=== PATIENT | female | born 1970 | race Caucasian/White ===

== ENCOUNTER 2016-10-10 15:58 | Emergency (ER) | payer SELFPAY ==
[2016-10-10 16:53] VITALS: BP 152/87
--- NOTE | 2016-10-10 16:57 | ER Document Report ---
ED Medical Screen (RME) - General Stated Complaint: RIGHT FOOT PAIN Time seen by provider: 16:55 Mode of Arrival: Ambulatory Information source: Patient Notes: 46-year-old female with an ingrown right great toenail tibial side and it is splitting the skin the past 2 days. She is a type II diabetic. No erythema or pus noted. I have greeted and performed a rapid initial assessment of this patient. A comprehensive ED assessment, evaluation of the patient, analysis of test results , and completion of the medical decision making process will be conducted by additional ED providers. TRAVEL OUTSIDE OF THE [place] IN LAST 30 DAYS: No - Related Data Allergies/Adverse Reactions: No Known Allergies Allergy (Verified 08/06/15 12:40) Past Medical History - Social History Family history: CAD, DM, Malignancy - Past Medical History Cardiac Medical History: Reports: Hx Atrial Fibrillation - Atrial flutter on 03/2013, Hx Congestive Heart Failure - Cardiomyopathy, Hx Hypertension Denies: Hx DVT Pulmonary Medical History: Reports: Hx Bronchitis Endocrine Medical History: Reports: Hx Diabetes Mellitus Type 2 Musculoskeltal Medical History: Reports Hx Musculoskeletal Trauma Skin Medical History: Reports Hx Cellulitis Traumatic Medical History: Reports: Hx Fractures - finger Past Surgical History: Reports: Hx Appendectomy, Hx Cardiac Catheterization - 3 years ago, Hx Tonsillectomy - Immunizations Immunizations up to date: No Hx Diphtheria, Pertussis, Tetanus Vaccination: No Physical Exam - Vital signs Vitals: Temp Pulse Resp BP Pulse Ox 98.2 F 58 L 20 152/87 H 98 10/10/16 16:52 10/10/16 16:52 10/10/16 16:52 10/10/16 16:52 10/10/16 16:52 Course - Vital Signs Vital signs: Temp Pulse Resp BP Pulse Ox 98.2 F 58 L 20 152/87 H 98 10/10/16 16:52 10/10/16 16:52 10/10/16 16:52 10/10/16 16:52 10/10/16 16:52
== END 2016-10-10 20:00 | disposition left against medical advice (07) ==
LOC: ER 15:58
DX: L60.0 Ingrowing nail (principal); E11.9 Type 2 diabetes mellitus without complications; I10 Essential (primary) hypertension; Z53.20 Procedure and treatment not carried out because of patient's decision for unspecified reasons
CPT/HCPCS: 99281

== ENCOUNTER 2017-01-23 06:03 | Inpatient (IN) | payer SELFPAY ==
[2017-01-23] MEDS ORDERED: ASPIRIN 81 MG TABLET, CHEWABLE PO ONE (06:16)
[2017-01-23 07:59] LABS: ABSOLUTE BASOPHILS # (AUTO) 0.1 10^3/uL (0.0-0.2); ABSOLUTE EOSINOPHILS # (AUTO) 0.2 10^3/uL (0.0-0.6); ABSOLUTE LYMPHOCYTES (AUTO) 3.9 10^3/uL (0.5-4.7); ABSOLUTE MONOCYTES (AUTO) 1.1 10^3/uL (0.1-1.4); ABSOLUTE NEUT (AUTO) 10.4 10^3/uL (1.7-8.2); BASOPHILS % (AUTO) 0.9 % (0-2); EOSINOPHILS % (AUTO) 1.4 % (0-6); HEMATOCRIT 40.7 % (36.0-47.0); HEMOGLOBIN 13.2 g/dL (12.0-15.5); HGB HCT DIFFERENCE -1.1; LYMPHOCYTES % (AUTO) 24.7 % (13-45); MEAN CORPUSCULAR HEMOGLOBIN 27.2 pg (27.0-33.4); MEAN CORPUSCULAR HGB CONC 32.4 g/dL (32.0-36.0); MEAN CORPUSCULAR VOLUME 84 fl (80-97); MONOCYTES % (AUTO) 6.9 % (3-13); RED BLOOD COUNT 4.84 10^6/uL (3.72-5.28); RED CELL DISTRIBUTION WIDTH 15.2 % (11.5-14.0); SEGMENTED NEUTROPHILS % (AUTO) 66.1 % (42-78); WHITE BLOOD COUNT 15.6 10^3/uL (4.0-10.5)
[2017-01-23 08:12] LABS: ALANINE AMINOTRANSFERASE 28 U/L (9-52); ALKALINE PHOSPHATASE 53 U/L (38-126); ANION GAP 11 (5-19); ASPARTATE AMINO TRANSFERASE 24 U/L (14-36); BILIRUBIN,DIRECT 0.4 mg/dL (0.0-0.4); BILIRUBIN,TOTAL 0.5 mg/dL (0.2-1.3); BLOOD UREA NITROGEN 11 mg/dL (7-20); CALCIUM 9.6 mg/dL (8.4-10.2); CARBON DIOXIDE 25 mmol/L (22-30); CHLORIDE 101 mmol/L (98-107); CREATINE KINASE 130 U/L (30-135); CREATININE RESULT 0.76 mg/dL (0.52-1.25); GLUCOSE 176 mg/dL (75-110); POTASSIUM 5.5 mmol/L (3.6-5.0); SODIUM 137.3 mmol/L (137-145); TOTAL PROTEIN 8.2 g/dL (6.3-8.2)
[2017-01-23 08:24] LABS: CREATINE KINASE MB 2.24 ng/mL (<4.55); TROPONIN I 0.024 ng/mL
--- NOTE | 2017-01-23 08:41 | RADIOLOGY REPORT (SQ) ---
EXAM DESCRIPTION: CHEST SINGLE VIEW COMPLETED DATE/TIME: 01/23/2017 8:27 am REASON FOR STUDY: chest pain COMPARISON: 07/24/2016 EXAM PARAMETERS: NUMBER OF VIEWS: One view. TECHNIQUE: Single frontal radiographic view of the chest acquired. RADIATION DOSE: NA LIMITATIONS: Poor inspiration. FINDINGS: LUNGS AND PLEURA: No opacities, masses or pneumothorax. No pleural effusion. MEDIASTINUM AND HILAR STRUCTURES: No masses. Contour normal. HEART AND VASCULAR STRUCTURES: Mild cardiomegaly. No evidence of failure. BONES: No acute findings. HARDWARE: None in the chest. OTHER: No other significant finding. IMPRESSION: Mild cardiomegaly without evidence of acute cardiopulmonary disease. TECHNICAL DOCUMENTATION: JOB ID: [id number]
--- NOTE | 2017-01-23 09:33 | RADIOLOGY REPORT (SQ) ---
EXAM DESCRIPTION: CTA CHEST COMPLETED DATE/TIME: 01/23/2017 8:48 am REASON FOR STUDY: chest pain afib COMPARISON: 07/14/2016 TECHNIQUE: CT scan of the chest performed using helical scanning technique with dynamic intravenous contrast injection. Images reviewed with lung, soft tissue and bone windows. Reconstructed coronal and sagittal MPR images reviewed. Additional 3 dimensional post-processing performed to develop Maximal Intensity Projection images (IL P). All images stored on PACS. All CT scanners at this facility use dose modulation, iterative reconstruction, and/or weight based d osing when appropriate to reduce radiation dose to as low as reasonably achievable (ALARA). [facility]: Dose Right [facility]: CareDose [facility]: Dose Right [facility]: Teradose 4D [facility]: FamilyApp CONTRAST TYPE AND DOSE: contrast/concentration: Isovue 370.00 mg/ml; Total Contrast Delivered: 71.0 ml; Total Saline Delivered: 70.0 ml RENAL FUNCTION: Creatinine 0.76 RADIATION DOSE: Up-to-date CT equipment and radiation dose reduction techniques were employed. CTDIv ol: 24.8 - 40.6 mGy. DLP: 1515 mGy-cm. . LIMITATIONS: None. FINDINGS: LUNGS AND PLEURA: Interval improvement in previously described ground-glass density with m inimal residual which may represent chronic change. Minimal recurrent edema would be additional cons ideration. No new areas of abnormal density. AORTA AND GREAT VESSELS: No aneurysm or dissection. HEART: No pericardial effusion. PULMONARY ARTERIES: No emboli visualized in the main pulmonary arteries or the segmental branches. HILAR AND MEDIASTINAL STRUCTURES: No identified masses or abnormal nodes. HARDWARE: None in the chest. UPPER ABDOMEN: Gallbladder appears distended but is otherwise unremarkable. THYROID AND OTHER SOFT TISSUES: No masses. No adenopathy. BONES: No acute or significant finding. 3D MIPS: Confirm above findings. OTHER: No other significant finding. IMPRESSION: 1. No evidence of pulmonary embolus. 2. Minimal ground-glass density in the lungs improved from the prior study. This could represent mi nimal pulmonary edema or chronic change. 3. Gallbladder appears distended but is otherwise unremarkable. TECHNICAL DOCUMENTATION: JOB ID: [id number] Quality ID # [id number]: Final reports with documentation of one or more dose reduction techniques (e.g., Au tomated exposure control, adjustment of the mA and/or kV according to patient size, use of iterative reconstruction technique) 2010 [employer]- All Rights Reserved
--- NOTE | 2017-01-23 10:23 | EKG REPORT ---
SEVERITY:- ABNORMAL ECG - ATRIAL FIBRILLATION CONSIDER ANTERIOR INFARCT NONSPECIFIC T ABNORMALITIES, LATERAL LEADS PROLONGED QT INTERVAL : Confirmed by: Flores Scanlon MD 23-Jan-2017 10:22:25
--- NOTE | 2017-01-23 10:40 | ER Document Report ---
ED General - General Chief Complaint: Chest Pain Stated Complaint: CHEST PAIN Time Seen by Provider: 01/23/17 06:12 Mode of Arrival: Ambulatory Information source: Patient Notes: 46-year-old female history of A. fib presents with complaints of midsternal chest tightness. Patient notes symptoms started today. Patient had similar episode 5 months ago which she thought was related to her gallbladder. Patient denies any any other concerns TRAVEL OUTSIDE OF THE [place] IN LAST 30 DAYS: No - HPI Onset: Just prior to arrival Onset/Duration: Sudden Quality of pain: Pressure Severity: Mild Pain Level: 1 Associated symptoms: Chest pain, Nonproductive cough, Shortness of breath Exacerbated by: Denies Relieved by: Denies Similar symptoms previously: Yes Recently seen / treated by doctor: Yes - Related Data Allergies/Adverse Reactions: No Known Allergies Allergy (Verified 10/10/16 16:57) Past Medical History - Social History Smoking Status: Never Smoker Cigarette use (# per day): No Chew tobacco use (# tins/day): No Smoking Education Provided: No Family History: Reviewed & Not Pertinent, CAD, DM, Hyperlipidemia, Hypertension , Malignancy Patient has suicidal ideation: No Patient has homicidal ideation: No - Past Medical History Cardiac Medical History: Reports: Hx Atrial Fibrillation - Atrial flutter on 03/2013, Hx Congestive Heart Failure - Cardiomyopathy, Hx Hypertension Denies: Hx DVT Pulmonary Medical History: Reports: Hx Bronchitis Endocrine Medical History: Reports: Hx Diabetes Mellitus Type 2 Renal/ Medical History: Denies: Hx Peritoneal Dialysis Musculoskeltal Medical History: Reports Hx Musculoskeletal Trauma Skin Medical History: Reports Hx Cellulitis Traumatic Medical History: Reports: Hx Fractures - finger Past Surgical History: Reports: Hx Appendectomy, Hx Cardiac Catheterization - 3 years ago, Hx Tonsillectomy - Immunizations Immunizations up to date: No Hx Diphtheria, Pertussis, Tetanus Vaccination: No Review of Systems - Review of Systems Notes: REVIEW OF SYSTEMS: CONSTITUTIONAL : Denies fever, chills, or sweats. Denies recent illness. EENT: Denies eye, ear, throat, or mouth pain or symptoms. Denies nasal or sinus congestion or discharge. Denies throat, tongue, or mouth swelling or difficulty swallowing. CARDIOVASCULAR: Admits to chest pain RESPIRATORY: Admits to shortness of breath GASTROINTESTINAL: Denies abdominal pain or distention. Denies nausea, vomiting , or diarrhea. Denies blood in vomitus, stools, or per rectum. Denies black, tarry stools. Denies constipation. GENITOURINARY: Denies difficulty urinating, painful urination, burning, frequency, blood in urine, or discharge. FEMALE GENITOURINARY: Denies vaginal bleeding, heavy or abnormal periods, irregular periods. Denies vaginal discharge or odor. MUSCULOSKELETAL: Denies back or neck pain or stiffness. Denies joint pain or swelling. SKIN: Denies rash, lesions or sores. HEMATOLOGIC : Denies easy bruising or bleeding. LYMPHATIC: Denies swollen, enlarged glands. NEUROLOGICAL: Denies confusion or altered mental status. Denies passing out or loss of consciousness. Denies dizziness or lightheadedness. Denies headache. Denies weakness or paralysis or loss of use of either side. Denies problems with gait or speech. Denies sensory loss, numbness, or tingling. Denies seizures. PSYCHIATRIC: Denies anxiety or stress. Denies depression, suicidal ideation, or homicidal ideation. ALL OTHER SYSTEMS REVIEWED AND NEGATIVE. PHYSICAL EXAMINATION: GENERAL: Well-appearing, well-nourished and in no acute distress. HEAD: Atraumatic, normocephalic. EYES: Pupils equal round and reactive to light, extraocular movements intact, conjunctiva are normal. ENT: Nares patent, oropharynx clear without exudates. Moist mucous membranes. NECK: Normal range of motion, supple without lymphadenopathy LUNGS: Breath sounds clear to auscultation bilaterally and equal. No wheezes rales or rhonchi. HEART: irregular rate and rhythm without murmurs ABDOMEN: Soft, nontender, nondistended abdomen. No guarding, no rebound. No masses appreciated. Female : deferred Musculoskeletal: Normal range of motion, no pitting or edema. No cyanosis. NEUROLOGICAL: Cranial nerves grossly intact. Normal speech, normal gait. Normal sensory, motor exams PSYCH: Normal mood, normal affect. SKIN: Warm, Dry, normal turgor, no rashes or lesions noted. Dictation was performed using [employer] voice recognition software Physical Exam - Vital signs Vitals: Resp BP Pulse Ox 18 94/72 L 98 01/23/17 06:11 01/23/17 06:11 01/23/17 06:11 Course - Re-evaluation Re-evalutation: 01/23/17 10:40 Patient was noted to have elevated white count, CT of the chest noted no significant abnormality, she is in A. fib well controlled. CT did note a distended gallbladder ultrasound is pending 01/23/17 12:33 gallstones + acuna sign 01/23/17 14:25 Dr. Rose was consulted to evaluate patient for acute cholecystitis, he agrees patient does have a tender abdomen and will take the patient to the operating room - Vital Signs Vital signs: Temp Pulse Resp BP Pulse Ox 97.7 F 87 25 H 122/81 99 01/23/17 06:27 01/23/17 06:27 01/23/17 13:01 01/23/17 12:48 01/23/17 13:01 - Laboratory Result Diagrams: 01/23/17 07:46 01/23/17 07:46 Laboratory results interpreted by me: 01/23/17 01/23/17 07:46 07:46 WBC 15.6 H RDW 15.2 H Absolute Neutrophils 10.4 H Potassium 5.5 H Glucose 176 H - Diagnostic Test Radiology reviewed: Image reviewed, Reports reviewed - EKG Interpretation by Me EKG shows normal: Sinus rhythm, [place], Intervals, QRS Complexes Rhythm: A.Fib Discharge - Discharge Clinical Impression: History of congestive heart failure, Smoker Cholecystitis with cholelithiasis Qualifiers: Cholelithiasis location: gallbladder Cholecystitis acuity: acute Biliary obstruction: with biliary obstruction Qualified Code(s): K80.01 - Calculus of gallbladder with acute cholecystitis with obstruction Hypertension Qualifiers: Hypertension type: essential hypertension Qualified Code(s): I10 - Essential ( primary) hypertension Atrial fibrillation Qualifiers: Atrial fibrillation type: chronic Qualified Code(s): I48.2 - Chronic atrial fibrillation Condition: Stable Disposition: ADMITTED OBSERVATION Admitting Provider: Surgicalist Unit Admitted: Surgical Floor
--- NOTE | 2017-01-23 12:27 | RADIOLOGY REPORT (SQ) ---
EXAM DESCRIPTION: U/S ABDOMEN LIMITED W/O DOP COMPLETED DATE/TIME: 01/23/2017 12:16 pm REASON FOR STUDY: RUQ pain COMPARISON: None. TECHNIQUE: Dynamic and static grayscale images acquired of the right upper quadrant and recorded on PACS. Additional selected color Doppler and spectral images recorded. LIMITATIONS: Study limited due to acoustical interference from fat or from air in the bowel. FINDINGS: PANCREAS: Visualized pancreas and duct normal. Parts of pancreas poorly seen secondary to acoustical interference from fat or from air in the bowel. LIVER: No masses. Echotexture normal. LIVER VASCULATURE: Normal directional flow of the main portal vein and hepatic veins. GALLBLADDER: Gallstone(s). No pericholecystic fluid. No wall thickening. ULTRASOUND-DETECTED ROSE'S SIGN: Positive. INTRAHEPATIC DUCTS AND COMMON DUCT: CBD and intrahepatic ducts normal caliber. No filling defects. INFERIOR VENA CAVA: Normal flow. AORTA: Poorly visualized. RIGHT KIDNEY: Normal size. Normal echogenicity. No solid or suspicious masses. No hydronephrosis. No calcifications. PERITONEAL CAVITY AND RIGHT PLEURAL SPACE: No ascites or effusions. OTHER: No other significant finding. IMPRESSION: GALLSTONES. REPORTED POSITIVE SONOGRAPHIC ROSE SIGN. NO OTHER SIGNIFICANT FINDINGS. TECHNICAL DOCUMENTATION: JOB ID: [id number] [employer]- All Rights Reserved
[2017-01-23] MEDS ORDERED: NORMAL SALINE 1000 ML 1,000 ML IV ONE (12:33)
[2017-01-23] MEDS ORDERED: NORMAL SALINE 1000 ML 1,000 ML IV PRN (13:38)
--- NOTE | 2017-01-23 13:48 | PDOC H&P ---
History of Present Illness Admission Date/PCP: [facility] Patient complains of: Chest pain History of Present Illness: MAXIMILIANO XAVIER is a 46 year old female brought by ground rescue to the emergency department [facility] because of acute onset chest pain. She had a similar episode approximately 5 months ago, evaluated in [facility] emergency department, told she had fluid on her lungs and was sent home. Today in the emergency department she was evaluated with a chest x-ray as well as a CTA of the chest without any evidence of cardio pulmonary vascular acute injury. She was found to have gallstones on the CAT scan, and a follow-up ultrasound was obtained which showed cholelithiasis. Because of persisting pain in her epigastric area, leukocytosis and tenderness, surgery was consulted and she was advised admission for definitive management. Patient denies knowing of previous gallstones, denies family history of gallbladder disease. Past Medical History Cardiac Medical History: Reports: Atrial Fibrillation - Atrial flutter on 2012, Congestive Heart Failure - Cardiomyopathy, Hypertension Denies: DVT Pulmonary Medical History: Reports: Bronchitis Endocrine Medical History: Reports: Diabetes Mellitus Type 2 Skin History Note: Morbid obesity Past Surgical History Past Surgical History: Reports: Appendectomy, Cardiac Catheterization - 3 years ago, Tonsillectomy Social History Smoking Status: Current Every Day Smoker - [place] Family History Family History: Reviewed & Not Pertinent, CAD, DM, Hyperlipidemia, Hypertension , Malignancy Parental Family History Reviewed: Yes Children Family History Reviewed: Yes Sibling(s) Family History Reviewed.: Yes Medication/Allergy Home Medications: Furosemide [Lasix 20 mg Tablet] 30 mg PO QHS 04/14/13 Lisinopril 20 mg PO DAILY 04/14/13 Metoprolol Succinate [Toprol XL 25 mg Tablet] 1.5 tab PO BID 04/14/13 Metformin HCl [Glucophage 500 mg Tablet] 500 mg PO BIDACBS #60 tab 01/23/15 Naproxen 500 mg PO BID #30 tablet 05/14/15 Oxycodone HCl/Acetaminophen [Percocet 5-325 mg Tablet] 1 - 2 tab PO ASDIR PRN # 15 tablet 09/07/15 Sulfamethoxazole/Trimethoprim [Sulfamethoxazole-Tmp Ds Tablet] 1 each PO BID # 14 tablet 09/07/15 Allergies/Adverse Reactions: No Known Allergies Allergy (Verified 10/10/16 16:57) Review of Systems Constitutional: ABSENT: chills, fever(s), headache(s), weight gain, weight loss Eyes: ABSENT: visual disturbances Ears: ABSENT: hearing changes Cardiovascular: PRESENT: as per HPI Gastrointestinal: PRESENT: other - Clinical Musculoskeletal: ABSENT: joint swelling Neurological: ABSENT: abnormal gait, abnormal speech, confusion, dizziness, focal weakness, syncope Psychiatric: ABSENT: anxiety, depression, homidical ideation, suicidal ideation Physical Exam Vital Signs: Temp Pulse Resp BP Pulse Ox 97.7 F 87 25 H 122/81 99 01/23/17 06:27 01/23/17 06:27 01/23/17 13:01 01/23/17 12:48 01/23/17 13:01 Intake & Output 01/22/17 01/23/17 01/24/17 06:59 06:59 06:59 Weight 148 kg General appearance: PRESENT: no acute distress Head exam: PRESENT: normocephalic Eye exam: PRESENT: EOMI Ear exam: PRESENT: normal external ear exam Mouth exam: PRESENT: moist Neck exam: PRESENT: full ROM Respiratory exam: PRESENT: wheezes Cardiovascular exam: PRESENT: RRR Pulses: PRESENT: normal carotid pulses, normal radial pulses GI/Abdominal exam: PRESENT: other - Well-healed scar; right upper quadrant tenderness to moderate palpation. Neurological exam: PRESENT: alert, altered, oriented to person, oriented to place Psychiatric exam: PRESENT: appropriate affect Skin exam: PRESENT: intact Results Laboratory Results: 01/23/17 07:46 01/23/17 07:46 01/23/17 01/23/17 07:46 07:46 WBC 15.6 H RBC 4.84 Hgb 13.2 Hct 40.7 MCV 84 MCH 27.2 MCHC 32.4 RDW 15.2 H Plt Count 298 Seg Neutrophils % 66.1 Lymphocytes % 24.7 Monocytes % 6.9 Eosinophils % 1.4 Basophils % 0.9 Absolute Neutrophils 10.4 H Absolute Lymphocytes 3.9 Absolute Monocytes 1.1 Absolute Eosinophils 0.2 Absolute Basophils 0.1 Sodium 137.3 Potassium 5.5 H Chloride 101 Carbon Dioxide 25 Anion Gap 11 BUN 11 Creatinine 0.76 Est GFR ( Amer) > 60 Est GFR (Non-Af Amer) > 60 Glucose 176 H Calcium 9.6 Total Bilirubin 0.5 AST 24 ALT 28 Alkaline Phosphatase 53 Total Protein 8.2 Albumin 4.0 01/23/17 01/23/17 01/23/17 07:46 07:46 10:15 Creatine Kinase 130 CK-MB (CK-2) 2.24 Troponin I 0.024 0.018 Impressions: Chest X-Ray 01/23/17 06:16 IMPRESSION: Mild cardiomegaly without evidence of acute cardiopulmonary disease. Chest/Abdomen CTA 01/23/17 07:26 IMPRESSION: 1. No evidence of pulmonary embolus. 2. Minimal ground-glass density in the lungs improved from the prior study. This could represent minimal pulmonary edema or chronic change. 3. Gallbladder appears distended but is otherwise unremarkable. Abdomen Ultrasound 01/23/17 09:39 IMPRESSION: GALLSTONES. REPORTED POSITIVE SONOGRAPHIC ROSE SIGN. NO OTHER SIGNIFICANT FINDINGS. Assessment & Plan - Diagnosis (1) Cholecystitis with cholelithiasis Is this a current diagnosis for this admission?: YesPlan: 1. Patient deserves admission, pain management, and definitive surgical intervention, laparoscopic possible open cholecystectomy. (2) History of congestive heart failure Is this a current diagnosis for this admission?: YesPlan: Patient has a history of congestive heart failure, with readmissions to also more hospital in [facility]. 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 Patient denies history of myocardial infarction. She has had medications which she receives to the community clinic. Stress test in the past. She has been intermittently compliant with her I have asked Dr. Dickens to consult on the patient, provide preoperative cardiac evaluation and potential clearance. Impression :the patient does not appear to be acute congestive heart failure. (3) Smoker Is this a current diagnosis for this admission?: Yes (4) Hypertension Is this a current diagnosis for this admission?: Yes - Time Time Spent: 50 to 70 Minutes Critical Time spent with patient: Less than 15 minutes Medications reviewed and adjusted accordingly: Yes Anticipated discharge: Home - Inpatient Certification Based on my medical assessment, after consideration of the patient's comorbidities, presenting symptoms, or acuity I expect that the services needed warrant INPATIENT care.: Yes I certify that my determination is in accordance with my understanding of Medicare's requirements for reasonable and necessary INPATIENT services [42 CFR 412.3e].: Yes Medical Necessity: Need For IV Fluids, Need for Pain Control, Need for IV Antibiotics, Need for Surgery
--- NOTE | 2017-01-23 18:41 | XCELERA REPORT ---
[address] [address] Transthoracic Echocardiogram Report Name: MAXIMILIANO XAVIER Age: 46 yrs Gender: Female : 1970 Patient Status: Inpatient Patient Location: \S\12\S\A Study Date: 01/23/2017 02:40 PM Height: 63 in Weight: 326 lb BSA: 2.4 m2 Procedure: A complete two-dimensional transthoracic echocardiogram was performed (2D, M-mode, spectral and color flow Doppler). The study was technically difficult with many images being suboptimal in quality. Reason For Study: chest pain Ordering Physician: DUSTIN SMITH Performed By: Js Goss Interpretation Summary The study was technically difficult with many images being suboptimal in quality. Left ventricular systolic function is moderate to severely reduced. The Ejection Fraction estimate is 30-35% The left ventricle is mildly dilated. LV diastolic function could not be adequately assessed due to atrial fibrilation. There is moderate to severe global hypokinesis of the left ventricle. The right ventricular systolic function is mildly reduced. The left atrium is moderately dilated. The right atrium is normal in size There is a mild amount of mitral regurgitation There is no mitral valve stenosis. There is no aortic valve stenosis No aortic regurgitation is present. There is a trace or physiologic amount of tricuspid regurgitation There is no tricuspid stenosis. The aortic root is not well visualized but is probably normal size. The inferior vena cava appeared normal and decreased > 50% with respiration (RAP 5-10 mmHg) There is no pericardial effusion. MMode/2D Measurements \T\ Calculations RVDd: 3.5 cm LVIDd: 5.8 cm FS: 16.2 % Ao root diam: 3.0 cm IVSd: 1.1 cm LVIDs: 4.9 cm EDV(Teich): 169.6 ml LVPWd: 1.1 cm ESV(Teich): 112.9 ml Ao root area: 7.2 cm2 EF(Teich): 33.4 % LA dimension: 4.7 cm Doppler Measurements \T\ Calculations MV E max maty: MV P1/2t max maty: Ao V2 max: LV V1 max P.1 cm/sec 96.6 cm/sec 118.3 cm/sec 1.7 mmHg MV P1/2t: 35.2 msec Ao max PG: LV V1 max: 5.6 mmHg 64.5 cm/sec MVA(P1/2t): 6.2 cm2 MV dec slope: 803.0 cm/sec2 TR max maty: RAP systole: 236.2 cm/sec 10.0 mmHg TR max P.3 mmHg RVSP(TR): 32.3 mmHg Left Ventricle The left ventricle is mildly dilated. Left ventricular systolic function is moderate to severely reduced. The Ejection Fraction estimate is 30-35%. LV diastolic function could not be adequately assessed due to atrial fibrilation. There is moderate to severe global hypokinesis of the left ventricle. Right Ventricle The right ventricle is grossly normal size. The right ventricular systolic function is mildly reduced. Atria The right atrium is normal in size. The left atrium is moderately dilated. Interarterial septum not well visualized and not well dopplered. Cannot comment on ASD/PFO presence. Mitral Valve The mitral valve is grossly normal. There is no mitral valve stenosis. There is a mild amount of mitral regurgitation. Aortic Valve The aortic valve is not well visualized secondary to technical limitations. There is no aortic valve stenosis. No aortic regurgitation is present. Tricuspid Valve The tricuspid valve is not well visualized secondary to technical limitations. There is no tricuspid stenosis. There is a trace or physiologic amount of tricuspid regurgitation. Pulmonic Valve The pulmonic valve is not well visualized. Great Vessels The aortic root is not well visualized but is probably normal size. The inferior vena cava appeared normal and decreased > 50% with respiration (RAP 5-10 mmHg). Effusions There is no pericardial effusion. : DUSTIN SMITH > Dustin Smith
--- NOTE | 2017-01-23 18:59 | PDOC CONSULTATION ---
Consultation Consult Date: 01/23/17 Attending physician:: NHI ROSE Consult reason:: Preop clearance, history of cardiomyopathy History of Present Illness Admission Date/PCP: 01/23/17 13:36 [facility] Patient complains of: Abdominal pain. History of Present Illness: MAXIMILIANO XAVIER is a 46 year old female brought by ground rescue to the emergency department [facility] because of acute onset chest pain. She had a similar episode approximately 5 months ago, evaluated in [facility] emergency department, told she had fluid on her lungs and was sent home. Today in the emergency department she was evaluated with a chest x-ray as well as a CTA of the chest without any evidence of cardio pulmonary vascular acute injury. She was found to have gallstones on the CAT scan, and a follow-up ultrasound was obtained which showed cholelithiasis. Because of persisting pain in her epigastric area, leukocytosis and tenderness, surgery was consulted and she was advised admission for definitive management. Patient denies knowing of previous gallstones, denies family history of gallbladder disease. Patient gives history of cardiomyopathy. She claims she had a heart catheterization about 2 years ago at [facility] during which she was found to have no significant coronary artery disease. Patient does have a history of atrial fibrillation but not on any chronic anticoagulation. Patient denied any previous cardioversion. Patient does not follow up with any regular tellers supervisor not any cell cleaner. Patient does have significant obesity and other significant medical problems including morbid obesity. Past Medical History Cardiac Medical History: Reports: Atrial Fibrillation - Atrial flutter on 2012, Congestive Heart Failure - Cardiomyopathy, Hypertension Denies: DVT Pulmonary Medical History: Reports: Bronchitis Endocrine Medical History: Reports: Diabetes Mellitus Type 2 Past Surgical History Past Surgical History: Reports: Appendectomy, Cardiac Catheterization - 3 years ago, Tonsillectomy Social History Information Source: Patient Smoking Status: Current Every Day Smoker Cigarettes Packs Per Day: 5 Frequency of Alcohol Use: Occasional Hx Recreational Drug Use: No Hx Prescription Drug Abuse: No - Advance Directive Resuscitation Status: Full Code Surrogate healthcare decision maker:: Patient sons are surrogate decision-maker Family History Family History: Reviewed & Not Pertinent, CAD, DM, Hyperlipidemia, Hypertension , Malignancy Parental Family History Reviewed: Yes Children Family History Reviewed: Yes Sibling(s) Family History Reviewed.: Yes Medication/Allergy Home Medications: Lisinopril 40 mg PO DAILY 04/14/13 Metformin HCl [Glucophage 500 mg Tablet] 500 mg PO BIDACBS #60 tab 01/23/15 Allergies/Adverse Reactions: No Known Allergies Allergy (Verified 10/10/16 16:57) Review of Systems Review of Systems: Please see history of present illness and past medical history as wall. Constitutional: No fever or chills reported. Head : No recent chronic headaches, recent head injury. Eyes: No recent eye pain, diplopia, redness, discharge, acute visual changes. Ears: No recent chronic ear pain, acute hearing loss, ear discharge. Oral cavity: No recent ulcerations, bleeding, oral cavity discomfort. Neck: No recent acute neck pain reported. Hematologic: No recent easy bruising or bleeding or hematologic malignancy reported. Lymphatic: No recent lymphatic malignancy, chronic lymphadenopathy reported yet Cardiovascular system review: See history of present illness. Respiratory system review: No recent chronic cough, hemoptysis, blood clots in the lungs reported. Mild Shortness of breath on exertion Gastrointestinal system review: Negative for any recent acute or chronic abdominal pain, hematemesis, melena, recent change in bowel habits. Genitourinary system review: No recent acute or chronic hematuria, flank pain, UTI etc. reported. Skin system review: Negative for any recent abnormal bruising, no rash, no pruritus reported. Neurologic: No prior history of strokes, mini strokes, seizure disorder. Psychologic: No history of major psychosis or major depression reported. Musculoskeletal: Minor aches and pains reported. No acute joint swelling reported. Endocrine: No recent polyuria, polydipsia, recent heat or cold intolerance. Physical Exam Vital Signs: Temp Pulse Resp BP Pulse Ox 98.8 F 82 18 113/65 98 01/23/17 18:14 01/23/17 18:14 01/23/17 18:14 01/23/17 18:14 01/23/17 18:14 Exam: GENERAL: well-nourished and in no acute distress. Alert and oriented x3 HEAD: Atraumatic, normocephalic. EYES: Pupils equal round and reactive to light, extraocular movements intact, sclera anicteric, conjunctiva are normal. ENT: TMs normal, nares patent, oropharynx clear without exudates. Moist mucous membranes. No oral ulcerations or bleeding gums noted NECK: supple without lymphadenopathy. Trachea is central. No cervical or axillary lymphadenopathy noted. Carotids are 2+, JVD WNL LUNGS: Respiration seems nonlabored, no significant accessory muscle action noted. Breath sounds clear to auscultation bilaterally and equal noted. No wheezes rales or rhonchi noted. No significant dullness noted on percussion. CHEST: Palpation of the chest wall shows no significant chest wall tenderness. No other significant abnormalities noted. 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 ABDOMEN: Soft, right upper quadrant tenderness appreciated, normoactive bowel sounds. No guarding, no rebound. No rigidity noted . No masses appreciated. EXTREMITIES: Pedal pulses are 1-2+, no calf tenderness noted. No clubbing or cyanosis. 1+ pedal edema noted NEUROLOGICAL: Focused neurological exam showed no significant neurologic deficit. Normal speech, no focal weakness appreciated. PSYCH: Normal mood, normal affect. Judgment and insight within normal limits. SKIN: No significant ecchymosis, rash, ulcerations or signs of pruritus noted. MUSCULOSKELETAL EXAM: No significant joint swelling noted. Results Laboratory Results: These were reviewed by me. EKG Comments: Atrial fibrillation but no acute ST-T wave changes noted. Heart rate is well controlled. Impressions: Chest X-Ray 01/23/17 06:16 IMPRESSION: Mild cardiomegaly without evidence of acute cardiopulmonary disease. Chest/Abdomen CTA 01/23/17 07:26 IMPRESSION: 1. No evidence of pulmonary embolus. 2. Minimal ground-glass density in the lungs improved from the prior study. This could represent minimal pulmonary edema or chronic change. 3. Gallbladder appears distended but is otherwise unremarkable. Abdomen Ultrasound 01/23/17 09:39 IMPRESSION: GALLSTONES. REPORTED POSITIVE SONOGRAPHIC ROSE SIGN. NO OTHER SIGNIFICANT FINDINGS. Status: Image reviewed by me - CTA of the chest and abdomen reviewed by me. Shows minimal coronary calcification. No other significant finding noted. Assessment & Plan - Diagnosis (1) Preoperative cardiovascular examination Is this a current diagnosis for this admission?: Yes (2) Obesity Qualifiers: Obesity severity: unspecified obesity severity Is this a current diagnosis for this admission?: Yes (3) Sleep-disordered breathing Is this a current diagnosis for this admission?: Yes (4) Atrial fibrillation Qualifiers: Atrial fibrillation type: chronic Qualified Code(s): I48.2 - Chronic atrial fibrillation Is this a current diagnosis for this admission?: Yes (5) Cholecystitis with cholelithiasis Qualifiers: Cholelithiasis location: gallbladder Cholecystitis acuity: acute Biliary obstruction: with biliary obstruction Qualified Code(s): K80.01 - Calculus of gallbladder with acute cholecystitis with obstruction Is this a current diagnosis for this admission?: Yes (6) History of congestive heart failure Is this a current diagnosis for this admission?: Yes (7) Hypertension Qualifiers: Hypertension type: essential hypertension Qualified Code(s): I10 - Essential (primary) hypertension Is this a current diagnosis for this admission?: Yes (8) Smoker Is this a current diagnosis for this admission?: Yes - Notes Notes: 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 Twelve-lead EKG, these were reviewed. Chest x-ray: Results reviewed. CTA reviewed. Medications: These were reviewed. Labs: These were reviewed. Treatment/care plan: This was reviewed and discussed with involved personnel in the care of this patient and patient. Discussed with Dr. Rose. Preop cardiovascular examination: Patient does have significant cardiomyopathy. 2D echocardiogram shows LVEF of 30-35%. Currently seems compensated. Patient not having any active angina but has atrial fibrillation. Feel that patient presents increased surgical risk in view of significant obesity, cardiomyopathy etc. but not in the prohibitive range. Patient would need very close monitoring of her cardiac and metabolic condition. Patient would also benefit from evaluation by cell cleaner/hospitalist. Patient would be considered at increased risk of postop pneumonia, heart failure, pulmonary embolism, DVT etc. This would need to be paid attention to. Hypertension: Blood pressure goal in this patient is 130/85 or less. This was discussed with the patient. Currently blood pressure under reasonable control. Better medication for this patient are YOANDY inhibitor/ARB/beta marlen etc. Atrial fibrillation: Patient has chronic atrial fibrillation. Based on [id number] score chronic anticoagulation is indicated this was explained to the patient. Patient is agreeable. Discussed a small increased risk of bleeding but on the balance benefits far exceeds the risk. Patient felt to be a satisfactory candidate for chronic anticoagulation. Chronic anticoagulation is not being started since patient is going to need surgery soon. But should be considered. Tobacco abuse: Patient has history of chronic smoking. Discussed detrimental effect of chronic smoking including worsening COPD, increased risk of cardiovascular events, cerebrovascular events, cancer and multiple other side effects of smoking. Diabetes: recommend good control of blood sugar. However should avoid any hypoglycemia. Severe obesity: Patient noted to have severe obesity. Patient may have underlying sleep apnea syndrome. Monitor respiration closely with any sedation etc. - Time Time Spent: 30 to 50 Minutes - CODE STATUS was discussed, patient remains full code. Surrogate decision-maker unchanged. Multiple medical problems were addressed. More than 50% of the time spent coordinating care, discussing management plans with involved caregivers. Management plans discussed with involved personnels. Medical decision making was of moderate to high complexity , patient's has multiple comorbidities. Medications reviewed and adjusted accordingly: Yes
[2017-01-23] MEDS ORDERED: DEXTROSE 50%-WATER 25 GM/50 ML DISP.SYRIN IV PRN ×2 (22:14)
[2017-01-23] MEDS ORDERED: GLUCAGON,HUMAN RECOMB 1 MG INJ SUBCUT PRN (22:14)
[2017-01-23] MEDS ORDERED: DEXTROSE 40% GEL 15 GM TUBE PO PRN ×2 (22:14)
[2017-01-23] MEDS ORDERED: CEFAZOLIN INJ 1 GM VIAL IV PRN (22:15)
[2017-01-23] MEDS ORDERED: CEFAZOLIN SODIUM 1.5 GM in DEXTROSE 5%-WATER 100 ML IV ONE (23:59)
[2017-01-24] MEDS: CEFAZOLIN SODIUM 1.5 GM in DEXTROSE 5%-WATER 100 ML IV SCH ×3 (06:31→22:07)
[2017-01-24 08:25] LABS: ABSOLUTE BASOPHILS # (AUTO) 0.1 10^3/uL (0.0-0.2); ABSOLUTE EOSINOPHILS # (AUTO) 0.3 10^3/uL (0.0-0.6); ABSOLUTE LYMPHOCYTES (AUTO) 4.3 10^3/uL (0.5-4.7); ABSOLUTE MONOCYTES (AUTO) 0.9 10^3/uL (0.1-1.4); BASOPHILS % (AUTO) 0.8 % (0-2); EOSINOPHILS % (AUTO) 2.9 % (0-6); HEMATOCRIT 39.9 % (36.0-47.0); HEMOGLOBIN 12.5 g/dL (12.0-15.5); HGB HCT DIFFERENCE -2.4; LYMPHOCYTES % (AUTO) 36.9 % (13-45); MEAN CORPUSCULAR HEMOGLOBIN 26.8 pg (27.0-33.4); MEAN CORPUSCULAR HGB CONC 31.3 g/dL (32.0-36.0); MEAN CORPUSCULAR VOLUME 86 fl (80-97); MONOCYTES % (AUTO) 7.9 % (3-13); RED BLOOD COUNT 4.66 10^6/uL (3.72-5.28); RED CELL DISTRIBUTION WIDTH 15.4 % (11.5-14.0); SEGMENTED NEUTROPHILS % (AUTO) 51.5 % (42-78); WHITE BLOOD COUNT 11.6 10^3/uL (4.0-10.5)
[2017-01-24 08:30] LABS: PROTHROMBIN TIME 14.2 SEC (11.4-15.4)
[2017-01-24 08:42] LABS: ALANINE AMINOTRANSFERASE 30 U/L (9-52); ALBUMIN 3.5 g/dL (3.5-5.0); ALKALINE PHOSPHATASE 44 U/L (38-126); ANION GAP 9 (5-19); ASPARTATE AMINO TRANSFERASE 21 U/L (14-36); BILIRUBIN,DIRECT 0.4 mg/dL (0.0-0.4); BILIRUBIN,TOTAL 0.6 mg/dL (0.2-1.3); BLOOD UREA NITROGEN 9 mg/dL (7-20); CALCIUM 8.9 mg/dL (8.4-10.2); CARBON DIOXIDE 27 mmol/L (22-30); CHLORIDE 101 mmol/L (98-107); CREATININE RESULT 0.64 mg/dL (0.52-1.25); GLUCOSE 146 mg/dL (75-110); POTASSIUM 4.6 mmol/L (3.6-5.0); SODIUM 136.5 mmol/L (137-145); TOTAL PROTEIN 7.3 g/dL (6.3-8.2)
--- NOTE | 2017-01-24 10:34 | PROGRESS NOTE E ---
Progress Note NAME: MAXIMILIANO XAVIER : 1970 AGE: 46Y DATE: 01/24/2017 ROOM: 223 Patient still complaining of epigastric pains, but is somewhat improved this morning. She denies any nausea or vomiting. Her abdomen is soft. It is tender in the subxiphoid area. No tenderness in the right upper quadrant. On review of her past history, she said she was admitted in August of this year with symptoms, but diagnosed to have congestive heart failure. She was seen by pbx supervisor and had an echocardiogram done yesterday which showed a 30-35% ejection fraction. The ultrasound yesterday showed gallstones with positive Lopez's sign, though upon examination today the right upper quadrant is nontender. There is no pericholecystic fluid nor wall thickening on the ultrasound of the gallbladder done yesterday, other than the presence of gallstones. I have discussed the case with the anesthesiologist prior to performing her laparoscopic cholecystectomy. DICTATING PHYSICIAN: HARLEY RICHARDS M.D. [id number] CAMILOY#: [id number] ID: [id number] JOB#: [id number] ACCT: [id number] cc: >
--- NOTE | 2017-01-24 11:08 | PDOC PROGRESS REPORT ---
Subjective Progress Note for:: 01/24/17 Subjective:: Patient seems to be doing better. Patient denied any abdominal pain. She denied any nausea vomiting and claims to be hungry. Pt is denying any chest arm or neck discomfort. Patient denying any PND, orthopnea. Patient denied any sustained palpitations, dizziness, syncope, near syncope. Patient denying any fever chills. Patient denying any other significant discomfort. Review of systems: Rest review of systems negative. Medications: Medications have been reviewed. Physical Exam Vital Signs: Temp Pulse Resp BP Pulse Ox 98.1 F 50 L 17 105/86 H 97 01/24/17 08:03 01/24/17 08:03 01/24/17 08:03 01/24/17 08:03 01/24/17 08:03 Intake & Output 01/23/17 01/24/17 01/25/17 06:59 06:59 06:59 Intake Total 1700 Balance 1700 Weight 145.7 kg Exam: GENERAL: well-nourished and in no acute distress. Alert and oriented x3 HEAD: Atraumatic, normocephalic. EYES: Pupils equal round and reactive to light, extraocular movements intact, sclera anicteric, conjunctiva are normal. ENT: TMs normal, nares patent, oropharynx clear without exudates. Moist mucous membranes. No oral ulcerations or bleeding gums noted NECK: supple without lymphadenopathy. Trachea is central. No cervical or axillary lymphadenopathy noted. Carotids are 2+, JVD WNL LUNGS: Respiration seems nonlabored, no significant accessory muscle action noted. Breath sounds clear to auscultation bilaterally and equal noted. No wheezes rales or rhonchi noted. No significant dullness noted on percussion. CHEST: Palpation of the chest wall shows no significant chest wall tenderness. No other significant abnormalities noted. 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 ABDOMEN: Soft, no significant tenderness appreciated, normoactive bowel sounds. No guarding, no rebound. No rigidity noted . No masses appreciated. EXTREMITIES: Pedal pulses are 1-2+, no calf tenderness noted. No clubbing or cyanosis.trace to 1+ pedal edema noted NEUROLOGICAL: Focused neurological exam showed no significant neurologic deficit. Normal speech, no focal weakness appreciated. PSYCH: Normal mood, normal affect. Judgment and insight within normal limits. SKIN: No significant ecchymosis, rash, ulcerations or signs of pruritus noted. MUSCULOSKELETAL EXAM: No significant joint swelling noted. Results Laboratory Results: 01/24/17 08:15 01/24/17 08:15 01/24/17 01/24/17 08:15 08:15 WBC 11.6 H RBC 4.66 Hgb 12.5 Hct 39.9 MCV 86 MCH 26.8 L MCHC 31.3 L RDW 15.4 H Plt Count 281 Seg Neutrophils % 51.5 Lymphocytes % 36.9 Monocytes % 7.9 Eosinophils % 2.9 Basophils % 0.8 Absolute Neutrophils 6.0 Absolute Lymphocytes 4.3 Absolute Monocytes 0.9 Absolute Eosinophils 0.3 Absolute Basophils 0.1 Sodium 136.5 L Potassium 4.6 Chloride 101 Carbon Dioxide 27 Anion Gap 9 BUN 9 Creatinine 0.64 Est GFR ( Amer) > 60 Est GFR (Non-Af Amer) > 60 Glucose 146 H Calcium 8.9 Total Bilirubin 0.6 AST 21 ALT 30 Alkaline Phosphatase 44 Total Protein 7.3 Albumin 3.5 Impressions: Chest X-Ray 01/23/17 06:16 IMPRESSION: Mild cardiomegaly without evidence of acute cardiopulmonary disease. Chest/Abdomen CTA 01/23/17 07:26 IMPRESSION: 1. No evidence of pulmonary embolus. 2. Minimal ground-glass density in the lungs improved from the prior study. This could represent minimal pulmonary edema or chronic change. 3. Gallbladder appears distended but is otherwise unremarkable. Abdomen Ultrasound 01/23/17 09:39 IMPRESSION: GALLSTONES. REPORTED POSITIVE SONOGRAPHIC ROSE SIGN. NO OTHER SIGNIFICANT FINDINGS. Assessment & Plan - Diagnosis (1) Preoperative cardiovascular examination Is this a current diagnosis for this admission?: Yes (2) Obesity Qualifiers: Obesity severity: unspecified obesity severity Is this a current diagnosis for this admission?: Yes (3) Sleep-disordered breathing Is this a current diagnosis for this admission?: Yes (4) Atrial fibrillation Qualifiers: Atrial fibrillation type: chronic Qualified Code(s): I48.2 - Chronic atrial fibrillation Is this a current diagnosis for this admission?: Yes (5) Cholecystitis with cholelithiasis Qualifiers: Cholelithiasis location: gallbladder Cholecystitis acuity: acute Biliary obstruction: with biliary obstruction Qualified Code(s): K80.01 - Calculus of gallbladder with acute cholecystitis with obstruction Is this a current diagnosis for this admission?: Yes (6) History of congestive heart failure Is this a current diagnosis for this admission?: Yes (7) Hypertension Qualifiers: Hypertension type: essential hypertension Qualified Code(s): I10 - Essential (primary) hypertension Is this a current diagnosis for this admission?: Yes (8) Smoker Is this a current diagnosis for this admission?: Yes - Notes Notes: Twelve-lead EKG, these were reviewed. Chest x-ray: Results reviewed. CTA reviewed. Medications: These were reviewed. Labs: These were reviewed. Treatment/care plan: This was reviewed and discussed with involved personnel in the care of this patient and patient. Restart carvedilol at 3.125 mg p.o. twice daily, and this was ordered. Started lisinopril at 2.5 mg p.o. twice daily, this was ordered. Discussed need with the patient of regular cardiology and internal medicine follow-up. Recommend that chronic anticoagulation be started as soon as feasible post surgery for chronic atrial fibrillation and DVT prophylaxis started. Preop cardiovascular examination: Patient does have significant cardiomyopathy. 2D echocardiogram shows LVEF of 30-35%. Currently seems compensated. Patient not having any active angina but has atrial fibrillation. Feel that patient presents increased surgical risk in view of significant obesity, cardiomyopathy etc. but not in the prohibitive range. Patient would need very close monitoring of her cardiac and metabolic condition. Patient would also benefit from evaluation by social worker/hospitalist. Patient would be considered at increased risk of postop pneumonia, heart failure, pulmonary embolism, DVT etc. This would need to be paid attention to. Hypertension: Blood pressure goal in this patient is 130/85 or less. This was discussed with the patient. Currently blood pressure under reasonable control. Better medication for this patient are YOANDY inhibitor/ARB/beta marlen etc. recommend instituting these medications. Atrial fibrillation: Patient has chronic atrial fibrillation. Based on [id number] score chronic anticoagulation is indicated this was explained to the patient. Patient is agreeable. Discussed a small increased risk of bleeding but on the balance benefits far exceeds the risk. Patient felt to be a satisfactory candidate for chronic anticoagulation. Chronic anticoagulation is not being started since patient is going to need surgery soon. But should be considered. Tobacco abuse: Patient has history of chronic smoking. Discussed detrimental effect of chronic smoking including worsening COPD, increased risk of cardiovascular events, cerebrovascular events, cancer and multiple other side effects of smoking. Diabetes: recommend good control of blood sugar. However should avoid any hypoglycemia. Consider metformin, GLP-1 agonist therapy such as Victoza. Severe obesity: Patient noted to have severe obesity. Patient may have underlying sleep apnea syndrome. Monitor respiration closely with any sedation etc. patient will benefit from evaluation with a sleep study and this should be considered as an outpatient. - Time Time with patient: Greater than 35 minutes - CODE STATUS was discussed, patient remains full code. Surrogate decision-maker unchanged. Multiple medical problems were addressed. More than 50% of the time spent coordinating care, discussing management plans with involved caregivers. Management plans discussed with involved personnels. Medical decision making was of moderate to high complexity, patient's has multiple comorbidities. Medications reviewed and adjusted accordingly: Yes
[2017-01-24] MEDS ORDERED: DEXTROSE 50%-WATER 25 GM/50 ML DISP.SYRIN IV PRN ×4 (11:19→12:07)
[2017-01-24] MEDS ORDERED: GLUCAGON,HUMAN RECOMB 1 MG INJ IM PRN ×2 (11:19→12:07)
[2017-01-24] MEDS ORDERED: INSULIN LISPRO 100 UNIT/ML 3 ML VIAL SUBCUT PRN ×2 (11:19→12:07)
[2017-01-24] MEDS ORDERED: DEXTROSE 40% GEL 15 GM TUBE PO PRN ×4 (11:19→12:07)
[2017-01-24] MEDS ORDERED: NORMAL SALINE 1000 ML 1,000 ML IV PRN (12:09)
--- NOTE | 2017-01-24 13:44 | PDOC CONSULTATION ---
Consultation Consult Date: 01/24/17 Attending physician:: HARLEY RICHARDS Consult reason:: Right upper quadrant pain History of Present Illness Admission Date/PCP: 01/23/17 13:36 [facility] Patient complains of: Right upper quadrant pain History of Present Illness: MAXIMILIANO XAVIER is a 46 year old female brought by ground rescue to the emergency department [facility] because of acute onset chest pain. She had a similar episode approximately 5 months ago, evaluated in [facility] emergency department, told she had fluid on her lungs and was sent home. Today in the emergency department she was evaluated with a chest x-ray as well as a CTA of the chest without any evidence of cardio pulmonary vascular acute injury. She was found to have gallstones on the CAT scan, and a follow-up ultrasound was obtained which showed cholelithiasis. Because of persisting pain in her epigastric area, leukocytosis and tenderness, surgery was consulted and she was advised admission for definitive management. Patient denies knowing of previous gallstones, denies family history of gallbladder disease. Patient gives history of cardiomyopathy. She claims she had a heart catheterization about 2 years ago at [facility] during which she was found to have no significant coronary artery disease. Patient does have a history of atrial fibrillation but not on any chronic anticoagulation. Patient denied any previous cardioversion. Patient does not follow up with any regular revenue collector not any folder gluer operator. Patient does have significant obesity and other significant medical problems including morbid obesity and diabetes mellitus type II. Past Medical History Cardiac Medical History: Reports: Atrial Fibrillation - Atrial flutter on 2012, Congestive Heart Failure - Cardiomyopathy, Hypertension Denies: DVT Pulmonary Medical History: Reports: Bronchitis EENT Medical History: Reports: None Neurological Medical History: Reports: None Endocrine Medical History: Reports: Diabetes Mellitus Type 2 Renal/ Medical History: Reports: None Malignancy Medical History: Reports: None GI Medical History: Reports: Other - Cholithiasis Musculoskeltal Medical History: Reports: None Skin Medical History: Reports: None Psychiatric Medical History: Reports: Tobacco Dependency Traumatic Medical History: Reports: None Hematology: Reports: None Infectious Medical History: Reports: None Past Surgical History Past Surgical History: Reports: Appendectomy, Cardiac Catheterization - 3 years ago, Tonsillectomy Social History Smoking Status: Current Every Day Smoker Cigarettes Packs Per Day: 0.5 Frequency of Alcohol Use: Occasional Hx Recreational Drug Use: No Hx Prescription Drug Abuse: No - Advance Directive Resuscitation Status: Full Code Surrogate healthcare decision maker:: David Rodriguez Family History Family History: Reviewed & Not Pertinent, CAD, DM, Hyperlipidemia, Hypertension , Malignancy Parental Family History Reviewed: Yes Children Family History Reviewed: Yes Sibling(s) Family History Reviewed.: Yes Medication/Allergy Home Medications: Metformin HCl [Glucophage 500 mg Tablet] 500 mg PO BIDACBS #60 tab 01/23/15 Carvedilol [Coreg 6.25 mg Tablet] 6.25 mg PO Q12 01/23/17 Esomeprazole Magnesium [Nexium 24Hr] 22.3 mg PO DAILY 01/23/17 Hydrochlorothiazide [Hydrodiuril 50 mg Tablet] 50 mg PO QAM 01/23/17 Lisinopril [Prinivil 40 mg Tablet] 40 mg PO DAILY 01/23/17 Sotalol HCl [Betapace] 120 mg PO Q12 01/23/17 Spironolactone [Aldactone 25 mg Tablet] 25 mg PO Q12 01/23/17 Allergies/Adverse Reactions: No Known Allergies Allergy (Verified 10/10/16 16:57) Review of Systems Constitutional: ABSENT: chills, fever(s), headache(s), weight gain, weight loss Eyes: ABSENT: visual disturbances Ears: ABSENT: hearing changes Cardiovascular: PRESENT: dyspnea on exertion Respiratory: ABSENT: cough, hemoptysis Gastrointestinal: PRESENT: nausea, other - right upper quadrant tenderness. ABSENT: abdominal pain, constipation, diarrhea, hematemesis, hematochezia, vomiting Genitourinary: ABSENT: dysuria, hematuria Musculoskeletal: ABSENT: joint swelling Integumentary: ABSENT: rash, wounds Neurological: ABSENT: abnormal gait, abnormal speech, confusion, dizziness, focal weakness, syncope Psychiatric: ABSENT: anxiety, depression, homidical ideation, suicidal ideation Endocrine: ABSENT: cold intolerance, heat intolerance, polydipsia, polyuria Hematologic/Lymphatic: ABSENT: easy bleeding, easy bruising Physical Exam Vital Signs: Temp Pulse Resp BP Pulse Ox 98.1 F 50 L 17 105/86 H 97 01/24/17 08:03 01/24/17 08:03 01/24/17 08:03 01/24/17 08:03 01/24/17 08:03 Intake & Output 01/23/17 01/24/1717 06:59 06:59 06:59 Intake Total 1700 Balance 1700 Weight 145.7 kg General appearance: PRESENT: no acute distress, morbidly obese, well-developed, well-nourished Head exam: PRESENT: atraumatic, normocephalic Eye exam: PRESENT: conjunctiva pink, EOMI, PERRLA. ABSENT: scleral icterus Ear exam: PRESENT: normal external ear exam Mouth exam: PRESENT: moist, tongue midline Neck exam: ABSENT: carotid bruit, JVD, lymphadenopathy, thyromegaly Respiratory exam: PRESENT: clear to auscultation osmel. ABSENT: rales, rhonchi, wheezes Cardiovascular exam: PRESENT: RRR, systolic murmur - 1/6 pansystolic. ABSENT: diastolic murmur, rubs Pulses: PRESENT: normal carotid pulses, normal radial pulses Vascular exam: PRESENT: normal capillary refill GI/Abdominal exam: PRESENT: normal bowel sounds, soft, tenderness - RUQ. ABSENT : distended, guarding, mass, organolmegaly, rebound Rectal exam: PRESENT: deferred Extremities exam: PRESENT: full ROM. ABSENT: calf tenderness, clubbing, pedal edema Neurological exam: PRESENT: alert, awake, oriented to person, oriented to place , oriented to time, oriented to situation, CN II-XII grossly intact. ABSENT: motor sensory deficit Psychiatric exam: PRESENT: appropriate affect, normal mood. ABSENT: homicidal ideation, suicidal ideation Skin exam: PRESENT: dry, intact, warm. ABSENT: cyanosis, rash Results Laboratory Results: 01/24/17 08:15 01/24/17 08:15 01/24/17 01/24/17 08:15 08:15 WBC 11.6 H RBC 4.66 Hgb 12.5 Hct 39.9 MCV 86 MCH 26.8 L MCHC 31.3 L RDW 15.4 H Plt Count 281 Seg Neutrophils % 51.5 Lymphocytes % 36.9 Monocytes % 7.9 Eosinophils % 2.9 Basophils % 0.8 Absolute Neutrophils 6.0 Absolute Lymphocytes 4.3 Absolute Monocytes 0.9 Absolute Eosinophils 0.3 Absolute Basophils 0.1 Sodium 136.5 L Potassium 4.6 Chloride 101 Carbon Dioxide 27 Anion Gap 9 BUN 9 Creatinine 0.64 Est GFR ( Amer) > 60 Est GFR (Non-Af Amer) > 60 Glucose 146 H Calcium 8.9 Total Bilirubin 0.6 AST 21 ALT 30 Alkaline Phosphatase 44 Total Protein 7.3 Albumin 3.5 Impressions: Chest X-Ray 01/23/17 06:16 IMPRESSION: Mild cardiomegaly without evidence of acute cardiopulmonary disease. Chest/Abdomen CTA 01/23/17 07:26 IMPRESSION: 1. No evidence of pulmonary embolus. 2. Minimal ground-glass density in the lungs improved from the prior study. This could represent minimal pulmonary edema or chronic change. 3. Gallbladder appears distended but is otherwise unremarkable. Abdomen Ultrasound 01/23/17 09:39 IMPRESSION: GALLSTONES. REPORTED POSITIVE SONOGRAPHIC ROSE SIGN. NO OTHER SIGNIFICANT FINDINGS. Assessment & Plan - Diagnosis (1) Atrial fibrillation Qualifiers: Atrial fibrillation type: chronic Qualified Code(s): I48.2 - Chronic atrial fibrillation Is this a current diagnosis for this admission?: YesPlan: Per cardiology's managament. Patient was on Sotalol and Coreg, no anticougulation therapy. This will be addressed post operatively by cardiology. (2) Cholecystitis with cholelithiasis Qualifiers: Cholelithiasis location: gallbladder Cholecystitis acuity: acute Biliary obstruction: with biliary obstruction Qualified Code(s): K80.01 - Calculus of gallbladder with acute cholecystitis with obstruction Is this a current diagnosis for this admission?: YesPlan: Per surgery's management. Plan for choleycystectomy tomorrow (3) Hypertension Qualifiers: Hypertension type: essential hypertension Qualified Code(s): I10 - Essential (primary) hypertension Is this a current diagnosis for this admission?: YesPlan: Will restart Coreg and zina inhibitor. (4) Obesity Qualifiers: Obesity severity: unspecified obesity severity Is this a current diagnosis for this admission?: YesPlan: Counseled (5) Sleep-disordered breathing Is this a current diagnosis for this admission?: YesPlan: CPAP at hs (6) Smoker Is this a current diagnosis for this admission?: YesPlan: Counseled. Nicotine transdermal patch (7) Chronic systolic heart failure Is this a current diagnosis for this admission?: YesPlan: Patient is presently euvolemic. Will decrease IV fluids while patient is no longer NPO to avoid fluid volume overload - Time Time Spent: 50 to 70 Minutes Critical Time spent with patient: 25-34 minutes Smoking Cessation Education: 3 to 10 minutes Medications reviewed and adjusted accordingly: Yes
[2017-01-24] MEDS ORDERED: NICOTINE 21 MG/24 HR PATCH.TD24 TD PRN (14:26)
[2017-01-24] MEDS ORDERED: (PENDING PHARMACY ID) (Sotalol Hcl [Betapace] 120 MG) PO SCH (22:00)
[2017-01-24] MEDS ORDERED: CARVEDILOL 6.25 MG TABLET PO SCH (22:00)
[2017-01-24] MEDS ORDERED: CARVEDILOL 3.125 MG TABLET PO SCH (22:00)
[2017-01-24] MEDS: CARVEDILOL 6.25 MG TABLET PO SCH (22:05)
[2017-01-24] MEDS: LISINOPRIL 5 MG TABLET PO SCH (22:05)
[2017-01-25] MEDS: CEFAZOLIN SODIUM 1.5 GM in DEXTROSE 5%-WATER 100 ML IV SCH ×3 (05:39→23:58)
[2017-01-25] MEDS ORDERED: IPRATROPIUM/ALBUTEROL 0.5-2.5 MG/3 ML AMPUL NEB PRN (06:57)
--- NOTE | 2017-01-25 09:31 | PROGRESS NOTE E ---
Progress Note NAME: MAXIMILIANO XAVIER : 1970 AGE: 46Y DATE: 01/25/2017 ROOM: 425 SUBJECTIVE: The patient denies any more abdominal pains and feels comfortable. However, she gets easy fatigability and just walking to the bathroom makes her short of breath. She apparently talked to the anesthesiologist this morning and the anesthesiologist called me as far as doing the surgery here at [place]. I agree with the anesthesiologist that the best place for her because of history of CHF and ejection fraction of 30-35%, will be in a facility where they have a good cardiology service and cardiology anesthesiologist. Patient mentioned that she would like to go to [facility] where she was there about 5 years ago for her CHF. Patient is afebrile. She was able to tolerate regular food yesterday when the surgery was rescheduled for this morning. The main thing is to make sure that she is not developing any CHF with easy fatigability and to check her white count to make sure it is down to practically normal as well as her LFTs should not have changed. If chest x-ray is unremarkable and white count is normal, it is safe to discharge her today and hold off on her surgery. However, she needs to be followed up by a trial attorney, preferably at [facility] for possible semi-elective cholecystectomy. In the meantime, I advised the patient to avoid any fried food or greasy food. DICTATING PHYSICIAN: HARLEY RICHARDS M.D. [id number] PHY#: [id number] ID: [id number] JOB#: [id number] ACCT: [id number] cc: >
--- NOTE | 2017-01-25 10:35 | RADIOLOGY REPORT (SQ) ---
EXAM DESCRIPTION: CHEST PA/LAT COMPLETED DATE/TIME: 01/25/2017 10:27 am REASON FOR STUDY: CHF COMPARISON: None. EXAM PARAMETERS: NUMBER OF VIEWS: two views TECHNIQUE: Digital Frontal and Lateral radiographic views of the chest acquired. RADIATION DOSE: NA LIMITATIONS: none FINDINGS: LUNGS AND PLEURA: No opacities, masses or pneumothorax. No pleural effusion. MEDIASTINUM AND HILAR STRUCTURES: No masses or contour abnormalities. HEART AND VASCULAR STRUCTURES: Cardiomegaly with mild pulmonary vascular congestion but no cher pulm onary edema. BONES: No acute findings. HARDWARE: None in the chest. OTHER: No other significant finding. IMPRESSION: Cardiomegaly with pulmonary vascular congestion but no cher CHF. TECHNICAL DOCUMENTATION: JOB ID: [id number] [employer]- All Rights Reserved
[2017-01-25 11:12] LABS: ABSOLUTE BASOPHILS # (AUTO) 0.1 10^3/uL (0.0-0.2); ABSOLUTE EOSINOPHILS # (AUTO) 0.2 10^3/uL (0.0-0.6); ABSOLUTE LYMPHOCYTES (AUTO) 3.6 10^3/uL (0.5-4.7); BASOPHILS % (AUTO) 1.1 % (0-2); EOSINOPHILS % (AUTO) 1.8 % (0-6); HEMATOCRIT 36.1 % (36.0-47.0); HEMOGLOBIN 11.4 g/dL (12.0-15.5); HGB HCT DIFFERENCE -1.9; LYMPHOCYTES % (AUTO) 27.5 % (13-45); MEAN CORPUSCULAR HEMOGLOBIN 26.7 pg (27.0-33.4); MEAN CORPUSCULAR HGB CONC 31.5 g/dL (32.0-36.0); MEAN CORPUSCULAR VOLUME 85 fl (80-97); MONOCYTES % (AUTO) 7.8 % (3-13); RED BLOOD COUNT 4.26 10^6/uL (3.72-5.28); RED CELL DISTRIBUTION WIDTH 15.3 % (11.5-14.0); SEGMENTED NEUTROPHILS % (AUTO) 61.8 % (42-78)
[2017-01-25 11:28] LABS: ALANINE AMINOTRANSFERASE 29 U/L (9-52); ALBUMIN 3.8 g/dL (3.5-5.0); ALKALINE PHOSPHATASE 44 U/L (38-126); ANION GAP 10 (5-19); ASPARTATE AMINO TRANSFERASE 16 U/L (14-36); BILIRUBIN,DIRECT 0.3 mg/dL (0.0-0.4); BILIRUBIN,TOTAL 0.7 mg/dL (0.2-1.3); BLOOD UREA NITROGEN 11 mg/dL (7-20); CALCIUM 9.2 mg/dL (8.4-10.2); CARBON DIOXIDE 28 mmol/L (22-30); CHLORIDE 99 mmol/L (98-107); CREATININE RESULT 0.62 mg/dL (0.52-1.25); GLUCOSE 121 mg/dL (75-110); LIPASE 100.1 U/L (23-300); POTASSIUM 4.4 mmol/L (3.6-5.0); TOTAL PROTEIN 7.5 g/dL (6.3-8.2)
[2017-01-25] MEDS: LISINOPRIL 5 MG TABLET PO SCH ×2 (12:35→22:30)
[2017-01-25] MEDS: CARVEDILOL 6.25 MG TABLET PO SCH ×2 (12:36→22:30)
[2017-01-25] MEDS ORDERED: FUROSEMIDE INJ/PF 20 MG/2 ML SDV IV ONE (14:00)
--- NOTE | 2017-01-25 17:15 | PDOC PROGRESS REPORT ---
Subjective Progress Note for:: 01/25/17 Subjective:: Patient is seen on rounds. She is presently resting in bed. Her surgery has been canceled for today. She states her pain has resolved and anesthesia feels because of her heart she would be better served in a tertiary care center with cardiac anesthesiologist. Patient states she would like to go to [place] to have surgery. She states she is short of breath this morning when she ambulates to the bathroom. She also notices a trace of swelling in her feet. She denies any chest pain, dyspnea or palpitations. She denies any nausea, vomiting, abdominal pain or diarrhea. Rest of the review of systems is negative Physical Exam Vital Signs: Temp Pulse Resp BP Pulse Ox 99.3 F 88 18 143/91 H 100 01/25/17 15:20 01/25/17 15:20 01/25/17 15:20 01/25/17 15:20 01/25/17 15:20 Intake & Output 01/24/17 01/25/17 01/26/17 06:59 06:59 06:59 Intake Total 1700 1190 440 Balance 1700 1190 440 Weight 145.7 kg General appearance: PRESENT: no acute distress, morbidly obese, well-developed, well-nourished Head exam: PRESENT: atraumatic, normocephalic Eye exam: PRESENT: conjunctiva pink, EOMI, PERRLA. ABSENT: scleral icterus Ear exam: PRESENT: normal external ear exam Mouth exam: PRESENT: moist, tongue midline Neck exam: ABSENT: carotid bruit, JVD, lymphadenopathy, thyromegaly Respiratory exam: PRESENT: crackles - Bilateral bases, symmetrical, unlabored Cardiovascular exam: PRESENT: irregular rhythm, +S1, +S2 Pulses: PRESENT: normal carotid pulses, normal radial pulses Vascular exam: PRESENT: normal capillary refill GI/Abdominal exam: PRESENT: normal bowel sounds, soft. ABSENT: distended, guarding, mass, organolmegaly, rebound, tenderness Rectal exam: PRESENT: deferred Extremities exam: PRESENT: full ROM, +1 edema - Bilateral feet. ABSENT: calf tenderness, clubbing, pedal edema Musculoskeletal exam: PRESENT: ambulatory, full ROM Neurological exam: PRESENT: alert, awake, oriented to person, oriented to place , oriented to time, oriented to situation, CN II-XII grossly intact. ABSENT: motor sensory deficit Psychiatric exam: PRESENT: appropriate affect, normal mood. ABSENT: homicidal ideation, suicidal ideation Skin exam: PRESENT: dry, intact, warm. ABSENT: cyanosis, rash Results Laboratory Results: 01/25/17 10:57 01/25/17 10:57 01/25/17 01/25/17 10:57 10:57 WBC 13.0 H RBC 4.26 Hgb 11.4 L Hct 36.1 MCV 85 MCH 26.7 L MCHC 31.5 L RDW 15.3 H Plt Count 273 Seg Neutrophils % 61.8 Lymphocytes % 27.5 Monocytes % 7.8 Eosinophils % 1.8 Basophils % 1.1 Absolute Neutrophils 8.0 Absolute Lymphocytes 3.6 Absolute Monocytes 1.0 Absolute Eosinophils 0.2 Absolute Basophils 0.1 Sodium 137.0 Potassium 4.4 Chloride 99 Carbon Dioxide 28 Anion Gap 10 BUN 11 Creatinine 0.62 Est GFR ( Amer) > 60 Est GFR (Non-Af Amer) > 60 Glucose 121 H Calcium 9.2 Total Bilirubin 0.7 AST 16 ALT 29 Alkaline Phosphatase 44 Total Protein 7.5 Albumin 3.8 Lipase 100.1 Impressions: Chest/Abdomen CTA 01/23/17 07:26 IMPRESSION: 1. No evidence of pulmonary embolus. 2. Minimal ground-glass density in the lungs improved from the prior study. This could represent minimal pulmonary edema or chronic change. 3. Gallbladder appears distended but is otherwise unremarkable. Abdomen Ultrasound 01/23/17 09:39 IMPRESSION: GALLSTONES. REPORTED POSITIVE SONOGRAPHIC ROSE SIGN. NO OTHER SIGNIFICANT FINDINGS. Chest X-Ray 01/25/17 00:00 IMPRESSION: Cardiomegaly with pulmonary vascular congestion but no cher CHF. Assessment & Plan - Diagnosis (1) Fluid overload Is this a current diagnosis for this admission?: YesPlan: Will discontinue IV fluid and diurese. patient is not requiring oxygen at the present time. (2) Atrial fibrillation Qualifiers: Atrial fibrillation type: chronic Qualified Code(s): I48.2 - Chronic atrial fibrillation Is this a current diagnosis for this admission?: YesPlan: Per cardiology's managament. Patient was on Sotalol and Coreg, no anticougulation therapy. This will be addressed post operatively by cardiology. (3) Cholecystitis with cholelithiasis Qualifiers: Cholelithiasis location: gallbladder Cholecystitis acuity: acute Biliary obstruction: with biliary obstruction Qualified Code(s): K80.01 - Calculus of gallbladder with acute cholecystitis with obstruction Is this a current diagnosis for this admission?: YesPlan: Per surgery's management. Plan for choleycystectomy tomorrow (4) Hypertension Qualifiers: Hypertension type: essential hypertension Qualified Code(s): I10 - Essential (primary) hypertension Is this a current diagnosis for this admission?: YesPlan: Will restart Coreg and zina inhibitor. (5) Obesity Qualifiers: Obesity severity: unspecified obesity severity Is this a current diagnosis for this admission?: YesPlan: Counseled (6) Sleep-disordered breathing Is this a current diagnosis for this admission?: YesPlan: CPAP at hs (7) Smoker Is this a current diagnosis for this admission?: YesPlan: Counseled. Nicotine transdermal patch (8) Chronic systolic heart failure Is this a current diagnosis for this admission?: YesPlan: Patient appears fluid volume overload at present time. She was given 40 mg IV Lasix. And IV fluids were stopped. She was restarted on her heart failure medications. - Time Time Spent with patient: 25-34 minutes Critical Time spent with patient: 15-24 minutes Medications reviewed and adjusted accordingly: Yes Anticipated discharge: Home
[2017-01-25] MEDS: SPIRONOLACTONE 25 MG TABLET PO SCH (22:29)
[2017-01-26 05:08] LABS: ABSOLUTE BASOPHILS # (AUTO) 0.1 10^3/uL (0.0-0.2); ABSOLUTE EOSINOPHILS # (AUTO) 0.3 10^3/uL (0.0-0.6); ABSOLUTE MONOCYTES (AUTO) 1.1 10^3/uL (0.1-1.4); ABSOLUTE NEUT (AUTO) 7.6 10^3/uL (1.7-8.2); BASOPHILS % (AUTO) 1.1 % (0-2); EOSINOPHILS % (AUTO) 2.3 % (0-6); HEMATOCRIT 36.6 % (36.0-47.0); HEMOGLOBIN 11.7 g/dL (12.0-15.5); HGB HCT DIFFERENCE -1.5; LYMPHOCYTES % (AUTO) 24.8 % (13-45); MEAN CORPUSCULAR HEMOGLOBIN 27.1 pg (27.0-33.4); MEAN CORPUSCULAR HGB CONC 31.9 g/dL (32.0-36.0); MEAN CORPUSCULAR VOLUME 85 fl (80-97); MONOCYTES % (AUTO) 9.4 % (3-13); RED CELL DISTRIBUTION WIDTH 15.3 % (11.5-14.0); SEGMENTED NEUTROPHILS % (AUTO) 62.4 % (42-78); WHITE BLOOD COUNT 12.2 10^3/uL (4.0-10.5)
[2017-01-26 05:36] LABS: ANION GAP 10 (5-19); BLOOD UREA NITROGEN 13 mg/dL (7-20); CALCIUM 8.9 mg/dL (8.4-10.2); CARBON DIOXIDE 32 mmol/L (22-30); CHLORIDE 97 mmol/L (98-107); CREATININE RESULT 0.69 mg/dL (0.52-1.25); GLUCOSE 131 mg/dL (75-110); SODIUM 139.2 mmol/L (137-145)
[2017-01-26] MEDS: CEFAZOLIN SODIUM 1.5 GM in DEXTROSE 5%-WATER 100 ML IV SCH (05:46)
--- NOTE | 2017-01-26 08:34 | DISCHARGE SUMMARY E ---
Discharge Summary NAME: MAXIMILIANO XAVIER : 1970 AGE: 46Y ADMITTED: 01/23/2017 DISCHARGED: 01/26/2017 FINAL DIAGNOSES: 1. Cholelithiasis. 2. Acute cholecystitis. 3. History of cardiomyopathy with ejection fraction 30-35%. 4. History of congestive heart failure. 5. History of atrial fibrillation diagnosed on 04/14/2013. 6. History of hypertension. 7. Diabetes mellitus. 8. Reports history of bronchitis. 9. History of cardiac catheterization 3 years ago. SUMMARY: This is a 46-year-old female who complained of right upper quadrant pains on admission. She had an ultrasound of the gallbladder which showed gallstones but no pericholecystic fluid. She also had a CAT scan of the abdomen which showed gallbladder distended but otherwise unremarkable. She had a CTA which was negative for pulmonary embolus. Patient was seen by Biofuels Production Technician who did an echocardiogram and showed 30-35% ejection fraction. Patient's symptoms subsided and decided to hold off on her surgery since she would like to have her surgery done in a tertiary care facility. She did have hospitalization at [facility] 5 years ago when she had congestive heart failure. She would like to go back to that hospital because of more cardiology backup. Her epigastric tenderness subsided and her white count also started to come down. Yesterday she had some easy fatigability and relieved with Lasix given by the hospitalist. Today, on the day of discharge, she felt a lot better. Again, no tenderness in the epigastric area and white count came down to 12,000 from 13,000 yesterday. We will continue her on p.o. Keflex for the next 5 days and advised her to go see a foreign agent at the other hospital. DICTATING PHYSICIAN: HARLEY RICHARDS M.D. [id number] PHY#: [id number] ID: [id number] JOB#: [id number] ACCT: [id number] cc:NHI COLLINS M.D., FAUSTINO M.D. >
[2017-01-26] MEDS: LISINOPRIL 5 MG TABLET PO SCH (10:57)
[2017-01-26] MEDS: SPIRONOLACTONE 25 MG TABLET PO SCH (10:57)
[2017-01-26] MEDS: CARVEDILOL 6.25 MG TABLET PO SCH (10:57)
[2017-01-26 13:28] VITALS: BP 138/84
--- NOTE | 2017-01-26 19:19 | PDOC PROGRESS REPORT ---
Subjective Progress Note for:: 01/25/17 Subjective:: Patient seems to be doing better. Patient denied any abdominal pain. She denied any nausea vomiting and claims to be hungry. Pt is denying any chest arm or neck discomfort. Patient denying any PND, orthopnea. Patient denied any sustained palpitations, dizziness, syncope, near syncope. Patient denying any fever chills. Patient denying any other significant discomfort. It seems patient might be discharged with surgery being performed as an outpatient at a tertiary care center. Patient medical regimen is being optimized. Review of systems: Rest review of systems negative. Medications: Medications have been reviewed. Physical Exam Vital Signs: Temp Pulse Resp BP Pulse Ox 99.3 F 88 18 143/91 H 100 01/25/17 15:20 01/25/17 15:20 01/25/17 15:20 01/25/17 15:20 01/25/17 15:20 Intake & Output 01/24/17 01/25/17 01/26/17 06:59 06:59 06:59 Intake Total 1700 1190 440 Balance 1700 1190 440 Weight 145.7 kg Exam: GENERAL: well-nourished and in no acute distress. Alert and oriented x3 HEAD: Atraumatic, normocephalic. EYES: Pupils equal round and reactive to light, extraocular movements intact, sclera anicteric, conjunctiva are normal. ENT: TMs normal, nares patent, oropharynx clear without exudates. Moist mucous membranes. No oral ulcerations or bleeding gums noted NECK: supple without lymphadenopathy. Trachea is central. No cervical or axillary lymphadenopathy noted. Carotids are 2+, JVD WNL LUNGS: Respiration seems nonlabored, no significant accessory muscle action noted. Breath sounds clear to auscultation bilaterally and equal noted. No wheezes rales or rhonchi noted. No significant dullness noted on percussion. CHEST: Palpation of the chest wall shows no significant chest wall tenderness. No other significant abnormalities noted. 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 ABDOMEN: Soft, no significant tenderness appreciated, normoactive bowel sounds. No guarding, no rebound. No rigidity noted . No masses appreciated. EXTREMITIES: Pedal pulses are 1-2+, no calf tenderness noted. No clubbing or cyanosis.trace to 1+ pedal edema noted NEUROLOGICAL: Focused neurological exam showed no significant neurologic deficit. Normal speech, no focal weakness appreciated. PSYCH: Normal mood, normal affect. Judgment and insight within normal limits. SKIN: No significant ecchymosis, rash, ulcerations or signs of pruritus noted. MUSCULOSKELETAL EXAM: No significant joint swelling noted. Results Laboratory Results: 01/25/17 10:57 01/25/17 10:57 01/25/17 01/25/17 10:57 10:57 WBC 13.0 H RBC 4.26 Hgb 11.4 L Hct 36.1 MCV 85 MCH 26.7 L MCHC 31.5 L RDW 15.3 H Plt Count 273 Seg Neutrophils % 61.8 Lymphocytes % 27.5 Monocytes % 7.8 Eosinophils % 1.8 Basophils % 1.1 Absolute Neutrophils 8.0 Absolute Lymphocytes 3.6 Absolute Monocytes 1.0 Absolute Eosinophils 0.2 Absolute Basophils 0.1 Sodium 137.0 Potassium 4.4 Chloride 99 Carbon Dioxide 28 Anion Gap 10 BUN 11 Creatinine 0.62 Est GFR ( Amer) > 60 Est GFR (Non-Af Amer) > 60 Glucose 121 H Calcium 9.2 Total Bilirubin 0.7 AST 16 ALT 29 Alkaline Phosphatase 44 Total Protein 7.5 Albumin 3.8 Lipase 100.1 Impressions: Chest/Abdomen CTA 01/23/17 07:26 IMPRESSION: 1. No evidence of pulmonary embolus. 2. Minimal ground-glass density in the lungs improved from the prior study. This could represent minimal pulmonary edema or chronic change. 3. Gallbladder appears distended but is otherwise unremarkable. Abdomen Ultrasound 01/23/17 09:39 IMPRESSION: GALLSTONES. REPORTED POSITIVE SONOGRAPHIC RSOE SIGN. NO OTHER SIGNIFICANT FINDINGS. Chest X-Ray 01/25/17 00:00 IMPRESSION: Cardiomegaly with pulmonary vascular congestion but no cher CHF. Assessment & Plan - Diagnosis (1) Preoperative cardiovascular examination Is this a current diagnosis for this admission?: Yes (2) Obesity Qualifiers: Obesity severity: unspecified obesity severity Is this a current diagnosis for this admission?: Yes (3) Sleep-disordered breathing Is this a current diagnosis for this admission?: Yes (4) Atrial fibrillation Qualifiers: Atrial fibrillation type: chronic Qualified Code(s): I48.2 - Chronic atrial fibrillation Is this a current diagnosis for this admission?: Yes (5) Cholecystitis with cholelithiasis Qualifiers: Cholelithiasis location: gallbladder Cholecystitis acuity: acute Biliary obstruction: with biliary obstruction Qualified Code(s): K80.01 - Calculus of gallbladder with acute cholecystitis with obstruction Is this a current diagnosis for this admission?: Yes (6) History of congestive heart failure Is this a current diagnosis for this admission?: Yes (7) Hypertension Qualifiers: Hypertension type: essential hypertension Qualified Code(s): I10 - Essential (primary) hypertension Is this a current diagnosis for this admission?: Yes (8) Smoker Is this a current diagnosis for this admission?: Yes - Notes Notes: ekg monitor tech, this was reviewed. Twelve-lead EKG, these were reviewed. Chest x-ray: Results reviewed. Medications: These were reviewed. Labs: These were reviewed. Treatment/care plan: This was reviewed and discussed with involved personnel in the care of this patient and patient. Cardiomyopathy: Patient's medical regimen has been optimized. Patient has been encouraged to lose weight and also schedule a sleep study. Informed that treatment of sleep apnea can improve LVEF as is good control of blood pressure. Atrial fibrillation: Patient to follow-up with her primary care therapeutic dietitian and start back on chronic anticoagulation if desired by the primary care therapeutic dietitian. Patient has a therapeutic diet[facility]. Patient still awaiting for surgery. CHF: This seems compensated on clinical exam. Continue baseline diuretic therapy. Patient should be educated in CHF pathway. This should include salt and fluid restriction, daily weighing, adjustment of diuretic therapy based on weight gain et cetera. Patient to be educated that if there is gain of more than 2 pounds in a day or more than 5 pounds in a week, this indicates fluid retention and patient may need to adjust the diuretic therapy. Symptoms associated with CHF exacerbation to be discussed with the patient. This could include rapid weight gain, abdominal bloating, increased shortness of breath, fatigue, tiredness, cardiac arrhythmias et cetera. Hypertension: Reasonably well controlled. Blood pressure goal in this patient is 135/85 or less. This was discussed with the patient. Currently blood pressure under reasonable control. Better medication for this patient are YOANDY inhibitor/ARB/beta marlen etc. discussed side effects of uncontrolled hypertension and also severe hypotension. Patient has history of chronic smoking. Discussed detrimental effect of chronic smoking including worsening COPD, increased risk of cardiovascular events, cerebrovascular events, cancer and multiple other side effects of smoking. The benefits of smoking cessation discussed. Continue nicotine patch while inpatient. - Time Time with patient: 15-25 minutes - CODE STATUS was discussed, patient remains full code. Surrogate decision-maker unchanged. Multiple medical problems were addressed. More than 50% of the time spent coordinating care, discussing management plans with involved caregivers. Management plans discussed with involved personnels. Medical decision making was of moderate complexity, patient's has multiple comorbidities. Medications reviewed and adjusted accordingly: Yes
--- NOTE | 2017-01-26 19:22 | PDOC PROGRESS REPORT ---
Subjective Progress Note for:: 01/26/17 Subjective:: Patient seen in the morning on morning rounds. Patient seems to be doing better. Patient denied any abdominal pain. She denied any nausea vomiting and claims to be hungry. Pt is denying any chest arm or neck discomfort. Patient denying any PND, orthopnea. Patient denied any sustained palpitations, dizziness, syncope, near syncope. Patient denying any fever chills. Patient denying any other significant discomfort. Patient will be discharged with surgery being performed as an outpatient at a tertiary care center. Patient medical regimen is being optimized. Review of systems: Rest review of systems negative. Medications: Medications have been reviewed. Physical Exam Vital Signs: Temp Pulse Resp BP Pulse Ox 98.0 F 71 20 138/84 H 100 01/26/17 13:21 01/26/17 13:21 01/26/17 13:21 01/26/17 13:21 01/26/17 13:21 Intake & Output 01/25/17 01/26/17 01/27/17 06:59 06:59 06:59 Intake Total 1240 Balance 1240 Weight 145.7 kg Exam: GENERAL: well-nourished and in no acute distress. Alert and oriented x3 HEAD: Atraumatic, normocephalic. EYES: Pupils equal round and reactive to light, extraocular movements intact, sclera anicteric, conjunctiva are normal. ENT: TMs normal, nares patent, oropharynx clear without exudates. Moist mucous membranes. No oral ulcerations or bleeding gums noted NECK: supple without lymphadenopathy. Trachea is central. No cervical or axillary lymphadenopathy noted. Carotids are 2+, JVD WNL LUNGS: Respiration seems nonlabored, no significant accessory muscle action noted. Breath sounds clear to auscultation bilaterally and equal noted. No wheezes rales or rhonchi noted. No significant dullness noted on percussion. CHEST: Palpation of the chest wall shows no significant chest wall tenderness. No other significant abnormalities noted. 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 ABDOMEN: Soft, no significant tenderness appreciated, normoactive bowel sounds. No guarding, no rebound. No rigidity noted . No masses appreciated. EXTREMITIES: Pedal pulses are 1-2+, no calf tenderness noted. No clubbing or cyanosis.trace to 1+ pedal edema noted NEUROLOGICAL: Focused neurological exam showed no significant neurologic deficit. Normal speech, no focal weakness appreciated. PSYCH: Normal mood, normal affect. Judgment and insight within normal limits. SKIN: No significant ecchymosis, rash, ulcerations or signs of pruritus noted. MUSCULOSKELETAL EXAM: No significant joint swelling noted. Results Laboratory Results: 01/26/17 04:38 01/26/17 04:38 01/26/17 01/26/17 04:38 04:38 WBC 12.2 H RBC 4.30 Hgb 11.7 L Hct 36.6 MCV 85 MCH 27.1 MCHC 31.9 L RDW 15.3 H Plt Count 269 Seg Neutrophils % 62.4 Lymphocytes % 24.8 Monocytes % 9.4 Eosinophils % 2.3 Basophils % 1.1 Absolute Neutrophils 7.6 Absolute Lymphocytes 3.0 Absolute Monocytes 1.1 Absolute Eosinophils 0.3 Absolute Basophils 0.1 Sodium 139.2 Potassium 4.0 Chloride 97 L Carbon Dioxide 32 H Anion Gap 10 BUN 13 Creatinine 0.69 Est GFR ( Amer) > 60 Est GFR (Non-Af Amer) > 60 Glucose 131 H Calcium 8.9 Impressions: Chest/Abdomen CTA 01/23/17 07:26 IMPRESSION: 1. No evidence of pulmonary embolus. 2. Minimal ground-glass density in the lungs improved from the prior study. This could represent minimal pulmonary edema or chronic change. 3. Gallbladder appears distended but is otherwise unremarkable. Abdomen Ultrasound 01/23/17 09:39 IMPRESSION: GALLSTONES. REPORTED POSITIVE SONOGRAPHIC ROSE SIGN. NO OTHER SIGNIFICANT FINDINGS. Chest X-Ray 01/25/17 00:00 IMPRESSION: Cardiomegaly with pulmonary vascular congestion but no cher CHF. Assessment & Plan - Diagnosis (1) Preoperative cardiovascular examination Is this a current diagnosis for this admission?: Yes (2) Obesity Qualifiers: Obesity severity: unspecified obesity severity Is this a current diagnosis for this admission?: Yes (3) Sleep-disordered breathing Is this a current diagnosis for this admission?: Yes (4) Atrial fibrillation Qualifiers: Atrial fibrillation type: chronic Qualified Code(s): I48.2 - Chronic atrial fibrillation Is this a current diagnosis for this admission?: Yes (5) Cholecystitis with cholelithiasis Qualifiers: Cholelithiasis location: gallbladder Cholecystitis acuity: acute Biliary obstruction: with biliary obstruction Qualified Code(s): K80.01 - Calculus of gallbladder with acute cholecystitis with obstruction Is this a current diagnosis for this admission?: Yes (6) History of congestive heart failure Is this a current diagnosis for this admission?: Yes (7) Hypertension Qualifiers: Hypertension type: essential hypertension Qualified Code(s): I10 - Essential (primary) hypertension Is this a current diagnosis for this admission?: Yes (8) Smoker Is this a current diagnosis for this admission?: Yes - Notes Notes: Patient has remained stable from cardiac standpoint but the surgeon and the anesthesiologist felt that patient can be managed as an outpatient with surgery is scheduled for later at a tertiary center because of significant comorbid problems. Patient encouraged to follow-up with her primary pump assembler. Patient should also follow-up with her primary school teacher librarian. Patient had [facility] cardiac [facility]. Patient's medical regimen was reviewed. Patient should see physician to increase YOANDY inhibitor and carvedilol therapy to maximum tolerated dose. Patient will also benefit from weight loss and CPAP therapy. - Time Time with patient: 15-25 minutes - CODE STATUS was discussed, patient remains full code. Surrogate decision-maker unchanged. Multiple medical problems were addressed. More than 50% of the time spent coordinating care, discussing management plans with involved caregivers. Management plans discussed with involved personnels. Medical decision making was of moderate complexity, patient's has multiple comorbidities. Medications reviewed and adjusted accordingly: Yes
== END 2017-01-26 13:42 | disposition home or self-care (01) | DRG 445 ==
LOC: ER 06:03 → EH 13:36 → UNDOADMOB 14:43 → 2S 17:45 → 4S 01-24 12:36 → OBSVTOIN 01-25 13:19
PROVIDERS: ADMIT Surgery; ATTEND Surgery
DX: K80.01 Calculus of gallbladder with acute cholecystitis with obstruction (principal); I50.22 Chronic systolic (congestive) heart failure; Z68.43 Body mass index [BMI] 50.0-59.9, adult; I10 Essential (primary) hypertension; E11.9 Type 2 diabetes mellitus without complications; F17.200 Nicotine dependence, unspecified, uncomplicated; I48.2 Chronic atrial fibrillation; E66.9 Obesity, unspecified; Z79.899 Other long term (current) drug therapy
CPT/HCPCS: 36415; 71010; 71020; 71275; 76705; 80048; 80053; 80076; 82550; 82553; 82962; 83690; 84484; 85025; 85610; 93005; 93010; 93306; 94660; 94799; 99285; J0690; J1940; J7030; J7620

== ENCOUNTER 2017-03-03 21:02 | Emergency (ER) | payer SELFPAY ==
[2017-03-03] MEDS ORDERED: IPRATROPIUM/ALBUTEROL 0.5-2.5 MG/3 ML AMPUL NEB ONE (21:15)
[2017-03-03] MEDS ORDERED: PREDNISONE 20 MG TABLET PO ONE (21:15)
--- NOTE | 2017-03-03 21:45 | RADIOLOGY REPORT (SQ) ---
EXAM DESCRIPTION: CHEST SINGLE VIEW COMPLETED DATE/TIME: 03/03/2017 9:29 pm REASON FOR STUDY: shortness of breath COMPARISON: 01/25/2017 NUMBER OF VIEWS: One view. TECHNIQUE: Single frontal radiographic view of the chest acquired. LIMITATIONS: None. FINDINGS: LUNGS AND PLEURA: No opacities, masses or pneumothorax. No pleural effusion. MEDIASTINUM AND HILAR STRUCTURES: No masses or contour abnormality. HEART AND VASCULATURE: Cardiac enlargement. Vascular congestion. BONES: No acute findings. HARDWARE: None in the chest. OTHER: No other significant finding. IMPRESSION: CARDIAC ENLARGEMENT. VASCULAR CONGESTION. TECHNICAL DOCUMENTATION: JOB ID: [id number] [employer]- All Rights Reserved
[2017-03-03 21:50] LABS: ABSOLUTE BASOPHILS # (AUTO) 0.1 10^3/uL (0.0-0.2); ABSOLUTE EOSINOPHILS # (AUTO) 0.3 10^3/uL (0.0-0.6); ABSOLUTE LYMPHOCYTES (AUTO) 2.8 10^3/uL (0.5-4.7); ABSOLUTE MONOCYTES (AUTO) 0.7 10^3/uL (0.1-1.4); ABSOLUTE NEUT (AUTO) 9.9 10^3/uL (1.7-8.2); BASOPHILS % (AUTO) 0.7 % (0-2); EOSINOPHILS % (AUTO) 1.9 % (0-6); HEMATOCRIT 35.9 % (36.0-47.0); HEMOGLOBIN 11.6 g/dL (12.0-15.5); HGB HCT DIFFERENCE -1.1; LYMPHOCYTES % (AUTO) 20.2 % (13-45); MEAN CORPUSCULAR HEMOGLOBIN 27.7 pg (27.0-33.4); MEAN CORPUSCULAR HGB CONC 32.2 g/dL (32.0-36.0); MEAN CORPUSCULAR VOLUME 86 fl (80-97); MONOCYTES % (AUTO) 4.9 % (3-13); RED BLOOD COUNT 4.17 10^6/uL (3.72-5.28); RED CELL DISTRIBUTION WIDTH 15.3 % (11.5-14.0); SEGMENTED NEUTROPHILS % (AUTO) 72.3 % (42-78); WHITE BLOOD COUNT 13.7 10^3/uL (4.0-10.5)
[2017-03-03] MEDS: ALBUTEROL SULFATE 0.083% NEB 2.5 MG/3 ML AMPUL NEB SCH ×2 (21:50→22:53)
[2017-03-03 22:04] LABS: APPEARANCE,URINE CLEAR; BILIRUBIN,URINE NEGATIVE (NEGATIVE); GLUCOSE, URINE NEGATIVE (NEGATIVE); KETONES,URINE NEGATIVE (NEGATIVE); LEUKOCYTE ESTERASE,URINE NEGATIVE (NEGATIVE); NITRITE,URINE NEGATIVE (NEGATIVE); PROTEIN,URINE NEGATIVE (NEGATIVE); URINE SPECIFIC GRAVITY 1.008; UROBILINOGEN,URINE NEGATIVE mg/dL (<2.0)
[2017-03-03 22:04] LABS: ALANINE AMINOTRANSFERASE 32 U/L (9-52); ALBUMIN 4.2 g/dL (3.5-5.0); ALKALINE PHOSPHATASE 53 U/L (38-126); ANION GAP 10 (5-19); ASPARTATE AMINO TRANSFERASE 19 U/L (14-36); BILIRUBIN,DIRECT 0.3 mg/dL (0.0-0.4); BILIRUBIN,TOTAL 0.7 mg/dL (0.2-1.3); BLOOD UREA NITROGEN 10 mg/dL (7-20); CALCIUM 9.1 mg/dL (8.4-10.2); CARBON DIOXIDE 29 mmol/L (22-30); CHLORIDE 99 mmol/L (98-107); CREATININE RESULT 0.69 mg/dL (0.52-1.25); GLUCOSE 168 mg/dL (75-110); POTASSIUM 4.1 mmol/L (3.6-5.0); SODIUM 138.2 mmol/L (137-145); TOTAL PROTEIN 8.1 g/dL (6.3-8.2)
[2017-03-03] MEDS ORDERED: CIPROFLOXACIN-HC OTIC SUSP 10 ML AS ONE (22:54)
--- NOTE | 2017-03-03 22:55 | ER Document Report ---
ED Respiratory Problem - General Chief Complaint: Shortness Of Breath Stated Complaint: DIFFICULTY BREATHING Time Seen by Provider: 03/03/17 22:18 Mode of Arrival: Ambulatory Information source: Patient Notes: 46-year-old female presents to ED for shortness of breath and cough. She also has a pain in her left ear. She states she was having some difficulty breathing this afternoon which became a little worse around 1800. She has a history of CHF she states this did not feel like her normal CHF. She also has a history of cardiomyopathy high blood pressure diabetes and morbid obesity. She was ordered breathing treatments and steroids before I saw her and had received 2 breathing treatments of DuoNeb and an albuterol nebulizer as well as prednisone when I saw her she was not short of breath sat in 100% respirations regular and even. She states she felt much better TRAVEL OUTSIDE OF THE [place] IN LAST 30 DAYS: No - HPI Patient complains to provider of: CHF, Short of breath Onset: This afternoon Duration: Better Initiating Event: URI Quality of pain: Other - States she had Severity: Moderate - pain in her left ear but not in her chest Pain Level: 4 Context: Hx CHF Short of Breath: Mild Cough: Nonproductive Sputum amount: None Associated symptoms: PND, Runny nose, Short of breath Similar symptoms previously: Yes Recently seen / treated by doctor: No - Related Data Allergies/Adverse Reactions: No Known Allergies Allergy (Verified 10/10/16 16:57) Past Medical History - General Information source: Patient - Social History Smoking Status: Former Smoker Cigarette use (# per day): No Chew tobacco use (# tins/day): No Smoking Education Provided: No Frequency of alcohol use: Rare Drug Abuse: None Family History: Reviewed & Not Pertinent, CAD, DM, Hyperlipidemia, Hypertension , Malignancy - Medical History Medical History: Other - morbid obesity - Past Medical History Cardiac Medical History: Reports: Hx Atrial Fibrillation - Atrial flutter on 03/2013, Hx Congestive Heart Failure - Cardiomyopathy, Hx Hypertension - lisinopril daily Pulmonary Medical History: Reports: Hx Bronchitis EENT Medical History: Reports: None Neurological Medical History: Reports: None Endocrine Medical History: Reports: Hx Diabetes Mellitus Type 2 Renal/ Medical History: Reports: None Malignancy Medical History: Reports: None GI Medical History: Reports: None Musculoskeltal Medical History: Reports Hx Musculoskeletal Trauma Skin Medical History: Reports Hx Cellulitis Psychiatric Medical History: Reports: None Traumatic Medical History: Reports: Hx Fractures - finger Infectious Medical History: Reports: None Past Surgical History: Reports: Hx Appendectomy, Hx Cardiac Catheterization - 3 years ago, Hx Cholecystectomy, Hx Tonsillectomy - Immunizations Immunizations up to date: No Hx Diphtheria, Pertussis, Tetanus Vaccination: Yes Review of Systems - Review of Systems Constitutional: No symptoms reported EENT: Ear pain, Nose discharge Cardiovascular: No symptoms reported Respiratory: Short of breath Gastrointestinal: No symptoms reported Genitourinary: No symptoms reported Female Genitourinary: No symptoms reported Musculoskeletal: No symptoms reported Skin: No symptoms reported Hematologic/Lymphatic: No symptoms reported Neurological/Psychological: No symptoms reported -: Yes All other systems reviewed and negative Physical Exam - Vital signs Vitals: Temp Pulse Resp BP Pulse Ox 98.7 F 102 H 22 H 184/97 H 96 03/03/17 21:08 03/03/17 21:08 03/03/17 21:08 03/03/17 21:08 03/03/17 21:08 Interpretation: Normal - General General appearance: Appears well, Alert - HEENT Head: Normocephalic, Atraumatic Eyes: Normal Pupils: PERRL Ears: Normal External canal: Erythema, Swollen Tympanic membrane: Normal Sinus: Normal Nasal: Purulent discharge, Swelling Mouth/Lips: Normal Mucous membranes: Normal Pharynx: Post nasal drainage Neck: Normal - Respiratory Respiratory status: No respiratory distress Chest status: Nontender Breath sounds: Nonproductive cough. No: Decreased air movement, Rales, Rhonchi , Stridor, Wheezing Chest palpation: Normal - Cardiovascular Rhythm: Regular Heart sounds: Normal auscultation Murmur: No - Abdominal Inspection: Normal Distension: No distension Bowel sounds: Normal Tenderness: Nontender Organomegaly: No organomegaly - Back Back: Normal, Nontender - Extremities General upper extremity: Normal inspection, Nontender, Normal color, Normal ROM , Normal temperature General lower extremity: Normal inspection, Nontender, Normal color, Normal ROM , Normal temperature, Normal weight bearing. No: Leilani's sign - Neurological Neuro grossly intact: Yes Cognition: Normal Orientation: AAOx4 Ac Coma Scale Eye Opening: Spontaneous [place] Coma Scale Verbal: Oriented [place] Coma Scale Motor: Obeys Commands [place] Coma Scale Total: 15 Speech: Normal Motor strength normal: LUE, RUE, LLE, RLE Sensory: Normal - Psychological Associated symptoms: Normal affect, Normal mood - Skin Skin Temperature: Warm Skin Moisture: Dry Skin Color: Normal Course - Re-evaluation Re-evalutation: 03/04/17 01:49 Chest x-ray and lab results discussed with patient and written report given to patient to follow-up with her primary doctor. Patient was treated with albuterol DuoNeb and prednisone and states that she feels much better and is breathing. She was instructed to follow-up with her primary doctor on Monday. Patient encouraged to stop smoking altogether. - Vital Signs Vital signs: Temp Pulse Resp BP Pulse Ox 98.7 F 102 H 19 153/83 H 94 03/03/17 21:08 03/03/17 21:08 03/03/17 23:59 03/03/17 23:59 03/03/17 23:59 - Laboratory Result Diagrams: 03/03/17 21:15 03/03/17 21:15 Laboratory results interpreted by me: 03/03/17 03/03/17 21:15 21:15 WBC 13.7 H Hgb 11.6 L Hct 35.9 L RDW 15.3 H Absolute Neutrophils 9.9 H Glucose 168 H - Diagnostic Test Radiology reviewed: Image reviewed, Reports reviewed Discharge - Discharge Clinical Impression: CHF (congestive heart failure) Qualifiers: Congestive heart failure type: unspecified congestive heart failure type Congestive heart failure chronicity: chronic Qualified Code(s): I50.9 - Heart failure, unspecified URI (upper respiratory infection) Qualifiers: URI type: unspecified URI Qualified Code(s): J06.9 - Acute upper respiratory infection, unspecified Condition: Stable Disposition: HOME, SELF-CARE Instructions: Family Physicians / Practices Additional Instructions: UPPER RESPIRATORY ILLNESS: You have a viral infection of the respiratory passages -- a "cold." This common infection causes nasal congestion, drainage, and often sore throat and cough. It is highly contagious. The disease usually lasts about 10 to 14 days. There is no "cure" for the viral infection -- it must run its course. If there is a complication, such as bacterial infection in the nose, sinuses, middle ear, or bronchial tubes, antibiotics may be required. The antibiotics won't affect the virus. Drink plenty of fluids. A humidifier may help. An expectorant medication or decongestant may make you more comfortable. Use acetaminophen or ibuprofen for fever or aches. See the doctor if fever persists over two days, if there is any significant worsening of your symptoms, or if you simply fail to improve as expected. BRONCHOSPASM: You have tightness in the bronchial tubes, called bronchospasm. This often occurs with bronchial infections. Allergies, inhaled chemicals, and polluted or cold air can also provoke bronchospasm. It's more likely in patients with asthma in the family. Emergency treatment of bronchospasm may include adrenaline shots or bronchodilator aerosol. You may feel lightheaded and have a rapid pulse for an hour or two. Rest and get plenty of fluids. At home, we'll treat you with a bronchodilator inhaler. Antibiotics and corticosteroids may be required for some patients. Until you recover, avoid chemical fumes, dusts, pollens, and exercising in very cold or dry air. If you smoke, stop now!! If you develop a fever, increased wheezing, chest pain, or severe shortness of breath, you should contact the doctor immediately. INHALED BRONCHODILATORS: You have received a treatment of and/or prescription for an inhaled bronchodilator -- a medication which stimulates the airways in the lung to dilate. This improves the flow of air in asthma, bronchitis, and emphysema. These medicines have some similarity to adrenaline, and can cause similar side effects: shakiness, racing heart, and a sense of nervousness. These side effects decrease with time. Contact your doctor if these side effects are severe. Do not over-use the medicine. Too-frequent use of the inhaler may make it ineffective. Call your doctor if the inhaler is not controlling your symptoms at the prescribed doses. STEROID MEDICATION: You have been given an injection of or oral medicine of the cortisone/ steroid class. This medication is used to control inflammation or allergy. Antoine t is usually only given for a short period of time, until the acute process subsides. There are usually no side effects from short-term use of cortisone-like medications. Some persons feel an increased sense of well-being and are not sleepy at bedtime. Long-term use of cortisone medications is best avoided, unless required for a severe condition. If your condition does not remit, or relapses after the course of corticosteroid medication, you should consult your physician. USE OF ACETAMINOPHEN (Tylenol): Acetaminophen may be taken for pain relief or fever control. It's much safer than aspirin, offering a wider range of "safe" dosages. It is safe during . Some brand names are Tylenol, Panadol, Datril, Anacin 3, Tempra, and Liquiprin. Acetaminophen can be repeated every four hours. The following are maximum recommended dosages: >89 pounds or adults 650 mg to 900 mg Acetaminophen can be repeated every four hours. Maximum dose not to exceed 4000 mg a day. FOLLOW-UP CARE: If you have been referred to a physician for follow-up care, call the physician s office for an appointment as you were instructed or within the next two days. If you experience worsening or a significant change in your symptoms, notify the physician immediately or return to the Emergency Department at any time for re-evaluation. Prescriptions: Albuterol Sulfate [Proair HFA Inhalation Aerosol 8.5 gm MDI] 2 puff IH Q4H PRN # 1 mdi PRN Reason: Prednisone [Sterapred Ds] 1 pkg PO ASDIR PRN 12 Days PRN Reason: Forms: Elevated Blood Pressure
[2017-03-03] MEDS ORDERED: CIPROFLOXACIN HCL 0.3% OPH SOLN 2.5 ML ONE (23:22)
[2017-03-03] MEDS ORDERED: CIPROFLOXACIN-HC OTIC SUSP 10 ML ONE (23:23)
[2017-03-04 00:01] VITALS: BP 153/83
--- NOTE | 2017-03-04 15:19 | EKG REPORT ---
SEVERITY:- ABNORMAL ECG - SINUS RHYTHM ATRIAL PREMATURE COMPLEX PROBABLE LEFT ATRIAL ABNORMALITY LVH WITH SECONDARY REPOLARIZATION ABNORMALITY BORDERLINE PROLONGED QT INTERVAL : Confirmed by: Flores Scanlon MD 04-Mar-2017 15:18:21
== END 2017-03-04 00:09 | disposition home or self-care (01) ==
LOC: ER 21:02
DX: J06.9 Acute upper respiratory infection, unspecified (principal); I11.0 Hypertensive heart disease with heart failure; I50.9 Heart failure, unspecified; I42.9 Cardiomyopathy, unspecified; R06.02 Shortness of breath; R05 Cough; R09.82 Postnasal drip; J34.89 Other specified disorders of nose and nasal sinuses; H92.02 Otalgia, left ear; E11.9 Type 2 diabetes mellitus without complications
CPT/HCPCS: 93005; 94640 ×2; 99285; 36415; 85025; 80053; 81001; 71010; 93010; J3490; J7512; J7620

== ENCOUNTER 2017-03-11 12:17 | Emergency (ER) | payer SELFPAY ==
--- NOTE | 2017-03-11 12:47 | ER Document Report ---
ED Medical Screen (RME) - General Chief Complaint: Abdominal Pain Stated Complaint: CHEST PAIN Time Seen by Provider: 03/11/17 12:42 Notes: Patient is complaining of a "pressure", not pain, in the epigastric region. Patient was here last Monday for a similar presentation at that time she was discharged with a prescription for albuterol inhaler and steroids. She says she was not able to fill the albuterol inhaler because it cost too much. She has been taking the steroids. Her pain got better after that visit and had remained better until last night when it came back again. And, the patient stresses it is a "pressure", not a pain. She has had some diarrhea that started during the night. Has not had any vomiting. No fever. Patient says she was seen here about 7 weeks ago and diagnosed as having a gallbladder disease that should have surgery, but it was recommended that she be managed at a tertiary care facility because of her cold morbidities. She has a history of hypertension, NIDDM, and cardiomyopathy with history of congestive heart failure. And she weighs 142.5 kg. She did have a cardiac cath done about 4 years ago and at that time her coronary arteries were normal. TRAVEL OUTSIDE OF THE [place] IN LAST 30 DAYS: No - Related Data Allergies/Adverse Reactions: No Known Allergies Allergy (Verified 10/10/16 16:57) Past Medical History - Social History Family history: CAD, DM, Malignancy - Past Medical History Cardiac Medical History: Reports: Hx Atrial Fibrillation - Atrial flutter on 03/2013, Hx Congestive Heart Failure - Cardiomyopathy, Hx Hypertension - lisinopril daily Denies: Hx DVT Pulmonary Medical History: Reports: Hx Bronchitis Endocrine Medical History: Reports: Hx Diabetes Mellitus Type 2 Renal/ Medical History: Denies: Hx Peritoneal Dialysis Musculoskeltal Medical History: Reports Hx Musculoskeletal Trauma Skin Medical History: Reports Hx Cellulitis Traumatic Medical History: Reports: Hx Fractures - finger Past Surgical History: Reports: Hx Appendectomy, Hx Cardiac Catheterization - 3 years ago, Hx Cholecystectomy, Hx Tonsillectomy - Immunizations Immunizations up to date: No Hx Diphtheria, Pertussis, Tetanus Vaccination: Yes Physical Exam - Vital signs Vitals: Temp Pulse Resp BP Pulse Ox 98 F 94 20 109/59 L 95 03/11/17 12:28 03/11/17 12:28 03/11/17 12:28 03/11/17 12:28 03/11/17 12:28 Course - Vital Signs Vital signs: Temp Pulse Resp BP Pulse Ox 98 F 94 20 109/59 L 95 03/11/17 12:28 03/11/17 12:28 03/11/17 12:28 03/11/17 12:28 03/11/17 12:28
[2017-03-11] MEDS ORDERED: OXYCODONE-ACETAMINOPHEN 5-325 MG TABLET PO ONE (12:58)
[2017-03-11] MEDS ORDERED: PROMETHAZINE HCL 25 MG TABLET PO ONE (12:58)
[2017-03-11 13:21] LABS: ABSOLUTE BASOPHILS # (AUTO) 0.2 10^3/uL (0.0-0.2); ABSOLUTE EOSINOPHILS # (AUTO) 0.3 10^3/uL (0.0-0.6); ABSOLUTE LYMPHOCYTES (AUTO) 3.9 10^3/uL (0.5-4.7); ABSOLUTE MONOCYTES (AUTO) 1.1 10^3/uL (0.1-1.4); ABSOLUTE NEUT (AUTO) 9.4 10^3/uL (1.7-8.2); BASOPHILS % (AUTO) 1.2 % (0-2); HEMATOCRIT 37.6 % (36.0-47.0); HEMOGLOBIN 12.3 g/dL (12.0-15.5); HGB HCT DIFFERENCE -0.7; LYMPHOCYTES % (AUTO) 26.2 % (13-45); MEAN CORPUSCULAR HEMOGLOBIN 27.6 pg (27.0-33.4); MEAN CORPUSCULAR HGB CONC 32.7 g/dL (32.0-36.0); MEAN CORPUSCULAR VOLUME 85 fl (80-97); MONOCYTES % (AUTO) 7.6 % (3-13); RED BLOOD COUNT 4.45 10^6/uL (3.72-5.28); RED CELL DISTRIBUTION WIDTH 15.3 % (11.5-14.0); WHITE BLOOD COUNT 14.9 10^3/uL (4.0-10.5)
[2017-03-11 13:31] LABS: ALANINE AMINOTRANSFERASE 47 U/L (9-52); ALBUMIN 4.2 g/dL (3.5-5.0); ALKALINE PHOSPHATASE 50 U/L (38-126); ANION GAP 12 (5-19); ASPARTATE AMINO TRANSFERASE 34 U/L (14-36); BILIRUBIN,DIRECT 0.2 mg/dL (0.0-0.4); BILIRUBIN,TOTAL 0.9 mg/dL (0.2-1.3); BLOOD UREA NITROGEN 14 mg/dL (7-20); CALCIUM 9.7 mg/dL (8.4-10.2); CARBON DIOXIDE 27 mmol/L (22-30); CHLORIDE 99 mmol/L (98-107); CREATININE RESULT 0.91 mg/dL (0.52-1.25); GLUCOSE 137 mg/dL (75-110); LIPASE 95.2 U/L (23-300); POTASSIUM 4.2 mmol/L (3.6-5.0); TOTAL PROTEIN 8.1 g/dL (6.3-8.2)
[2017-03-11 13:43] LABS: CREATINE KINASE MB 1.84 ng/mL (<4.55)
[2017-03-11 13:44] LABS: APPEARANCE,URINE SLIGHTLY-CLOUDY; BILIRUBIN,URINE NEGATIVE (NEGATIVE); GLUCOSE, URINE NEGATIVE (NEGATIVE); KETONES,URINE NEGATIVE (NEGATIVE); LEUKOCYTE ESTERASE,URINE NEGATIVE (NEGATIVE); NITRITE,URINE NEGATIVE (NEGATIVE); PROTEIN,URINE 100 mg/dL (NEGATIVE); URINE SPECIFIC GRAVITY 1.023; UROBILINOGEN,URINE NEGATIVE mg/dL (<2.0)
[2017-03-11 13:50] LABS: TROPONIN I 0.038 ng/mL
--- NOTE | 2017-03-11 14:00 | ER Document Report ---
ED General - General Chief Complaint: Abdominal Pain Stated Complaint: CHEST PAIN Time Seen by Provider: 03/11/17 12:42 Mode of Arrival: Ambulatory Information source: Patient Notes: 46-year-old female history of [place] barrios who has been out of her medications for 2 weeks presents with one-week duration of intermittent pressure sensation on the right lower lobe with difficulty breathing when she ambulates. Patient notes she gets very winded when she does walk. Denies any fevers or chills denies any actual chest pain TRAVEL OUTSIDE OF THE [place] IN LAST 30 DAYS: No - HPI Onset: Last week Onset/Duration: Persistent Quality of pain: Pressure Severity: Mild Pain Level: 1 Associated symptoms: Hurts to breath, Shortness of breath Exacerbated by: Denies Relieved by: Denies Similar symptoms previously: Yes Recently seen / treated by doctor: Yes - Related Data Allergies/Adverse Reactions: No Known Allergies Allergy (Verified 10/10/16 16:57) Past Medical History - Social History Smoking Status: Never Smoker Cigarette use (# per day): No Chew tobacco use (# tins/day): No Smoking Education Provided: No Frequency of alcohol use: None Drug Abuse: None Family History: Reviewed & Not Pertinent, CAD, DM, Hyperlipidemia, Hypertension , Malignancy Patient has suicidal ideation: No Patient has homicidal ideation: No - Past Medical History Cardiac Medical History: Reports: Hx Atrial Fibrillation - Atrial flutter on 03/2013, Hx Congestive Heart Failure - Cardiomyopathy, Hx Hypertension - lisinopril daily Denies: Hx DVT Pulmonary Medical History: Reports: Hx Bronchitis Endocrine Medical History: Reports: Hx Diabetes Mellitus Type 2 Renal/ Medical History: Denies: Hx Peritoneal Dialysis Musculoskeltal Medical History: Reports Hx Musculoskeletal Trauma Skin Medical History: Reports Hx Cellulitis Traumatic Medical History: Reports: Hx Fractures - finger Past Surgical History: Reports: Hx Appendectomy, Hx Cardiac Catheterization - 3 years ago, Hx Cholecystectomy, Hx Tonsillectomy - Immunizations Immunizations up to date: No Hx Diphtheria, Pertussis, Tetanus Vaccination: Yes Review of Systems - Review of Systems Notes: REVIEW OF SYSTEMS: CONSTITUTIONAL : Denies fever, chills, or sweats. Denies recent illness. EENT: Denies eye, ear, throat, or mouth pain or symptoms. Denies nasal or sinus congestion or discharge. Denies throat, tongue, or mouth swelling or difficulty swallowing. CARDIOVASCULAR: Denies chest pain. Denies palpitations or racing or irregular heart beat. Denies ankle edema. RESPIRATORY: admits ot sob GASTROINTESTINAL: Denies abdominal pain or distention. Denies nausea, vomiting , or diarrhea. Denies blood in vomitus, stools, or per rectum. Denies black, tarry stools. Denies constipation. GENITOURINARY: Denies difficulty urinating, painful urination, burning, frequency, blood in urine, or discharge. FEMALE GENITOURINARY: Denies vaginal bleeding, heavy or abnormal periods, irregular periods. Denies vaginal discharge or odor. MUSCULOSKELETAL: Denies back or neck pain or stiffness. Denies joint pain or swelling. SKIN: Denies rash, lesions or sores. HEMATOLOGIC : Denies easy bruising or bleeding. LYMPHATIC: Denies swollen, enlarged glands. NEUROLOGICAL: Denies confusion or altered mental status. Denies passing out or loss of consciousness. Denies dizziness or lightheadedness. Denies headache. Denies weakness or paralysis or loss of use of either side. Denies problems with gait or speech. Denies sensory loss, numbness, or tingling. Denies seizures. PSYCHIATRIC: Denies anxiety or stress. Denies depression, suicidal ideation, or homicidal ideation. ALL OTHER SYSTEMS REVIEWED AND NEGATIVE. PHYSICAL EXAMINATION: GENERAL: Well-appearing, well-nourished and in no acute distress. HEAD: Atraumatic, normocephalic. EYES: Pupils equal round and reactive to light, extraocular movements intact, conjunctiva are normal. ENT: Nares patent, oropharynx clear without exudates. Moist mucous membranes. NECK: Normal range of motion, supple without lymphadenopathy LUNGS: Breath sounds clear to auscultation bilaterally and equal. No wheezes rales or rhonchi. HEART: irregular rate and rhythm ABDOMEN: Soft, nontender, nondistended abdomen. No guarding, no rebound. No masses appreciated. Female : deferred Musculoskeletal: Normal range of motion, no pitting or edema. No cyanosis. NEUROLOGICAL: Cranial nerves grossly intact. Normal speech, normal gait. Normal sensory, motor exams PSYCH: Normal mood, normal affect. SKIN: Warm, Dry, normal turgor, no rashes or lesions noted. Dictation was performed using [employer] voice recognition software Physical Exam - Vital signs Vitals: Temp Pulse Resp BP Pulse Ox 98 F 94 20 109/59 L 95 03/11/17 12:28 03/11/17 12:28 03/11/17 12:28 03/11/17 12:28 03/11/17 12:28 Course - Re-evaluation Re-evalutation: 03/11/17 14:00 cta pending, otherwise patient looks quite well 03/11/17 14:36 Patient will placed on monitor strip is noted to be in a flutter initially EKG performed notes a fib 03/11/17 15:42 CTA is consistent with pulmonary edema, given the patient is satting 99% and I expect this to be life-threatening but patient does become short winded as she ambulates. She will be given a dose of Lasix here was given Cardizem bolus as well. Patient has been encouraged to continue taking her medications as prescribed since she did not take it for 2 weeks. Patient understands how this can be a life-threatening issue if she does not otherwise she looks well is stable for discharge patient is very happy with this plan wishes to go home After performing a Medical Screening Examination, I estimate there is LOW risk for ACUTE CORONARY SYNDROME, RESPIRATORY FAILURE, SEPSIS OR MENINGITIS, thus I consider the discharge disposition reasonable. I have reevaluated this patient multiple times and no significant life threatening changes are noted. The patient and I have discussed the diagnosis and risks, and we agree with discharging home with close follow-up. We also discussed returning to the Emergency Department immediately if new or worsening symptoms occur. We have discussed the symptoms which are most concerning (e.g., changing or worsening pain, trouble swallowing or breathing, neck stiffness, fever) that necessitate immediate return. - Vital Signs Vital signs: Temp Pulse Resp BP Pulse Ox 98 F 94 20 109/59 L 95 03/11/17 12:28 03/11/17 12:28 03/11/17 12:28 03/11/17 12:28 03/11/17 12:28 - Laboratory Result Diagrams: 03/11/17 12:56 03/11/17 12:56 Laboratory results interpreted by me: 03/11/17 03/11/17 03/11/17 12:56 12:56 13:25 WBC 14.9 H RDW 15.3 H Absolute Neutrophils 9.4 H Glucose 137 H Urine Protein 100 H - Diagnostic Test Radiology reviewed: Image reviewed, Reports reviewed - EKG Interpretation by Me EKG shows normal: Sinus rhythm, [place], Intervals, QRS Complexes Rate: Tachycardia Rhythm: A.Fib Discharge - Discharge Clinical Impression: Chronic systolic heart failure Atrial fibrillation Qualifiers: Atrial fibrillation type: chronic Qualified Code(s): I48.2 - Chronic atrial fibrillation Condition: Stable Disposition: HOME, SELF-CARE Instructions: Congestive Heart Failure ([facility]) Additional Instructions: Please follow-up with your primary care physician or return immediately if there is any worsening symptoms or any other concerns
--- NOTE | 2017-03-11 14:18 | RADIOLOGY REPORT (SQ) ---
EXAM DESCRIPTION: CHEST PA/LAT COMPLETED DATE/TIME: 03/11/2017 1:47 pm REASON FOR STUDY: Epigastric pain, Hx cardiomyopathy COMPARISON: AP chest 03/03/2017 CT angio chest 01/23/2017 EXAM PARAMETERS: NUMBER OF VIEWS: two views TECHNIQUE: Digital Frontal and Lateral radiographic views of the chest acquired. RADIATION DOSE: NA LIMITATIONS: none FINDINGS: LUNGS AND PLEURA: No opacities, masses or pneumothorax. No pleural effusion. MEDIASTINUM AND HILAR STRUCTURES: No masses or contour abnormalities. HEART AND VASCULAR STRUCTURES: Stable moderate cardiomegaly. BONES: No acute findings. HARDWARE: None in the chest. OTHER: No other significant finding. IMPRESSION: Moderate cardiomegaly. No acute infiltrates. TECHNICAL DOCUMENTATION: JOB ID: [id number] [employer]- All Rights Reserved
[2017-03-11] MEDS ORDERED: DILTIAZEM HCL INJ 25 MG/5 ML VIAL IV ONE (14:33)
--- NOTE | 2017-03-11 15:08 | RADIOLOGY REPORT (SQ) ---
EXAM DESCRIPTION: CTA CHEST COMPLETED DATE/TIME: 03/11/2017 2:46 pm REASON FOR STUDY: afib, RLL shortness COMPARISON: CT angio chest 01/23/2017, 07/14/2016 TECHNIQUE: CT scan of the chest performed using helical scanning technique with dynamic intravenous contrast injection. Images reviewed with lung, soft tissue and bone windows. Reconstructed coronal and sagittal MPR images reviewed. Additional 3 dimensional post-processing performed to develop Maximal Intensity Projection images (MA P). All images stored on PACS. All CT scanners at this facility use dose modulation, iterative reconstruction, and/or weight based d osing when appropriate to reduce radiation dose to as low as reasonably achievable (ALARA). [facility]: Dose Right [facility]: CareDose [facility]: Dose Right [facility]: Teradose 4D [facility]: [employer] CONTRAST TYPE AND DOSE: contrast/concentration: Isovue 370.00 mg/ml; Total Contrast Delivered: 86.0 ml; Total Saline Delivered: 80.0 ml RENAL FUNCTION: Creatinine 0.9 RADIATION DOSE: Up-to-date CT equipment and radiation dose reduction techniques were employed. CTDIv ol: 51.9 - 105.5 mGy. DLP: 2097 mGy-cm. . LIMITATIONS: Large patient, limited visualization of the distal most lower lobe pulmonary artery bra nches. FINDINGS: LUNGS AND PLEURA: Patchy diffuse bilateral ground-glass airspace disease is present likely pulmonary edema. No pleural effusions. No pneumothorax. No dense consolidation worrisome for pneumonia. No pulmonar y nodules. AORTA AND GREAT VESSELS: No aneurysm or dissection. HEART: No pericardial effusion. Moderate cardiomegaly. Next PULMONARY ARTERIES: No emboli visualized in the main pulmonary arteries or the segmental branches. HILAR AND MEDIASTINAL STRUCTURES: No identified masses or abnormal nodes. HARDWARE: None in the chest. UPPER ABDOMEN: No significant findings. Limited exam. THYROID AND OTHER SOFT TISSUES: No masses. No adenopathy. BONES: No acute or significant finding. 3D MIPS: Confirm above findings. OTHER: No other significant finding. IMPRESSION: No CT angio evidence of acute pulmonary emboli. No thoracic aortic dissection Mild diffuse pulmonary edema Cardiomegaly TECHNICAL DOCUMENTATION: JOB ID: [id number] Quality ID # [id number]: Final reports with documentation of one or more dose reduction techniques (e.g., Au tomated exposure control, adjustment of the mA and/or kV according to patient size, use of iterative reconstruction technique) 2010 [employer]- All Rights Reserved
[2017-03-11] MEDS ORDERED: FUROSEMIDE INJ/PF 20 MG/2 ML SDV IV ONE (15:10)
--- NOTE | 2017-03-11 16:43 | EKG REPORT ---
SEVERITY:- ABNORMAL ECG - ATRIAL FIBRILLATION, V-RATE 83-153 NONSPECIFIC T ABNORMALITIES, LATERAL LEADS : Confirmed by: Wilfredo Russell MD 11-Mar-2017 16:43:03
--- NOTE | 2017-03-11 16:43 | EKG REPORT ---
SEVERITY:- ABNORMAL ECG - ATRIAL FIBRILLATION, V-RATE 79-147 BORDERLINE T ABNORMALITIES, LATERAL LEADS PROLONGED QT INTERVAL : Confirmed by: Wilfredo Russell MD 11-Mar-2017 16:42:35
[2017-03-11 16:59] VITALS: BP 122/81
== END 2017-03-11 17:02 | disposition home or self-care (01) ==
LOC: ER 12:17
DX: I50.22 Chronic systolic (congestive) heart failure (principal); I48.2 Chronic atrial fibrillation; R10.9 Unspecified abdominal pain; R07.9 Chest pain, unspecified; R06.02 Shortness of breath
CPT/HCPCS: 93005; 99285; 96374; 96375; 36415; 82553; 83690; 84703; 85025; 80053; 81001; 84484; 71020; 71275; 93010; J1940; J3490

== ENCOUNTER → 2017-09-01 | Outpatient (CLI) | payer OTHER ==
--- NOTE | 2017-09-01 17:23 | WOMENS IMAGING REPORT ---
EXAM DESCRIPTION: BILAT SCREENING MAMMO W/CAD COMPLETED DATE/TIME: 09/01/2017 9:19 am REASON FOR STUDY: SCREENING MAMMO Z12.31 ENCNTR SCREEN MAMMOGRAM FOR MALIGNANT NEOPLASM OF CANDE COMPARISON: 03/16/2016. TECHNIQUE: Standard craniocaudal and mediolateral oblique views of each breast recorded using DotSpotsa l acquisition. LIMITATIONS: None. FINDINGS: Findings present which are benign by mammographic criteria. No suspicious masses, calcifi cations or architectural distortion. Pertinent benign findings: Stable benign calcifications, most of which are dermal. Read with the assistance of CAD. .[facility] - R2 Cenova Version 1.3 .[facility] - R2 Cenova Version 1.3 .[facility] - R2 Cenova Version 2.4 .[facility] [place] R2 Cenova Version 2.4 .[facility], [facility] - R2 [employer] Intern Version 9.2 Benign mammographic findings may include one or more of the following: Smooth masses, popcorn/rim/co arse calcifications, asymmetries, post-procedure changes, and lesions with long-standing stability. IMPRESSION: BENIGN MAMMOGRAPHIC FINDINGS. BIRADS 2 BREAST DENSITY: a. The breasts are almost entirely fatty. BIRAD: 2 BENIGN FINDING(S) RECOMMENDATION: ROUTINE SCREENING COMMENT: The patient has been notified of the results by letter per SA requirements. Additional no tification policies are in place for contacting patient with suspicious or incomplete findings. Quality ID #[id number]: The [employer] recommends an annual screening mammogram for women aged 40 years or over. This facility utilizes a reminder system to ensure that all patients receive reminder letters, and/or direct phone calls for appointments. This includes reminders for routine scr eening mammograms, diagnostic mammograms, or other Breast Imaging Interventions when appropriate. Th is patient will be placed in the appropriate reminder system. The [employer] (ACR) has developed recommendations for screening MRI of the breast s in certain patient populations, to be used in conjunction with mammography. Breast MRI surveillanc e may be appropriate for women with more than 20% lifetime risk of developing breast cancer as deter mined by genetic testing, significant family history of the disease, or history of mantle radiation f or Hodgkins Disease. ACR Practice Guidelines 2008. TECHNICAL DOCUMENTATION: FINDING NUMBER: (1) ASSESSMENT: (1) JOB ID: [id number] [email or web address]- All Rights Reserved
== END ==
LOC: WI 08:59
DX: Z12.31 Encounter for screening mammogram for malignant neoplasm of breast (principal)
CPT/HCPCS: 77067

== ENCOUNTER 2017-10-09 23:12 | Emergency (ER) | payer SELFPAY ==
[2017-10-09 23:59] VITALS: BP 137/85
--- NOTE | 2017-10-10 02:47 | ER Document Report ---
ED General - General Chief Complaint: Leg Injury Stated Complaint: LACERATION,POSSIBLE INFECTION Time Seen by Provider: 10/10/17 02:46 Notes: Patient is a 47-year-old female with a past medical history of morbid obesity, diabetes, retention, presents with 3-4 days of progressively worsening erythema and pain to the right lower extremity. Patient states she sustained a laceration 5 days ago. She states that within 24 hours she began to have increasing swelling and pain around the area. She has especially over the last 2-3 days she has had a rapidly spreading redness toward the ankle and has also resulted from increasing pain with ambulation. She notes a dull, aching, constant pain to the area. Touching it worsens the pain. Nothing improves the pain. She denies history of similar symptoms in the past. She has not seen a primary care doctor regarding today's concerns. He denies any purulent drainage from the area. She denies any fever or constitutional symptoms. TRAVEL OUTSIDE OF THE [place] IN LAST 30 DAYS: No - Related Data Allergies/Adverse Reactions: No Known Allergies Allergy (Verified 10/10/16 16:57) Past Medical History - General Information source: Patient - Social History Smoking Status: Never Smoker Frequency of alcohol use: None Drug Abuse: None Lives with: Spouse/Significant other Family History: Reviewed & Not Pertinent, CAD, DM, Hyperlipidemia, Hypertension , Malignancy Patient has suicidal ideation: No Patient has homicidal ideation: No - Past Medical History Cardiac Medical History: Reports: Hx Atrial Fibrillation - Atrial flutter on 03/2013, Hx Congestive Heart Failure - Cardiomyopathy, Hx Hypertension - lisinopril daily Denies: Hx DVT Pulmonary Medical History: Reports: Hx Bronchitis Endocrine Medical History: Reports: Hx Diabetes Mellitus Type 2 Renal/ Medical History: Denies: Hx Peritoneal Dialysis Musculoskeltal Medical History: Reports Hx Musculoskeletal Trauma Skin Medical History: Reports Hx Cellulitis Traumatic Medical History: Reports: Hx Fractures - finger Past Surgical History: Reports: Hx Appendectomy, Hx Cardiac Catheterization - 3 years ago, Hx Cholecystectomy, Hx Tonsillectomy - Immunizations Immunizations up to date: No Hx Diphtheria, Pertussis, Tetanus Vaccination: Yes Review of Systems - Review of Systems Notes: Constitutional: Negative for fever. HENT: Negative for sore throat. Eyes: Negative for visual changes. Cardiovascular: Negative for chest pain. Respiratory: Negative for shortness of breath. Gastrointestinal: Negative for abdominal pain, vomiting or diarrhea. Genitourinary: Negative for dysuria. Musculoskeletal: Negative for back pain. Skin: Positive for rash. Neurological: Negative for headaches, weakness or numbness. 10 point ROS negative except as marked above and in HPI. Physical Exam - Vital signs Vitals: Temp Pulse Resp BP Pulse Ox 98.6 F 78 20 137/85 H 97 10/09/17 23:58 10/09/17 23:58 10/09/17 23:58 10/09/17 23:58 10/09/17 23:58 Interpretation: Normal Notes: PHYSICAL EXAMINATION: GENERAL: Well-appearing, well-nourished and in no acute distress. HEAD: Atraumatic, normocephalic. EYES: Pupils equal round and reactive to light, extraocular movements intact, sclera anicteric, conjunctiva are normal. ENT: nares patent, oropharynx clear without exudates. Moist mucous membranes. NECK: Normal range of motion, supple without lymphadenopathy LUNGS: Breath sounds clear to auscultation bilaterally and equal. No wheezes rales or rhonchi. HEART: Regular rate and rhythm without murmurs ABDOMEN: Soft, nontender, normoactive bowel sounds. No guarding, no rebound. No masses appreciated. EXTREMITIES: Normal range of motion, no pitting or edema. No cyanosis. NEUROLOGICAL: No focal neurological deficits. Moves all extremities spontaneously and on command. PSYCH: Normal mood, normal affect. SKIN: Warm, Dry, normal turgor, there is a 3 cm vertical incision on the distal lateral aspect of the right lower extremity just above the level of the ankle with an approximately 5 x 2 cm area of surrounding cellulitis Course - Re-evaluation Re-evalutation: 10/10/17 02:46 Patient presents with symptoms most consistent with an acute cellulitis. Vitals within normal limits. Patient does not meet sepsis criteria is overall very well in appearance. Exam and history are not consistent with DVT. Patient will be started on coverage for strep as patient does not have any associated purulent drainage. At this time will discharge with return precautions and follow-up recommendations. Verbal discharge instructions given a the bedside and opportunity for questions given. Medication warnings reviewed. Patient is in agreement with this plan and has verbalized understanding of return precautions and the need for primary care follow-up in the next 24-72 hours. - Vital Signs Vital signs: Temp Pulse Resp BP Pulse Ox 98.6 F 78 20 137/85 H 97 10/09/17 23:58 10/09/17 23:58 10/09/17 23:58 10/09/17 23:58 10/09/17 23:58 Discharge - Discharge Clinical Impression: Cellulitis of right lower extremity Condition: Good Disposition: HOME, SELF-CARE Additional Instructions: The rash is likely due to infection of your skin. You need to take the antibiotics as prescribed. Do not stop even if the rash goes away until you have completed all the antibiotics. The area of redness was traced out here in the emergency department with a marking pen. You need to return to emergency department if the redness spreads outside of this area by more than 2 cm in any direction. You should also return if you develop fevers with temperature greater than 101, persistent vomiting, worsening pain, or have any other symptoms that are concerning to you. Prescriptions: Cephalexin Monohydrate [Keflex 500 mg Capsule] 500 mg PO Q6H 7 Days capsule
[2017-10-10] MEDS ORDERED: CEPHALEXIN 500 MG CAPSULE PO ONE (02:48)
== END 2017-10-10 03:05 | disposition home or self-care (01) ==
LOC: ER 23:12
DX: L03.115 Cellulitis of right lower limb (principal); E66.01 Morbid (severe) obesity due to excess calories; I48.91 Unspecified atrial fibrillation; I50.9 Heart failure, unspecified; I11.0 Hypertensive heart disease with heart failure; Z90.49 Acquired absence of other specified parts of digestive tract
CPT/HCPCS: 99283

== ENCOUNTER 2018-01-28 23:10 | Inpatient (IN) | payer SELFPAY ==
[2018-01-28] MEDS ORDERED: ASPIRIN 81 MG TABLET, CHEWABLE PO ONE (23:23)
--- NOTE | 2018-01-28 23:37 | ER Document Report ---
ED Cardiac - General Mode of Arrival: Ambulatory Information source: Patient TRAVEL OUTSIDE OF THE [place] IN LAST 30 DAYS: No <KIMBERLEE MURPHY - Last Filed: 01/29/18 05:12> <RAFFI CIFUENTES - Last Filed: 01/29/18 05:12> - General Chief Complaint: Chest Pain Stated Complaint: CHEST PAIN Time Seen by Provider: 01/28/18 23:29 Notes: 47 y.o. female with DM, HLD, HTN, CHF, and cardiomyopathy presents to the ED with pains just below her breast that radiates to her back and shoulder. Pt reports that she originally thought it was her gallbladder because about one year ago she was about to have a cholecystectomy but was unable to due her PMHx and then her sx resolved and she has not had any trouble with her gallbladder since. Pt also reports nausea in the mornings for the past couple of weeks. Pt notes that she feels a "fluttering to her breasts". She denies any CP upon initial exam. She denies any fevers or chills. Pt reports that she ran out of her Sotalol and Lisinopril yesterday and is picking up her prescriptions tomorrow. Pt also reports taking Hydrochlorothiazide and one other medication that she cannot remember the name of and reports that she has been taking those medications regularly as she should. Pt reports a PFHx of mother with [place] at age 52. She denies any PMHx of WI. 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 Pt reports that she has been told that she has a rapid heart rate and Afib in the past. (KIMBERLEE MURPHY) - Related Data Allergies/Adverse Reactions: No Known Allergies Allergy (Verified 01/28/18 23:54) Past Medical History - General Information source: Patient - Social History Smoking Status: Never Smoker Chew tobacco use (# tins/day): No Frequency of alcohol use: Rare Drug Abuse: None Family History: CAD, DM, Hyperlipidemia, Hypertension, Malignancy - Past Medical History Cardiac Medical History: Reports: Hx Atrial Fibrillation - Atrial flutter on 03/2013, Hx Congestive Heart Failure - Cardiomyopathy, Hx Hypertension - lisinopril daily Pulmonary Medical History: Reports: Hx Bronchitis Endocrine Medical History: Reports: Hx Diabetes Mellitus Type 2 Renal/ Medical History: Denies: Hx Peritoneal Dialysis Musculoskeltal Medical History: Reports Hx Musculoskeletal Trauma Skin Medical History: Reports Hx Cellulitis Traumatic Medical History: Reports: Hx Fractures - finger Past Surgical History: Reports: Hx Appendectomy, Hx Cardiac Catheterization - 3 years ago, Hx Cholecystectomy, Hx Tonsillectomy - Immunizations Immunizations up to date: No Hx Diphtheria, Pertussis, Tetanus Vaccination: Yes <KIMBERLEE MURPHY - Last Filed: 01/29/18 05:12> Review of Systems - Review of Systems Constitutional: See HPI. denies: Chills, Fever EENT: No symptoms reported Cardiovascular: See HPI, Chest pain Respiratory: No symptoms reported Gastrointestinal: See HPI, Nausea Genitourinary: No symptoms reported Female Genitourinary: No symptoms reported Musculoskeletal: See HPI, Back pain, Joint swelling - Shoulder pain Skin: No symptoms reported Hematologic/Lymphatic: No symptoms reported Neurological/Psychological: No symptoms reported -: Yes All other systems reviewed and negative <KIMBERLEE MURPHY - Last Filed: 01/29/18 05:12> Physical Exam <KIMBERLEE MURPHY - Last Filed: 01/29/18 05:12> <RAFFI CIFUENTES - Last Filed: 01/29/18 05:12> - Vital signs Vitals: Temp Pulse Resp BP Pulse Ox 98.7 F 161 H 18 149/95 H 95 01/28/18 23:15 01/28/18 23:15 01/28/18 23:15 01/28/18 23:15 01/28/18 23:15 - Notes Notes: PHYSICAL EXAM GENERAL: Alert, interacts well. No acute distress. HEAD: Normocephalic, atraumatic. EYES: Pupils equal, round, and reactive to light. Extraocular movements intact. ENT: Oral mucosa moist, tongue midline. NECK: Full range of motion. Supple. Trachea midline. LUNGS: Appears SOB after talking. Clear to auscultation bilaterally, no wheezes , rales, or rhonchi. HEART: Tachycardic rate and regular rhythm. No murmurs, gallops, or rubs. ABDOMEN: Obese. Soft, non-tender. Non-distended. Bowel sounds present in all 4 quadrants. No guarding, rebound, or rigidity. EXTREMITIES: Moves all 4 extremities spontaneously. 1+ non pitting edema to bilatteral lower extremities. Radial and dorsalis pedis pulses 2/4 bilaterally. No cyanosis. NEUROLOGICAL: Alert and oriented x3. Normal speech. PSYCH: Normal affect, normal mood. SKIN: Warm, dry, normal turgor. No rashes or lesions noted. (KIMBERLEE MURPHY) Course - Laboratory Result Diagrams: 01/28/18 23:42 01/28/18 23:42 <KIMBERLEE MURPHY - Last Filed: 01/29/18 05:12> - Laboratory Result Diagrams: 01/28/18 23:42 01/28/18 23:42 <RAFFI CIFUENTES - Last Filed: 01/29/18 05:12> - Re-evaluation Re-evalutation: 01/29/18 02:21 CBC with mild leukocytosis 11.3, CMP shows slightly low potassium at 3.5, glucose elevated at 230 consistent with diabetes and nonfasting status, troponin negative but detectable at 0.025, proBNP elevated at 1290. Patient appeared mildly dehydrated so initially she was given a half a liter of normal saline to see if this would help with some of her tachycardia and mild hypotension. It took her heart rate down to a rate of approximately 143, patient has missed at least one dose of her sotalol, this was given by mouth with also a minimal reduction in her heart rate again currently it is 142, blood pressure is now 138/80. Patient will be given Cardizem IV 25 mg. Depending on her response to this we will decide whether or not she needs a drip. Patient will likely need admission. 01/29/18 02:23 EKG initially showed sinus tachycardia however monitor is consistent with atrial fibrillation with rapid ventricular response for the past 2 hours. 01/29/18 03:07 Patient is now in atrial flutter after receiving Cardizem with a ventricular rate of 86 conduction is approximately 3-1. Pulse ox is 96% on room air, blood pressure is now 109/74, respirations are approximately 20. Patient appears less short of breath. Patient was given Lasix for the congestive heart failure. Discussed the patient with Dr. Howard, agrees to admit the patient to his service. Requested [facility] bed. 01/29/18 03:10 Chest x-ray shows mild vascular congestion per my interpretation without the aid of radiologist. (RAFFI CIFUENTES) - Vital Signs Vital signs: Temp Pulse Resp BP Pulse Ox 98.3 F 74 24 H 119/85 97 01/29/18 04:29 01/29/18 04:29 01/29/18 04:29 01/29/18 04:29 01/29/18 04:29 - Laboratory Laboratory results interpreted by me: 01/28/18 01/28/18 01/28/18 23:42 23:42 23:42 WBC 11.3 H RDW 14.8 H Potassium 3.5 L Carbon Dioxide 31 H Glucose 230 H Creatine Kinase 239 H NT-Pro-B Natriuret Pep 1290 H Total Protein 8.3 H - EKG Interpretation by Me Additional EKG results interpreted by me: 01/29/18 02:23 EKG shows sinus tachycardia at a rate of 154, left axis deviation, prolonged QT interval, no ST segment elevations or depressions, poor R-wave progression per my interpretation. 01/29/18 04:07 repeat EKG shows atrial flutter at a rate of 99 approximately a 3-1 conduction, no ST segment elevation or depression, poor R-wave progression, occasional PVCs per my interpretation. (RAFFI CIFUENTES) Discharge <KIMBERLEE MURPHY - Last Filed: 01/29/18 05:12> - Discharge [facility] Unit Admitted: I[facility]U <RAFFI CIFUENTES - Last Filed: 01/29/18 05:12> - Discharge Clinical Impression: Atrial fibrillation with RVR Atrial flutter Qualifiers: Atrial flutter type: unspecified Qualified Code(s): I48.92 - Unspecified atrial flutter Congestive heart failure Qualifiers: Heart failure type: unspecified Heart failure chronicity: acute on chronic Qualified Code(s): I50.9 - Heart failure, unspecified Condition: Fair Disposition: ADMITTED INPATIENT Scribe Attestation: 01/29/18 05:12 I personally performed the services described in the documentation, reviewed and edited the documentation which was dictated to the scribe in my presence, and it accurately records my words and actions. (RAFFI CIFUENTES) Scribe Documentation - Scribe Written by [employer]te[employer]:: Aj Boyd 01/28/18 [id number] acting as scribe for :: Clyde <KIMBERLEE MURPHY - Last Filed: 01/29/18 05:12>
[2018-01-28] MEDS ORDERED: NITROGLYCERIN 0.4 MG/TAB 25 TAB/BOTTLE SL PRN (23:52)
[2018-01-28] MEDS ORDERED: NORMAL SALINE 500 ML IV ONE (23:53)
[2018-01-28 23:57] LABS: ABSOLUTE BASOPHILS # (AUTO) 0.1 10^3/uL (0.0-0.2); ABSOLUTE EOSINOPHILS # (AUTO) 0.6 10^3/uL (0.0-0.6); ABSOLUTE LYMPHOCYTES (AUTO) 3.8 10^3/uL (0.5-4.7); ABSOLUTE MONOCYTES (AUTO) 1.4 10^3/uL (0.1-1.4); ABSOLUTE NEUT (AUTO) 5.4 10^3/uL (1.7-8.2); EOSINOPHILS % (AUTO) 5.7 % (0-6); HEMATOCRIT 36.3 % (36.0-47.0); LYMPHOCYTES % (AUTO) 33.5 % (13-45); MEAN CORPUSCULAR HGB CONC 33.1 g/dL (32.0-36.0); MEAN CORPUSCULAR VOLUME 85 fl (80-97); MONOCYTES % (AUTO) 12.2 % (3-13); PLATELET COUNT 307 10^3/uL (150-450); RED BLOOD COUNT 4.29 10^6/uL (3.72-5.28); RED CELL DISTRIBUTION WIDTH 14.8 % (11.5-14.0); SEGMENTED NEUTROPHILS % (AUTO) 47.6 % (42-78); TOTAL CELLS COUNTED % (AUTO) 100 %; WHITE BLOOD COUNT 11.3 10^3/uL (4.0-10.5)
[2018-01-28] MEDS ORDERED: SOTALOL HCL 80 MG TABLET PO ONE (23:57)
--- NOTE | 2018-01-29 00:01 | EKG REPORT ---
SEVERITY:- ABNORMAL ECG - PAT/AFLUTTER WITH 2:1 CONDUCTION BORDERLINE LEFT AXIS DEVIATION PROLONGED QT INTERVAL : Confirmed by: Dustin Dickens 29-Jan-2018 00:00:36
[2018-01-29 00:14] LABS: ALANINE AMINOTRANSFERASE 23 U/L (9-52); ALBUMIN 4.2 g/dL (3.5-5.0); ALKALINE PHOSPHATASE 41 U/L (38-126); ANION GAP 12 (5-19); ASPARTATE AMINO TRANSFERASE 23 U/L (14-36); BILIRUBIN,DIRECT 0.3 mg/dL (0.0-0.4); BILIRUBIN,TOTAL 0.3 mg/dL (0.2-1.3); BLOOD UREA NITROGEN 17 mg/dL (7-20); CALCIUM 9.3 mg/dL (8.4-10.2); CARBON DIOXIDE 31 mmol/L (22-30); CHLORIDE 98 mmol/L (98-107); CREATINE KINASE 239 U/L (30-135); GLUCOSE 230 mg/dL (75-110); POTASSIUM 3.5 mmol/L (3.6-5.0); SODIUM 140.7 mmol/L (137-145); TOTAL PROTEIN 8.3 g/dL (6.3-8.2)
[2018-01-29 00:25] LABS: CREATINE KINASE MB 1.69 ng/mL (<4.55); TROPONIN I 0.025 ng/mL
[2018-01-29] MEDS ORDERED: DILTIAZEM HCL INJ 25 MG/5 ML VIAL IV ONE (02:11)
[2018-01-29] MEDS ORDERED: FUROSEMIDE INJ/PF 40 MG/4 ML SDV IV ONE (03:02)
[2018-01-29] MEDS ORDERED: DEXTROSE 40% GEL 15 GM TUBE PO PRN ×2 (03:11)
[2018-01-29] MEDS ORDERED: MAG HYDROX/AL HYDROX/SIMETH SUSP 30 ML UDCUP PO PRN (03:11)
[2018-01-29] MEDS ORDERED: GLUCAGON,HUMAN RECOMB 1 MG INJ IM PRN (03:11)
[2018-01-29] MEDS ORDERED: ACETAMINOPHEN 325 MG TABLET PO PRN (03:11)
[2018-01-29] MEDS ORDERED: DEXTROSE 50%-WATER 25 GM/50 ML DISP.SYRIN IV PRN ×2 (03:11)
--- NOTE | 2018-01-29 03:19 | RADIOLOGY REPORT (SQ) ---
EXAM DESCRIPTION: XR CHEST 1 VIEW COMPLETED DATE/TME: 01/28/2018 23:23 CLINICAL HISTORY: 47 years Female, cp COMPARISON: None. NUMBER OF VIEWS/TECHNIQUE: 1/AP FINDINGS: Adequate lung volume, clear parenchyma, mildly enlarged cardiac silhouette, and intact bony thorax. IMPRESSION: No acute cardiopulmonary findings.
[2018-01-29] MEDS ORDERED: FONDAPARINUX SODIUM INJ 10 MG/0.8 ML DISP.SYRIN SUBCUT ONE ×2 (03:30→06:10)
[2018-01-29] MEDS ORDERED: CHLORPHENIRAMINE MALEATE 4 MG TABLET PO ONE ×2 (06:33→08:30)
--- NOTE | 2018-01-29 06:43 | PDOC H&P ---
History of Present Illness Admission Date/PCP: 01/29/18 03:14 Patient complains of: Chest pain History of Present Illness: MAXIMILIANO XAVIER is a 47 year old female with a history of morbid obesity, diabetes congestive heart failure and atrial fibrillation. She presents with shortness of breath, nonproductive cough, rhinorrhea orthopnea, chest pain and palpitations. In the emergency room she is found to be in A. fib a flutter of 150-160, congestive heart failure with patient has run out of her medications at least 24 hours ago. She denies [id number] medication use. Following sotalol dose in the emergency room she is pain-free and rate controlled. Past Medical History Cardiac Medical History: Reports: Atrial Fibrillation - Atrial flutter on 2012, Congestive Heart Failure - Cardiomyopathy, Hypertension - lisinopril daily Denies: DVT Pulmonary Medical History: Reports: Bronchitis Endocrine Medical History: Reports: Diabetes Mellitus Type 2, Obesity Psychiatric Medical History: Denies: Depression Past Surgical History Past Surgical History: Reports: Appendectomy, Cardiac Catheterization - 3 years ago, Cholecystectomy, Tonsillectomy Social History Information Source: Patient, [facility] Records Smoking Status: Never Smoker Cigarettes Packs Per Day: 0.5 Number of Years Smokin Frequency of Alcohol Use: Rare Hx Recreational Drug Use: No Drugs: None Hx Prescription Drug Abuse: No - Advance Directive Resuscitation Status: Full Code Family History Family History: CAD, DM, Hyperlipidemia, Hypertension, Malignancy Parental Family History Reviewed: Yes Children Family History Reviewed: Yes Sibling(s) Family History Reviewed.: Yes Medication/Allergy Home Medications: Metformin HCl [Glucophage 500 mg Tablet] 500 mg PO BIDACBS #60 tab 01/23/15 Carvedilol [Coreg 6.25 mg Tablet] 6.25 mg PO Q12 01/23/17 Esomeprazole Magnesium [Nexium 24Hr] 22.3 mg PO DAILY 01/23/17 Hydrochlorothiazide [Hydrodiuril 50 mg Tablet] 50 mg PO QAM 01/23/17 Lisinopril [Prinivil 40 mg Tablet] 40 mg PO DAILY 01/23/17 Sotalol HCl [Betapace] 120 mg PO Q12 01/23/17 Spironolactone [Aldactone 25 mg Tablet] 25 mg PO Q12 01/23/17 Albuterol Sulfate [Proair HFA Inhalation Aerosol 8.5 gm MDI] 2 puff IH Q4H PRN # 1 mdi 03/03/17 Prednisone [Sterapred Ds] 1 pkg PO ASDIR PRN 12 Days tab.ds.pk 03/03/17 Cephalexin Monohydrate [Keflex 500 mg Capsule] 500 mg PO Q6H 7 Days capsule 01/22 Allergies/Adverse Reactions: No Known Allergies Allergy (Verified 01/28/18 23:54) Review of Systems Constitutional: PRESENT: as per HPI, fatigue, weakness, weight gain. ABSENT: fever(s), headache(s) Eyes: ABSENT: visual disturbances Ears: ABSENT: hearing changes Cardiovascular: PRESENT: as per HPI, dyspnea on exertion, edema, orthropnea, palpitations. ABSENT: chest pain Respiratory: PRESENT: as per HPI, cough, dyspnea. ABSENT: sputum Gastrointestinal: ABSENT: abdominal pain, constipation, diarrhea, hematemesis, hematochezia, nausea, vomiting Genitourinary: ABSENT: dysuria, hematuria Musculoskeletal: ABSENT: joint swelling Integumentary: ABSENT: rash, wounds Neurological: ABSENT: abnormal gait, abnormal speech, confusion, dizziness, focal weakness, syncope Psychiatric: ABSENT: anxiety, depression, homidical ideation, suicidal ideation Endocrine: ABSENT: cold intolerance, heat intolerance, polydipsia, polyuria Hematologic/Lymphatic: ABSENT: easy bleeding, easy bruising Physical Exam Vital Signs: Temp Pulse Resp BP Pulse Ox 98.3 F 80 24 H 119/85 97 01/29/18 04:29 01/29/18 04:35 01/29/18 04:29 01/29/18 04:29 01/29/18 04:29 Intake & Output 01/27/18 01/28/18 01/29/18 11:59 11:59 11:59 Weight 146.7 kg General appearance: PRESENT: cooperative, mild distress, morbidly obese Head exam: PRESENT: atraumatic, normocephalic Eye exam: PRESENT: conjunctiva pink, EOMI, PERRLA. ABSENT: scleral icterus Ear exam: PRESENT: normal external ear exam Mouth exam: PRESENT: moist, tongue midline Neck exam: ABSENT: carotid bruit, JVD, lymphadenopathy, thyromegaly Respiratory exam: PRESENT: accessory muscle use, crackles, retraction, symmetrical, tachypnea, wheezes. ABSENT: rhonchi Cardiovascular exam: PRESENT: irregular rhythm, tachycardia. ABSENT: diastolic murmur, rubs, systolic murmur Pulses: PRESENT: normal dorsalis pedis pul Vascular exam: PRESENT: normal capillary refill GI/Abdominal exam: PRESENT: normal bowel sounds, soft. ABSENT: distended, guarding, mass, organolmegaly, rebound, tenderness Rectal exam: PRESENT: deferred Extremities exam: PRESENT: full ROM. ABSENT: calf tenderness, clubbing, pedal edema Neurological exam: PRESENT: alert, awake, oriented to person, oriented to place , oriented to time, oriented to situation, CN II-XII grossly intact. ABSENT: motor sensory deficit Psychiatric exam: PRESENT: appropriate affect, normal mood. ABSENT: homicidal ideation, suicidal ideation Skin exam: PRESENT: dry, intact, warm. ABSENT: cyanosis, rash Results Impressions: Chest X-Ray 01/28/18 23:23 IMPRESSION: No acute cardiopulmonary findings. Assessment & Plan - Diagnosis (1) Atrial fibrillation with RVR Is this a current diagnosis for this admission?: Yes Plan: Secondary to noncompliance, Arixtra and resumption of sotalol (2) Acute bronchitis Is this a current diagnosis for this admission?: Yes Plan: Flonase and chlorpheniramine (3) Morbid obesity Is this a current diagnosis for this admission?: Yes Plan: Morbid obesity will evaluate for metabolic cause with evaluation of thyroid function and dietitian consultation. Strongly consider outpatient sleep study (4) Congestive heart failure Qualifiers: Heart failure type: unspecified Heart failure chronicity: acute on chronic Qualified Code(s): I50.9 - Heart failure, unspecified Is this a current diagnosis for this admission?: Yes Plan: Secondary to #1, rate control, gentle diuresis (5) Obstructive sleep apnea Is this a current diagnosis for this admission?: Yes Plan: By history of chronic fatigue, body habitus waking from sleep, rhonchi and daytime sleepiness, BiPAP and outpatient sleep study - Time Time Spent: 50 to 70 Minutes - Inpatient Certification Medical Necessity: Need Close Monitoring Due to Risk of Patient Decompensation
[2018-01-29 07:28] LABS: CREATINE KINASE MB 1.53 ng/mL (<4.55); TROPONIN I 0.026 ng/mL
[2018-01-29] MEDS: LISINOPRIL 10 MG TABLET PO SCH (09:05)
[2018-01-29] MEDS: INSULIN LISPRO 100 UNIT/ML 3 ML VIAL SUBCUT PRN ×4 (09:05→21:39)
[2018-01-29] MEDS: FUROSEMIDE 40 MG TABLET PO SCH (09:06)
[2018-01-29] MEDS: SPIRONOLACTONE 25 MG TABLET PO SCH ×2 (09:06→21:31)
[2018-01-29] MEDS: POTASSIUM CHLORIDE 10 MEQ CAPSULE.ER PO SCH (09:06)
[2018-01-29] MEDS: FLUTICASONE NASAL SPRAY 50 MCG/SPRY 120 SPRAY/16 GM NASL SCH ×2 (09:08→21:33)
[2018-01-29] MEDS: DOCUSATE SODIUM 100 MG CAPSULE PO SCH (09:11)
[2018-01-29] MEDS ORDERED: SOTALOL HCL 80 MG TABLET PO SCH (10:00)
[2018-01-29] MEDS ORDERED: CARVEDILOL 6.25 MG TABLET PO SCH (10:00)
[2018-01-29] MEDS ORDERED: METOPROLOL SUCCINATE 50 MG TAB.SR.24H PO ONE (12:00)
[2018-01-29 12:31] LABS: CREATINE KINASE MB 1.49 ng/mL (<4.55); TROPONIN I 0.025 ng/mL
--- NOTE | 2018-01-29 12:34 | EKG REPORT ---
SEVERITY:- ABNORMAL ECG - ATRIAL FLUTTER, A-RATE 283 IVCD, CONSIDER ATYPICAL RBBB PROBABLE LVH WITH SECONDARY REPOL ABNRM : Confirmed by: Flores Scanlon MD 29-Jan-2018 12:33:44
[2018-01-29 14:14] LABS: HEMATOCRIT 35.4 % (36.0-47.0); HEMOGLOBIN 11.7 g/dL (12.0-15.5); MEAN CORPUSCULAR HGB CONC 33.2 g/dL (32.0-36.0); MEAN CORPUSCULAR VOLUME 84 fl (80-97); PLATELET COUNT 280 10^3/uL (150-450); RED BLOOD COUNT 4.19 10^6/uL (3.72-5.28); RED CELL DISTRIBUTION WIDTH 14.7 % (11.5-14.0); WHITE BLOOD COUNT 10.8 10^3/uL (4.0-10.5)
[2018-01-29 14:40] LABS: INTERNATIONAL RATION (INR) 1.11; PROTHROMBIN TIME 14.8 SEC (11.4-15.4)
--- NOTE | 2018-01-29 17:15 | Progress Note ---
Provider Note Provider Note: MAXIMILIANO XAVIER is a 47 year old female with a history of morbid obesity, diabetes congestive heart failure and atrial fibrillation. Plan of care is as follows: 1. AFIB.AFLUTTER: Cardiology consulted. Discontinued sotalol. Initiated lisinopril and Toprol-XL. 2. ANTICOAGULATION: Patient cannot afford Arixtra, initiate Coumadin. Will need to follow-up at [facility]. 3. MEDICATION ASSISTANCE: patient will require assistance with obtaining new medications. Additionally, we will need to schedule appointments for her at the [facility] in order to follow-up on her new Coumadin regimen. 4. DISPO: Plan to send home tomorrow.
[2018-01-29] MEDS ORDERED: METOPROLOL SUCCINATE 50 MG TAB.SR.24H PO SCH (18:00)
[2018-01-29] MEDS ORDERED: APIXABAN 5 MG TABLET PO SCH (18:00)
[2018-01-29 18:42] LABS: CREATINE KINASE MB 1.5 ng/mL (<4.55); TROPONIN I 0.028 ng/mL
[2018-01-29] MEDS: BENZOCAINE/MENTHOL SORE THROAT LOZENGE BUCCAL PRN (20:32)
[2018-01-29] MEDS ORDERED: CHLORPHENIRAMINE MALEATE 4 MG TABLET PO PRN (20:39)
[2018-01-29] MEDS: HYDROCODONE BIT/HOMATROPINE 5-1.5 MG TABLET PO PRN (21:30)
[2018-01-29] MEDS: METOPROLOL SUCCINATE 50 MG TAB.SR.24H PO SCH (21:33)
[2018-01-29] MEDS ORDERED: WARFARIN SODIUM 5 MG TABLET PO SCH (22:00)
[2018-01-30] MEDS: BENZOCAINE/MENTHOL SORE THROAT LOZENGE BUCCAL PRN (02:12)
[2018-01-30 05:23] LABS: ABSOLUTE BASOPHILS # (AUTO) 0.1 10^3/uL (0.0-0.2); ABSOLUTE EOSINOPHILS # (AUTO) 0.8 10^3/uL (0.0-0.6); ABSOLUTE LYMPHOCYTES (AUTO) 4.2 10^3/uL (0.5-4.7); ABSOLUTE MONOCYTES (AUTO) 1.4 10^3/uL (0.1-1.4); ABSOLUTE NEUT (AUTO) 4.6 10^3/uL (1.7-8.2); BASOPHILS % (AUTO) 0.7 % (0-2); EOSINOPHILS % (AUTO) 6.9 % (0-6); HEMATOCRIT 34.1 % (36.0-47.0); HEMOGLOBIN 11.3 g/dL (12.0-15.5); LYMPHOCYTES % (AUTO) 38.4 % (13-45); MEAN CORPUSCULAR HEMOGLOBIN 27.7 pg (27.0-33.4); MEAN CORPUSCULAR VOLUME 84 fl (80-97); MONOCYTES % (AUTO) 12.6 % (3-13); PLATELET COUNT 263 10^3/uL (150-450); RED BLOOD COUNT 4.06 10^6/uL (3.72-5.28); RED CELL DISTRIBUTION WIDTH 14.3 % (11.5-14.0); SEGMENTED NEUTROPHILS % (AUTO) 41.4 % (42-78); TOTAL CELLS COUNTED % (AUTO) 100 %
[2018-01-30 06:00] LABS: ANION GAP 12 (5-19); BLOOD UREA NITROGEN 23 mg/dL (7-20); CALCIUM 8.8 mg/dL (8.4-10.2); CARBON DIOXIDE 29 mmol/L (22-30); CHLORIDE 97 mmol/L (98-107); GLUCOSE 170 mg/dL (75-110); POTASSIUM 3.8 mmol/L (3.6-5.0); SODIUM 138.4 mmol/L (137-145)
[2018-01-30 06:10] LABS: INTERNATIONAL RATION (INR) 1.13; PROTHROMBIN TIME 15.1 SEC (11.4-15.4)
--- NOTE | 2018-01-30 08:01 | EKG REPORT ---
SEVERITY:- ABNORMAL ECG - WANDERING PACEMAKER MULTIPLE ATRIAL PREMATURE COMPLEXES PROBABLE LEFT ATRIAL ABNORMALITY BORDERLINE PROLONGED QT INTERVAL : Confirmed by: Flores Scanlon MD 30-Jan-2018 07:59:11
[2018-01-30] MEDS: POTASSIUM CHLORIDE 10 MEQ CAPSULE.ER PO SCH (09:26)
[2018-01-30] MEDS: FLUTICASONE NASAL SPRAY 50 MCG/SPRY 120 SPRAY/16 GM NASL SCH (09:27)
[2018-01-30] MEDS: METOPROLOL SUCCINATE 50 MG TAB.SR.24H PO SCH (09:27)
[2018-01-30] MEDS: FUROSEMIDE 40 MG TABLET PO SCH (09:27)
[2018-01-30] MEDS: DOCUSATE SODIUM 100 MG CAPSULE PO SCH (09:27)
[2018-01-30] MEDS: LISINOPRIL 10 MG TABLET PO SCH (09:28)
[2018-01-30] MEDS: SPIRONOLACTONE 25 MG TABLET PO SCH (09:28)
[2018-01-30] MEDS: INSULIN LISPRO 100 UNIT/ML 3 ML VIAL SUBCUT PRN ×2 (09:29→13:27)
[2018-01-30] MEDS ORDERED: LISINOPRIL 10 MG TABLET PO SCH (09:50)
[2018-01-30] MEDS ORDERED: FONDAPARINUX SODIUM INJ 10 MG/0.8 ML DISP.SYRIN SUBCUT SCH (10:00)
[2018-01-30] MEDS: HYDROCODONE BIT/HOMATROPINE 5-1.5 MG TABLET PO PRN (12:25)
[2018-01-30] MEDS ORDERED: ALBUTEROL SULFATE HFA (90 MCG/PUFF) 200 PUFF/8.5 GM MDI IH PRN (14:34)
[2018-01-30 16:39] VITALS: BP 119/85
--- NOTE | 2018-01-30 19:12 | XCELERA REPORT ---
[address] [address] Transthoracic Echocardiogram Report Name: MAXIMILIANO XAVIER Age: 47 yrs Gender: Female : 1970 Patient Status: Inpatient Patient Location: [address] [place] [address] Study Date: 01/30/2018 10:18 AM Procedure: A two-dimensional transthoracic echocardiogram with color flow and Doppler was performed. Study Quality: Technically suboptimal. Poor endocardial visualistaion.Poor colr flow and doppler interogation. Images were not obtained from all of the standard acoustic windows due to the limited scope of the study. Reason For Study: Cardiomyopathy / Atrial Fibrillation History: Cardiomyopathy / Atrial Fibrillation. Ordering Physician: FLORES ADAMS Performed By: Kathleen Mirza Interpretation Summary Cannot comment on LV wall thickness.Probably no regional wall motion abnormality.LVEF is normal at 50%.Probably normal LV size. RV ,LA , and RA not seen. There is no mitral valve stenosis. Eccentric posterioly directed mild to moderate MR wall jet. Not seen.No intergation of the Aortic Valve. TR not well seen.Probaly no TR. There is no pericardial effusion. Images were not obtained from all of the standard acoustic windows due to the limited scope of the study. MMode/2D Measurements & Calculations RVDd: 3.7 cm LVIDd: 6.7 cm FS: 32.2 % LVOT diam: 2.4 cm IVSd: 1.3 cm LVIDs: 4.5 cm EDV(Teich): 231.4 ml LVOT area: 4.4 cm2 LVPWd: 0.89 cm ESV(Teich): 94.7 ml EF(Teich): 59.1 % Doppler Measurements & Calculations MV E max maty: MV dec slope: MR max maty: 129.2 cm/sec 809.5 cm/sec2 464.4 cm/sec MV A max maty: 40.2 cm/secMV dec time: 0.16 sec MR max P.3 mmHg MV E/A: 3.2 Left Ventricle Cannot comment on LV wall thickness.Probably no regional wall motion abnormality.LVEF is normal at 50%.Probably normal LV size. Right Ventricle RV ,LA , and RA not seen. Mitral Valve There is no evidence of mitral valve prolapse. There is no mitral valve stenosis. Eccentric posterioly directed mild to moderate MR wall jet. Aortic Valve Not seen.No intergation of the Aortic Valve. Tricuspid Valve TR not well seen.Probaly no TR. Effusions There is no pericardial effusion. : FLORES ADAMS > Flores Adams
== END 2018-01-30 18:07 | disposition home or self-care (01) | DRG 309 ==
LOC: ER 23:10 → EH 01-29 03:14 → 3S 01-29 04:25
PROVIDERS: ADMIT Internal Medicine; ATTEND Internal Medicine
DX: I48.92 Unspecified atrial flutter (principal); Z68.43 Body mass index [BMI] 50.0-59.9, adult; I11.0 Hypertensive heart disease with heart failure; I50.9 Heart failure, unspecified; I48.91 Unspecified atrial fibrillation; E11.9 Type 2 diabetes mellitus without complications; E78.5 Hyperlipidemia, unspecified; E86.0 Dehydration; G47.33 Obstructive sleep apnea (adult) (pediatric); E66.01 Morbid (severe) obesity due to excess calories; Z79.84 Long term (current) use of oral hypoglycemic drugs; Z79.51 Long term (current) use of inhaled steroids; Z79.52 Long term (current) use of systemic steroids; Z79.899 Other long term (current) drug therapy; Z91.19 Patient's noncompliance with other medical treatment and regimen
CPT/HCPCS: 36415; 71045; 80048; 80053; 82550; 82553; 82962; 83735; 83880; 84484; 85025; 85027; 85610; 87070; 87880; 93005; 93010; 93306; 96361; 96374; 99285; J1652; J1815; J1940; J3490; J7040

== ENCOUNTER 2018-04-07 00:13 | Inpatient (IN) | payer SELFPAY ==
[2018-04-07 00:54] LABS: ABSOLUTE BASOPHILS # (AUTO) 0.2 10^3/uL (0.0-0.2); ABSOLUTE EOSINOPHILS # (AUTO) 0.3 10^3/uL (0.0-0.6); ABSOLUTE LYMPHOCYTES (AUTO) 3.1 10^3/uL (0.5-4.7); ABSOLUTE NEUT (AUTO) 10.8 10^3/uL (1.7-8.2); EOSINOPHILS % (AUTO) 1.6 % (0-6); HEMATOCRIT 33.6 % (36.0-47.0); HEMOGLOBIN 10.8 g/dL (12.0-15.5); LYMPHOCYTES % (AUTO) 20.2 % (13-45); MEAN CORPUSCULAR HEMOGLOBIN 27.3 pg (27.0-33.4); MEAN CORPUSCULAR HGB CONC 32.1 g/dL (32.0-36.0); MEAN CORPUSCULAR VOLUME 85 fl (80-97); MONOCYTES % (AUTO) 6.7 % (3-13); PLATELET COUNT 264 10^3/uL (150-450); RED BLOOD COUNT 3.96 10^6/uL (3.72-5.28); RED CELL DISTRIBUTION WIDTH 15.8 % (11.5-14.0); SEGMENTED NEUTROPHILS % (AUTO) 70.5 % (42-78); TOTAL CELLS COUNTED % (AUTO) 100 %; WHITE BLOOD COUNT 15.4 10^3/uL (4.0-10.5)
--- NOTE | 2018-04-07 01:00 | RADIOLOGY REPORT (SQ) ---
XR CHEST 1 VIEW HISTORY: Shortness of breath. COMPARISON: 01/28/2018 FINDINGS/IMPRESSION: Moderate cardiomegaly is present, unchanged. Mild pulmonary vascular congestion. Possible left basilar atelectasis or opacity. No large pleural effusion is seen. No acute osseous findings.
[2018-04-07 01:09] LABS: ALANINE AMINOTRANSFERASE 44 U/L (9-52); ALBUMIN 3.8 g/dL (3.5-5.0); ALKALINE PHOSPHATASE 43 U/L (38-126); ANION GAP 15 (5-19); ASPARTATE AMINO TRANSFERASE 45 U/L (14-36); BILIRUBIN,DIRECT 0.4 mg/dL (0.0-0.4); BILIRUBIN,TOTAL 1.1 mg/dL (0.2-1.3); BLOOD UREA NITROGEN 19 mg/dL (7-20); CALCIUM 8.7 mg/dL (8.4-10.2); CARBON DIOXIDE 27 mmol/L (22-30); CHLORIDE 97 mmol/L (98-107); GLUCOSE 182 mg/dL (75-110); POTASSIUM 3.6 mmol/L (3.6-5.0); SODIUM 138.6 mmol/L (137-145); TOTAL PROTEIN 7.8 g/dL (6.3-8.2)
[2018-04-07 01:27] LABS: TROPONIN I 0.052 ng/mL
[2018-04-07] MEDS ORDERED: FUROSEMIDE INJ/PF 40 MG/4 ML SDV IV ONE (01:54)
[2018-04-07] MEDS ORDERED: SOTALOL HCL 80 MG TABLET PO ONE (01:54)
[2018-04-07 01:56] LABS: LIPASE 141.8 U/L (23-300)
--- NOTE | 2018-04-07 02:05 | ER Document Report ---
ED General - General Chief Complaint: Shortness Of Breath Stated Complaint: SHORTNESS OF BREATH Time Seen by Provider: 04/07/18 00:24 Notes: Patient is a 48-year-old female with a past medical history of atrial fibrillation, cardiomyopathy, EF of 30%, morbid obesity, hypertension, hyperlipidemia who presents with complaints of 3 days of upper abdominal tightness and discomfort as well as shortness of breath. The patient describes the upper abdominal discomfort as a tightness, and aching, constant discomfort that is worsened by exertion or standing. She states that it could be improved by getting to a specific position in bed. She denies a history of similar pain in the past. She also notes ongoing shortness of breath that has been overall worsening over the past 3 days. Patient states that despite taking extra doses of her oral Lasix at home she has not had nearly the normal amount of urine output that she has after taking this medication. She has not noted significant increase in edema in her lower extremities. She has not seen her general doctor regarding today's concerns. She denies any distinct chest pain. No vomiting. Food does not affect her pain. TRAVEL OUTSIDE OF THE [place] IN LAST 30 DAYS: No - Related Data Allergies/Adverse Reactions: No Known Allergies Allergy (Verified 01/28/18 23:54) Past Medical History - General Information source: Patient - Social History Smoking Status: Never Smoker Frequency of alcohol use: None Drug Abuse: None Lives with: Spouse/Significant other Family History: CAD, DM, Hyperlipidemia, Hypertension, Malignancy - Past Medical History Cardiac Medical History: Reports: Hx Atrial Fibrillation - Atrial flutter on 03/2013, Hx Congestive Heart Failure - Cardiomyopathy, Hx Hypertension - lisinopril daily Denies: Hx DVT Pulmonary Medical History: Reports: Hx Bronchitis Endocrine Medical History: Reports: Hx Diabetes Mellitus Type 2 Renal/ Medical History: Denies: Hx Peritoneal Dialysis Musculoskeletal Medical History: Reports Hx Musculoskeletal Trauma Skin Medical History: Reports Hx Cellulitis Psychiatric Medical History: Denies: Hx Depression Traumatic Medical History: Reports: Hx Fractures - finger Past Surgical History: Reports: Hx Appendectomy, Hx Cardiac Catheterization - 3 years ago, Hx Cholecystectomy, Hx Tonsillectomy - Immunizations Immunizations up to date: No Hx Diphtheria, Pertussis, Tetanus Vaccination: Yes Review of Systems - Review of Systems Notes: Constitutional: Negative for fever. HENT: Negative for sore throat. Eyes: Negative for visual changes. Cardiovascular: Negative for chest pain. Respiratory: Positive for shortness of breath. Gastrointestinal: Positive for upper abdominal tightness Genitourinary: Negative for dysuria. Musculoskeletal: Negative for back pain. Skin: Negative for rash. Neurological: Negative for headaches, weakness or numbness. 10 point ROS negative except as marked above and in HPI. Physical Exam - Vital signs Interpretation: Hypertensive, Tachycardic Notes: PHYSICAL EXAMINATION: GENERAL: Appears moderately uncomfortable but in no acute distress HEAD: Atraumatic, normocephalic. EYES: Pupils equal round and reactive to light, extraocular movements intact, sclera anicteric, conjunctiva are normal. ENT: nares patent, oropharynx clear without exudates. Moist mucous membranes. NECK: Normal range of motion, supple without lymphadenopathy LUNGS: Mild tachypnea but no distress. Crackles at the bases bilaterally. HEART: Irregularly irregular tachycardia without murmurs ABDOMEN: Soft, morbidly obese abdomen, nontender, normoactive bowel sounds. No guarding, no rebound. No masses appreciated. EXTREMITIES: Normal range of motion, trace edema in the bilateral lower extremities that is equal and symmetric NEUROLOGICAL: No focal neurological deficits. Moves all extremities spontaneously and on command. PSYCH: Normal mood, normal affect. SKIN: Warm, Dry, normal turgor, no rashes or lesions noted. Course - Re-evaluation Re-evalutation: 04/07/18 02:00 Patient presents with complaints of upper abdominal tightness, shortness of breath worsened by exertion. She has a history of morbid obesity, congestive heart failure, and A. fib. She does present in A. fib with rapid ventricular response although has not had her evening dose of sotalol. The patient's laboratories do show a indeterminate range troponin as well as an elevated BNP relative to her last hospitalization. Her chest x-ray does show pulmonary edema. The patient is moderately hypoxic at 87-89% and was 98% on room air at the time of her last hospitalization and discharge. Clinical picture is overall consistent with volume overload in the setting of CHF. The patient is complaining of upper abdominal tightness in particular in the context of a moderately elevated troponin this is concerning for possible cardiac etiology although I do believe it is more likely related to abdominal wall edema from her being volume overloaded. Biliary pathology does not make sense in this context as there is no vomiting, no association with eating. LFTs are normal. Lipase is pending. I do not see an indication for right upper quadrant ultrasound. The patient has been given her evening dose of 120 mg of sotalol, given 40 mg of IV furosemide for diuresis. I discussed the hospitalist for admission who has accepted - Laboratory Result Diagrams: 04/07/18 00:41 04/07/18 00:41 Laboratory results interpreted by me: 04/07/18 04/07/18 04/07/18 00:41 00:41 00:41 WBC 15.4 H Hgb 10.8 L Hct 33.6 L RDW 15.8 H Absolute Neutrophils 10.8 H Chloride 97 L Glucose 182 H AST 45 H NT-Pro-B Natriuret Pep 2830 H TSH 04/07/18 00:41 WBC Hgb Hct RDW Absolute Neutrophils Chloride Glucose AST NT-Pro-B Natriuret Pep TSH 6.57 H - Diagnostic Test Radiology reviewed: Image reviewed, Reports reviewed Radiology results interpreted by me: 04/07/18 02:03 Chest x-ray: Cardiomegaly, vascular congestion, trace pulmonary - EKG Interpretation by Me Additional EKG results interpreted by me: 04/07/18 02:04 Atrial fibrillation with rapid ventricular response. Rate 112. No ST elevations or depressions. QTC is 508. Discharge - Discharge Clinical Impression: Atrial fibrillation with RVR, Elevated troponin, Morbid obesity Atrial fibrillation Qualifiers: Atrial fibrillation type: unspecified Qualified Code(s): I48.91 - Unspecified atrial fibrillation Fluid overload Qualifiers: Hypervolemia type: unspecified Qualified Code(s): E87.70 - Fluid overload, unspecified Condition: Fair Disposition: ADMITTED INPATIENT Admitting Provider: Hospitalist Unit Admitted: [facility]
[2018-04-07] MEDS ORDERED: ACETAMINOPHEN 325 MG TABLET PO PRN (02:07)
[2018-04-07] MEDS ORDERED: DEXTROSE 50%-WATER 25 GM/50 ML DISP.SYRIN IV PRN ×2 (02:07)
[2018-04-07] MEDS ORDERED: MAGNESIUM HYDROXIDE SUSP 30 ML UDCUP PO PRN (02:07)
[2018-04-07] MEDS ORDERED: GLUCAGON,HUMAN RECOMB 1 MG INJ IM PRN (02:07)
[2018-04-07] MEDS ORDERED: DEXTROSE 40% GEL 15 GM TUBE PO PRN ×2 (02:07)
[2018-04-07] MEDS ORDERED: METOPROLOL TARTRATE PF/INJ 5 MG/5 ML SDV IV PRN (02:10)
[2018-04-07] MEDS: APIXABAN 5 MG TABLET PO SCH ×2 (03:43→14:23)
--- NOTE | 2018-04-07 05:46 | EKG REPORT ---
SEVERITY:- ABNORMAL ECG - ATRIAL FIBRILLATION, V-RATE 93-135 NONSPECIFIC T ABNORMALITIES, LATERAL LEADS BORDERLINE PROLONGED QT INTERVAL : Confirmed by: Wilfredo Russell MD 07-Apr-2018 05:45:22
[2018-04-07] MEDS ORDERED: CHLORPHENIRAMINE MALEATE 4 MG TABLET PO ONE (06:35)
--- NOTE | 2018-04-07 06:56 | PDOC H&P ---
History of Present Illness Admission Date/PCP: 04/07/18 02:26 Patient complains of: Shortness of breath History of Present Illness: MAXIMILIANO XAVIER is a 48 year old female with a past medical history of morbid obesity, diabetes, congestive heart failure, atrial fibrillation, obstructive and sleep apnea. Patient complains of several days of shortness of breath and palpitations. Developing orthopnea she is prompted to seek evaluation emergency room where she is found to have A. fib with RVR in the 120s. A chest x-ray with left lower lobe consolidation versus atelectasis and leukocytosis. She receives sotalol and referred to the hospitalist for admission. Patient admits recent transition to sotalol by senior electronics design engineer. She denies chest pain nausea or vomiting. Past Medical History Cardiac Medical History: Reports: Atrial Fibrillation - Atrial flutter on 2012, Congestive Heart Failure - Cardiomyopathy, Hypertension - lisinopril daily Denies: DVT Pulmonary Medical History: Reports: Bronchitis Endocrine Medical History: Reports: Diabetes Mellitus Type 2 Psychiatric Medical History: Denies: Depression Past Surgical History Past Surgical History: Reports: Appendectomy, Cardiac Catheterization - 3 years ago, Cholecystectomy, Tonsillectomy Social History Information Source: Patient Lives with: Spouse/Significant other Smoking Status: Former Smoker Number of Years Smokin Last Time Smoked: 15 Frequency of Alcohol Use: Rare Hx Recreational Drug Use: No Drugs: None Hx Prescription Drug Abuse: No - Advance Directive Resuscitation Status: Full Code Family History Family History: CAD, DM, Hyperlipidemia, Hypertension, Malignancy Parental Family History Reviewed: Yes Children Family History Reviewed: Yes Sibling(s) Family History Reviewed.: Yes Medication/Allergy Home Medications: Metformin HCl [Glucophage 500 mg Tablet] 1,000 mg PO BID 01/29/18 Apixaban [Eliquis 5 mg Tablet] 5 mg PO Q12H #60 tablet 01/30/18 Furosemide [Lasix 40 mg Tablet] 1 tab PO DAILY 04/07/18 Metoprolol Succinate [Toprol Xl 50 mg Tab.sr] 1 tab PO Q12 04/07/18 Sotalol HCl [Sotalol AF] 1 tab PO DAILY 04/07/18 Allergies/Adverse Reactions: No Known Allergies Allergy (Verified 01/28/18 23:54) Review of Systems Constitutional: PRESENT: as per HPI, fatigue. ABSENT: chills, fever(s), headache(s), weight gain, weight loss Eyes: ABSENT: visual disturbances Ears: ABSENT: hearing changes Cardiovascular: PRESENT: as per HPI, dyspnea on exertion, palpitations. ABSENT : chest pain, edema, orthropnea Respiratory: ABSENT: cough, hemoptysis Gastrointestinal: ABSENT: abdominal pain, constipation, diarrhea, hematemesis, hematochezia, nausea, vomiting Genitourinary: ABSENT: dysuria, hematuria Musculoskeletal: ABSENT: joint swelling Integumentary: ABSENT: rash, wounds Neurological: ABSENT: abnormal gait, abnormal speech, confusion, dizziness, focal weakness, syncope Psychiatric: ABSENT: anxiety, depression, homidical ideation, suicidal ideation Endocrine: ABSENT: cold intolerance, heat intolerance, polydipsia, polyuria Hematologic/Lymphatic: ABSENT: easy bleeding, easy bruising Physical Exam Vital Signs: Temp Pulse Resp BP Pulse Ox 97.8 F 101 H 22 H 128/83 H 100 04/07/18 04:56 04/07/18 04:56 04/07/18 04:56 04/07/18 04:56 04/07/18 04:56 Intake & Output 04/05/18 04/06/18 04/07/18 11:59 11:59 11:59 Weight 148.7 kg General appearance: PRESENT: no acute distress, cooperative, well-developed, well-nourished Head exam: PRESENT: atraumatic, normocephalic Eye exam: PRESENT: conjunctiva pink, EOMI, PERRLA. ABSENT: scleral icterus Ear exam: PRESENT: normal external ear exam Mouth exam: PRESENT: moist, tongue midline Neck exam: ABSENT: carotid bruit, JVD, lymphadenopathy, thyromegaly Respiratory exam: PRESENT: crackles, tachypnea. ABSENT: rales, rhonchi, wheezes Cardiovascular exam: PRESENT: irregular rhythm, tachycardia. ABSENT: diastolic murmur, rubs, systolic murmur Pulses: PRESENT: normal dorsalis pedis pul Vascular exam: PRESENT: normal capillary refill GI/Abdominal exam: PRESENT: normal bowel sounds, soft. ABSENT: distended, guarding, mass, organolmegaly, rebound, tenderness Rectal exam: PRESENT: deferred Extremities exam: PRESENT: full ROM. ABSENT: calf tenderness, clubbing, pedal edema Neurological exam: PRESENT: alert, awake, oriented to person, oriented to place , oriented to time, oriented to situation, CN II-XII grossly intact. ABSENT: motor sensory deficit Psychiatric exam: PRESENT: appropriate affect, normal mood. ABSENT: homicidal ideation, suicidal ideation Skin exam: PRESENT: dry, intact, warm. ABSENT: cyanosis, rash Results Impressions: Chest X-Ray 04/07/18 00:27 FINDINGS/IMPRESSION: Moderate cardiomegaly is present, unchanged. Mild pulmonary vascular congestion. Possible left basilar atelectasis or opacity. No large pleural effusion is seen. No acute osseous findings. Assessment & Plan - Diagnosis (1) Pneumonia Is this a current diagnosis for this admission?: Yes Plan: History of chronic bronchitis. Xopenex and Atrovent, empiric antibiotics, incentive spirometry. (2) Atrial fibrillation Qualifiers: Atrial fibrillation type: unspecified Qualified Code(s): I48.91 - Unspecified atrial fibrillation Is this a current diagnosis for this admission?: Yes Plan: Suboptimal beta-blockade. Optimize sotalol, follow-up cardiac enzymes and TSH (3) Congestive heart failure Is this a current diagnosis for this admission?: Yes Plan: Likely secondary to #1 and 2. Appears euvolemic (4) Obesity Plan: Morbid obesity will evaluate for metabolic cause with evaluation of thyroid function and dietitian consultation (5) Obstructive sleep apnea Is this a current diagnosis for this admission?: Yes Plan: BiPAP - Time Time Spent: 50 to 70 Minutes
[2018-04-07] MEDS ORDERED: LEVOFLOXACIN 750 MG/D5W RTU 750 MG/150 ML RTUPB IV ONE (07:00)
[2018-04-07 07:11] LABS: CREATINE KINASE MB 1.12 ng/mL (<4.55); TROPONIN I 0.046 ng/mL
[2018-04-07] MEDS ORDERED: CHLORPHENIRAMINE MALEATE 4 MG TABLET ONE (07:25)
[2018-04-07] MEDS: DOCUSATE SODIUM 100 MG CAPSULE PO SCH (09:27)
[2018-04-07] MEDS: LISINOPRIL 10 MG TABLET PO SCH (09:27)
[2018-04-07] MEDS: METOPROLOL SUCCINATE 50 MG TAB.SR.24H PO SCH ×2 (09:28→22:44)
[2018-04-07] MEDS: FUROSEMIDE INJ/PF 40 MG/4 ML SDV IV SCH (09:28)
[2018-04-07] MEDS: FLUTICASONE NASAL SPRAY 50 MCG/SPRY 120 SPRAY/16 GM NASL SCH ×2 (09:28→22:43)
[2018-04-07] MEDS: POTASSIUM CHLORIDE 10 MEQ CAPSULE.ER PO SCH ×2 (09:28→22:44)
[2018-04-07] MEDS ORDERED: SOTALOL HCL 80 MG TABLET PO SCH ×2 (10:00→22:00)
--- NOTE | 2018-04-07 11:03 | Progress Note ---
Provider Note Provider Note: I stopped her sotalol because it did not maintain her in a sinus rhythm, and also she has a prolonged QTc on her EKG that was done on admission. Because of the concern over even more prolonged QT interval as her heart rate slows, I would like to keep her just on metoprolol at this time. If she needs further rate control because of her history of heart failure I will likely use digoxin. Also, her history is not one terribly suggestive of pneumonia. She has not had any symptoms of pneumonia. Her leukocytosis could be a stress response from her atrial fibrillation. Therefore, because of this and because of the risk of QT prolongation with Levaquin, I have elected to discontinue that medication as well.
[2018-04-07] MEDS: INSULIN LISPRO 100 UNIT/ML 3 ML VIAL SUBCUT PRN (12:38)
[2018-04-07 13:49] LABS: CREATINE KINASE MB 1.43 ng/mL (<4.55); TROPONIN I 0.035 ng/mL
[2018-04-07 16:44] LABS: APPEARANCE,URINE CLEAR; BILIRUBIN,URINE NEGATIVE (NEGATIVE); COLOR,URINE YELLOW; GLUCOSE, URINE NEGATIVE (NEGATIVE); KETONES,URINE NEGATIVE (NEGATIVE); LEUKOCYTE ESTERASE,URINE NEGATIVE (NEGATIVE); NITRITE,URINE NEGATIVE (NEGATIVE); PROTEIN,URINE 30 mg/dL (NEGATIVE); URINE SPECIFIC GRAVITY 1.012
[2018-04-07 19:26] LABS: CREATINE KINASE MB 1.46 ng/mL (<4.55); TROPONIN I 0.034 ng/mL
[2018-04-08] MEDS: MAG HYDROX/AL HYDROX/SIMETH SUSP 30 ML UDCUP PO PRN (04:35)
[2018-04-08 05:49] LABS: ABSOLUTE BASOPHILS # (AUTO) 0.2 10^3/uL (0.0-0.2); ABSOLUTE EOSINOPHILS # (AUTO) 0.4 10^3/uL (0.0-0.6); ABSOLUTE LYMPHOCYTES (AUTO) 3.8 10^3/uL (0.5-4.7); ABSOLUTE MONOCYTES (AUTO) 1.1 10^3/uL (0.1-1.4); ABSOLUTE NEUT (AUTO) 10.6 10^3/uL (1.7-8.2); ANION GAP 15 (5-19); BASOPHILS % (AUTO) 1.2 % (0-2); BLOOD UREA NITROGEN 26 mg/dL (7-20); CALCIUM 7.9 mg/dL (8.4-10.2); CARBON DIOXIDE 24 mmol/L (22-30); CHLORIDE 96 mmol/L (98-107); EOSINOPHILS % (AUTO) 2.6 % (0-6); GLUCOSE 144 mg/dL (75-110); HEMATOCRIT 35.1 % (36.0-47.0); HEMOGLOBIN 11.5 g/dL (12.0-15.5); LYMPHOCYTES % (AUTO) 23.4 % (13-45); MEAN CORPUSCULAR HEMOGLOBIN 28.1 pg (27.0-33.4); MEAN CORPUSCULAR HGB CONC 32.8 g/dL (32.0-36.0); MEAN CORPUSCULAR VOLUME 86 fl (80-97); MONOCYTES % (AUTO) 6.8 % (3-13); PLATELET COUNT 255 10^3/uL (150-450); POTASSIUM 4.4 mmol/L (3.6-5.0); RED CELL DISTRIBUTION WIDTH 15.7 % (11.5-14.0); SODIUM 134.5 mmol/L (137-145); TOTAL CELLS COUNTED % (AUTO) 100 %
[2018-04-08] MEDS ORDERED: LEVOFLOXACIN 750 MG/D5W RTU 750 MG/150 ML RTUPB IV SCH ×2 (06:00→10:00)
[2018-04-08] MEDS: INSULIN LISPRO 100 UNIT/ML 3 ML VIAL SUBCUT PRN ×4 (07:53→22:12)
[2018-04-08] MEDS: APIXABAN 5 MG TABLET PO SCH ×2 (07:56→22:14)
[2018-04-08] MEDS: FUROSEMIDE INJ/PF 40 MG/4 ML SDV IV SCH (09:42)
[2018-04-08] MEDS: POTASSIUM CHLORIDE 10 MEQ CAPSULE.ER PO SCH ×2 (09:42→22:13)
[2018-04-08] MEDS: DOCUSATE SODIUM 100 MG CAPSULE PO SCH (09:42)
[2018-04-08] MEDS: FLUTICASONE NASAL SPRAY 50 MCG/SPRY 120 SPRAY/16 GM NASL SCH ×2 (09:47→22:14)
[2018-04-08] MEDS ORDERED: DIGOXIN 0.25 MG TABLET PO ONE (10:52)
[2018-04-08] MEDS: METOPROLOL SUCCINATE 50 MG TAB.SR.24H PO SCH ×2 (11:15→22:14)
--- NOTE | 2018-04-08 14:53 | PDOC PROGRESS REPORT ---
Subjective Progress Note for:: 04/08/18 Subjective:: No adverse events overnight. No new complaints. She says she still feels just sort of tired and fatigued. Her appetite has not really been great. She denies any chest pain or shortness of breath Reason For Visit: AFIB C RVR HEART FAILURE Physical Exam Vital Signs: Temp Pulse Resp BP Pulse Ox 97.9 F 113 H 18 114/50 L 96 04/08/18 11:10 04/08/18 14:00 04/08/18 11:10 04/08/18 11:10 04/08/18 11:10 Intake & Output 04/07/18 04/08/18 04/09/18 06:59 06:59 06:59 Intake Total 1585 Output Total 1200 Balance 385 Weight 148.7 kg 148.8 kg General appearance: PRESENT: no acute distress, cooperative, well-developed, well-nourished Respiratory exam: PRESENT: Clear to auscultation bilaterally. ABSENT: rales, rhonchi, wheezes Cardiovascular exam: PRESENT: irregular rhythm, tachycardia. ABSENT: diastolic murmur, rubs, systolic murmur Pulses: PRESENT: normal dorsalis pedis pul Vascular exam: PRESENT: normal capillary refill GI/Abdominal exam: PRESENT: normal bowel sounds, soft. ABSENT: distended, guarding, mass, organolmegaly, rebound, tenderness Extremities exam: PRESENT: full ROM. ABSENT: calf tenderness, clubbing, pedal edema Results Laboratory Results: 04/08/18 05:15 04/08/18 05:15 04/07/18 04/08/18 04/08/18 16:16 05:15 05:15 WBC 16.0 H RBC 4.10 Hgb 11.5 L Hct 35.1 L MCV 86 MCH 28.1 MCHC 32.8 RDW 15.7 H Plt Count 255 Seg Neutrophils % 66.0 Lymphocytes % 23.4 Monocytes % 6.8 Eosinophils % 2.6 Basophils % 1.2 Absolute Neutrophils 10.6 H Absolute Lymphocytes 3.8 Absolute Monocytes 1.1 Absolute Eosinophils 0.4 Absolute Basophils 0.2 Sodium 134.5 L Potassium 4.4 Chloride 96 L Carbon Dioxide 24 Anion Gap 15 BUN 26 H Creatinine 0.87 Est GFR ( Amer) > 60 Est GFR (Non-Af Amer) > 60 Glucose 144 H Calcium 7.9 L Urine Color YELLOW Urine Appearance CLEAR Urine pH 5.0 Ur Specific [place] 1.012 Urine Protein 30 H Urine Glucose (UA) NEGATIVE Urine Ketones NEGATIVE Urine Blood NEGATIVE Urine Nitrite NEGATIVE Ur Leukocyte Esterase NEGATIVE Urine WBC (Auto) 1 Urine RBC (Auto) 1 04/07/18 04/07/18 04/07/18 06:34 06:34 12:47 Creatine Kinase 99 97 CK-MB (CK-2) 1.12 Troponin I 0.046 04/07/18 04/07/18 04/07/18 12:47 18:45 18:45 Creatine Kinase 87 CK-MB (CK-2) 1.43 1.46 Troponin I 0.035 0.034 Impressions: Chest X-Ray 04/07/18 00:27 FINDINGS/IMPRESSION: Moderate cardiomegaly is present, unchanged. Mild pulmonary vascular congestion. Possible left basilar atelectasis or opacity. No large pleural effusion is seen. No acute osseous findings. Assessment & Plan - Diagnosis (1) Atrial fibrillation with RVR Is this a current diagnosis for this admission?: Yes Plan: Rate control has not been achieved. Rather than going up on her metoprolol even further, because I do not think it is going to give her more benefit, I have instead elected to start her on digoxin. I give her a loading dose today and start her on a maintenance dose tomorrow. If she is not feeling well enough with rate control with metoprolol and digoxin, with her cardiac history she may be somebody who has to be electively cardioverted. - Time Time Spent with patient: 25-34 minutes
[2018-04-08] MEDS: METOPROLOL TARTRATE PF/INJ 5 MG/5 ML SDV IV PRN (18:22)
[2018-04-09] MEDS ORDERED: ZOLPIDEM TARTRATE 5 MG TABLET PO ONE (04:15)
[2018-04-09] MEDS: LISINOPRIL 10 MG TABLET PO SCH (07:56)
[2018-04-09] MEDS: METOPROLOL SUCCINATE 50 MG TAB.SR.24H PO SCH ×2 (09:46→22:41)
[2018-04-09] MEDS: DOCUSATE SODIUM 100 MG CAPSULE PO SCH (09:46)
[2018-04-09] MEDS: DIGOXIN 0.125 MG TABLET PO SCH (09:46)
[2018-04-09] MEDS: POTASSIUM CHLORIDE 10 MEQ CAPSULE.ER PO SCH ×2 (09:47→22:40)
[2018-04-09] MEDS: FLUTICASONE NASAL SPRAY 50 MCG/SPRY 120 SPRAY/16 GM NASL SCH ×2 (09:47→22:39)
[2018-04-09] MEDS: FUROSEMIDE INJ/PF 40 MG/4 ML SDV IV SCH (09:48)
[2018-04-09] MEDS: APIXABAN 5 MG TABLET PO SCH ×2 (09:48→22:39)
--- NOTE | 2018-04-09 11:07 | PDOC PROGRESS REPORT ---
Subjective Progress Note for:: 04/09/18 Subjective:: 48 year old female with a past medical history of morbid obesity, diabetes, congestive heart failure, atrial fibrillation, obstructive and sleep apnea presented with complains of several days of shortness of breath and palpitations. Patient was found to be in A. fib with RVR. Patient was taking currently on sotalol. Patient was started on Cardizem drip. Chest x-ray showed possible consolidation and initially she was started on Levaquin. EKG showed borderline prolonged QTC so sotalol and Levaquin was discontinued. Patient does not have symptoms of pneumonia. Patient was started on digoxin load. Patient still remains in A. fib with RVR. Auto Seat Cover Installer has been consulted. Reason For Visit: AFIB C RVR HEART FAILURE Physical Exam Vital Signs: Temp Pulse Resp BP Pulse Ox 97.4 F 130 H 22 H 106/87 H 100 04/09/18 07:27 04/09/18 07:27 04/09/18 07:27 04/09/18 07:27 04/09/18 07:27 Intake & Output 04/08/18 04/09/18 04/10/18 06:59 06:59 06:59 Intake Total 1585 1114 Output Total 1200 1700 Balance 385 -586 Weight 328 lb 0.765 oz 329 lb 9.457 oz General appearance: PRESENT: no acute distress, cooperative, morbidly obese Head exam: PRESENT: atraumatic, normocephalic Eye exam: PRESENT: EOMI, PERRLA Neck exam: PRESENT: JVD Respiratory exam: PRESENT: clear to auscultation osmel, crackles, rales. ABSENT: rhonchi, wheezes Cardiovascular exam: PRESENT: irregular rhythm, +S1, +S2, tachycardia GI/Abdominal exam: PRESENT: normal bowel sounds, soft. ABSENT: distended, guarding, mass, organolmegaly, rebound, tenderness Neurological exam: PRESENT: alert, awake, oriented to person, oriented to place , oriented to time, oriented to situation, CN II-XII grossly intact. ABSENT: motor sensory deficit Results Laboratory Results: 04/08/18 05:15 04/08/18 05:15 04/07/18 04/07/18 04/07/18 06:34 06:34 12:47 Creatine Kinase 99 97 CK-MB (CK-2) 1.12 Troponin I 0.046 04/07/18 04/07/18 04/07/18 12:47 18:45 18:45 Creatine Kinase 87 CK-MB (CK-2) 1.43 1.46 Troponin I 0.035 0.034 Impressions: Chest X-Ray 04/07/18 00:27 FINDINGS/IMPRESSION: Moderate cardiomegaly is present, unchanged. Mild pulmonary vascular congestion. Possible left basilar atelectasis or opacity. No large pleural effusion is seen. No acute osseous findings. Assessment & Plan - Diagnosis (1) Atrial fibrillation with RVR Is this a current diagnosis for this admission?: Yes Plan: Patient was taken off sotalol due to prolonged QTC and has been put on metoprolol p.o. as well as started digoxin loading dose. Patient remains in atrial fibrillation with heart rate around 110 220. Will consult cardiology for further recommendation. Patient is hemodynamically stable. (2) Congestive heart failure Is this a current diagnosis for this admission?: Yes Plan: Secondary to #1. Patient is on IV Lasix daily. (3) Obstructive sleep apnea Is this a current diagnosis for this admission?: Yes Plan: Not currently on CPAP - Time Time Spent with patient: 15-24 minutes - Inpatient Certification Medical Necessity: Need For Continuous Telemetry Monitoring
[2018-04-09] MEDS: INSULIN LISPRO 100 UNIT/ML 3 ML VIAL SUBCUT PRN ×2 (13:56→18:29)
[2018-04-09] MEDS: DIPHENHYDRAMINE HCL 25 MG CAPSULE PO SCH (22:41)
[2018-04-10 05:53] LABS: ANION GAP 11 (5-19); BLOOD UREA NITROGEN 30 mg/dL (7-20); CALCIUM 8.9 mg/dL (8.4-10.2); CARBON DIOXIDE 29 mmol/L (22-30); CHLORIDE 98 mmol/L (98-107); GLUCOSE 150 mg/dL (75-110); POTASSIUM 4.2 mmol/L (3.6-5.0); SODIUM 138.3 mmol/L (137-145)
[2018-04-10] MEDS: APIXABAN 5 MG TABLET PO SCH ×2 (07:47→22:13)
[2018-04-10] MEDS: DOCUSATE SODIUM 100 MG CAPSULE PO SCH (10:30)
[2018-04-10] MEDS: FUROSEMIDE INJ/PF 40 MG/4 ML SDV IV SCH (10:30)
[2018-04-10] MEDS: POTASSIUM CHLORIDE 10 MEQ CAPSULE.ER PO SCH ×2 (10:30→22:13)
[2018-04-10] MEDS: METOPROLOL SUCCINATE 50 MG TAB.SR.24H PO SCH ×2 (10:31→22:14)
[2018-04-10] MEDS: DIGOXIN 0.125 MG TABLET PO SCH (10:32)
[2018-04-10] MEDS: FLUTICASONE NASAL SPRAY 50 MCG/SPRY 120 SPRAY/16 GM NASL SCH ×2 (10:34→22:15)
[2018-04-10] MEDS: INSULIN LISPRO 100 UNIT/ML 3 ML VIAL SUBCUT PRN (12:54)
[2018-04-10] MEDS: METOPROLOL TARTRATE PF/INJ 5 MG/5 ML SDV IV PRN (18:26)
--- NOTE | 2018-04-10 19:37 | PDOC CONSULTATION ---
Consultation Consult Date: 04/10/18 Attending physician:: JASS LAGUNA Consult reason:: Atrial fibrillation History of Present Illness Admission Date/PCP: 04/07/18 02:26 Patient complains of: Shortness of breath History of Present Illness: MAXIMILIANO XAVIER is a 48 year old female with a past medical history of morbid obesity, diabetes, congestive heart failure, atrial fibrillation, obstructive and sleep apnea. Patient complains of several days of shortness of breath and palpitations. Developing orthopnea she is prompted to seek evaluation emergency room where she is found to have A. fib with RVR in the 120s. A chest x-ray with left lower lobe consolidation versus atelectasis and leukocytosis. She receives sotalol and referred to the hospitalist for admission. Patient admits recent transition to sotalol by bit setter. She denies chest pain nausea or vomiting. I been asked to evaluate patient because of atrial fibrillation. Patient was also noted to have prolonged QT interval. However patient was on sotalol on admission and this has since then been discontinued. Patient main symptoms being shortness of breath. She has also gained significant weight recently. Patient does describe history of sleep apnea. Past Medical History Cardiac Medical History: Reports: Atrial Fibrillation - Atrial flutter on 2012, Congestive Heart Failure - Cardiomyopathy, Hypertension - lisinopril daily Denies: DVT Pulmonary Medical History: Reports: Bronchitis Endocrine Medical History: Reports: Diabetes Mellitus Type 2 Psychiatric Medical History: Denies: Depression Past Surgical History Past Surgical History: Reports: Appendectomy, Cardiac Catheterization - 3 years ago, Cholecystectomy, Tonsillectomy Social History Information Source: Patient Lives with: Spouse/Significant other Smoking Status: Former Smoker Number of Years Smokin Last Time Smoked: 15 Frequency of Alcohol Use: Rare Hx Recreational Drug Use: No Drugs: None Hx Prescription Drug Abuse: No - Advance Directive Resuscitation Status: Full Code Family History Family History: CAD, DM, Hyperlipidemia, Hypertension, Malignancy Parental Family History Reviewed: Yes Children Family History Reviewed: Yes Sibling(s) Family History Reviewed.: Yes Medication/Allergy Home Medications: Metformin HCl [Glucophage 500 mg Tablet] 1,000 mg PO BID 01/29/18 Apixaban [Eliquis 5 mg Tablet] 5 mg PO Q12H #60 tablet 01/30/18 Furosemide [Lasix 40 mg Tablet] 40 mg PO DAILY 04/07/18 Lisinopril [Prinivil 10 mg Tablet] 20 mg PO DAILY 04/07/18 Metoprolol Succinate [Toprol Xl 50 mg Tab.sr] 50 mg PO Q12 04/07/18 Allergies/Adverse Reactions: No Known Allergies Allergy (Verified 01/28/18 23:54) Review of Systems Review of Systems: Please see history of present illness and past medical history as wall. Constitutional: No fever or chills reported. Head : No recent chronic headaches, recent head injury. Eyes: No recent eye pain, diplopia, redness, discharge, acute visual changes. Ears: No recent chronic ear pain, acute hearing loss, ear discharge. Oral cavity: No recent ulcerations, bleeding, oral cavity discomfort. Neck: No recent acute neck pain reported. Hematologic: No recent easy bruising or bleeding. Lymphatic: No recent lymph node enlargement reported. Cardiovascular system review: See history of present illness. Respiratory system review: No hemoptysis or blood clots in the lungs reported. Mild Shortness of breath on exertion Gastrointestinal system review: Negative for any recent acute hematemesis, melena. Genitourinary system review: No recent acute or chronic hematuria, flank pain, UTI etc. reported. Skin system review: Negative for any recent abnormal bruising, no rash, no pruritus reported. Neurologic: No prior history of strokes, mini strokes, seizure disorder. Psychologic: No history of major psychosis or major depression reported. Musculoskeletal: Minor aches and pains reported. No acute joint swelling reported. Endocrine: No recent polyuria, polydipsia, recent heat or cold intolerance. Physical Exam Vital Signs: Temp Pulse Resp BP Pulse Ox 97.9 F 108 H 20 122/80 99 04/10/18 16:36 04/10/18 16:36 04/10/18 16:36 04/10/18 16:36 04/10/18 16:36 Intake & Output 04/09/18 04/10/18 04/11/18 06:59 06:59 06:59 Intake Total 1114 1975 1212 Output Total 3414 266 9970 Balance -586 1225 -988 Weight 149.5 kg 153.4 kg Exam: GENERAL: well-nourished and in no acute distress. Alert and oriented x3 HEAD: Atraumatic, normocephalic. EYES: Pupils equal round and reactive to light, extraocular movements intact, sclera anicteric, conjunctiva are normal. ENT: TMs normal, nares patent, oropharynx clear without exudates. Moist mucous membranes. No oral ulcerations or bleeding gums noted NECK: supple without lymphadenopathy. Trachea is central. No cervical or axillary lymphadenopathy noted. Carotids are 2+, JVD WNL LUNGS: Respiration seems nonlabored, no significant accessory muscle action noted. Breath sounds clear to auscultation bilaterally and equal noted. No wheezes rales or rhonchi noted. No significant dullness noted on percussion. CHEST: Palpation of the chest wall shows no significant chest wall tenderness. 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 ABDOMEN: Soft, no significant tenderness appreciated, normoactive bowel sounds. No guarding, no rebound. No rigidity noted . No masses appreciated. EXTREMITIES: Pedal pulses are 1-2+, no calf tenderness noted. No clubbing or cyanosis. 1+ pedal edema noted NEUROLOGICAL: Focused neurological exam showed no significant neurologic deficit. Normal speech, no focal weakness appreciated. PSYCH: Normal mood, normal affect. Judgment and insight within normal limits. SKIN: No significant ecchymosis, skin is noted to be warm. MUSCULOSKELETAL EXAM: No significant acute joint swelling noted. Results Laboratory Results: 04/08/18 05:15 04/10/18 05:26 04/10/18 05:26 Sodium 138.3 Potassium 4.2 Chloride 98 Carbon Dioxide 29 Anion Gap 11 BUN 30 H Creatinine 0.90 Est GFR ( Amer) > 60 Est GFR (Non-Af Amer) > 60 Glucose 150 H Calcium 8.9 04/07/18 04/07/18 04/07/18 06:34 06:34 12:47 Creatine Kinase 99 97 CK-MB (CK-2) 1.12 Troponin I 0.046 04/07/18 04/07/18 04/07/18 12:47 18:45 18:45 Creatine Kinase 87 CK-MB (CK-2) 1.43 1.46 Troponin I 0.035 0.034 EKG Comments: Initial EKG shows atrial flutter fibrillation with increased ventricular response. Impressions: Chest X-Ray 04/07/18 00:27 FINDINGS/IMPRESSION: Moderate cardiomegaly is present, unchanged. Mild pulmonary vascular congestion. Possible left basilar atelectasis or opacity. No large pleural effusion is seen. No acute osseous findings. Assessment & Plan - Diagnosis (1) Atrial fibrillation with RVR Is this a current diagnosis for this admission?: Yes (2) Congestive heart failure Qualifiers: Heart failure type: unspecified Is this a current diagnosis for this admission?: Yes (3) Sleep-disordered breathing Is this a current diagnosis for this admission?: Yes (4) Morbid obesity Is this a current diagnosis for this admission?: Yes (5) Elevated troponin Is this a current diagnosis for this admission?: Yes - Notes Notes: Atrial fibrillation with RVR: Agree with beta-marlen therapy. Patient has chronic atrial fibrillation. Patient should be considered for ablation therapy but this can be performed as an outpatient with referral to a checker cashier at a tertiary care center. Troponin I elevation: Most likely from supply demand mismatch from A. fib with rapid ventricular response. Patient does however has multiple cardiac risk factors. We will therefore schedule patient for a nuclear stress test. Patient will benefit from aggressive risk factor modification and medical management. CHF: Most likely precipitated by atrial flutter fibrillation with rapid ventricular response. However patient may also have underlying systolic and diastolic dysfunction. A 2D echocardiogram has been ordered. Sleep disordered breathing: Discussed association of sleep apnea with increased risk of atrial flutter fibrillation and that losing weight and going on CPAP therapy will definitely help. Morbid obesity: Discussed association of obesity and atrial fibrillation. Weight loss is likely to help this condition as well. - Time Time Spent: 30 to 50 Minutes - More than 50% of the time spent coordinating care , discussing management plans with involved caregivers. Management plans discussed with involved personnels. Medical decision making was of moderate to high complexity, patient's has multiple comorbidities. Medications reviewed and adjusted accordingly: Yes
[2018-04-10 20:18] LABS: CHOLESTEROL 110.82 mg/dL (0-200); TRIGLYCERIDES 120 mg/dL (<150)
[2018-04-10 20:29] LABS: DIRECT LDL 62 mg/dL (<100)
[2018-04-10] MEDS: DIPHENHYDRAMINE HCL 25 MG CAPSULE PO SCH (22:13)
[2018-04-10] MEDS: ATORVASTATIN CALCIUM 40 MG TABLET PO SCH (22:14)
[2018-04-11 05:24] LABS: ABSOLUTE BASOPHILS # (AUTO) 0.1 10^3/uL (0.0-0.2); ABSOLUTE EOSINOPHILS # (AUTO) 0.4 10^3/uL (0.0-0.6); ABSOLUTE LYMPHOCYTES (AUTO) 3.7 10^3/uL (0.5-4.7); ABSOLUTE MONOCYTES (AUTO) 1.1 10^3/uL (0.1-1.4); ABSOLUTE NEUT (AUTO) 8.5 10^3/uL (1.7-8.2); EOSINOPHILS % (AUTO) 2.8 % (0-6); HEMATOCRIT 34.8 % (36.0-47.0); HEMOGLOBIN 11.2 g/dL (12.0-15.5); LYMPHOCYTES % (AUTO) 26.7 % (13-45); MEAN CORPUSCULAR HEMOGLOBIN 27.8 pg (27.0-33.4); MEAN CORPUSCULAR HGB CONC 32.3 g/dL (32.0-36.0); MEAN CORPUSCULAR VOLUME 86 fl (80-97); MONOCYTES % (AUTO) 7.8 % (3-13); PLATELET COUNT 250 10^3/uL (150-450); RED BLOOD COUNT 4.04 10^6/uL (3.72-5.28); RED CELL DISTRIBUTION WIDTH 15.8 % (11.5-14.0); SEGMENTED NEUTROPHILS % (AUTO) 61.7 % (42-78); TOTAL CELLS COUNTED % (AUTO) 100 %; WHITE BLOOD COUNT 13.9 10^3/uL (4.0-10.5)
[2018-04-11 05:34] LABS: ANION GAP 11 (5-19); BLOOD UREA NITROGEN 28 mg/dL (7-20); CALCIUM 9.1 mg/dL (8.4-10.2); CARBON DIOXIDE 30 mmol/L (22-30); CHLORIDE 98 mmol/L (98-107); GLUCOSE 151 mg/dL (75-110); POTASSIUM 4.3 mmol/L (3.6-5.0); SODIUM 138.7 mmol/L (137-145)
[2018-04-11] MEDS: APIXABAN 5 MG TABLET PO SCH ×2 (07:50→22:26)
[2018-04-11] MEDS: POTASSIUM CHLORIDE 10 MEQ CAPSULE.ER PO SCH ×2 (11:26→22:26)
[2018-04-11] MEDS: FUROSEMIDE INJ/PF 40 MG/4 ML SDV IV SCH (11:26)
[2018-04-11] MEDS: DIGOXIN 0.125 MG TABLET PO SCH (11:37)
[2018-04-11] MEDS: METOPROLOL SUCCINATE 50 MG TAB.SR.24H PO SCH ×2 (11:38→22:26)
[2018-04-11] MEDS: DOCUSATE SODIUM 100 MG CAPSULE PO SCH (11:41)
[2018-04-11] MEDS: FLUTICASONE NASAL SPRAY 50 MCG/SPRY 120 SPRAY/16 GM NASL SCH ×2 (11:41→22:25)
[2018-04-11] MEDS: METOPROLOL TARTRATE PF/INJ 5 MG/5 ML SDV IV PRN (11:58)
[2018-04-11] MEDS ORDERED: REGADENOSON INJ 0.4 MG/5 ML DISP.SYRIN IV ONE (14:42)
--- NOTE | 2018-04-11 15:50 | PDOC PROGRESS REPORT ---
Subjective Progress Note for:: 04/11/18 Subjective:: The patient is seen following dialysis. No new complaints. Reason For Visit: AFIB C RVR HEART FAILURE Physical Exam Vital Signs: Temp Pulse Resp BP Pulse Ox 97.5 F 119 H 20 136/86 H 95 04/11/18 07:35 04/11/18 07:35 04/11/18 07:35 04/11/18 07:35 04/11/18 07:35 Intake & Output 04/10/18 04/11/18 04/12/18 06:59 06:59 06:59 Intake Total 1975 1212 0 Output Total 750 2600 100 Balance 1225 -1388 -100 Weight 153.4 kg 155.1 kg General appearance: PRESENT: no acute distress, morbidly obese Respiratory exam: PRESENT: other - No increased work of breathing. No wheezes, rales, or rhonchi. Cardiovascular exam: PRESENT: RRR, other - No lateral PMI. No thrills.. ABSENT : gallop, rubs, systolic murmur Pulses: PRESENT: normal dorsalis pedis pul GI/Abdominal exam: PRESENT: soft, other - Abdomen is obese. Bowel sounds are distant. I am unable to evaluate the abdomen for organomegaly, masses, or hernias due to her body habitus.. ABSENT: tenderness Extremities exam: PRESENT: pedal edema, +1 edema. ABSENT: clubbing, tenderness Musculoskeletal exam: PRESENT: normal inspection. ABSENT: deformity, dislocation, tenderness Neurological exam: PRESENT: alert, awake, oriented to person, oriented to place , oriented to time, oriented to situation, CN II-XII grossly intact. ABSENT: motor sensory deficit Psychiatric exam: PRESENT: appropriate affect, normal mood Skin exam: PRESENT: dry, intact, warm Results Laboratory Results: 04/11/18 05:08 04/11/18 05:08 04/10/18 04/11/18 04/11/18 05:26 05:08 05:08 WBC 13.9 H RBC 4.04 Hgb 11.2 L Hct 34.8 L MCV 86 MCH 27.8 MCHC 32.3 RDW 15.8 H Plt Count 250 Seg Neutrophils % 61.7 Lymphocytes % 26.7 Monocytes % 7.8 Eosinophils % 2.8 Basophils % 1.0 Absolute Neutrophils 8.5 H Absolute Lymphocytes 3.7 Absolute Monocytes 1.1 Absolute Eosinophils 0.4 Absolute Basophils 0.1 Sodium 138.7 Potassium 4.3 Chloride 98 Carbon Dioxide 30 Anion Gap 11 BUN 28 H Creatinine 0.81 Est GFR ( Amer) > 60 Est GFR (Non-Af Amer) > 60 Glucose 151 H Calcium 9.1 Triglycerides 120 Cholesterol 110.82 LDL Cholesterol Direct 62 VLDL Cholesterol 24.0 HDL Cholesterol 27 L 04/07/18 04/07/18 04/07/18 06:34 06:34 12:47 Creatine Kinase 99 97 CK-MB (CK-2) 1.12 Troponin I 0.046 04/07/18 04/07/18 04/07/18 12:47 18:45 18:45 Creatine Kinase 87 CK-MB (CK-2) 1.43 1.46 Troponin I 0.035 0.034 04/11/18 05:08 WBC 13.9 H RBC 4.04 Hgb 11.2 L Hct 34.8 L MCV 86 MCH 27.8 MCHC 32.3 RDW 15.8 H Plt Count 250 Seg Neutrophils % 61.7 Lymphocytes % 26.7 Monocytes % 7.8 Eosinophils % 2.8 Basophils % 1.0 Absolute Neutrophils 8.5 H Absolute Lymphocytes 3.7 Absolute Monocytes 1.1 Absolute Eosinophils 0.4 Absolute Basophils 0.1 Impressions: Chest X-Ray 04/07/18 00:27 FINDINGS/IMPRESSION: Moderate cardiomegaly is present, unchanged. Mild pulmonary vascular congestion. Possible left basilar atelectasis or opacity. No large pleural effusion is seen. No acute osseous findings. Assessment & Plan - Diagnosis (1) Atrial fibrillation with RVR Is this a current diagnosis for this admission?: Yes Plan: As per cardiology. (2) Fluid overload Qualifiers: Hypervolemia type: unspecified Qualified Code(s): E87.70 - Fluid overload, unspecified Is this a current diagnosis for this admission?: Yes Plan: Diuresis. (3) Morbid obesity Is this a current diagnosis for this admission?: Yes Plan: Counselling weight loss through diet and lifestyle modification. (4) Dyspnea on exertion Is this a current diagnosis for this admission?: Yes Plan: Likely due to tachycardia with any exertion. S/P 1st part of 2-day chest pain protocol NM stress test to rule out dyspnea as an anginal equivalent. - Time Time Spent with patient: 25-34 minutes Medications reviewed and adjusted accordingly: Yes - Inpatient Certification Based on my medical assessment, after consideration of the patient's comorbidities, presenting symptoms, or acuity I expect that the services needed warrant INPATIENT care.: Yes I certify that my determination is in accordance with my understanding of Medicare's requirements for reasonable and necessary INPATIENT services [42 CFR 412.3e].: Yes Medical Necessity: Significant Comorbidiites Make Outpatient Treatment Too Risky , Need Close Monitoring Due to Risk of Patient Decompensation, Risk of Complication if Not Cared For in Hospital
[2018-04-11] MEDS ORDERED: METOPROLOL SUCCINATE 50 MG TAB.SR.24H PO ONE (16:30)
--- NOTE | 2018-04-11 17:57 | RADIOLOGY REPORT (SQ) ---
EXAM DESCRIPTION: CTA CHEST COMPLETED DATE/TIME: 04/11/2018 5:12 pm REASON FOR STUDY: SHORTNESS OF BREATH COMPARISON: 03/11/2017 TECHNIQUE: CT scan of the chest performed using helical scanning technique with dynamic intravenous contrast injection. Images reviewed with lung, soft tissue and bone windows. Reconstructed coronal and sagittal MPR images reviewed. Additional 3 dimensional post-processing performed to develop Maximal Intensity Projection images (AK P). All images stored on PACS. All CT scanners at this facility use dose modulation, iterative reconstruction, and/or weight based d osing when appropriate to reduce radiation dose to as low as reasonably achievable (ALARA). [facility]: Dose Right [facility]: CareDose [facility]: Dose Right [facility]: Teradose 4D [facility]: CHARMS PPEC CONTRAST TYPE AND DOSE: contrast/concentration: Isovue 350.00 mg/ml; Total Contrast Delivered: 90.0 ml; Total Saline Delivered: 74.0 ml Contrast bolus optimized for the pulmonary arteries. Not diagnostic for the aorta. RENAL FUNCTION: BUN 28 creatinine 0.8 RADIATION DOSE: CT Rad equipment meets quality standard of care and radiation dose reduction techniq ues were employed. CTDIvol: 41.3 - 57.9 mGy. DLP: 1495 mGy-cm. . LIMITATIONS: None. FINDINGS: LUNGS AND PLEURA: Ground-glass infiltrates are seen fairly extensively in both lungs. No masses or pleural effusions. AORTA AND GREAT VESSELS: No aneurysm. Contrast bolus not optimized for the aorta. HEART: No pericardial effusion. Moderate to marked coronary artery calcifications. Cardiomegaly. PULMONARY ARTERIES: No emboli visualized in the main pulmonary arteries or the segmental branches. HILAR AND MEDIASTINAL STRUCTURES: There are some small nonspecific mediastinal and hilar lymph nodes that are generally subcentimeter in size. HARDWARE: None in the chest. UPPER ABDOMEN: Cholelithiasis. THYROID AND OTHER SOFT TISSUES: No masses. No adenopathy. BONES: No acute or significant finding. 3D MIPS: Confirm above findings. OTHER: No other significant finding. IMPRESSION: 1. No evidence of pulmonary emboli. 2. Cardiomegaly. There are ground-glass infiltrates in both lungs that may suggest a mild degree of pulmonary edema. 3. There are some small nonspecific mediastinal and hilar lymph nodes. 4. Cholelithiasis. COMMENT: Quality ID # [id number]: Final reports with documentation of one or more dose reduction techniques (e.g., Automated exposure control, adjustment of the mA and/or kV according to patient size, use of iterative reconstruction technique) TECHNICAL DOCUMENTATION: JOB ID: [id number] [employer]- All Rights Reserved Reading location - IP/workstation name: [email or web address]
[2018-04-11] MEDS ORDERED: METOPROLOL SUCCINATE 50 MG TAB.SR.24H PO SCH (22:00)
[2018-04-11] MEDS: ATORVASTATIN CALCIUM 40 MG TABLET PO SCH (22:26)
[2018-04-11] MEDS: DIPHENHYDRAMINE HCL 25 MG CAPSULE PO SCH (22:26)
[2018-04-11] MEDS: INSULIN LISPRO 100 UNIT/ML 3 ML VIAL SUBCUT PRN (22:27)
[2018-04-12] MEDS ORDERED: FUROSEMIDE INJ/PF 40 MG/4 ML SDV IV SCH (10:15)
--- NOTE | 2018-04-12 10:47 | DRAGON STRESS TEST REPORT ---
INTRAVENOUS LEXISCAN CARDIOLITE STRESS TEST USING SINGLE PHOTON EMMISION COMPUTERIZED TOMOGRAPHIC. DATE OF PROCEDURE: April 11, 2018 INDICATION : Shortness of breath, chest pain CARDIAC RISK FACTORS: Diabetes, hypertension RESTING EKG: Atrial fibrillation, no acute ST-T wave changes STRESS EKG: No significant ST segment changes noted with LexiScan bolus REASON FOR TERMINATION: Protocol. PROCEDURE REPORT: Baseline heart rate 103 beats per minute with blood pressure of 127/71. Patient had no significant complaints. Patient was bolused with Lexiscan 0.4 mg intravenously followed by saline bolus. Heart rate at 2 minutes post bolus 122 with a blood pressure of 132/105. 3 minutes post bolus heart rate 112 with blood pressure of 146/95. No significant EKG changes were noted. Patient had no significant complaints during the procedure or postprocedure. CONCLUSIONS: Normal EKG and hemodynamic response to IV LexiScan. NUCLEAR DATA: At rest the patient was given 40.0 millicuries of technetium 99 sestamibi injected intravenously. As per protocol rest gated SPECT images were obtained. On day of stress test, the patient was given intravenous LexiScan at a dose of 0.4 mg in 5 mL intravenously, followed by flush with normal saline. Subsequently the stress dose of 41.2 millicuries of technetium 99 sestamibi was injected intravenously. As per protocol stress gated images were obtained. NUCLEAR INTERPRETATION: Both raw and processed data were used for interpretation. Visual, qualitative, computer-generated quantitative data was used. There was good myocardial uptake of technetium compound. Motion artifact and soft tissue attenuations were noted. Increased visceral uptake was noted. No definitive areas of transient perfusion defect noted except for borderline decreased uptake in the mid anterior wall, SDS is 1, possibly related to differences in breast attenuation artifact but an area of mild ischemia cannot be entirely ruled out. No definitive areas of fixed perfusion defect or scars noted. EKG gated imaging showed LV EF at 24 %, severe diffuse hypokinesia noted, rest and stress gated EF similar visually. T. I D. ratio was 1.03. Lung heart ratio noted to be within normal limits 0.27. No significant extracardiac and abnormal radiotracer activities were noted. RV free wall uptake was noted to be WNL. IMPRESSION: Also refer to comments under nuclear interpretation. Also test results needs to be interpreted in the context of pretest probability. 1. No definitive areas of transient perfusion defect noted except for borderline decreased uptake in the mid anterior wall, SDS is 1, possibly related to differences in breast attenuation artifact but an area of mild ischemia cannot be entirely ruled out. May consider stress PET imaging, if clinically indicated. Low threshold for heart catheterization. 2. There is no definitive scintigraphic evidence of myocardial infarction/scar. 3. EKG gated imaging shows left ventricular ejection fraction of approx. 24 %, severe diffuse hypokinesia noted. 4. Clinical correlation requested as occasionally single vessel disease or balanced ischemia could be missed. In approximately 10% of the cases Lexiscan may not cause adequate vasodilatory stress. RECOMMENDATIONS: Aggressive risk factor modification and medical management. Further evaluation may be needed if continued symptoms or other high risk indicators are noted on clinical evaluation. Close cardiology follow-up is also recommended. Clinical correlation with echocardiogram derived ejection fraction. Inability to exercise by itself can lead to increased cardiovascular event risks. Consider cardiology consultation and or follow-up if clinically indicated. I am available for cardiology evaluation and consultation if requested by the cooper helper, unless patient already has a rn obgyn. Dr. Shahida Dickens. MRCP Board certified in cardiology and sleep medicine. Board certified in nuclear cardiology, adult echocardiography. ANAND
[2018-04-12] MEDS: DIGOXIN 0.125 MG TABLET PO SCH (11:14)
[2018-04-12] MEDS: APIXABAN 5 MG TABLET PO SCH ×2 (11:15→20:16)
[2018-04-12] MEDS: METOPROLOL SUCCINATE 50 MG TAB.SR.24H PO SCH ×2 (11:15→22:35)
[2018-04-12] MEDS: FLUTICASONE NASAL SPRAY 50 MCG/SPRY 120 SPRAY/16 GM NASL SCH (11:15)
[2018-04-12] MEDS: DOCUSATE SODIUM 100 MG CAPSULE PO SCH (11:15)
[2018-04-12] MEDS: POTASSIUM CHLORIDE 10 MEQ CAPSULE.ER PO SCH ×2 (11:15→22:33)
[2018-04-12] MEDS: SPIRONOLACTONE 25 MG TABLET PO SCH (13:04)
[2018-04-12] MEDS: SACUBITRIL/VALSARTAN 24 MG/26 MG TABLET PO SCH ×2 (13:04→17:05)
--- NOTE | 2018-04-12 15:51 | PDOC PROGRESS REPORT ---
Subjective Progress Note for:: 04/12/18 Subjective:: The patient is without new complaints. she is resting comfortably at bedside. Reason For Visit: AFIB C RVR HEART FAILURE Physical Exam Vital Signs: Temp Pulse Resp BP Pulse Ox 98.6 F 61 20 131/111 H 99 04/12/18 11:32 04/12/18 11:32 04/12/18 11:32 04/12/18 11:32 04/12/18 11:32 Intake & Output 04/11/18 04/12/18 04/13/18 06:59 06:59 06:59 Intake Total 1212 973 Output Total 2600 2550 Balance -1388 -1577 Weight 155.1 kg General appearance: PRESENT: no acute distress, cooperative, morbidly obese Respiratory exam: PRESENT: other - No increased work of breathing.. ABSENT: rales, rhonchi, wheezes Cardiovascular exam: PRESENT: RRR. ABSENT: gallop, rubs, tachycardia GI/Abdominal exam: PRESENT: soft, other - The abdomen is morbidly obese. Bowel sounds are distant. I am unable to evaluate the abdomen for organomegaly, masses , or hernias due to the patient's body habitus.. ABSENT: tenderness Rectal exam: PRESENT: deferred Extremities exam: PRESENT: pedal edema, other - 3+ pitting edema. ABSENT: clubbing, tenderness Musculoskeletal exam: ABSENT: deformity, dislocation Neurological exam: PRESENT: alert, awake, oriented to person, oriented to place , oriented to time, oriented to situation, CN II-XII grossly intact. ABSENT: motor sensory deficit Psychiatric exam: PRESENT: appropriate affect, normal mood Skin exam: PRESENT: dry, intact, warm Results Laboratory Results: 04/11/18 05:08 04/11/18 05:08 04/07/18 04/07/18 04/07/18 06:34 06:34 12:47 Creatine Kinase 99 97 CK-MB (CK-2) 1.12 Troponin I 0.046 04/07/18 04/07/18 04/07/18 12:47 18:45 18:45 Creatine Kinase 87 CK-MB (CK-2) 1.43 1.46 Troponin I 0.035 0.034 Impressions: Chest X-Ray 04/07/18 00:27 FINDINGS/IMPRESSION: Moderate cardiomegaly is present, unchanged. Mild pulmonary vascular congestion. Possible left basilar atelectasis or opacity. No large pleural effusion is seen. No acute osseous findings. Chest/Abdomen CTA 04/11/18 15:58 IMPRESSION: 1. No evidence of pulmonary emboli. 2. Cardiomegaly. There are ground-glass infiltrates in both lungs that may suggest a mild degree of pulmonary edema. 3. There are some small nonspecific mediastinal and hilar lymph nodes. 4. Cholelithiasis. Assessment & Plan - Diagnosis (1) Atrial fibrillation with RVR Is this a current diagnosis for this admission?: Yes Plan: As per cardiology. Rate is improved with increased dose of beta marlen. (2) Fluid overload Qualifiers: Hypervolemia type: unspecified Qualified Code(s): E87.70 - Fluid overload, unspecified Is this a current diagnosis for this admission?: Yes Plan: Diuresis. The patient is maintaining a negative fluid balance. (3) Dyspnea on exertion Is this a current diagnosis for this admission?: Yes Plan: Pulmonary edema on CXR. Also uncontrolled heart rate. Continue diuresis and await the results of the patient's stress test. (4) Morbid obesity Is this a current diagnosis for this admission?: Yes Plan: Counselling weight loss through diet and lifestyle modification. Complicates all cares. - Time Time Spent with patient: 25-34 minutes Medications reviewed and adjusted accordingly: Yes
--- NOTE | 2018-04-12 19:50 | XCELERA REPORT ---
[address] [address] Transthoracic Echocardiogram Report Name: MAXIMILIANO XAVIER Age: 48 yrs Gender: Female : 1970 Patient Status: Inpatient Patient Location: [address] [place], [place] [address] Study Date: 04/12/2018 09:52 AM Height: 63 in Weight: 338 lb BSA: 2.4 m2 Procedure: A complete two-dimensional transthoracic echocardiogram was performed (2D, M-mode, spectral and color flow Doppler). The study was technically difficult with many images being suboptimal in quality. Reason For Study: afib Ordering Physician: DUSTIN SMITH Performed By: Risa Puri Interpretation Summary LV EF is 30% Left ventricular systolic function is severely reduced. There is mild concentric left ventricular hypertrophy. The left ventricle is grossly normal size. Doppler measurements suggest reversible restrictive left ventricular relaxation, which is associated with grade III/IV or moderate diastolic dysfunction There is severe global hypokinesis of the left ventricle. The right ventricle is mildly dilated. The right ventricular systolic function is mildly reduced. The right atrium is moderately dilated. The left atrium is moderately dilated. There is a mild amount of mitral regurgitation There is no mitral valve stenosis. No aortic regurgitation is present. There is no aortic valve stenosis There is a mild amount of tricuspid regurgitation There is mild pulmonary hypertension by echo Right ventricular systolic pressure is estimated to be elevated at 30-40mmHg. The aortic root is not well visualized but is probably normal size. The inferior vena cava was not well visualized There is no pericardial effusion. MMode/2D Measurements & Calculations RVDd: 3.0 cm LVIDd: 7.2 cm FS: 15.7 % Ao root diam: 2.9 cm IVSd: 0.99 cm LVIDs: 6.1 cm EDV(Teich): 272.8 ml Ao root area: 6.6 cm2 LVPWd: 0.97 cm ESV(Teich): 185.1 ml LA dimension: 4.8 cm EF(Teich): 32.2 % Doppler Measurements & Calculations MV E max maty: MV P1/2t max maty: Ao V2 max: LV V1 max P.4 cm/sec 125.9 cm/sec 124.2 cm/sec 2.8 mmHg MV P1/2t: 45.1 msec Ao max P.2 mmHgLV V1 max: MVA(P1/2t): 4.9 cm2 83.9 cm/sec MV dec slope: 818.3 cm/sec2 MV dec time: 0.15 sec PA V2 max: TR max maty: MV P1/2t-pr_phl: 63.2 cm/sec 271.5 cm/sec 45.1 msec PA max P.6 mmHg TR max P.5 mmHg Left Ventricle The left ventricle is grossly normal size. There is mild concentric left ventricular hypertrophy. Left ventricular systolic function is severely reduced. LV EF is 30%. Doppler measurements suggest reversible restrictive left ventricular relaxation, which is associated with grade III/IV or moderate diastolic dysfunction. There is severe global hypokinesis of the left ventricle. Right Ventricle The right ventricle is mildly dilated. There is normal right ventricular wall thickness. The right ventricular systolic function is mildly reduced. Atria The right atrium is moderately dilated. The left atrium is moderately dilated. Interarterial septum not well visualized and not well dopplered. Cannot comment on ASD/PFO presence. Mitral Valve There is mild mitral annular calcification. There is no mitral valve stenosis. There is a mild amount of mitral regurgitation. Aortic Valve The aortic valve is not well visualized secondary to technical limitations. There is no aortic valve stenosis. No aortic regurgitation is present. Tricuspid Valve The tricuspid valve is not well visualized secondary to technical limitations. There is no tricuspid stenosis. There is a mild amount of tricuspid regurgitation. There is mild pulmonary hypertension by echo. Right ventricular systolic pressure is estimated to be elevated at 30-40mmHg. Pulmonic Valve The pulmonic valve is not well visualized. Great Vessels The aortic root is not well visualized but is probably normal size. The inferior vena cava was not well visualized. Effusions There is no pericardial effusion. : DUSTIN SMITH > Dustin Smith
[2018-04-12] MEDS: ATORVASTATIN CALCIUM 40 MG TABLET PO SCH (22:34)
[2018-04-12] MEDS: DIPHENHYDRAMINE HCL 25 MG CAPSULE PO SCH (22:34)
[2018-04-12] MEDS: INSULIN LISPRO 100 UNIT/ML 3 ML VIAL SUBCUT PRN (22:36)
--- NOTE | 2018-04-12 23:08 | PDOC PROGRESS REPORT ---
Subjective Progress Note for:: 04/11/18 Subjective:: Patient describes shortness of breath on minimal exertion. Pt is denying any chest arm or neck discomfort. Patient denying any PND, orthopnea. Patient denied any sustained palpitations, dizziness, syncope, near syncope. Patient denying any fever chills. Patient denying any other significant discomfort. Patient is maintaining atrial fibrillation. Heart rate seems significantly increased with minimal exertion Review of systems: Rest review of systems negative. Medications: Medications have been reviewed. Reason For Visit: AFIB C RVR HEART FAILURE Physical Exam Vital Signs: Temp Pulse Resp BP Pulse Ox 97.6 F 118 H 20 125/99 H 99 04/11/18 17:16 04/11/18 19:29 04/11/18 19:29 04/11/18 19:29 04/11/18 19:29 Intake & Output 04/10/18 04/11/18 04/12/18 06:59 06:59 06:59 Intake Total 1975 1212 973 Output Total 750 2600 1900 Balance 1225 -1388 -927 Weight 153.4 kg 155.1 kg Exam: GENERAL: well-nourished and in no acute distress. Alert and oriented x3 HEAD: Atraumatic, normocephalic. EYES: Pupils equal round and reactive to light, extraocular movements intact, sclera anicteric, conjunctiva are normal. ENT: TMs normal, nares patent, oropharynx clear without exudates. Moist mucous membranes. No oral ulcerations or bleeding gums noted NECK: supple without lymphadenopathy. Trachea is central. No cervical or axillary lymphadenopathy noted. Carotids are 2+, JVD 10-12 cm LUNGS: Respiration seems nonlabored, no significant accessory muscle action noted. Basal crackles noted bilaterally. No wheezes rales or rhonchi noted. No significant dullness noted on percussion. CHEST: Palpation of the chest wall shows no significant chest wall tenderness. 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 ABDOMEN: Soft, no significant tenderness appreciated, normoactive bowel sounds. No guarding, no rebound. No rigidity noted . No masses appreciated. EXTREMITIES: Pedal pulses are 1-2+, no calf tenderness noted. No clubbing or cyanosis. 1-2+ pedal edema noted NEUROLOGICAL: Focused neurological exam showed no significant neurologic deficit. Normal speech, no focal weakness appreciated. PSYCH: Normal mood, normal affect. Judgment and insight within normal limits. SKIN: No significant ecchymosis, skin is noted to be warm. MUSCULOSKELETAL EXAM: No significant acute joint swelling noted. Results Laboratory Results: 04/11/18 05:08 04/11/18 05:08 04/10/18 04/11/18 04/11/18 05:26 05:08 05:08 WBC 13.9 H RBC 4.04 Hgb 11.2 L Hct 34.8 L MCV 86 MCH 27.8 MCHC 32.3 RDW 15.8 H Plt Count 250 Seg Neutrophils % 61.7 Lymphocytes % 26.7 Monocytes % 7.8 Eosinophils % 2.8 Basophils % 1.0 Absolute Neutrophils 8.5 H Absolute Lymphocytes 3.7 Absolute Monocytes 1.1 Absolute Eosinophils 0.4 Absolute Basophils 0.1 Sodium 138.7 Potassium 4.3 Chloride 98 Carbon Dioxide 30 Anion Gap 11 BUN 28 H Creatinine 0.81 Est GFR ( Amer) > 60 Est GFR (Non-Af Amer) > 60 Glucose 151 H Calcium 9.1 Triglycerides 120 Cholesterol 110.82 LDL Cholesterol Direct 62 VLDL Cholesterol 24.0 HDL Cholesterol 27 L 04/07/18 04/07/18 04/07/18 06:34 06:34 12:47 Creatine Kinase 99 97 CK-MB (CK-2) 1.12 Troponin I 0.046 04/07/18 04/07/18 04/07/18 12:47 18:45 18:45 Creatine Kinase 87 CK-MB (CK-2) 1.43 1.46 Troponin I 0.035 0.034 EKG Comments: Atrial fibrillation with rapid ventricular response Impressions: Chest X-Ray 04/07/18 00:27 FINDINGS/IMPRESSION: Moderate cardiomegaly is present, unchanged. Mild pulmonary vascular congestion. Possible left basilar atelectasis or opacity. No large pleural effusion is seen. No acute osseous findings. Chest/Abdomen CTA 04/11/18 15:58 IMPRESSION: 1. No evidence of pulmonary emboli. 2. Cardiomegaly. There are ground-glass infiltrates in both lungs that may suggest a mild degree of pulmonary edema. 3. There are some small nonspecific mediastinal and hilar lymph nodes. 4. Cholelithiasis. Assessment & Plan - Diagnosis (1) Atrial fibrillation with RVR Is this a current diagnosis for this admission?: Yes (2) Congestive heart failure Qualifiers: Heart failure type: unspecified Is this a current diagnosis for this admission?: Yes (3) Sleep-disordered breathing Is this a current diagnosis for this admission?: Yes (4) Morbid obesity Is this a current diagnosis for this admission?: Yes (5) Elevated troponin Is this a current diagnosis for this admission?: Yes (6) Hypertension Qualifiers: Hypertension type: essential hypertension Qualified Code(s): I10 - Essential (primary) hypertension Is this a current diagnosis for this admission?: Yes (7) Cardiomyopathy Qualifiers: Cardiomyopathy type: unspecified Qualified Code(s): I42.9 - Cardiomyopathy , unspecified Is this a current diagnosis for this admission?: Yes - Notes Notes: Atrial fibrillation with RVR: Continue with beta-marlen therapy. Patient has chronic atrial fibrillation. Patient should be considered for ablation therapy but this can be performed as an outpatient with referral to a syrup maker at a tertiary care center. Troponin I elevation: Most likely from supply demand mismatch from A. fib with rapid ventricular response. Patient does however has multiple cardiac risk factors. We will therefore schedule patient for a nuclear stress test. Patient will benefit from aggressive risk factor modification and medical management. Stress test is scheduled for tomorrow. CHF: Most likely precipitated by atrial flutter fibrillation with rapid ventricular response. However patient may also have underlying systolic and diastolic dysfunction. A 2D echocardiogram has been ordered. Sleep disordered breathing: Discussed association of sleep apnea with increased risk of atrial flutter fibrillation and that losing weight and going on CPAP therapy will definitely help. Morbid obesity: Discussed association of obesity and atrial fibrillation. Weight loss is likely to help this condition as well. Patient noted to have significant cardiomegaly therefore may have underlying cardiomyopathy. Hypertension: Blood pressure has been noted to be elevated. Patient may have hypertensive heart disease, may have cardiomyopathy secondary to chronic hypertension. Patient will benefit from YOANDY inhibitor/ARB/entresto/beta- marlen therapy. - Time Time with patient: Greater than 35 minutes - More than 50% of the time spent coordinating care, discussing management plans with involved caregivers. Management plans discussed with involved personnels. Medical decision making was of moderate to high complexity, patient's has multiple comorbidities.
--- NOTE | 2018-04-12 23:09 | PDOC PROGRESS REPORT ---
Subjective Progress Note for:: 04/12/18 Subjective:: Patient seems to be doing better with gradual improvement. Pt is denying any chest arm or neck discomfort. Patient denying any PND, orthopnea. Patient denied any sustained palpitations, dizziness, syncope, near syncope. Patient denying any fever chills. Patient denying any other significant discomfort. Patient is maintaining atrial fibrillation Review of systems: Rest review of systems negative. Medications: Medications have been reviewed. Atrial fibrillation Reason For Visit: AFIB C RVR HEART FAILURE Physical Exam Vital Signs: Temp Pulse Resp BP Pulse Ox 98.8 F 138 H 16 142/110 H 98 04/12/18 19:30 04/12/18 19:30 04/12/18 19:30 04/12/18 19:30 04/12/18 19:30 Intake & Output 04/11/18 04/12/18 04/13/18 06:59 06:59 06:59 Intake Total 1212 973 576 Output Total 2600 2550 Balance -1388 -1577 576 Weight 155.1 kg Exam: GENERAL: well-nourished and in no acute distress. Alert and oriented x3 HEAD: Atraumatic, normocephalic. EYES: Pupils equal round and reactive to light, extraocular movements intact, sclera anicteric, conjunctiva are normal. ENT: TMs normal, nares patent, oropharynx clear without exudates. Moist mucous membranes. No oral ulcerations or bleeding gums noted NECK: supple without lymphadenopathy. Trachea is central. No cervical or axillary lymphadenopathy noted. Carotids are 2+, JVD 10 cm LUNGS: Respiration seems nonlabored, no significant accessory muscle action noted. Bibasilar fine crackles are noted. No wheezes rales or rhonchi noted. No significant dullness noted on percussion. CHEST: Palpation of the chest wall shows no significant chest wall tenderness. 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 ABDOMEN: Soft, no significant tenderness appreciated, normoactive bowel sounds. No guarding, no rebound. No rigidity noted . No masses appreciated. EXTREMITIES: Pedal pulses are 1-2+, no calf tenderness noted. No clubbing or cyanosis. 1+ pedal edema noted NEUROLOGICAL: Focused neurological exam showed no significant neurologic deficit. Normal speech, no focal weakness appreciated. PSYCH: Normal mood, normal affect. Judgment and insight within normal limits. SKIN: No significant ecchymosis, skin is noted to be warm. MUSCULOSKELETAL EXAM: No significant acute joint swelling noted. Results Laboratory Results: 04/11/18 05:08 04/11/18 05:08 04/07/18 04/07/18 04/07/18 06:34 06:34 12:47 Creatine Kinase 99 97 CK-MB (CK-2) 1.12 Troponin I 0.046 04/07/18 04/07/18 04/07/18 12:47 18:45 18:45 Creatine Kinase 87 CK-MB (CK-2) 1.43 1.46 Troponin I 0.035 0.034 EKG Comments: Atrial fibrillation with intermittent rapid ventricular response Impressions: Chest X-Ray 04/07/18 00:27 FINDINGS/IMPRESSION: Moderate cardiomegaly is present, unchanged. Mild pulmonary vascular congestion. Possible left basilar atelectasis or opacity. No large pleural effusion is seen. No acute osseous findings. Chest/Abdomen CTA 04/11/18 15:58 IMPRESSION: 1. No evidence of pulmonary emboli. 2. Cardiomegaly. There are ground-glass infiltrates in both lungs that may suggest a mild degree of pulmonary edema. 3. There are some small nonspecific mediastinal and hilar lymph nodes. 4. Cholelithiasis. Assessment & Plan - Diagnosis (1) Atrial fibrillation with RVR Is this a current diagnosis for this admission?: Yes (2) Congestive heart failure Qualifiers: Heart failure type: unspecified Is this a current diagnosis for this admission?: Yes (3) Sleep-disordered breathing Is this a current diagnosis for this admission?: Yes (4) Morbid obesity Is this a current diagnosis for this admission?: Yes (5) Elevated troponin Is this a current diagnosis for this admission?: Yes (6) Cardiomyopathy Qualifiers: Cardiomyopathy type: unspecified Qualified Code(s): I42.9 - Cardiomyopathy , unspecified Is this a current diagnosis for this admission?: Yes (7) Hypertension Qualifiers: Hypertension type: essential hypertension Qualified Code(s): I10 - Essential (primary) hypertension Is this a current diagnosis for this admission?: Yes - Notes Notes: 2D echo confirms severely depressed LVEF with best estimate being 30%. Have discussed LifeVest therapy with the patient. Have completed LifeVest application and placed in front of chart. It was faxed to the [facility]. Patient also started on entresto therapy. This can be increased as tolerated. Yesterday metoprolol dose was increased to 100 mg p.o. twice daily. Will add digoxin to the regimen. Atrial fibrillation with RVR: Continue with beta-marlen therapy. Patient has chronic atrial fibrillation. Patient should be considered for ablation therapy but this can be performed as an outpatient with referral to a feather boner at a tertiary care center. Troponin I elevation: Most likely from supply demand mismatch from A. fib with rapid ventricular response. Patient does however has multiple cardiac risk factors. We will therefore schedule patient for a nuclear stress test. Patient will benefit from aggressive risk factor modification and medical management. Stress test is scheduled for tomorrow. CHF: Most likely precipitated by atrial flutter fibrillation with rapid ventricular response. However patient may also have underlying systolic and diastolic dysfunction. A 2D echocardiogram has been ordered. Sleep disordered breathing: Discussed association of sleep apnea with increased risk of atrial flutter fibrillation and that losing weight and going on CPAP therapy will definitely help. Morbid obesity: Discussed association of obesity and atrial fibrillation. Weight loss is likely to help this condition as well. Patient noted to have significant cardiomegaly therefore may have underlying cardiomyopathy. Hypertension: Blood pressure has been noted to be elevated. Patient may have hypertensive heart disease, may have cardiomyopathy secondary to chronic hypertension. Patient will benefit from YOANDY inhibitor/ARB/entresto/beta- marlen therapy. - Time Time with patient: Greater than 35 minutes - More than 50% of the time spent coordinating care, discussing management plans with involved caregivers. Management plans discussed with involved personnels. Medical decision making was of moderate to high complexity, patient's has multiple comorbidities. Medications reviewed and adjusted accordingly: Yes
[2018-04-13] MEDS: FLUTICASONE NASAL SPRAY 50 MCG/SPRY 120 SPRAY/16 GM NASL SCH ×3 (05:52→22:12)
[2018-04-13] MEDS: FUROSEMIDE INJ/PF 40 MG/4 ML SDV IV SCH ×3 (05:54→18:18)
[2018-04-13] MEDS: POTASSIUM CHLORIDE 10 MEQ CAPSULE.ER PO SCH ×2 (09:21→22:16)
[2018-04-13] MEDS: SACUBITRIL/VALSARTAN 24 MG/26 MG TABLET PO SCH ×2 (09:22→17:25)
[2018-04-13] MEDS: DOCUSATE SODIUM 100 MG CAPSULE PO SCH (09:22)
[2018-04-13] MEDS: DIGOXIN 0.125 MG TABLET PO SCH (09:22)
[2018-04-13] MEDS: APIXABAN 5 MG TABLET PO SCH ×2 (09:22→20:13)
[2018-04-13] MEDS: METOPROLOL SUCCINATE 50 MG TAB.SR.24H PO SCH ×2 (09:22→22:19)
[2018-04-13] MEDS: SPIRONOLACTONE 25 MG TABLET PO SCH (09:22)
[2018-04-13] MEDS: INSULIN LISPRO 100 UNIT/ML 3 ML VIAL SUBCUT PRN ×3 (12:26→22:13)
[2018-04-13] MEDS: METOPROLOL TARTRATE PF/INJ 5 MG/5 ML SDV IV PRN (13:13)
[2018-04-13] MEDS: DIPHENHYDRAMINE HCL 25 MG CAPSULE PO SCH (21:59)
[2018-04-13] MEDS: ATORVASTATIN CALCIUM 40 MG TABLET PO SCH (21:59)
--- NOTE | 2018-04-13 23:01 | PDOC PROGRESS REPORT ---
Subjective Progress Note for:: 04/13/18 Subjective:: Patient had LifeVest delivered this afternoon however on ambulation was noted to have significantly high heart rate therefore discharge was canceled. Patient was also noted to have low-grade fever. Patient seems to be doing better with gradual improvement. Pt is denying any chest arm or neck discomfort. Patient denying any PND, orthopnea. Patient denied any sustained palpitations, dizziness, syncope, near syncope. Patient denying any fever chills. Patient denying any other significant discomfort. Patient is maintaining atrial fibrillation Review of systems: Rest review of systems negative. Medications: Medications have been reviewed. Reason For Visit: AFIB C RVR HEART FAILURE Physical Exam Vital Signs: Temp Pulse Resp BP Pulse Ox 100 F 109 H 20 109/71 93 04/13/18 19:47 04/13/18 19:47 04/13/18 19:47 04/13/18 19:47 04/13/18 19:47 Intake & Output 04/12/18 04/13/18 04/14/18 06:59 06:59 06:59 Intake Total 961 709 2090 Output Total 2550 Balance -6980 416 3408 Exam: GENERAL: well-nourished and in no acute distress. Alert and oriented x3 HEAD: Atraumatic, normocephalic. EYES: Pupils equal round and reactive to light, extraocular movements intact, sclera anicteric, conjunctiva are normal. ENT: TMs normal, nares patent, oropharynx clear without exudates. Moist mucous membranes. No oral ulcerations or bleeding gums noted NECK: supple without lymphadenopathy. Trachea is central. No cervical or axillary lymphadenopathy noted. Carotids are 2+, JVD 8-10 cm LUNGS: Respiration seems nonlabored, no significant accessory muscle action noted. Bibasilar crackles are noted with occasional wheezing. No wheezes rales or rhonchi noted. No significant dullness noted on percussion. CHEST: Palpation of the chest wall shows no significant chest wall tenderness. 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 ABDOMEN: Soft, no significant tenderness appreciated, normoactive bowel sounds. No guarding, no rebound. No rigidity noted . No masses appreciated. EXTREMITIES: Pedal pulses are 1-2+, no calf tenderness noted. No clubbing or cyanosis. 1+ pedal edema noted NEUROLOGICAL: Focused neurological exam showed no significant neurologic deficit. Normal speech, no focal weakness appreciated. PSYCH: Normal mood, normal affect. Judgment and insight within normal limits. SKIN: No significant ecchymosis, skin is noted to be warm. MUSCULOSKELETAL EXAM: No significant acute joint swelling noted. Results Laboratory Results: 04/11/18 05:08 04/11/18 05:08 04/07/18 04/07/18 04/07/18 06:34 06:34 12:47 Creatine Kinase 99 97 CK-MB (CK-2) 1.12 Troponin I 0.046 04/07/18 04/07/18 04/07/18 12:47 18:45 18:45 Creatine Kinase 87 CK-MB (CK-2) 1.43 1.46 Troponin I 0.035 0.034 EKG Comments: Atrial fibrillation with rapid ventricular response Impressions: Chest X-Ray 04/07/18 00:27 FINDINGS/IMPRESSION: Moderate cardiomegaly is present, unchanged. Mild pulmonary vascular congestion. Possible left basilar atelectasis or opacity. No large pleural effusion is seen. No acute osseous findings. Chest/Abdomen CTA 04/11/18 15:58 IMPRESSION: 1. No evidence of pulmonary emboli. 2. Cardiomegaly. There are ground-glass infiltrates in both lungs that may suggest a mild degree of pulmonary edema. 3. There are some small nonspecific mediastinal and hilar lymph nodes. 4. Cholelithiasis. Assessment & Plan - Diagnosis (1) Atrial fibrillation with RVR Is this a current diagnosis for this admission?: Yes (2) Congestive heart failure Qualifiers: Heart failure type: unspecified Is this a current diagnosis for this admission?: Yes (3) Sleep-disordered breathing Is this a current diagnosis for this admission?: Yes (4) Morbid obesity Is this a current diagnosis for this admission?: Yes (5) Elevated troponin Is this a current diagnosis for this admission?: Yes (6) Cardiomyopathy Qualifiers: Cardiomyopathy type: unspecified Qualified Code(s): I42.9 - Cardiomyopathy , unspecified Is this a current diagnosis for this admission?: Yes (7) Hypertension Qualifiers: Hypertension type: essential hypertension Qualified Code(s): I10 - Essential (primary) hypertension Is this a current diagnosis for this admission?: Yes - Notes Notes: Patient's medical regimen reviewed and is noted to be satisfactory. However if heart rate remains elevated, will consider adding amiodarone. 2D echo confirms severely depressed LVEF with best estimate being 30%. Patient to get LifeVest therapy. Patient is agreeable for it. It should be available sometimes today. Patient to continue on entresto therapy. This can be increased as tolerated. Continue metoprolol succinate at 100 mg p.o. twice daily. Add digoxin to the regimen. Atrial fibrillation with RVR: Continue with beta-marlen therapy. Patient has chronic atrial fibrillation. Patient should be considered for ablation therapy but this can be performed as an outpatient with referral to a wood preparation supervisor at a tertiary care center. Troponin I elevation: Most likely from supply demand mismatch from A. fib with rapid ventricular response. Stress test results were reviewed with the patient. CHF: Most likely precipitated by atrial flutter fibrillation with rapid ventricular response. 2D echo does show significant systolic dysfunction. Sleep disordered breathing: Discussed association of sleep apnea with increased risk of atrial flutter fibrillation and that losing weight and going on CPAP therapy will definitely help. Morbid obesity: Discussed association of obesity and atrial fibrillation. Weight loss is likely to help this condition as well. Cardiomyopathy: Discussed management plans and medications. Hopefully patient LVEF will improve on medical management. Hypertension: Patient seems to be under satisfactory regimen and blood pressure seems to be coming under control. - Time Time with patient: Greater than 35 minutes - CODE STATUS was discussed, patient remains full code. Surrogate decision-maker unchanged. Multiple medical problems were addressed. More than 50% of the time spent coordinating care, discussing management plans with involved caregivers. Management plans discussed with involved personnels. Medical decision making was of moderate to high complexity, patient's has multiple comorbidities. Medications reviewed and adjusted accordingly: Yes
[2018-04-14] MEDS: FUROSEMIDE INJ/PF 40 MG/4 ML SDV IV SCH ×2 (06:08→17:23)
[2018-04-14] MEDS: APIXABAN 5 MG TABLET PO SCH ×2 (08:30→20:42)
[2018-04-14] MEDS: INSULIN LISPRO 100 UNIT/ML 3 ML VIAL SUBCUT PRN ×4 (08:31→21:54)
[2018-04-14] MEDS ORDERED: SPIRONOLACTONE 25 MG TABLET PO ONE (10:00)
[2018-04-14] MEDS: FLUTICASONE NASAL SPRAY 50 MCG/SPRY 120 SPRAY/16 GM NASL SCH (10:46)
[2018-04-14] MEDS: POTASSIUM CHLORIDE 10 MEQ CAPSULE.ER PO SCH ×2 (10:47→21:52)
[2018-04-14] MEDS: METOPROLOL SUCCINATE 50 MG TAB.SR.24H PO SCH (10:48)
[2018-04-14] MEDS: DIGOXIN 0.125 MG TABLET PO SCH (10:48)
[2018-04-14] MEDS: SACUBITRIL/VALSARTAN 24 MG/26 MG TABLET PO SCH ×2 (10:51→17:23)
[2018-04-14] MEDS: DOCUSATE SODIUM 100 MG CAPSULE PO SCH (10:51)
[2018-04-14] MEDS: AMIODARONE HCL 200 MG TABLET PO SCH ×2 (13:13→21:53)
[2018-04-14] MEDS: PREDNISONE 20 MG TABLET PO SCH (13:13)
[2018-04-14] MEDS: LEVALBUTEROL HCL NEB 1.25 MG/3 ML AMPUL NEB SCH ×2 (13:53→19:58)
--- NOTE | 2018-04-14 17:38 | PDOC PROGRESS REPORT ---
Subjective Progress Note for:: 04/14/18 Subjective:: The patient is without new complaints. she is resting comfortably at bedside. Her heart rate goes up into the 140's with ambulation just to the bathroom. Reason For Visit: AFIB C RVR HEART FAILURE Physical Exam Vital Signs: Temp Pulse Resp BP Pulse Ox 98.9 F 121 H 16 121/66 97 04/14/18 15:41 04/14/18 15:41 04/14/18 15:41 04/14/18 15:41 04/14/18 15:41 Intake & Output 04/13/18 04/14/18 04/15/18 06:59 06:59 06:59 Intake Total 576 1510 Balance 576 1510 Weight 148.8 kg General appearance: PRESENT: no acute distress, cooperative, morbidly obese Respiratory exam: PRESENT: other - No increased work of breathing.. ABSENT: rales, rhonchi, wheezes Cardiovascular exam: PRESENT: RRR. ABSENT: gallop, rubs, systolic murmur GI/Abdominal exam: PRESENT: soft, other - The abdomen is morbidly obese. Bowel sounds are distant. I am unable toe evaluate the abdomen for organomegaly, masses, or hernias.. ABSENT: tenderness Extremities exam: ABSENT: clubbing, pedal edema, tenderness Musculoskeletal exam: PRESENT: normal inspection. ABSENT: deformity, dislocation, tenderness Neurological exam: PRESENT: alert, awake, oriented to person, oriented to place , oriented to time, oriented to situation, CN II-XII grossly intact. ABSENT: motor sensory deficit Psychiatric exam: PRESENT: appropriate affect, normal mood Skin exam: PRESENT: dry, intact, warm Results Laboratory Results: 04/11/18 05:08 04/11/18 05:08 04/07/18 04/07/18 04/07/18 06:34 06:34 12:47 Creatine Kinase 99 97 CK-MB (CK-2) 1.12 Troponin I 0.046 04/07/18 04/07/18 04/07/18 12:47 18:45 18:45 Creatine Kinase 87 CK-MB (CK-2) 1.43 1.46 Troponin I 0.035 0.034 Impressions: Chest X-Ray 04/07/18 00:27 FINDINGS/IMPRESSION: Moderate cardiomegaly is present, unchanged. Mild pulmonary vascular congestion. Possible left basilar atelectasis or opacity. No large pleural effusion is seen. No acute osseous findings. Chest/Abdomen CTA 04/11/18 15:58 IMPRESSION: 1. No evidence of pulmonary emboli. 2. Cardiomegaly. There are ground-glass infiltrates in both lungs that may suggest a mild degree of pulmonary edema. 3. There are some small nonspecific mediastinal and hilar lymph nodes. 4. Cholelithiasis. Assessment & Plan - Diagnosis (1) Atrial fibrillation with RVR Is this a current diagnosis for this admission?: Yes Plan: Although her rate was improved with beta marlen, the patient continues to have severe symptoms of tachycardia with any exertion. I will start her on amiodarone. (2) Fluid overload Qualifiers: Hypervolemia type: unspecified Qualified Code(s): E87.70 - Fluid overload, unspecified Is this a current diagnosis for this admission?: Yes Plan: Continuing diuresis. The patient is maintaining a negative fluid balance. (3) Dyspnea on exertion Is this a current diagnosis for this admission?: Yes (4) Morbid obesity Is this a current diagnosis for this admission?: Yes - Time Time Spent with patient: 25-34 minutes Medications reviewed and adjusted accordingly: Yes
--- NOTE | 2018-04-14 19:29 | PDOC PROGRESS REPORT ---
Subjective Progress Note for:: 04/14/18 Subjective:: Patient had LifeVest delivered yesterday afternoon however on ambulation was noted to have significantly high heart rate therefore discharge was canceled. Patient was also noted to have low-grade fever. Today she continues with rapid heartbeat especially on ambulation. Agree with hospitalist starting patient on amiodarone. Will also start patient on Ranexa. Patient to continue with chronic anticoagulation. Patient seems to be doing better with gradual improvement. Pt is denying any chest arm or neck discomfort. Patient denying any PND, orthopnea. Patient denied any sustained palpitations, dizziness, syncope, near syncope. Patient denying any fever chills. Patient denying any other significant discomfort. Patient is maintaining atrial fibrillation Review of systems: Rest review of systems negative. Medications: Medications have been reviewed. Reason For Visit: AFIB C RVR HEART FAILURE Physical Exam Vital Signs: Temp Pulse Resp BP Pulse Ox 98.9 F 121 H 16 121/66 97 04/14/18 15:41 04/14/18 15:41 04/14/18 15:41 04/14/18 15:41 04/14/18 15:41 Intake & Output 04/13/18 04/14/18 04/15/18 06:59 06:59 06:59 Intake Total 576 1510 1155 Balance 576 1510 1155 Weight 148.8 kg Exam: GENERAL: well-nourished and in no acute distress. Alert and oriented x3 HEAD: Atraumatic, normocephalic. EYES: Pupils equal round and reactive to light, extraocular movements intact, sclera anicteric, conjunctiva are normal. ENT: TMs normal, nares patent, oropharynx clear without exudates. Moist mucous membranes. No oral ulcerations or bleeding gums noted NECK: supple without lymphadenopathy. Trachea is central. No cervical or axillary lymphadenopathy noted. Carotids are 2+, JVD WNL LUNGS: Respiration seems nonlabored, no significant accessory muscle action noted. Breath sounds clear to auscultation bilaterally and equal noted. No wheezes rales or rhonchi noted. No significant dullness noted on percussion. CHEST: Palpation of the chest wall shows no significant chest wall tenderness. 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 ABDOMEN: Soft, no significant tenderness appreciated, normoactive bowel sounds. No guarding, no rebound. No rigidity noted . No masses appreciated. EXTREMITIES: Pedal pulses are 1-2+, no calf tenderness noted. No clubbing or cyanosis. negative pedal edema noted NEUROLOGICAL: Focused neurological exam showed no significant neurologic deficit. Normal speech, no focal weakness appreciated. PSYCH: Normal mood, normal affect. Judgment and insight within normal limits. SKIN: No significant ecchymosis, skin is noted to be warm. MUSCULOSKELETAL EXAM: No significant acute joint swelling noted. Results Laboratory Results: 04/11/18 05:08 04/11/18 05:08 04/07/18 04/07/18 04/07/18 06:34 06:34 12:47 Creatine Kinase 99 97 CK-MB (CK-2) 1.12 Troponin I 0.046 04/07/18 04/07/18 04/07/18 12:47 18:45 18:45 Creatine Kinase 87 CK-MB (CK-2) 1.43 1.46 Troponin I 0.035 0.034 EKG Comments: Atrial fibrillation with high ventricular response Impressions: Chest X-Ray 04/07/18 00:27 FINDINGS/IMPRESSION: Moderate cardiomegaly is present, unchanged. Mild pulmonary vascular congestion. Possible left basilar atelectasis or opacity. No large pleural effusion is seen. No acute osseous findings. Chest/Abdomen CTA 04/11/18 15:58 IMPRESSION: 1. No evidence of pulmonary emboli. 2. Cardiomegaly. There are ground-glass infiltrates in both lungs that may suggest a mild degree of pulmonary edema. 3. There are some small nonspecific mediastinal and hilar lymph nodes. 4. Cholelithiasis. Assessment & Plan - Diagnosis (1) Atrial fibrillation with RVR Is this a current diagnosis for this admission?: Yes (2) Congestive heart failure Qualifiers: Heart failure type: unspecified Is this a current diagnosis for this admission?: Yes (3) Sleep-disordered breathing Is this a current diagnosis for this admission?: Yes (4) Morbid obesity Is this a current diagnosis for this admission?: Yes (5) Elevated troponin Is this a current diagnosis for this admission?: Yes (6) Cardiomyopathy Qualifiers: Cardiomyopathy type: unspecified Qualified Code(s): I42.9 - Cardiomyopathy , unspecified Is this a current diagnosis for this admission?: Yes (7) Hypertension Qualifiers: Hypertension type: essential hypertension Qualified Code(s): I10 - Essential (primary) hypertension Is this a current diagnosis for this admission?: Yes - Notes Notes: CHF: Currently seems compensated clinically. Patient will need stable dose diuretics,entresto, beta-blockers. Sleep disordered breathing: Patient will benefit from a sleep study. This can be scheduled as an outpatient. Morbid obesity: Patient has been advised weight loss. Elevated troponin I: Was related to CHF. Stress test was relatively unremarkable. Discussed that there will be low threshold for heart catheterization should patient develop chest pains etc. Cardiomyopathy: Patient has a LifeVest on. Patient knows that if her heart function does not improve, then she will need a internal defibrillator. Hypertension: This seems satisfactorily controlled. Patient encouraged in regular walking program and regular cardiology follow-up. - Time Time with patient: Greater than 35 minutes - CODE STATUS was discussed, patient remains full code. Surrogate decision-maker unchanged. Multiple medical problems were addressed. More than 50% of the time spent coordinating care, discussing management plans with involved caregivers. Management plans discussed with involved personnels. Medical decision making was of moderate to high complexity, patient's has multiple comorbidities. Medications reviewed and adjusted accordingly: Yes
[2018-04-14] MEDS: GUAIFENESIN 600 MG TABLET.SA PO SCH (21:51)
[2018-04-14] MEDS: ATORVASTATIN CALCIUM 40 MG TABLET PO SCH (21:52)
[2018-04-14] MEDS: DIPHENHYDRAMINE HCL 25 MG CAPSULE PO SCH (21:52)
[2018-04-15] MEDS: METOPROLOL SUCCINATE 50 MG TAB.SR.24H PO SCH ×3 (00:27→21:26)
[2018-04-15] MEDS: FLUTICASONE NASAL SPRAY 50 MCG/SPRY 120 SPRAY/16 GM NASL SCH ×3 (00:29→21:27)
[2018-04-15] MEDS: LEVALBUTEROL HCL NEB 1.25 MG/3 ML AMPUL NEB SCH ×4 (01:04→19:50)
[2018-04-15] MEDS: RANOLAZINE 500 MG TAB.SR.12H PO SCH ×3 (03:31→21:27)
[2018-04-15] MEDS: FUROSEMIDE INJ/PF 40 MG/4 ML SDV IV SCH ×2 (05:22→17:45)
[2018-04-15 06:16] LABS: HEMATOCRIT 36.1 % (36.0-47.0); HEMOGLOBIN 11.6 g/dL (12.0-15.5); MEAN CORPUSCULAR HEMOGLOBIN 27.4 pg (27.0-33.4); MEAN CORPUSCULAR HGB CONC 32.1 g/dL (32.0-36.0); MEAN CORPUSCULAR VOLUME 86 fl (80-97); PLATELET COUNT 257 10^3/uL (150-450); RED BLOOD COUNT 4.23 10^6/uL (3.72-5.28); RED CELL DISTRIBUTION WIDTH 16.1 % (11.5-14.0); WHITE BLOOD COUNT 21.8 10^3/uL (4.0-10.5)
[2018-04-15 07:01] LABS: ANION GAP 12 (5-19); BLOOD UREA NITROGEN 26 mg/dL (7-20); CALCIUM 9.2 mg/dL (8.4-10.2); CARBON DIOXIDE 29 mmol/L (22-30); CHLORIDE 96 mmol/L (98-107); GLUCOSE 201 mg/dL (75-110); POTASSIUM 4.6 mmol/L (3.6-5.0); SODIUM 136.5 mmol/L (137-145)
[2018-04-15 07:13] LABS: ABSOLUTE LYMPHOCYTES# (MANUAL) 3.1 10^3/uL (0.5-4.7); ABSOLUTE MONOCYTES # (MANUAL) 1.5 10^3/uL (0.1-1.4); ABSOLUTE NEUTROPHILS# (MANUAL) 17.2 10^3/uL (1.7-8.2); BASOPHILS % (MANUAL) 0 % (0-2); EOSINOPHILS % (MANUAL) 0 % (0-6); LYMPHOCYTES % (MANUAL) 14 % (13-45); MONOCYTES % (MANUAL) 7 % (3-13); SEGMENTED NEUTROPHILS % (MAN) 79 % (42-78); TOTAL CELLS COUNTED 100
[2018-04-15 07:17] LABS: ANISOCYTOSIS 1+; POIKILOCYTOSIS SLIGHT; STOMATOCYTES 1+
[2018-04-15 07:18] LABS: OVALOCYTES SLIGHT; PLATELET COMMENT ADEQUATE
[2018-04-15] MEDS: INSULIN LISPRO 100 UNIT/ML 3 ML VIAL SUBCUT PRN ×4 (07:40→21:32)
[2018-04-15] MEDS: APIXABAN 5 MG TABLET PO SCH ×2 (07:40→21:24)
[2018-04-15] MEDS: AMIODARONE HCL 200 MG TABLET PO SCH ×2 (09:24→21:24)
[2018-04-15] MEDS: GUAIFENESIN 600 MG TABLET.SA PO SCH ×2 (09:24→21:24)
[2018-04-15] MEDS: DIGOXIN 0.125 MG TABLET PO SCH (09:24)
[2018-04-15] MEDS: DOCUSATE SODIUM 100 MG CAPSULE PO SCH (09:25)
[2018-04-15] MEDS: POTASSIUM CHLORIDE 10 MEQ CAPSULE.ER PO SCH ×2 (09:25→21:24)
[2018-04-15] MEDS: PREDNISONE 20 MG TABLET PO SCH (09:25)
--- NOTE | 2018-04-15 14:24 | PDOC PROGRESS REPORT ---
Subjective Progress Note for:: 04/15/18 Subjective:: The patient is without new complaints. She is sleeping soundly upon my visit, but she does arouse to vocal or tactile stimulation. Her heart rate is controlled at rest, but still increases into the 130's with exertion despite initiation of amiodarone. Reason For Visit: AFIB C RVR HEART FAILURE Physical Exam Vital Signs: Temp Pulse Resp BP Pulse Ox 98.8 F 102 H 16 99/58 L 98 04/15/18 12:30 04/15/18 14:17 04/15/18 14:17 04/15/18 12:30 04/15/18 14:17 Intake & Output 04/14/18 04/15/18 04/16/18 06:59 06:59 06:59 Intake Total 1510 2103 Balance 1510 2103 Weight 148.8 kg 147.5 kg General appearance: PRESENT: no acute distress, morbidly obese Respiratory exam: PRESENT: other - No increased work of breathing.. ABSENT: rales, rhonchi, wheezes Cardiovascular exam: PRESENT: RRR, other - No lateral PMI. No thrills.. ABSENT : gallop, rubs, systolic murmur GI/Abdominal exam: PRESENT: normal bowel sounds, organolmegaly, soft. ABSENT: distended, hernia, mass, tenderness Extremities exam: PRESENT: pedal edema, other - +3 edema. ABSENT: clubbing, tenderness Musculoskeletal exam: PRESENT: normal inspection. ABSENT: deformity, dislocation, tenderness Skin exam: PRESENT: dry, intact, warm Results Laboratory Results: 04/15/18 05:06 04/15/18 05:06 04/15/18 04/15/18 05:06 05:06 WBC 21.8 H RBC 4.23 Hgb 11.6 L Hct 36.1 MCV 86 MCH 27.4 MCHC 32.1 RDW 16.1 H Plt Count 257 Seg Neutrophils % Not Reportable Lymphocytes % Not Reportable Monocytes % Not Reportable Eosinophils % Not Reportable Basophils % Not Reportable Absolute Neutrophils Not Reportable Absolute Lymphocytes Not Reportable Absolute Monocytes Not Reportable Absolute Eosinophils Not Reportable Absolute Basophils Not Reportable Sodium 136.5 L Potassium 4.6 Chloride 96 L Carbon Dioxide 29 Anion Gap 12 BUN 26 H Creatinine 0.83 Est GFR ( Amer) > 60 Est GFR (Non-Af Amer) > 60 Glucose 201 H Calcium 9.2 04/07/18 04/07/18 04/07/18 06:34 06:34 12:47 Creatine Kinase 99 97 CK-MB (CK-2) 1.12 Troponin I 0.046 04/07/18 04/07/18 04/07/18 12:47 18:45 18:45 Creatine Kinase 87 CK-MB (CK-2) 1.43 1.46 Troponin I 0.035 0.034 Impressions: Chest X-Ray 04/07/18 00:27 FINDINGS/IMPRESSION: Moderate cardiomegaly is present, unchanged. Mild pulmonary vascular congestion. Possible left basilar atelectasis or opacity. No large pleural effusion is seen. No acute osseous findings. Chest/Abdomen CTA 04/11/18 15:58 IMPRESSION: 1. No evidence of pulmonary emboli. 2. Cardiomegaly. There are ground-glass infiltrates in both lungs that may suggest a mild degree of pulmonary edema. 3. There are some small nonspecific mediastinal and hilar lymph nodes. 4. Cholelithiasis. Assessment & Plan - Diagnosis (1) Atrial fibrillation with RVR Is this a current diagnosis for this admission?: Yes Plan: Although her rate was improved with beta marlen, the patient continues to have severe symptoms of tachycardia with any exertion. She has been started on amiodarone. (2) Fluid overload Qualifiers: Hypervolemia type: unspecified Qualified Code(s): E87.70 - Fluid overload, unspecified Is this a current diagnosis for this admission?: Yes Plan: Continuing diuresis. The patient is maintaining a negative fluid balance. her blood pressure has been too low to give entresto now for 2 days, likely because of diuresis. (3) Dyspnea on exertion Is this a current diagnosis for this admission?: Yes Plan: Pulmonary edema on CXR. Also uncontrolled heart rate. Continue diuresis. (4) Morbid obesity Is this a current diagnosis for this admission?: Yes - Time Time Spent with patient: 25-34 minutes Medications reviewed and adjusted accordingly: Yes
--- NOTE | 2018-04-15 20:07 | PDOC PROGRESS REPORT ---
Subjective Progress Note for:: 04/15/18 Subjective:: Patient continues to be tachycardic on mild exertion. Agree with hospitalist starting patient on amiodarone. Started patient on Ranexa. Patient to continue with chronic anticoagulation. Patient seems to be doing better with gradual improvement. Pt is denying any chest arm or neck discomfort. Patient denying any PND, orthopnea. Patient denied any sustained palpitations, dizziness, syncope, near syncope. Patient denying any fever chills. Patient denying any other significant discomfort. Patient is maintaining atrial fibrillation, heart rate seems to be coming under control. Review of systems: Rest review of systems negative. Medications: Medications have been reviewed. Reason For Visit: AFIB C RVR HEART FAILURE Physical Exam Vital Signs: Temp Pulse Resp BP Pulse Ox 97.8 F 94 18 99/56 L 98 04/15/18 16:15 04/15/18 19:51 04/15/18 19:51 04/15/18 16:15 04/15/18 19:51 Intake & Output 04/14/18 04/15/18 04/16/18 06:59 06:59 06:59 Intake Total 1510 2103 1103 Balance 1510 2103 1103 Weight 148.8 kg 147.5 kg Exam: GENERAL: well-nourished and in no acute distress. Alert and oriented x3 HEAD: Atraumatic, normocephalic. EYES: Pupils equal round and reactive to light, extraocular movements intact, sclera anicteric, conjunctiva are normal. ENT: TMs normal, nares patent, oropharynx clear without exudates. Moist mucous membranes. No oral ulcerations or bleeding gums noted NECK: supple without lymphadenopathy. Trachea is central. No cervical or axillary lymphadenopathy noted. Carotids are 2+, JVD WNL LUNGS: Respiration seems nonlabored, no significant accessory muscle action noted. Bibasilar fine crackles are noted. No wheezes rales or rhonchi noted. No significant dullness noted on percussion. CHEST: Palpation of the chest wall shows no significant chest wall tenderness. 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 ABDOMEN: Soft, no significant tenderness appreciated, normoactive bowel sounds. No guarding, no rebound. No rigidity noted . No masses appreciated. EXTREMITIES: Pedal pulses are 1-2+, no calf tenderness noted. No clubbing or cyanosis. 1+ pedal edema noted NEUROLOGICAL: Focused neurological exam showed no significant neurologic deficit. Normal speech, no focal weakness appreciated. PSYCH: Normal mood, normal affect. Judgment and insight within normal limits. SKIN: No significant ecchymosis, skin is noted to be warm. MUSCULOSKELETAL EXAM: No significant acute joint swelling noted. Results Laboratory Results: 04/15/18 05:06 04/15/18 05:06 04/15/18 04/15/18 05:06 05:06 WBC 21.8 H RBC 4.23 Hgb 11.6 L Hct 36.1 MCV 86 MCH 27.4 MCHC 32.1 RDW 16.1 H Plt Count 257 Seg Neutrophils % Not Reportable Lymphocytes % Not Reportable Monocytes % Not Reportable Eosinophils % Not Reportable Basophils % Not Reportable Absolute Neutrophils Not Reportable Absolute Lymphocytes Not Reportable Absolute Monocytes Not Reportable Absolute Eosinophils Not Reportable Absolute Basophils Not Reportable Sodium 136.5 L Potassium 4.6 Chloride 96 L Carbon Dioxide 29 Anion Gap 12 BUN 26 H Creatinine 0.83 Est GFR ( Amer) > 60 Est GFR (Non-Af Amer) > 60 Glucose 201 H Calcium 9.2 04/07/18 04/07/18 04/07/18 06:34 06:34 12:47 Creatine Kinase 99 97 CK-MB (CK-2) 1.12 Troponin I 0.046 04/07/18 04/07/18 04/07/18 12:47 18:45 18:45 Creatine Kinase 87 CK-MB (CK-2) 1.43 1.46 Troponin I 0.035 0.034 EKG Comments: Shows atrial fibrillation with increased heart rate response especially on exertion but otherwise satisfactory. Impressions: Chest X-Ray 04/07/18 00:27 FINDINGS/IMPRESSION: Moderate cardiomegaly is present, unchanged. Mild pulmonary vascular congestion. Possible left basilar atelectasis or opacity. No large pleural effusion is seen. No acute osseous findings. Chest/Abdomen CTA 04/11/18 15:58 IMPRESSION: 1. No evidence of pulmonary emboli. 2. Cardiomegaly. There are ground-glass infiltrates in both lungs that may suggest a mild degree of pulmonary edema. 3. There are some small nonspecific mediastinal and hilar lymph nodes. 4. Cholelithiasis. Assessment & Plan - Diagnosis (1) Atrial fibrillation with RVR Is this a current diagnosis for this admission?: Yes (2) Congestive heart failure Qualifiers: Heart failure type: unspecified Is this a current diagnosis for this admission?: Yes (3) Sleep-disordered breathing Is this a current diagnosis for this admission?: Yes (4) Morbid obesity Is this a current diagnosis for this admission?: Yes (5) Elevated troponin Is this a current diagnosis for this admission?: Yes - Notes Notes: Atrial fibrillation with RVR: Currently on metoprolol succinate 100 mg p.o. twice daily, digoxin, amiodarone and also Ranexa for rate control.. Patient should be considered for ablation therapy but this can be performed as an outpatient with referral to a skiver counter at a tertiary care center. Troponin I elevation: Most likely from supply demand mismatch from A. fib with rapid ventricular response. Nuclear stress test was negative for any significant ischemia. Patient being managed medically. CHF: Most likely precipitated by atrial flutter fibrillation with rapid ventricular response in setting of LV systolic dysfunction. LVEF felt to be at around 30%.. Sleep disordered breathing: Discussed association of sleep apnea with increased risk of atrial flutter fibrillation and that losing weight and going on CPAP therapy will definitely help. Morbid obesity: Discussed association of obesity and atrial fibrillation. Weight loss is likely to help this condition as well. Hypertension: Blood pressure under satisfactory control. Continue on current regimen. Cardiomyopathy: Regimen is being optimized. Patient's medical regimen reviewed and is noted to be satisfactory. - Time Time with patient: Greater than 35 minutes - More than 50% of the time spent coordinating care, discussing management plans with involved caregivers. Management plans discussed with involved personnels. Medical decision making was of moderate to high complexity, patient's has multiple comorbidities. Medications reviewed and adjusted accordingly: Yes
[2018-04-15] MEDS: ATORVASTATIN CALCIUM 40 MG TABLET PO SCH (21:24)
[2018-04-15] MEDS: DIPHENHYDRAMINE HCL 25 MG CAPSULE PO SCH (21:26)
[2018-04-16] MEDS: LEVALBUTEROL HCL NEB 1.25 MG/3 ML AMPUL NEB SCH ×4 (01:11→20:01)
[2018-04-16] MEDS: FUROSEMIDE 40 MG TABLET PO SCH ×2 (05:36→17:11)
[2018-04-16 07:44] LABS: HEMATOCRIT 38.3 % (36.0-47.0); HEMOGLOBIN 12.1 g/dL (12.0-15.5); MEAN CORPUSCULAR HEMOGLOBIN 27.2 pg (27.0-33.4); MEAN CORPUSCULAR HGB CONC 31.6 g/dL (32.0-36.0); MEAN CORPUSCULAR VOLUME 86 fl (80-97); PLATELET COUNT 276 10^3/uL (150-450); RED BLOOD COUNT 4.45 10^6/uL (3.72-5.28); RED CELL DISTRIBUTION WIDTH 16.2 % (11.5-14.0); WHITE BLOOD COUNT 24.6 10^3/uL (4.0-10.5)
[2018-04-16] MEDS: APIXABAN 5 MG TABLET PO SCH ×2 (08:05→20:25)
[2018-04-16 08:06] LABS: ANION GAP 13 (5-19); BLOOD UREA NITROGEN 31 mg/dL (7-20); CALCIUM 9.4 mg/dL (8.4-10.2); CARBON DIOXIDE 28 mmol/L (22-30); CHLORIDE 98 mmol/L (98-107); GLUCOSE 163 mg/dL (75-110); POTASSIUM 5.1 mmol/L (3.6-5.0); SODIUM 138.5 mmol/L (137-145)
[2018-04-16] MEDS: INSULIN LISPRO 100 UNIT/ML 3 ML VIAL SUBCUT PRN ×4 (08:08→22:40)
[2018-04-16 08:42] LABS: ABSOLUTE LYMPHOCYTES# (MANUAL) 3.9 10^3/uL (0.5-4.7); ABSOLUTE MONOCYTES # (MANUAL) 2.2 10^3/uL (0.1-1.4); ABSOLUTE NEUTROPHILS# (MANUAL) 18.5 10^3/uL (1.7-8.2); BASOPHILS % (MANUAL) 0 % (0-2); EOSINOPHILS % (MANUAL) 0 % (0-6); LYMPHOCYTES % (MANUAL) 16 % (13-45); MONOCYTES % (MANUAL) 9 % (3-13); SEGMENTED NEUTROPHILS % (MAN) 75 % (42-78); TOTAL CELLS COUNTED 100
[2018-04-16 08:43] LABS: ANISOCYTOSIS 1+; PLATELET COMMENT ADEQUATE; POLYCHROMASIA SLIGHT; TOXIC GRANULATION 1+
[2018-04-16] MEDS: PREDNISONE 20 MG TABLET PO SCH (09:24)
[2018-04-16] MEDS: AMIODARONE HCL 200 MG TABLET PO SCH ×2 (09:24→22:43)
[2018-04-16] MEDS: DOCUSATE SODIUM 100 MG CAPSULE PO SCH (09:24)
[2018-04-16] MEDS: DIGOXIN 0.125 MG TABLET PO SCH (09:24)
[2018-04-16] MEDS: POTASSIUM CHLORIDE 10 MEQ CAPSULE.ER PO SCH ×2 (09:26→22:43)
[2018-04-16] MEDS: FLUTICASONE NASAL SPRAY 50 MCG/SPRY 120 SPRAY/16 GM NASL SCH ×2 (09:26→22:44)
[2018-04-16] MEDS: GUAIFENESIN 600 MG TABLET.SA PO SCH ×2 (09:26→22:42)
[2018-04-16] MEDS: RANOLAZINE 500 MG TAB.SR.12H PO SCH ×2 (09:26→23:16)
[2018-04-16] MEDS: METOPROLOL SUCCINATE 50 MG TAB.SR.24H PO SCH ×2 (09:26→22:42)
--- NOTE | 2018-04-16 10:07 | RADIOLOGY REPORT (SQ) ---
EXAM DESCRIPTION: CHEST SINGLE VIEW COMPLETED DATE/TIME: 04/16/2018 9:04 am REASON FOR STUDY: cough COMPARISON: 04/07/2018 EXAM PARAMETERS: NUMBER OF VIEWS: One view. TECHNIQUE: Single frontal radiographic view of the chest acquired. RADIATION DOSE: NA LIMITATIONS: None. FINDINGS: LUNGS AND PLEURA: External devices overlying the midline chest obscure detail somewhat. A decrease in the bibasilar parenchymal density since the previous examination. No pneumothorax or p leural effusion. MEDIASTINUM AND HILAR STRUCTURES: The detailed in the mediastinum and hilar regions somewhat obscure d by the external overlying devices. HEART AND VASCULAR STRUCTURES: Stable appearance. Cardiomegaly. BONES: No acute findings. HARDWARE: None in the chest. OTHER: No other significant finding. IMPRESSION: 1. Examination is somewhat limited as detailed above. A decrease in the bibasilar pare nchymal densities since examination dated 04/07/2018. TECHNICAL DOCUMENTATION: JOB ID: [id number] [employer]- All Rights Reserved Reading location - IP/workstation name: [email or web address]
[2018-04-16] MEDS: CEFTRIAXONE SODIUM 1,500 MG in DEXTROSE 5%-WATER 100 ML IV SCH (11:06)
[2018-04-16 11:44] LABS: APPEARANCE,URINE CLEAR; BILIRUBIN,URINE NEGATIVE (NEGATIVE); COLOR,URINE STRAW; GLUCOSE, URINE NEGATIVE (NEGATIVE); KETONES,URINE NEGATIVE (NEGATIVE); LEUKOCYTE ESTERASE,URINE NEGATIVE (NEGATIVE); NITRITE,URINE NEGATIVE (NEGATIVE); PROTEIN,URINE NEGATIVE (NEGATIVE); UROBILINOGEN,URINE NEGATIVE mg/dL (<2.0)
[2018-04-16] MEDS: AZITHROMYCIN 500 MG in DEXTROSE 5%-WATER 250 ML IV SCH (12:13)
[2018-04-16] MEDS: MAG HYDROX/AL HYDROX/SIMETH SUSP 30 ML UDCUP PO PRN (12:56)
--- NOTE | 2018-04-16 16:12 | PDOC PROGRESS REPORT ---
Subjective Progress Note for:: 04/16/18 Subjective:: The patient complains of chest congestion and cough. No fevers. Her heart rate is improved. Reason For Visit: AFIB C RVR HEART FAILURE Physical Exam Vital Signs: Temp Pulse Resp BP Pulse Ox 98.1 F 79 16 112/77 97 04/16/18 11:11 04/16/18 14:15 04/16/18 14:15 04/16/18 11:11 04/16/18 14:15 Intake & Output 04/15/18 04/16/18 04/17/18 06:59 06:59 06:59 Intake Total 2103 1729 350 Balance 2103 1729 350 Weight 147.5 kg 151.5 kg General appearance: PRESENT: mild distress, morbidly obese Respiratory exam: PRESENT: rhonchi, wheezes, other - Harsh cough with conversation.. ABSENT: rales Cardiovascular exam: PRESENT: RRR, other - No lateral PMI. No thrills.. ABSENT : gallop, rubs, systolic murmur GI/Abdominal exam: PRESENT: soft, other - The abdomen is morbidly obese. Bowel sounds are distant. I am unable to evaluate the abdomen for organomegaly, masses , or hernias due to the patient's body habitus.. ABSENT: tenderness Extremities exam: ABSENT: clubbing, pedal edema, tenderness Musculoskeletal exam: PRESENT: normal inspection. ABSENT: deformity, dislocation, tenderness Neurological exam: PRESENT: alert, awake, oriented to person, oriented to place , oriented to time, oriented to situation, CN II-XII grossly intact. ABSENT: motor sensory deficit Psychiatric exam: PRESENT: appropriate affect, normal mood Skin exam: PRESENT: dry, intact, warm Results Laboratory Results: 04/16/18 06:34 04/16/18 06:34 04/16/18 04/16/18 04/16/18 06:34 06:34 10:52 WBC 24.6 H RBC 4.45 Hgb 12.1 Hct 38.3 MCV 86 MCH 27.2 MCHC 31.6 L RDW 16.2 H Plt Count 276 Seg Neutrophils % Not Reportable Lymphocytes % Not Reportable Monocytes % Not Reportable Eosinophils % Not Reportable Basophils % Not Reportable Absolute Neutrophils Not Reportable Absolute Lymphocytes Not Reportable Absolute Monocytes Not Reportable Absolute Eosinophils Not Reportable Absolute Basophils Not Reportable Sodium 138.5 Potassium 5.1 H Chloride 98 Carbon Dioxide 28 Anion Gap 13 BUN 31 H Creatinine 0.92 Est GFR ( Amer) > 60 Est GFR (Non-Af Amer) > 60 Glucose 163 H Calcium 9.4 Urine Color STRAW Urine Appearance CLEAR Urine pH 5.0 Ur Specific [place] 1.010 Urine Protein NEGATIVE Urine Glucose (UA) NEGATIVE Urine Ketones NEGATIVE Urine Blood NEGATIVE Urine Nitrite NEGATIVE Ur Leukocyte Esterase NEGATIVE Urine WBC (Auto) 1 Urine RBC (Auto) 1 04/07/18 04/07/18 04/07/18 06:34 06:34 12:47 Creatine Kinase 99 97 CK-MB (CK-2) 1.12 Troponin I 0.046 04/07/18 04/07/18 04/07/18 12:47 18:45 18:45 Creatine Kinase 87 CK-MB (CK-2) 1.43 1.46 Troponin I 0.035 0.034 Impressions: Chest/Abdomen CTA 04/11/18 15:58 IMPRESSION: 1. No evidence of pulmonary emboli. 2. Cardiomegaly. There are ground-glass infiltrates in both lungs that may suggest a mild degree of pulmonary edema. 3. There are some small nonspecific mediastinal and hilar lymph nodes. 4. Cholelithiasis. Chest X-Ray 04/16/18 00:00 IMPRESSION: 1. Examination is somewhat limited as detailed above. A decrease in the bibasilar parenchymal densities since examination dated 04/07/2018. Assessment & Plan - Diagnosis (1) Atrial fibrillation with RVR Is this a current diagnosis for this admission?: Yes Plan: Rate control is improved. (2) Fluid overload Qualifiers: Hypervolemia type: unspecified Qualified Code(s): E87.70 - Fluid overload, unspecified Is this a current diagnosis for this admission?: Yes Plan: IV lasix has veen converted to PO by cardiology in order to alleviate the patient's low blood pressures. Monitor volume status. (3) Dyspnea on exertion Is this a current diagnosis for this admission?: Yes (4) Morbid obesity Is this a current diagnosis for this admission?: Yes (5) Acute bronchitis Qualifiers: Bronchitis organism: unspecified organism Qualified Code(s): J20.9 - Acute bronchitis, unspecified Is this a current diagnosis for this admission?: Yes Plan: Steroids, IV antibiotics, nebulizer treatments, and mucolytics. (6) Leukocytosis Is this a current diagnosis for this admission?: Yes Plan: UA negative, CXR is clear. Blood cultures pending. I believe that the patient's leukocytosis is due to steroids being used to treat her bronchitis. - Time Time Spent with patient: 25-34 minutes
[2018-04-16] MEDS: LANSOPRAZOLE 30 MG TAB.RAP.DR PO SCH (17:11)
--- NOTE | 2018-04-16 22:24 | PDOC PROGRESS REPORT ---
Subjective Progress Note for:: 04/16/18 Subjective:: Patient continues to be tachycardic on mild exertion but HR better. Continue patient on amiodarone and Ranexa. Patient to continue with chronic anticoagulation. Patient seems to be doing better with gradual improvement. Pt is denying any chest arm or neck discomfort. Patient denying any PND, orthopnea. Patient denied any sustained palpitations, dizziness, syncope, near syncope. Patient denying any fever chills. Patient denying any other significant discomfort. Patient is maintaining atrial fibrillation Review of systems: Rest review of systems negative. Medications: Medications have been reviewed. Reason For Visit: AFIB C RVR HEART FAILURE Physical Exam Vital Signs: Temp Pulse Resp BP Pulse Ox 97.2 F 73 20 110/93 H 93 04/16/18 19:38 04/16/18 20:00 04/16/18 20:00 04/16/18 19:38 04/16/18 20:00 Intake & Output 04/15/18 04/16/18 04/17/18 06:59 06:59 06:59 Intake Total 2103 1729 986 Balance 2103 1729 986 Weight 147.5 kg 151.5 kg Exam: GENERAL: well-nourished and in no acute distress. Alert and oriented x3 HEAD: Atraumatic, normocephalic. EYES: Pupils equal round and reactive to light, extraocular movements intact, sclera anicteric, conjunctiva are normal. ENT: TMs normal, nares patent, oropharynx clear without exudates. Moist mucous membranes. No oral ulcerations or bleeding gums noted NECK: supple without lymphadenopathy. Trachea is central. No cervical or axillary lymphadenopathy noted. Carotids are 2+, JVD WNL LUNGS: Respiration seems nonlabored, no significant accessory muscle action noted. Breath sounds clear to auscultation bilaterally and equal noted. No wheezes rales or rhonchi noted. No significant dullness noted on percussion. CHEST: Palpation of the chest wall shows no significant chest wall tenderness. HEART: [place] [employer], No PSH, 1/6 YOSVANY aortic area, 1/6 amezcua systolic murmur mitral area, no rubs, no gallops. ABDOMEN: Soft, no significant tenderness appreciated, normoactive bowel sounds. No guarding, no rebound. No rigidity noted . No masses appreciated. EXTREMITIES: Pedal pulses are 1-2+, no calf tenderness noted. No clubbing or cyanosis. 1+ pedal edema noted NEUROLOGICAL: Focused neurological exam showed no significant neurologic deficit. Normal speech, no focal weakness appreciated. PSYCH: Normal mood, normal affect. Judgment and insight within normal limits. SKIN: No significant ecchymosis, skin is noted to be warm. MUSCULOSKELETAL EXAM: No significant acute joint swelling noted. Results Laboratory Results: 04/16/18 06:34 04/16/18 06:34 04/16/18 04/16/18 04/16/18 06:34 06:34 10:52 WBC 24.6 H RBC 4.45 Hgb 12.1 Hct 38.3 MCV 86 MCH 27.2 MCHC 31.6 L RDW 16.2 H Plt Count 276 Seg Neutrophils % Not Reportable Lymphocytes % Not Reportable Monocytes % Not Reportable Eosinophils % Not Reportable Basophils % Not Reportable Absolute Neutrophils Not Reportable Absolute Lymphocytes Not Reportable Absolute Monocytes Not Reportable Absolute Eosinophils Not Reportable Absolute Basophils Not Reportable Sodium 138.5 Potassium 5.1 H Chloride 98 Carbon Dioxide 28 Anion Gap 13 BUN 31 H Creatinine 0.92 Est GFR ( Amer) > 60 Est GFR (Non-Af Amer) > 60 Glucose 163 H Calcium 9.4 Urine Color STRAW Urine Appearance CLEAR Urine pH 5.0 Ur Specific [place] 1.010 Urine Protein NEGATIVE Urine Glucose (UA) NEGATIVE Urine Ketones NEGATIVE Urine Blood NEGATIVE Urine Nitrite NEGATIVE Ur Leukocyte Esterase NEGATIVE Urine WBC (Auto) 1 Urine RBC (Auto) 1 04/07/18 04/07/18 04/07/18 06:34 06:34 12:47 Creatine Kinase 99 97 CK-MB (CK-2) 1.12 Troponin I 0.046 04/07/18 04/07/18 04/07/18 12:47 18:45 18:45 Creatine Kinase 87 CK-MB (CK-2) 1.43 1.46 Troponin I 0.035 0.034 EKG Comments: Atrial fibrillation with heart rate being reasonably well controlled. Impressions: Chest/Abdomen CTA 04/11/18 15:58 IMPRESSION: 1. No evidence of pulmonary emboli. 2. Cardiomegaly. There are ground-glass infiltrates in both lungs that may suggest a mild degree of pulmonary edema. 3. There are some small nonspecific mediastinal and hilar lymph nodes. 4. Cholelithiasis. Chest X-Ray 04/16/18 00:00 IMPRESSION: 1. Examination is somewhat limited as detailed above. A decrease in the bibasilar parenchymal densities since examination dated 04/07/2018. Assessment & Plan - Diagnosis (1) Atrial fibrillation with RVR Is this a current diagnosis for this admission?: Yes (2) Congestive heart failure Qualifiers: Heart failure type: unspecified Is this a current diagnosis for this admission?: Yes (3) Sleep-disordered breathing Is this a current diagnosis for this admission?: Yes (4) Morbid obesity Is this a current diagnosis for this admission?: Yes (5) Elevated troponin Is this a current diagnosis for this admission?: Yes (6) Cardiomyopathy Qualifiers: Cardiomyopathy type: unspecified Qualified Code(s): I42.9 - Cardiomyopathy , unspecified Is this a current diagnosis for this admission?: Yes (7) Hypertension Qualifiers: Hypertension type: essential hypertension Qualified Code(s): I10 - Essential (primary) hypertension Is this a current diagnosis for this admission?: Yes - Notes Notes: Patient's medical regimen was reviewed and is noted to be stable and satisfactory. Can be adjusted further as an outpatient. CHF: Currently seems compensated clinically. Patient will need stable dose diuretics,entresto, beta-blockers. Sleep disordered breathing: Patient will benefit from a sleep study. This can be scheduled as an outpatient. Morbid obesity: Patient has been advised weight loss. Elevated troponin I: Was related to CHF. Stress test was relatively unremarkable. Discussed that there will be low threshold for heart catheterization should patient develop chest pains etc. Cardiomyopathy: Patient has a LifeVest on. Patient knows that if her heart function does not improve, then he will need a internal defibrillator. Hypertension: Blood pressure goal in this patient is 140/90 or less. This was discussed with the patient. Currently blood pressure under reasonable control. Better medication for this patient are YOANDY inhibitor/ARB/beta marlen etc. discussed side effects of uncontrolled hypertension and also severe hypotension. Obesity: Has been advised and regular weight loss. - Time Time with patient: Greater than 35 minutes - More than 50% of the time spent coordinating care, discussing management plans with involved caregivers. Management plans discussed with involved personnels. Medical decision making was of moderate to high complexity, patient's has multiple comorbidities. Medications reviewed and adjusted accordingly: Yes
[2018-04-16] MEDS: DIPHENHYDRAMINE HCL 25 MG CAPSULE PO SCH (22:43)
[2018-04-16] MEDS: ATORVASTATIN CALCIUM 40 MG TABLET PO SCH (22:43)
--- NOTE | 2018-04-16 23:04 | EKG REPORT ---
SEVERITY:- ABNORMAL ECG - ATRIAL FIB FLUTTER NONSPECIFIC T ABNORMALITIES, LATERAL LEADS : Confirmed by: Dustin Dickens 16-Apr-2018 23:04:09
[2018-04-17] MEDS: LEVALBUTEROL HCL NEB 1.25 MG/3 ML AMPUL NEB SCH ×4 (02:24→19:59)
[2018-04-17] MEDS: LANSOPRAZOLE 30 MG TAB.RAP.DR PO SCH ×2 (05:38→17:38)
[2018-04-17] MEDS: FUROSEMIDE 40 MG TABLET PO SCH ×2 (05:38→17:38)
[2018-04-17] MEDS: MAG HYDROX/AL HYDROX/SIMETH SUSP 30 ML UDCUP PO PRN ×2 (08:21→12:32)
[2018-04-17] MEDS: APIXABAN 5 MG TABLET PO SCH ×2 (08:21→21:19)
[2018-04-17] MEDS: INSULIN LISPRO 100 UNIT/ML 3 ML VIAL SUBCUT PRN ×2 (08:21→21:27)
[2018-04-17] MEDS: POTASSIUM CHLORIDE 10 MEQ CAPSULE.ER PO SCH ×2 (09:26→21:19)
--- NOTE | 2018-04-17 09:32 | EKG REPORT ---
SEVERITY:- ABNORMAL ECG - A-FLUTTER W/ PREDOM 3:1 AV BLOCK, A-RATE 263 : Confirmed by: Dustin Dickens 17-Apr-2018 09:31:16
[2018-04-17] MEDS: DIGOXIN 0.125 MG TABLET PO SCH (10:26)
[2018-04-17] MEDS: AMIODARONE HCL 200 MG TABLET PO SCH ×2 (10:26→21:19)
[2018-04-17] MEDS: GUAIFENESIN 600 MG TABLET.SA PO SCH ×2 (10:26→21:19)
[2018-04-17] MEDS: PREDNISONE 20 MG TABLET PO SCH (10:26)
[2018-04-17] MEDS: DOCUSATE SODIUM 100 MG CAPSULE PO SCH (10:26)
[2018-04-17] MEDS: METOPROLOL SUCCINATE 50 MG TAB.SR.24H PO SCH ×2 (10:26→21:19)
[2018-04-17] MEDS: CEFTRIAXONE SODIUM 1,500 MG in DEXTROSE 5%-WATER 100 ML IV SCH (10:29)
[2018-04-17] MEDS: RANOLAZINE 500 MG TAB.SR.12H PO SCH ×2 (10:29→21:19)
[2018-04-17] MEDS: FLUTICASONE NASAL SPRAY 50 MCG/SPRY 120 SPRAY/16 GM NASL SCH ×2 (10:29→21:17)
[2018-04-17] MEDS: AZITHROMYCIN 500 MG in DEXTROSE 5%-WATER 250 ML IV SCH (10:29)
[2018-04-17] MEDS ORDERED: PREDNISONE 20 MG TABLET PO SCH (12:37)
--- NOTE | 2018-04-17 13:06 | PDOC PROGRESS REPORT ---
Subjective Progress Note for:: 04/17/18 Subjective:: Patient was been treated for atrial fibrillation with a rapid ventricular response which was poorly controlled despite being on digoxin as well as metoprolol. She was started on amiodarone about 2 days ago and it appears her heart rate is much better. Patient is also on Eliquis. She was noted to have possible bronchitis and so was started on prednisone as well as Zithromax and ceftriaxone. Patient states that she is breathing better with less wheezing although she still has audible wheezing according to her. She is much less tachypneic with ambulation. Reason For Visit: AFIB C RVR HEART FAILURE Physical Exam Vital Signs: Temp Pulse Resp BP Pulse Ox 97.5 F 87 18 113/86 H 96 04/17/18 08:31 04/17/18 08:36 04/17/18 08:36 04/17/18 08:31 04/17/18 08:36 Intake & Output 04/16/18 04/17/18 04/18/18 06:59 06:59 06:59 Intake Total 1729 1990 Balance 1729 1990 Weight 151.5 kg 151.6 kg General appearance: PRESENT: no acute distress, morbidly obese Head exam: PRESENT: atraumatic Respiratory exam: PRESENT: clear to auscultation osmel, wheezes - inspiratory. ABSENT: rales, rhonchi Cardiovascular exam: PRESENT: irregular rhythm Rectal exam: PRESENT: deferred Extremities exam: PRESENT: full ROM. ABSENT: calf tenderness, clubbing, pedal edema Results Laboratory Results: 04/16/18 06:34 04/16/18 06:34 04/07/18 04/07/18 04/07/18 06:34 06:34 12:47 Creatine Kinase 99 97 CK-MB (CK-2) 1.12 Troponin I 0.046 04/07/18 04/07/18 04/07/18 12:47 18:45 18:45 Creatine Kinase 87 CK-MB (CK-2) 1.43 1.46 Troponin I 0.035 0.034 Impressions: Chest/Abdomen CTA 04/11/18 15:58 IMPRESSION: 1. No evidence of pulmonary emboli. 2. Cardiomegaly. There are ground-glass infiltrates in both lungs that may suggest a mild degree of pulmonary edema. 3. There are some small nonspecific mediastinal and hilar lymph nodes. 4. Cholelithiasis. Chest X-Ray 04/16/18 00:00 IMPRESSION: 1. Examination is somewhat limited as detailed above. A decrease in the bibasilar parenchymal densities since examination dated 04/07/2018. Assessment & Plan - Inpatient Certification Based on my medical assessment, after consideration of the patient's comorbidities, presenting symptoms, or acuity I expect that the services needed warrant INPATIENT care.: Yes Medical Necessity: Need For Continuous Telemetry Monitoring - Plan Summary Plan Summary: Atrial fibrillation with a rapid ventricular response much better controlled today. Acute bronchitis for which patient was started on steroids likely the etiology of her leukocytosis and a white count of 24.5. Will taper steroids and monitor patient overnight and if she is stable we will possibly discharge. 2. Fluid overload will continue with Lasix. I have also restarted her interesting as her blood pressure appears to be improved. 4. Morbid obesity patient advised on need to lose weight 5. Leukocytosis likely secondary to steroids 6. Will plan to discharge patient home in a.m. if medically stable and white count trends down.
[2018-04-17] MEDS: SACUBITRIL/VALSARTAN 24 MG/26 MG TABLET PO SCH (17:31)
--- NOTE | 2018-04-17 20:31 | PDOC PROGRESS REPORT ---
Subjective Progress Note for:: 04/17/18 Subjective:: Patient discharge being held because of elevated white cell count for which there is no real cause but could be steroids. Patient seems to be doing better with gradual improvement. Pt is denying any chest arm or neck discomfort. Patient denying any PND, orthopnea. Patient denied any sustained palpitations, dizziness, syncope, near syncope. Patient denying any fever chills. Patient denying any other significant discomfort. Patient is maintaining atrial fibrillation. Heart rate seems reasonably well controlled Review of systems: Rest review of systems negative. Medications: Medications have been reviewed. Reason For Visit: AFIB C RVR HEART FAILURE Physical Exam Vital Signs: Temp Pulse Resp BP Pulse Ox 97.6 F 92 18 105/71 97 04/17/18 19:55 04/17/18 19:59 04/17/18 19:59 04/17/18 19:55 04/17/18 19:59 Intake & Output 04/16/18 04/17/18 04/18/18 06:59 06:59 06:59 Intake Total 1729 1990 1031 Balance 1729 1990 1031 Weight 151.5 kg 151.6 kg Exam: GENERAL: well-nourished and in no acute distress. Alert and oriented x3 HEAD: Atraumatic, normocephalic. EYES: Pupils equal round and reactive to light, extraocular movements intact, sclera anicteric, conjunctiva are normal. ENT: TMs normal, nares patent, oropharynx clear without exudates. Moist mucous membranes. No oral ulcerations or bleeding gums noted NECK: supple without lymphadenopathy. Trachea is central. No cervical or axillary lymphadenopathy noted. Carotids are 2+, JVD WNL LUNGS: Respiration seems nonlabored, no significant accessory muscle action noted. Breath sounds clear to auscultation bilaterally and equal noted. No wheezes rales or rhonchi noted. No significant dullness noted on percussion. CHEST: Palpation of the chest wall shows no significant chest wall tenderness. HEART: [place] [employer], No PSH, 1/6 YOSVANY aortic area, 1/6 amezcua systolic murmur mitral area, no rubs, no gallops. ABDOMEN: Soft, no significant tenderness appreciated, normoactive bowel sounds. No guarding, no rebound. No rigidity noted . No masses appreciated. EXTREMITIES: Pedal pulses are 1-2+, no calf tenderness noted. No clubbing or cyanosis. Trace to 1+ pedal edema noted NEUROLOGICAL: Focused neurological exam showed no significant neurologic deficit. Normal speech, no focal weakness appreciated. PSYCH: Normal mood, normal affect. Judgment and insight within normal limits. SKIN: No significant ecchymosis, skin is noted to be warm. MUSCULOSKELETAL EXAM: No significant acute joint swelling noted. Results Laboratory Results: 04/16/18 06:34 04/16/18 06:34 04/07/18 04/07/18 04/07/18 06:34 06:34 12:47 Creatine Kinase 99 97 CK-MB (CK-2) 1.12 Troponin I 0.046 04/07/18 04/07/18 04/07/18 12:47 18:45 18:45 Creatine Kinase 87 CK-MB (CK-2) 1.43 1.46 Troponin I 0.035 0.034 EKG Comments: Atrial fibrillation with controlled ventricular response Impressions: Chest/Abdomen CTA 04/11/18 15:58 IMPRESSION: 1. No evidence of pulmonary emboli. 2. Cardiomegaly. There are ground-glass infiltrates in both lungs that may suggest a mild degree of pulmonary edema. 3. There are some small nonspecific mediastinal and hilar lymph nodes. 4. Cholelithiasis. Chest X-Ray 04/16/18 00:00 IMPRESSION: 1. Examination is somewhat limited as detailed above. A decrease in the bibasilar parenchymal densities since examination dated 04/07/2018. Assessment & Plan - Diagnosis (1) Atrial fibrillation with RVR Is this a current diagnosis for this admission?: Yes (2) Congestive heart failure Qualifiers: Heart failure type: unspecified Is this a current diagnosis for this admission?: Yes (3) Sleep-disordered breathing Is this a current diagnosis for this admission?: Yes (4) Morbid obesity Is this a current diagnosis for this admission?: Yes (5) Elevated troponin Is this a current diagnosis for this admission?: Yes - Notes Notes: Atrial fibrillation with RVR: Heart rate now well controlled on current regimen. Continue with it. Since patient is on amiodarone therapy will need close cardiology follow-up. CHF: Currently seems compensated clinically. Patient will need stable dose diuretics,entresto, beta-blockers. Sleep disordered breathing: Patient will benefit from a sleep study. This can be scheduled as an outpatient. Morbid obesity: Patient has been advised weight loss. Elevated troponin I: Was related to CHF. Stress test was relatively unremarkable. Discussed that there will be low threshold for heart catheterization should patient develop chest pains etc. Cardiomyopathy: Patient has a LifeVest on. Patient knows that if her heart function does not improve, then he will need a internal defibrillator. - Time Time with patient: Greater than 35 minutes - More than 50% of the time spent coordinating care, discussing management plans with involved caregivers. Management plans discussed with involved personnels. Medical decision making was of moderate to high complexity, patient's has multiple comorbidities. Will sign off. Patient should have follow-up arranged with toy consultant. I will be happy to follow her in the office. Medications reviewed and adjusted accordingly: Yes
[2018-04-17] MEDS: ATORVASTATIN CALCIUM 40 MG TABLET PO SCH (21:19)
[2018-04-17] MEDS: DIPHENHYDRAMINE HCL 25 MG CAPSULE PO SCH (21:19)
[2018-04-18] MEDS: LEVALBUTEROL HCL NEB 1.25 MG/3 ML AMPUL NEB SCH ×2 (02:13→08:26)
[2018-04-18] MEDS: MAG HYDROX/AL HYDROX/SIMETH SUSP 30 ML UDCUP PO PRN (03:11)
[2018-04-18 04:45] LABS: ABSOLUTE BASOPHILS # (AUTO) 0.2 10^3/uL (0.0-0.2); ABSOLUTE EOSINOPHILS # (AUTO) 0.1 10^3/uL (0.0-0.6); ABSOLUTE LYMPHOCYTES (AUTO) 3.8 10^3/uL (0.5-4.7); ABSOLUTE MONOCYTES (AUTO) 1.6 10^3/uL (0.1-1.4); ABSOLUTE NEUT (AUTO) 13.6 10^3/uL (1.7-8.2); BASOPHILS % (AUTO) 0.9 % (0-2); EOSINOPHILS % (AUTO) 0.4 % (0-6); HEMATOCRIT 36.5 % (36.0-47.0); HEMOGLOBIN 11.7 g/dL (12.0-15.5); LYMPHOCYTES % (AUTO) 19.8 % (13-45); MEAN CORPUSCULAR HEMOGLOBIN 27.2 pg (27.0-33.4); MEAN CORPUSCULAR HGB CONC 32.2 g/dL (32.0-36.0); MEAN CORPUSCULAR VOLUME 85 fl (80-97); MONOCYTES % (AUTO) 8.3 % (3-13); PLATELET COUNT 283 10^3/uL (150-450); RED BLOOD COUNT 4.32 10^6/uL (3.72-5.28); RED CELL DISTRIBUTION WIDTH 15.7 % (11.5-14.0); SEGMENTED NEUTROPHILS % (AUTO) 70.6 % (42-78); TOTAL CELLS COUNTED % (AUTO) 100 %; WHITE BLOOD COUNT 19.2 10^3/uL (4.0-10.5)
[2018-04-18 05:13] LABS: ANION GAP 7 (5-19); BLOOD UREA NITROGEN 37 mg/dL (7-20); CALCIUM 8.2 mg/dL (8.4-10.2); CARBON DIOXIDE 31 mmol/L (22-30); CHLORIDE 98 mmol/L (98-107); GLUCOSE 190 mg/dL (75-110); POTASSIUM 4.8 mmol/L (3.6-5.0); SODIUM 136.4 mmol/L (137-145)
[2018-04-18] MEDS: FUROSEMIDE 40 MG TABLET PO SCH (06:06)
[2018-04-18] MEDS: LANSOPRAZOLE 30 MG TAB.RAP.DR PO SCH (06:07)
[2018-04-18] MEDS: INSULIN LISPRO 100 UNIT/ML 3 ML VIAL SUBCUT PRN (08:03)
[2018-04-18] MEDS: APIXABAN 5 MG TABLET PO SCH (08:03)
[2018-04-18] MEDS: DOCUSATE SODIUM 100 MG CAPSULE PO SCH (09:31)
[2018-04-18] MEDS: FLUTICASONE NASAL SPRAY 50 MCG/SPRY 120 SPRAY/16 GM NASL SCH (09:36)
[2018-04-18] MEDS: SACUBITRIL/VALSARTAN 24 MG/26 MG TABLET PO SCH (09:36)
[2018-04-18] MEDS: AMIODARONE HCL 200 MG TABLET PO SCH (09:36)
--- NOTE | 2018-04-18 09:36 | PDOC DISCHARGE SUMMARY ---
General - Admit/Disc Date/PCP Admission Date/Primary Care Provider: 04/07/18 02:26 Discharge Date: 04/18/18 - Discharge Diagnosis (1) Atrial fibrillation with RVR Is this a current diagnosis for this admission?: Yes (2) Elevated troponin Is this a current diagnosis for this admission?: Yes (3) Fluid overload Is this a current diagnosis for this admission?: Yes (4) Hypertension Is this a current diagnosis for this admission?: Yes (5) Leukocytosis Is this a current diagnosis for this admission?: Yes (6) Morbid obesity Is this a current diagnosis for this admission?: Yes (7) Systolic heart failure, ACC/AHA stage C Is this a current diagnosis for this admission?: Yes (8) Acute bronchitis Is this a current diagnosis for this admission?: Yes - Additional Information Resuscitation Status: Full Code Discharge Diet: Cardiac, Diabetic Discharge Activity: Activity As Tolerated, Balance Activity w/Rest, Weigh Daily Prescriptions: RX: Atorvastatin Calcium [Lipitor 40 mg Tablet] 40 mg PO QHS #30 tablet RX: Albuterol Sulfate [Ventolin Hfa 8 gm Mdi (1 Mdi/ER Disp)] 2 puff IH ASDIR PRN #1 inhaler PRN Reason: For Wheezing Cefuroxime Axetil [Ceftin 500 mg Tablet] 1 tab PO BID #10 tablet RX: Digoxin [Lanoxin 0.125 mg Tablet] 0.125 mg PO DAILY #30 tablet RX: Fluticasone Propionate [Flonase Nasal Elroy 50 Mcg/Elroy 16 gm] 2 spray NASL Q12 #1 spray.pump Furosemide [Lasix 40 mg Tablet] 40 mg PO BID #60 tablet RX: Metoprolol Succinate [Toprol Xl 50 mg Tab.sr] 100 mg PO Q12 #60 tab.sr.24h RX: Potassium Chloride [Klor-Con Sprinkle] 10 meq PO BID #60 capsule.er RX: Prednisone 20 mg PO DAILY #14 tablet RX: Ranolazine [Ranexa 500 mg Tab.sr] 500 mg PO Q12 #60 tab.sr.12h RX: Sacubitril/Valsartan [Entresto 24 mg/26 mg Tablet] 1 tab PO BID #60 tablet RX: Spironolactone [Aldactone 25 mg Tablet] 25 mg PO DAILY #30 tablet Home Medications: RX: Metformin HCl [Glucophage 500 mg Tablet] 1,000 mg PO BID 01/29/18 RX: Apixaban [Eliquis 5 mg Tablet] 5 mg PO Q12H #60 tablet 01/30/18 Furosemide [Lasix 40 mg Tablet] 40 mg PO BID #60 tablet 04/13/18 RX: Albuterol Sulfate [Ventolin Hfa 8 gm Mdi (1 Mdi/ER Disp)] 2 puff IH ASDIR PRN #1 inhaler 04/13/18 RX: Atorvastatin Calcium [Lipitor 40 mg Tablet] 40 mg PO QHS #30 tablet RX: Digoxin [Lanoxin 0.125 mg Tablet] 0.125 mg PO DAILY #30 tablet 04/13/18 RX: Fluticasone Propionate [Flonase Nasal Elroy 50 Mcg/Elroy 16 gm] 2 spray NASL Q12 #1 spray.pump 04/13/18 RX: Metoprolol Succinate [Toprol Xl 50 mg Tab.sr] 100 mg PO Q12 #60 tab.sr.24h 04/13/18 RX: Potassium Chloride [Klor-Con Sprinkle] 10 meq PO BID #60 capsule.er RX: Prednisone 20 mg PO DAILY #14 tablet 04/13/18 RX: Sacubitril/Valsartan [Entresto 24 mg/26 mg Tablet] 1 tab PO BID #60 tablet 04/13/18 RX: Spironolactone [Aldactone 25 mg Tablet] 25 mg PO DAILY #30 tablet 04/13/18 Cefuroxime Axetil [Ceftin 500 mg Tablet] 1 tab PO BID #10 tablet 04/18/18 RX: Guaifenesin [Mucinex Sr 600 mg Tablet.sa] 1,200 mg PO Q12 tablet.sa RX: Lansoprazole [Prevacid 30 mg Odt Tablet] 30 mg PO BID@0600,1700 tab.rap.dr 04/18/18 RX: Ranolazine [Ranexa 500 mg Tab.sr] 500 mg PO Q12 #60 tab.sr.12h 04/18/18 History of Present Illness Patient complains of: Difficulty breathing and shortness of breath History of Present Illness: MAXIMILIANO XAVIER is a 48 year old female with a past medical history of morbid obesity, diabetes, congestive heart failure, atrial fibrillation, obstructive and sleep apnea. Patient complains of several days of shortness of breath and palpitations. Developing orthopnea she is prompted to seek evaluation emergency room where she is found to have A. fib with RVR in the 120s. A chest x-ray with left lower lobe consolidation versus atelectasis and leukocytosis. She receives sotalol and referred to the hospitalist for admission. Patient admits recent transition to sotalol by headwaitress. She denies chest pain nausea or vomiting. Hospital Course Hospital Course: Patient was admitted with difficulty breathing and shortness of breath as well as palpitations. She was found to be in atrial fibrillation with a rapid ventricular response. She was initially treated with sotalol. She was seen by the headwaitress due to the atrial fibrillation as well as congestive heart failure who helped to manage her medications. Antiarrhythmic will ultimately changed to amiodarone as well as digoxin and metoprolol which seems to have controlled her heart rate better. She also was continued on apixaban. Echocardiogram revealed an ejection fraction of 30% with severely reduced left ventricular systolic function and severe global hypokinesis of the left ventricle. As such patient received a LifeVest and she will follow-up with cardiology as outpatient for further evaluation. Patient remains in atrial fibrillation will follow up with Dr. Dickens for further adjustment of her medication management During the course of her treatment she was also found to have an acute bronchitis and so was started on empiric antibiotics as well as steroids and bronchodilators. She does have a leukocytosis which is thought to be due to steroid use as there is no worsening evidence of clinical infection. She has remained afebrile and otherwise hemodynamically stable. She is to follow-up as outpatient with a CBC to ensure resolution back to baseline. Blood sugar was poorly controlled likely exacerbated by steroid use and will suggest adjustment of her medications as outpatient as needed. Physical Exam Vital Signs: Temp Pulse Resp BP Pulse Ox 97.5 F 98 19 119/83 100 04/18/18 09:00 04/18/18 09:00 04/18/18 09:00 04/18/18 09:00 04/18/18 09:00 Intake & Output 04/17/18 04/18/18 04/19/18 06:59 06:59 06:59 Intake Total 1990 1031 Balance 1990 1031 Weight 151.6 kg 151.7 kg General appearance: PRESENT: no acute distress, morbidly obese, well-developed, well-nourished Head exam: PRESENT: atraumatic, normocephalic Eye exam: PRESENT: conjunctiva pink, EOMI, PERRLA. ABSENT: scleral icterus Ear exam: PRESENT: normal external ear exam Mouth exam: PRESENT: moist, tongue midline Neck exam: ABSENT: carotid bruit, JVD, lymphadenopathy, thyromegaly Respiratory exam: PRESENT: clear to auscultation osmel. ABSENT: rales, rhonchi, wheezes Cardiovascular exam: PRESENT: irregular rhythm, +S1, +S2. ABSENT: diastolic murmur, rubs, systolic murmur Pulses: PRESENT: normal dorsalis pedis pul Vascular exam: PRESENT: normal capillary refill GI/Abdominal exam: PRESENT: normal bowel sounds, soft. ABSENT: distended, guarding, mass, organolmegaly, rebound, tenderness Rectal exam: PRESENT: deferred Extremities exam: PRESENT: full ROM. ABSENT: calf tenderness, clubbing, pedal edema Neurological exam: PRESENT: alert, awake, oriented to person, oriented to place , oriented to time, oriented to situation, CN II-XII grossly intact. ABSENT: motor sensory deficit Psychiatric exam: PRESENT: appropriate affect, normal mood. ABSENT: homicidal ideation, suicidal ideation Skin exam: PRESENT: dry, intact, warm. ABSENT: cyanosis, rash Results Laboratory Results: 04/18/18 04:07 04/18/18 04:07 04/18/18 04/18/18 04:07 04:07 WBC 19.2 H RBC 4.32 Hgb 11.7 L Hct 36.5 MCV 85 MCH 27.2 MCHC 32.2 RDW 15.7 H Plt Count 283 Seg Neutrophils % 70.6 Lymphocytes % 19.8 Monocytes % 8.3 Eosinophils % 0.4 Basophils % 0.9 Absolute Neutrophils 13.6 H Absolute Lymphocytes 3.8 Absolute Monocytes 1.6 H Absolute Eosinophils 0.1 Absolute Basophils 0.2 Sodium 136.4 L Potassium 4.8 Chloride 98 Carbon Dioxide 31 H Anion Gap 7 BUN 37 H Creatinine 0.92 Est GFR ( Amer) > 60 Est GFR (Non-Af Amer) > 60 Glucose 190 H Calcium 8.2 L 04/07/18 04/07/18 04/07/18 06:34 06:34 12:47 Creatine Kinase 99 97 CK-MB (CK-2) 1.12 Troponin I 0.046 04/07/18 04/07/18 04/07/18 12:47 18:45 18:45 Creatine Kinase 87 CK-MB (CK-2) 1.43 1.46 Troponin I 0.035 0.034 Impressions: Chest/Abdomen CTA 04/11/18 15:58 IMPRESSION: 1. No evidence of pulmonary emboli. 2. Cardiomegaly. There are ground-glass infiltrates in both lungs that may suggest a mild degree of pulmonary edema. 3. There are some small nonspecific mediastinal and hilar lymph nodes. 4. Cholelithiasis. Chest X-Ray 04/16/18 00:00 IMPRESSION: 1. Examination is somewhat limited as detailed above. A decrease in the bibasilar parenchymal densities since examination dated 04/07/2018. Qualifiers - * PATIENT BEING DISCHARGED WITH ANY OF THE FOLLOWING DIAGNOSIS: Heart Failure HF Pt being discharged on ACEI for LVEF less than 40%?: Yes HF Pt being discharged on ARBS for LVEF less than 40%?: No Reason(s) for not prescribing ARBS:: Not indicated HF Pt with Afib discharged with Warfarin?: Yes HF Pt discharged on evidence-based Beta Jayson:: Yes Plan Time Spent: Greater than 30 Minutes
[2018-04-18] MEDS: POTASSIUM CHLORIDE 10 MEQ CAPSULE.ER PO SCH (09:37)
[2018-04-18] MEDS: GUAIFENESIN 600 MG TABLET.SA PO SCH (09:37)
[2018-04-18] MEDS: RANOLAZINE 500 MG TAB.SR.12H PO SCH (09:38)
[2018-04-18] MEDS: CEFTRIAXONE SODIUM 1,500 MG in DEXTROSE 5%-WATER 100 ML IV SCH (09:38)
[2018-04-18] MEDS: DIGOXIN 0.125 MG TABLET PO SCH (09:38)
[2018-04-18] MEDS: METOPROLOL SUCCINATE 50 MG TAB.SR.24H PO SCH (09:38)
[2018-04-18] MEDS: AZITHROMYCIN 500 MG in DEXTROSE 5%-WATER 250 ML IV SCH (09:38)
[2018-04-18] MEDS ORDERED: FUROSEMIDE INJ/PF 40 MG/4 ML SDV IV ONE (09:48)
[2018-04-18 09:57] VITALS: BP 105/68
== END 2018-04-18 10:25 | disposition home or self-care (01) | DRG 309 ==
LOC: ER 00:13 → EH 02:26 → 3W 04:45
PROVIDERS: ADMIT Internal Medicine; ATTEND Internal Medicine
DX: I48.2 Chronic atrial fibrillation (principal); Z68.43 Body mass index [BMI] 50.0-59.9, adult; I50.22 Chronic systolic (congestive) heart failure; J20.9 Acute bronchitis, unspecified; I42.9 Cardiomyopathy, unspecified; I11.0 Hypertensive heart disease with heart failure; G47.33 Obstructive sleep apnea (adult) (pediatric); Z79.84 Long term (current) use of oral hypoglycemic drugs; Z79.899 Other long term (current) drug therapy; Z90.49 Acquired absence of other specified parts of digestive tract; Z87.891 Personal history of nicotine dependence; E66.01 Morbid (severe) obesity due to excess calories; E11.65 Type 2 diabetes mellitus with hyperglycemia
CPT/HCPCS: 36415; 71045; 71275; 78452; 80048; 80053; 80061; 80162; 81001; 82550; 82553; 82962; 83690; 83880; 84443; 84484; 85025; 87040; 93005; 93010; 93017; 93306; 94640; 94799; 96374; 99285; A9500; J0456; J0696; J1815; J1940; J1956; J2785; J3490; J7060; J7512; Q9969

== ENCOUNTER → 2018-09-19 | Outpatient (CLI) | payer OTHER ==
--- NOTE | 2018-09-19 12:15 | WOMENS IMAGING REPORT ---
EXAM DESCRIPTION: BILAT DIAGNOSTIC MAMMO W/CAD; U/S BREAST UNILAT LIMITED COMPLETED DATE/TIME: 09/19/2018 9:35 am; 09/19/2018 10:05 am REASON FOR STUDY: LUMP;N63; RT BREAST LUMP N63 N63.14 UNSPECIFIED LUMP IN THE RIGHT BREAST, LOWER I NNER LIAN COMPARISON: Mammograms 09/01/2017, 03/16/2016 TECHNIQUE: Standard craniocaudal and mediolateral oblique views of each breast recorded using digita l acquisition. Additional right breast 90 mediolateral view, additional right breast ultrasound was performed. LIMITATIONS: None. FINDINGS: RIGHT BREAST MASSES: No suspicious masses. CALCIFICATIONS: No new or suspicious calcifications. ARCHITECTURAL DISTORTION: None. DEVELOPING DENSITY: None. ASYMMETRY: None noted. OTHER: No other significant findings. LEFT BREAST MASSES: No suspicious masses. CALCIFICATIONS: No new or suspicious calcifications. ARCHITECTURAL DISTORTION: None. DEVELOPING DENSITY: None. ASYMMETRY: None noted. OTHER: No other significant finding. Read with the assistance of CAD: .[facility] - R2 Cenova Version 1.3 .[facility] Imaging - R2 Cenova Version 2.1 .[facility] Imaging - R2 Cenova Version 2.4 .[facility] - R2 Cenova Version 2.4 .[facility] - R2 Trailer Sections Assembler Version 9.2 Right breast ultrasound: Patient indicates a palpable abnormality in the lower outer quadrant right breast 7 to 8 o'clock posi tion, at least 15 cm from the nipple. Ultrasound of this area demonstrates no focal findings. No cy sts. No solid nodules. No worrisome acoustic absorption. No skin lesions. IMPRESSION: No mammographic evidence for malignancy bilaterally. No ultrasound evidence for maligna ncy right breast BREAST DENSITY: a. The breasts are almost entirely fatty. BIRAD: 1 Negative. RECOMMENDATION: RECOMMENDED FOLLOW UP: Clinical follow-up for palpable abnormality. Otherwise, plea se continue yearly bilateral screening mammography in September 2019 SPECIFIC INTERVENTION/IMAGING/CONSULTATION RECOMMENDED:No additional intervention/ imaging/consultati on needed at this time. COMMUNICATION:The negative/benign results were communicated to the patient. COMMENT: The patient has been notified of the results by letter per MQSA requirements. Additional no tification policies are in place for contacting patient with suspicious or incomplete findings. Quality ID #[id number]: The [employer] recommends an annual screening mammogram for women aged 40 years or over. This facility utilizes a reminder system to ensure that all patients receive reminder letters, and/or direct phone calls for appointments. This includes reminders for routine scr eening mammograms, diagnostic mammograms, or other Breast Imaging Interventions when appropriate. Th is patient will be placed in the appropriate reminder system. The [employer] (ACR) has developed recommendations for screening MRI of the breast s in certain patient populations, to be used in conjunction with mammography. Breast MRI surveillanc e may be appropriate for women with more than 20% lifetime risk of developing breast cancer as deter mined by genetic testing, significant family history of the disease, or history of mantle radiation f or Hodgkins Disease. ACR Practice Guidelines 2008. TECHNICAL DOCUMENTATION: FINDING NUMBER: (1) ASSESSMENT: (1) JOB ID: [id number] [employer]- All Rights Reserved Reading location - IP/workstation name: [email or web address]
--- NOTE | 2018-09-19 12:15 | WOMENS IMAGING REPORT ---
EXAM DESCRIPTION: BILAT DIAGNOSTIC MAMMO W/CAD; U/S BREAST UNILAT LIMITED COMPLETED DATE/TIME: 09/19/2018 9:35 am; 09/19/2018 10:05 am REASON FOR STUDY: LUMP;N63; RT BREAST LUMP N63 N63.14 UNSPECIFIED LUMP IN THE RIGHT BREAST, LOWER I NNER LIAN COMPARISON: Mammograms 09/01/2017, 03/16/2016 TECHNIQUE: Standard craniocaudal and mediolateral oblique views of each breast recorded using digita l acquisition. Additional right breast 90 mediolateral view, additional right breast ultrasound was performed. LIMITATIONS: None. FINDINGS: RIGHT BREAST MASSES: No suspicious masses. CALCIFICATIONS: No new or suspicious calcifications. ARCHITECTURAL DISTORTION: None. DEVELOPING DENSITY: None. ASYMMETRY: None noted. OTHER: No other significant findings. LEFT BREAST MASSES: No suspicious masses. CALCIFICATIONS: No new or suspicious calcifications. ARCHITECTURAL DISTORTION: None. DEVELOPING DENSITY: None. ASYMMETRY: None noted. OTHER: No other significant finding. Read with the assistance of CAD: .[facility] - R2 Cenova Version 1.3 .[facility] Imaging - R2 Cenova Version 2.1 .[facility] Imaging - R2 Cenova Version 2.4 .[facility] - R2 Cenova Version 2.4 .[facility] - R2 Communication Technician Version 9.2 Right breast ultrasound: Patient indicates a palpable abnormality in the lower outer quadrant right breast 7 to 8 o'clock posi tion, at least 15 cm from the nipple. Ultrasound of this area demonstrates no focal findings. No cy sts. No solid nodules. No worrisome acoustic absorption. No skin lesions. IMPRESSION: No mammographic evidence for malignancy bilaterally. No ultrasound evidence for maligna ncy right breast BREAST DENSITY: a. The breasts are almost entirely fatty. BIRAD: 1 Negative. RECOMMENDATION: RECOMMENDED FOLLOW UP: Clinical follow-up for palpable abnormality. Otherwise, plea se continue yearly bilateral screening mammography in September 2019 SPECIFIC INTERVENTION/IMAGING/CONSULTATION RECOMMENDED:No additional intervention/ imaging/consultati on needed at this time. COMMUNICATION:The negative/benign results were communicated to the patient. COMMENT: The patient has been notified of the results by letter per MQSA requirements. Additional no tification policies are in place for contacting patient with suspicious or incomplete findings. Quality ID #[id number]: The [employer] recommends an annual screening mammogram for women aged 40 years or over. This facility utilizes a reminder system to ensure that all patients receive reminder letters, and/or direct phone calls for appointments. This includes reminders for routine scr eening mammograms, diagnostic mammograms, or other Breast Imaging Interventions when appropriate. Th is patient will be placed in the appropriate reminder system. The [employer] (ACR) has developed recommendations for screening MRI of the breast s in certain patient populations, to be used in conjunction with mammography. Breast MRI surveillanc e may be appropriate for women with more than 20% lifetime risk of developing breast cancer as deter mined by genetic testing, significant family history of the disease, or history of mantle radiation f or Hodgkins Disease. ACR Practice Guidelines 2008. TECHNICAL DOCUMENTATION: FINDING NUMBER: (1) ASSESSMENT: (1) JOB ID: [id number] [employer]- All Rights Reserved Reading location - IP/workstation name: [email or web address]
== END ==
LOC: WI 08:51
DX: N63.14 Unspecified lump in the right breast, lower inner quadrant (principal)
CPT/HCPCS: 76642; 77066

== ENCOUNTER 2019-01-29 08:10 | Day surgery (SDC) | payer OTHER ==
[~2019-01-29 08:10] MED LIST: RADIAL COCKTAIL SYRINGE 10 ML IV PRN
[2019-01-29] MEDS ORDERED: ASPIRIN 325 MG TABLET ONE (08:49)
[2019-01-29] MEDS ORDERED: DIPHENHYDRAMINE HCL 25 MG CAPSULE ONE (08:49)
[2019-01-29] MEDS ORDERED: DIAZEPAM 5 MG TABLET ONE (08:49)
[2019-01-29] MEDS ORDERED: FENTANYL CITRATE INJ/PF 100 MCG/2 ML AMPUL ONE ×2 (09:40→10:36)
[2019-01-29] MEDS ORDERED: MIDAZOLAM HCL INJ 5 MG/1 ML VIAL ONE (09:40)
[2019-01-29] MEDS ORDERED: HEPARIN SOD (PORCINE) 1,000 UNIT/ML 10 ML VIAL ONE (09:40)
[2019-01-29] MEDS ORDERED: LIDOCAINE 1% INJ-PF (10 MG/ML) 30 ML SDV ONE (09:41)
[2019-01-29] MEDS ORDERED: HEPARIN SODIUM,PORCINE/NS/PF 2,000 UNIT/1,000 ML RTUINJ IV ONE (09:41)
[2019-01-29] MEDS ORDERED: ADENOSINE INJ 60 MG/20 ML VIAL IV ONE (10:24)
--- NOTE | 2019-01-29 11:07 | Operative Report ---
Operative Report DATE OF SURGERY: 01/29/19 PREOPERATIVE DIAGNOSIS: Dilated cardiomyopathy POSTOPERATIVE DIAGNOSIS: Nonischemic dilated cardiomyopathy OPERATION: Left heart catheterization coronary angiography, left ventriculography, FFR of the LAD SURGEON: DEXTER HAM ANESTHESIA: Moderate Sedation PROCEDURE: After informed consent was obtained the patient was brought to the cardiac catheterization lab and the right wrist was prepared in usual sterile and draped manner. Hemodynamic access was gained using micropuncture technique and the patient was anticoagulated with heparin. An intra-arterial cocktail of verapamil and lidocaine was administered. Selective coronary angiography was performed with a Lockney catheter. This was exchanged with pigtail catheter and left ventriculography was performed in standard GERBER projection. The patient left the Cardiac Catheterization Lab in stable condition, with intact distal pulses and no chest pain or other complications from the procedure . Conscious sedation was initiated, monitored, and maintained during the procedure with the start time of 10:00 and a completion time of 1048 for a total procedure time of 48. A total of 1.5 milligrams of Versed and 100 mcg of fentanyl were used for conscious sedation. HEMODYNAMIC DATA: 104/62 is the aortic pressure to beginning the case. Left ventricular pressure post post ventriculography is 117/20 5 aortic pressure on pullbacks 119/80 there is no gradient across the aortic valve CORONARY ANATOMY: [] ANGIOGRAPHY: [] VENTRICULOGRAPHY: Ventriculography is performed in the GERBER projection and demonstrates [global hypokinesis ejection fraction by area length method is 36% there is mild mitral regurgitation] . CORONARY ANGIOGRAPHY: [] LEFT MAIN: [Left main is normal] LEFT ANTERIOR DESCENDING: The LAD is a transapical vessel the mid LAD has a 40 to 50% stenosis at a diagonal bifurcation the diagonal also has a 40 to 50% stenosis at its origin and at the bifurcation no other critical or focal obstructive lesions are seen CIRCUMFLEX CORONARY: The circumflex coronary artery gives rise to a first obtuse marginal which is a 10 to 20% narrowing the AV groove circumflex is normal RIGHT CORONARY ARTERY: The right coronary artery is a large dominant vessel supplying the PDA and 2 posterolateral branches there are luminal irregularities but no critical focal obstructive lesions are seen Because the perfusion scan suggested an anterior apical perfusion defect and there is a borderline stenosis in the LAD FFR was performed adenosine was infused using a standard protocol the FFR is 0.91 which demonstrates noncritical stenosis IMPRESSION: 1. Nonischemic dilated cardiomyopathy 2. Noncritical coronary artery disease 3. Mild mitral regurgitation
[2019-01-29 14:18] VITALS: BP 102/79
[2019-01-30] MEDS ORDERED: ASPIRIN 325 MG TABLET PO PRN (05:00)
[2019-01-30] MEDS ORDERED: DIAZEPAM 5 MG TABLET PO PRN (05:00)
[2019-01-30] MEDS ORDERED: DIPHENHYDRAMINE HCL 25 MG CAPSULE PO PRN (05:00)
== END 2019-01-29 14:45 | disposition home or self-care (01) ==
LOC: CCL 08:10
PROVIDERS: ATTEND Internal Medicine Cardiovascular Disease
DX: R94.30 Abnormal result of cardiovascular function study, unspecified (principal); I42.9 Cardiomyopathy, unspecified; I42.0 Dilated cardiomyopathy; Z79.899 Other long term (current) drug therapy; Z79.01 Long term (current) use of anticoagulants; Z86.79 Personal history of other diseases of the circulatory system; Z82.49 Family history of ischemic heart disease and other diseases of the circulatory system
CPT/HCPCS: 82962; 93458; 93571; C1887; J3010; J1644 ×2; J3490 ×4; J2250; J0153

== ENCOUNTER → 2019-03-06 | Outpatient (CLI) | payer OTHER ==
--- NOTE | 2019-03-06 16:19 | RADIOLOGY REPORT (SQ) ---
EXAM DESCRIPTION: FOOT BILATERAL 3 VIEWS COMPLETED DATE/TIME: 03/06/2019 4:03 pm REASON FOR STUDY: BILAT FOOT PAIN TENDERNESS; DM TYPE 2 I48.91 UNSPECIFIED ATRIAL FIBRILLATION E1 1.9 TYPE 2 DIABETES MELLITUS WITHOUT COMPLICATIONS COMPARISON: None. NUMBER OF VIEWS: Three views. TECHNIQUE: AP, lateral and oblique radiographic images acquired of the right and left foot. LIMITATIONS: None. FINDINGS: MINERALIZATION: Normal. BONES: There are degenerative changes in the tarsal bones bilaterally with joint space narrowing an o steophytic spurring. There are prominent calcaneal spurs bilaterally. No acute fracture or dislocat ion. JOINTS: No effusions. SOFT TISSUES: No soft tissue swelling. No foreign body. OTHER: No other significant finding. IMPRESSION: Bilateral degenerative changes. No evidence of an acute fracture or dislocation. With a history of diabetes developing neuropathic joint cannot be excluded. TECHNICAL DOCUMENTATION: JOB ID: [id number] [employer]- All Rights Reserved Reading location - IP/workstation name: [email or web address]
[2019-03-06 16:23] LABS: ABSOLUTE BASOPHILS # (AUTO) 0.2 10^3/uL (0.0-0.2); ABSOLUTE EOSINOPHILS # (AUTO) 0.3 10^3/uL (0.0-0.6); ABSOLUTE LYMPHOCYTES (AUTO) 4.2 10^3/uL (0.5-4.7); ABSOLUTE MONOCYTES (AUTO) 0.8 10^3/uL (0.1-1.4); ABSOLUTE NEUT (AUTO) 6.8 10^3/uL (1.7-8.2); BASOPHILS % (AUTO) 1.4 % (0-2); EOSINOPHILS % (AUTO) 2.3 % (0-6); HEMATOCRIT 37.1 % (36.0-47.0); HEMOGLOBIN 12.2 g/dL (12.0-15.5); LYMPHOCYTES % (AUTO) 34.2 % (13-45); MEAN CORPUSCULAR HEMOGLOBIN 29.2 pg (27.0-33.4); MEAN CORPUSCULAR HGB CONC 32.9 g/dL (32.0-36.0); MEAN CORPUSCULAR VOLUME 89 fl (80-97); MONOCYTES % (AUTO) 6.7 % (3-13); PLATELET COUNT 232 10^3/uL (150-450); RED BLOOD COUNT 4.18 10^6/uL (3.72-5.28); RED CELL DISTRIBUTION WIDTH 15.3 % (11.5-14.0); SEGMENTED NEUTROPHILS % (AUTO) 55.4 % (42-78); TOTAL CELLS COUNTED % (AUTO) 100 %; WHITE BLOOD COUNT 12.2 10^3/uL (4.0-10.5)
[2019-03-06 16:39] LABS: ALANINE AMINOTRANSFERASE 25 U/L (9-52); ALBUMIN 4.4 g/dL (3.5-5.0); ALKALINE PHOSPHATASE 50 U/L (38-126); AMYLASE 48 U/L (30-110); ANION GAP 12 (5-19); ASPARTATE AMINO TRANSFERASE 19 U/L (14-36); BILIRUBIN,DIRECT 0.4 mg/dL (0.0-0.4); BILIRUBIN,TOTAL 1.2 mg/dL (0.2-1.3); BLOOD UREA NITROGEN 23 mg/dL (7-20); CALCIUM 9.6 mg/dL (8.4-10.2); CARBON DIOXIDE 29 mmol/L (22-30); CHLORIDE 94 mmol/L (98-107); GLUCOSE 158 mg/dL (75-110); POTASSIUM 4.7 mmol/L (3.6-5.0)
== END ==
LOC: OD 15:22
DX: M19.072 Primary osteoarthritis, left ankle and foot (principal); M19.071 Primary osteoarthritis, right ankle and foot; M79.672 Pain in left foot; M79.671 Pain in right foot; E11.9 Type 2 diabetes mellitus without complications; I48.91 Unspecified atrial fibrillation
CPT/HCPCS: 36415; 80053; 82150; 83690; 83735; 85025

== ENCOUNTER 2019-04-01 15:38 | Observation (INO) | payer OTHER ==
--- NOTE | 2019-04-01 16:06 | ER Document Report ---
ED Medical Screen (RME) - General Chief Complaint: High Blood Sugar Stated Complaint: HIGH BLOOD SUGAR/DIZZINESS Time Seen by Provider: 04/01/19 15:55 Primary [facility] Provider: [facility] [Primary Care Provider] - Follow up as needed TRAVEL OUTSIDE OF THE [place] IN LAST 30 DAYS: No - HPI Notes: 04/01/19 16:06 48-year-old female with history of diabetes to the emergency department with complaints of fatigue, blurry vision, dizziness that began this morning. She states that she was recently taken off of her metformin because she was not able to tolerate it. She states that she was having nausea and vomiting every time she took it. She states that that has resolved since she has been off of the metformin. She has not had any other type of antidiabetic medic's and since. She states that when she started to feel poorly today that a friend of hers took her blood sugar. On her friend's glucometer it was 347. In triage is 182. She denies any chest pain, shortness of breath. She describes her dizziness as feeling off balance. She denies any fevers, chills. She denies any urinary symptoms. I performed a medical screening exam on this patient and will order labs and EKG. We will have her bed and into the main side for me inside colleague to see patient. - Related Data Allergies/Adverse Reactions: No Known Allergies Allergy (Verified 01/29/19 07:44) Past Medical History - Social History Family history: CAD, DM, Malignancy - Past Medical History Cardiac Medical History: Reports: Hx Atrial Fibrillation - Atrial flutter on 04/14/2013, Hx Congestive Heart Failure - Cardiomyopathy, Hx Hypertension Denies: Hx Coronary Artery Disease, Hx DVT, Hx Heart Attack Pulmonary Medical History: Reports: Hx Bronchitis - USUALLY WHEN HEART FAILURE, BRONVHITIS RIGHT AFTER Denies: Hx Asthma, Hx COPD, Hx Pneumonia Neurological Medical History: Denies: Hx Cerebrovascular Accident, Hx Seizures Endocrine Medical History: Reports: Hx Diabetes Mellitus Type 2 Renal/ Medical History: Denies: Hx Peritoneal Dialysis Musculoskeltal Medical History: Denies Hx Arthritis, Reports Hx Musculoskeletal Trauma Skin Medical History: Reports Hx Cellulitis Psychiatric Medical History: Denies: Hx Depression Traumatic Medical History: Reports: Hx Fractures - finger Past Surgical History: Reports: Hx Appendectomy, Hx Cardiac Catheterization - 3 years ago, Hx Cholecystectomy, Hx Tonsillectomy - Immunizations Immunizations up to date: No Hx Diphtheria, Pertussis, Tetanus Vaccination: Yes History of Influenza Vaccine for 05/2017 - 10/2017 Season: Yes Influenza Administration Date for 05/2017 - 10/2017 Season: 05/07/18 Physical Exam - Vital signs Vitals: Temp Pulse Resp BP Pulse Ox 99.8 F 120 H 20 130/105 H 95 04/01/19 15:45 04/01/19 15:45 04/01/19 15:45 04/01/19 15:45 04/01/19 15:45 Course - Vital Signs Vital signs: Temp Pulse Resp BP Pulse Ox 99.8 F 120 H 20 130/105 H 95 04/01/19 15:45 04/01/19 15:45 04/01/19 15:45 04/01/19 15:45 04/01/19 15:45 Doctor's Discharge - Discharge Referrals: [facility] [Primary Care Provider] - Follow up as needed
[2019-04-01 16:46] LABS: ABSOLUTE BASOPHILS # (AUTO) 0.1 10^3/uL (0.0-0.2); ABSOLUTE EOSINOPHILS # (AUTO) 0.1 10^3/uL (0.0-0.6); ABSOLUTE LYMPHOCYTES (AUTO) 2.7 10^3/uL (0.5-4.7); ABSOLUTE NEUT (AUTO) 9.2 10^3/uL (1.7-8.2); BASOPHILS % (AUTO) 0.8 % (0-2); EOSINOPHILS % (AUTO) 0.6 % (0-6); HEMATOCRIT 41.4 % (36.0-47.0); HEMOGLOBIN 13.3 g/dL (12.0-15.5); LYMPHOCYTES % (AUTO) 20.9 % (13-45); MEAN CORPUSCULAR HEMOGLOBIN 28.7 pg (27.0-33.4); MEAN CORPUSCULAR HGB CONC 32.2 g/dL (32.0-36.0); MEAN CORPUSCULAR VOLUME 89 fl (80-97); MONOCYTES % (AUTO) 7.3 % (3-13); PLATELET COUNT 261 10^3/uL (150-450); RED BLOOD COUNT 4.63 10^6/uL (3.72-5.28); RED CELL DISTRIBUTION WIDTH 15.4 % (11.5-14.0); SEGMENTED NEUTROPHILS % (AUTO) 70.4 % (42-78); TOTAL CELLS COUNTED % (AUTO) 100 %; WHITE BLOOD COUNT 13.1 10^3/uL (4.0-10.5)
[2019-04-01 16:56] LABS: APPEARANCE,URINE CLEAR; BILIRUBIN,URINE NEGATIVE (NEGATIVE); COLOR,URINE YELLOW; GLUCOSE, URINE NEGATIVE (NEGATIVE); KETONES,URINE NEGATIVE (NEGATIVE); LEUKOCYTE ESTERASE,URINE SMALL (NEGATIVE); NITRITE,URINE NEGATIVE (NEGATIVE); PROTEIN,URINE 100 mg/dL (NEGATIVE); UROBILINOGEN,URINE NEGATIVE mg/dL (<2.0)
[2019-04-01 17:09] LABS: ALBUMIN 4.5 g/dL (3.5-5.0); ALKALINE PHOSPHATASE 50 U/L (38-126); ANION GAP 10 (5-19); ASPARTATE AMINO TRANSFERASE 23 U/L (14-36); BILIRUBIN,DIRECT 0.4 mg/dL (0.0-0.4); BILIRUBIN,TOTAL 1.2 mg/dL (0.2-1.3); BLOOD UREA NITROGEN 21 mg/dL (7-20); CALCIUM 9.8 mg/dL (8.4-10.2); CARBON DIOXIDE 30 mmol/L (22-30); CHLORIDE 99 mmol/L (98-107); CREATINE KINASE 77 U/L (30-135); GLUCOSE 197 mg/dL (75-110); POTASSIUM 4.9 mmol/L (3.6-5.0); TOTAL PROTEIN 8.1 g/dL (6.3-8.2)
[2019-04-01 17:20] LABS: CREATINE KINASE MB 1.26 ng/mL (<4.55)
[2019-04-01 17:23] LABS: TROPONIN I < 0.012 ng/mL
[2019-04-01 17:44] LABS: VENOUS BLOOD BASE EXCESS 1.6 mmol/L; VENOUS BLOOD HCO3 27.6 mmol/L (20-32); VENOUS BLOOD PCO2 49.1 mmHg (35-63); VENOUS BLOOD PH 7.37 (7.30-7.42)
[2019-04-01] MEDS ORDERED: ONDANSETRON HCL INJ/PF 4 MG/2 ML SDV IV ONE (17:53)
--- NOTE | 2019-04-01 17:58 | RADIOLOGY REPORT (SQ) ---
EXAM DESCRIPTION: CHEST 2 VIEWS COMPLETED DATE/TIME: 04/01/2019 5:49 pm REASON FOR STUDY: fatigue, dizzy COMPARISON: 03/11/2017 EXAM PARAMETERS: NUMBER OF VIEWS: two views TECHNIQUE: Digital Frontal and Lateral radiographic views of the chest acquired. RADIATION DOSE: NA LIMITATIONS: none FINDINGS: LUNGS AND PLEURA: No opacities, masses or pneumothorax. No pleural effusion. MEDIASTINUM AND HILAR STRUCTURES: No masses or contour abnormalities. HEART AND VASCULAR STRUCTURES: Cardiomegaly without pulmonary edema. BONES: No acute findings. HARDWARE: None in the chest. OTHER: No other significant finding. IMPRESSION: Cardiomegaly without pulmonary edema. TECHNICAL DOCUMENTATION: JOB ID: [id number] [employer]- All Rights Reserved Reading location - IP/workstation name: [email or web address]
--- NOTE | 2019-04-01 18:16 | ER Document Report ---
ED General - General Mode of Arrival: Ambulatory Information source: Patient TRAVEL OUTSIDE OF THE [place] IN LAST 30 DAYS: No - HPI Onset: This morning Onset/Duration: Better Quality of pain: No pain Pain Level: Denies Associated symptoms: Weakness, Other - Fatigue, dizziness. denies: Chest pain, Nonproductive cough, Productive cough, Fever, Headache, Leg swelling, Nausea, Vomiting, Shortness of breath Exacerbated by: Denies Relieved by: Denies Similar symptoms previously: No Recently seen / treated by doctor: Yes <FLORENCE SALCEDO - Last Filed: 04/01/19 20:17> - General Mode of Arrival: Ambulatory Information source: Patient <JOS TAMAYO - Last Filed: 04/01/19 22:02> - General Chief Complaint: High Blood Sugar Stated Complaint: HIGH BLOOD SUGAR/DIZZINESS Time Seen by Provider: 04/01/19 15:55 Primary Care Provider: [facility] [Primary Care Provider] - Follow up as needed Notes: Patient presents complaining of fatigue and weakness for the past 6 to 7 weeks. Patient states that she was taken off of metformin last week and her symptoms did improve. Patient states she did have some dizziness earlier today that has since resolved. Patient also complains of nausea. Patient reports checking her blood sugar today and it was 374 which [facility] Patient is not currently diabetic medications. States that she has a doctor's appointment with her primary doctor await her diabetic medications in 2 days. Patient denies any headache, chest pain or shortness of breath. Patient does have a history of atrial fibrillation and states that she did not take any of her oral medications today as she cannot take her medications without taking food. Patient states she did not want to take any food today because her blood sugar was elevated. Patient does admit to drinking lemonade today that is not diabetic. 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 Family History: CAD, DM, Hyperlipidemia, Hypertension, Malignancy Patient has suicidal ideation: No Patient has homicidal ideation: No - Past Medical History Cardiac Medical History: Reports: Hx Atrial Fibrillation, Hx Congestive Heart Failure, Hx Hypertension Pulmonary Medical History: Reports: Hx Bronchitis - USUALLY WHEN HEART FAILURE, BRONVHITIS RIGHT AFTER Endocrine Medical History: Reports: Hx Diabetes Mellitus Type 2 Renal/ Medical History: Denies: Hx Peritoneal Dialysis Musculoskeletal Medical History: Denies Hx Arthritis, Reports Hx Musculoskeletal Trauma Skin Medical History: Reports Hx Cellulitis Psychiatric Medical History: Denies: Hx Depression Traumatic Medical History: Reports: Hx Fractures - finger Past Surgical History: Reports: Hx Appendectomy, Hx Cardiac Catheterization - 3 years ago, Hx Cholecystectomy, Hx Tonsillectomy - Immunizations Immunizations up to date: No Hx Diphtheria, Pertussis, Tetanus Vaccination: Yes <FLORENCE SALCEDO - Last Filed: 04/01/19 20:17> Review of Systems - Review of Systems Constitutional: Malaise, Weakness. denies: Fever EENT: No symptoms reported Cardiovascular: Dizziness. denies: Chest pain, Palpitations, Orthopnea, Lightheaded Respiratory: No symptoms reported. denies: Cough, Short of breath Gastrointestinal: Nausea. denies: Abdominal pain, Vomiting Genitourinary: No symptoms reported Female Genitourinary: No symptoms reported Musculoskeletal: No symptoms reported. denies: Back pain Skin: No symptoms reported Hematologic/Lymphatic: No symptoms reported Neurological/Psychological: No symptoms reported <FLORENCE SALCEDO - Last Filed: 04/01/19 20:17> Physical Exam - General General appearance: Appears well, Alert In distress: None - HEENT Head: Normocephalic, Atraumatic Eyes: Normal Conjunctiva: Normal Nasal: Normal Mouth/Lips: Normal Mucous membranes: Normal Neck: Normal, Supple. No: Lymphadenopathy - Respiratory Respiratory status: No respiratory distress Chest status: Nontender Breath sounds: Normal. No: Rales, Rhonchi, Stridor, Wheezing Chest palpation: Normal - Cardiovascular Rhythm: Irregularly irregular, Tachycardia Heart sounds: S1 appreciated, S2 appreciated - Abdominal Inspection: Morbidly Obese Distension: No distension Bowel sounds: Normal Tenderness: Nontender Organomegaly: No organomegaly - Back Back: Normal, Nontender. No: CVA tenderness - Extremities General upper extremity: Normal inspection, Normal ROM General lower extremity: Normal inspection, Normal ROM. No: Edema - Neurological Neuro grossly intact: Yes Cognition: Normal Ac Coma Scale Eye Opening: Spontaneous Ac Coma Scale Verbal: Oriented Ac Coma Scale Motor: Obeys Commands Ac Coma Scale Total: 15 - Psychological Associated symptoms: Normal affect, Normal mood - Skin Skin Temperature: Warm Skin Moisture: Dry Skin Color: Normal <FLORENCE SALCEDO - Last Filed: 04/01/19 20:17> - Vital signs Vitals: Temp Pulse Resp BP Pulse Ox 99.8 F 120 H 20 130/105 H 95 04/01/19 15:45 04/01/19 15:45 04/01/19 15:45 04/01/19 15:45 04/01/19 15:45 Course - Laboratory Result Diagrams: 04/01/19 16:20 04/01/19 16:20 - EKG Interpretation by Me Rhythm: A.Fib <FLORENCE SALCEDO - Last Filed: 04/01/19 20:17> - Laboratory Result Diagrams: 04/01/19 16:20 04/01/19 16:20 - Diagnostic Test Radiology reviewed: Image reviewed, Reports reviewed - EKG Interpretation by Me Rate: Tachycardia Rhythm: A.Fib - 127 bpm, no stemi, reviewed by dr cornejo [place]/QRS: Left axis deviation When compared to previous EKG there are: No significant change <JOS TAMAYO - Last Filed: 04/01/19 22:02> - Re-evaluation Re-evalutation: 04/01/19 20:00 heart rate has improved and is presently 117. Patient continues to deny any chest pain or dyspnea. Will repeat troponin given an episode of dizziness ear lier today. 04/01/19 20:17 Bedside report and handoff given to MARK Knott (FLORENCE SALCEDO) 04/01/19 21:59 Patient signed out to me by ELISEO Salcedo, pending delta troponin for dispo, her delta troponin did go up slightly. she continued to remain assymptomatic. heart rate remained 110s in the room when i examined and reevaluated her. Her BNP was also elevated at 4000. she does have a cardiac hx. she was given asa here. case discussed with ed attending dr. carpenter who advised to admit for trending of the troponins and further workup. i did discuss the case with hospitalist, dr vela, who graciously agreed to accept the pt for further workup and tx. care transferred to hospitalist in stable condition. please refer to their note for further details of the visit. this was my only involvement in pt care. please refer to ELISEO Salcedo's note for full details of the visit. Category Date Time Status Continuous Cardiac Monitoring (ED) NOW Care 04/01/19 18:33 Completed EKG Documentation STAT Care 04/01/19 15:56 Completed EKG Documentation STAT Care 04/01/19 21:12 Active Lock [Saline Lock (ED)] NOW Care 04/01/19 15:56 Active Pulse Oximetry (ED) NOW Care 04/01/19 18:33 Active CHEST 2 VIEWS [RAD] Stat Exams 04/01/19 16:51 Completed BNP (In-House) [NT PRO BNP] [CHEM] Stat Lab 04/01/19 20:10 Completed CBC WITH DIFF [HEME] Stat Lab 04/01/19 16:20 Completed COMPREHENSIVE METABOLIC PANEL [CHEM] Stat Lab 04/01/19 16:20 Completed CREATINE KINASE MB [CHEM] Stat Lab 04/01/19 16:20 Completed CREATINE KINASE MB [CHEM] Timed Lab 04/02/19 00:20 Ordered CREATINE KINASE [CHEM] Stat Lab 04/01/19 16:20 Completed CREATINE KINASE [CHEM] Timed Lab 04/02/19 00:20 Ordered Cardiac Enzyme Stat [CHEM] Stat Lab 04/01/19 15:56 Ordered MAGNESIUM [CHEM] Stat Lab 04/01/19 16:20 Completed TROPONIN I [CHEM] Stat Lab 04/01/19 16:20 Completed TROPONIN I [CHEM] Timed Lab 04/01/19 20:10 Completed TROPONIN I [CHEM] Timed Lab 04/02/19 00:20 Ordered TSH [THYROID STIMULATING HORMONE] [CHEM] Stat Lab 04/01/19 16:20 Completed URINALYSIS [URIN] Stat Lab 04/01/19 16:20 Completed URINE CULTURE [MC] Stat Lab 04/01/19 16:20 Received VENOUS BLOOD GAS (PERIPHERAL) [CHEM] Stat Lab 04/01/19 17:21 Completed Aspirin [Aspirin 81 mg Chewable Tablet] Med 04/01/19 21:09 Discontinued 324 mg PO NOW ONE Ondansetron HCl/Pf [Zofran Inj/Pf 4 mg/2 ml Sdv] Med 04/01/19 17:53 D iscontinued 8 mg IV NOW ONE Promethazine HCl [Phenergan 25 mg Tablet] Med 04/01/19 19:09 Discontinued 25 mg PO NOW ONE EKG ER ONLY [ER] Routine Oth 04/02/19 00:20 Ordered EKG ER ONLY [ER] Stat Oth 04/01/19 15:56 Active (JOS TAMAYO) - Vital Signs Vital signs: Temp Pulse Resp BP Pulse Ox 99.8 F 120 H 20 130/105 H 95 04/01/19 15:45 04/01/19 15:45 04/01/19 15:45 04/01/19 15:45 04/01/19 15:45 04/01/19 21:58 Temp Pulse Resp BP Pulse Ox 04/01/19 15:45 99.8 F 120 H 20 130/105 H 95 (JOS TAMAYO) - Laboratory Laboratory results interpreted by me: 04/01/19 04/01/19 04/01/19 16:20 16:20 16:20 WBC 13.1 H RDW 15.4 H Absolute Neuts (auto) 9.2 H BUN 21 H Glucose 197 H NT-Pro-B Natriuret Pep Urine Protein 100 H Urine Blood SMALL H Ur Leukocyte Esterase SMALL H 04/01/19 20:10 WBC RDW Absolute Neuts (auto) BUN Glucose NT-Pro-B Natriuret Pep 4080 H Urine Protein Urine Blood Ur Leukocyte Esterase 04/01/19 21:58 Labs- Entire Visit 04/01/19 04/01/19 04/01/19 16:20 16:20 16:20 WBC 13.1 H RBC 4.63 Hgb 13.3 Hct 41.4 MCV 89 MCH 28.7 MCHC 32.2 RDW 15.4 H Plt Count 261 Lymph % (Auto) 20.9 [place] % (Auto) 7.3 Eos % (Auto) 0.6 Baso % (Auto) 0.8 Absolute Neuts (auto) 9.2 H Absolute Lymphs (auto) 2.7 Absolute Monos (auto) 1.0 Absolute Eos (auto) 0.1 Absolute Basos (auto) 0.1 Seg Neutrophils % 70.4 VBG pH VBG pCO2 VBG HCO3 VBG Base Excess Sodium 138.9 Potassium 4.9 Chloride 99 Carbon Dioxide 30 Anion Gap 10 BUN 21 H Creatinine 0.90 Est GFR ( Amer) > 60 Est GFR (MDRD) Non-Af > 60 Glucose 197 H Calcium 9.8 Magnesium 1.7 Total Bilirubin 1.2 Direct Bilirubin 0.4 Neonat Total Bilirubin Not Reportable Neonat Direct Bilirubin Not Reportable Neonat Indirect Bili Not Reportable AST 23 ALT 28 Alkaline Phosphatase 50 Creatine Kinase 77 CK-MB (CK-2) 1.26 Troponin I < 0.012 NT-Pro-B Natriuret Pep Total Protein 8.1 Albumin 4.5 TSH Urine Color Urine Appearance Urine pH Ur Specific [place] [address] Urine Protein Urine Glucose (UA) Urine Ketones Urine Blood Urine Nitrite Urine Bilirubin Urine Urobilinogen Ur Leukocyte Esterase Urine WBC (Auto) Urine RBC (Auto) U Hyaline Cast (Auto) Squamous Epi Cells Auto Urine Mucus (Auto) Urine Ascorbic Acid 04/01/19 04/01/19 04/01/19 16:20 16:20 17:21 WBC RBC Hgb Hct MCV MCH MCHC RDW Plt Count Lymph % (Auto) [place]yer % (Auto) Eos % (Auto) Baso % (Auto) Absolute Neuts (auto) Absolute Lymphs (auto) Absolute Monos (auto) Absolute Eos (auto) Absolute Basos (auto) Seg Neutrophils % VBG pH 7.37 VBG pCO2 49.1 VBG HCO3 27.6 VBG Base Excess 1.6 Sodium Potassium Chloride Carbon Dioxide Anion Gap BUN Creatinine Est GFR ( Amer) Est GFR (MDRD) Non-Af Glucose Calcium Magnesium Total Bilirubin Direct Bilirubin Neonat Total Bilirubin Neonat Direct Bilirubin Neonat Indirect Bili AST ALT Alkaline Phosphatase Creatine Kinase CK-MB (CK-2) Troponin I NT-Pro-B Natriuret Pep Total Protein Albumin TSH 2.46 Urine Color YELLOW Urine Appearance CLEAR Urine pH 5.[address] 1.010 Urine Protein 100 H Urine Glucose (UA) NEGATIVE Urine Ketones NEGATIVE Urine Blood SMALL H Urine Nitrite NEGATIVE Urine Bilirubin NEGATIVE Urine Urobilinogen NEGATIVE Ur Leukocyte Esterase SMALL H Urine WBC (Auto) 1 Urine RBC (Auto) 0 U Hyaline Cast (Auto) 4 Squamous Epi Cells Auto 3 Urine Mucus (Auto) RARE Urine Ascorbic Acid NEGATIVE 04/01/19 04/01/19 20:10 20:10 WBC RBC Hgb Hct MCV MCH MCHC RDW Plt Count Lymph % (Auto) [place] % (Auto) Eos % (Auto) Baso % (Auto) Absolute Neuts (auto) Absolute Lymphs (auto) Absolute Monos (auto) Absolute Eos (auto) Absolute Basos (auto) Seg Neutrophils % VBG pH VBG pCO2 VBG HCO3 VBG Base Excess Sodium Potassium Chloride Carbon Dioxide Anion Gap BUN Creatinine Est GFR ( Amer) Est GFR (MDRD) Non-Af Glucose Calcium Magnesium Total Bilirubin Direct Bilirubin Neonat Total Bilirubin Neonat Direct Bilirubin Neonat Indirect Bili AST ALT Alkaline Phosphatase Creatine Kinase CK-MB (CK-2) Troponin I 0.016 NT-Pro-B Natriuret Pep 4080 H Total Protein Albumin TSH Urine Color Urine Appearance Urine pH Ur Specific [address] Urine Protein Urine Glucose (UA) Urine Ketones Urine Blood Urine Nitrite Urine Bilirubin Urine Urobilinogen Ur Leukocyte Esterase Urine WBC (Auto) Urine RBC (Auto) U Hyaline Cast (Auto) Squamous Epi Cells Auto Urine Mucus (Auto) Urine Ascorbic Acid (JOS TAMAYO) - Diagnostic Test Radiology results interpreted by me: 04/01/19 21:58 Chest X-Ray 04/01/19 16:51 IMPRESSION: Cardiomegaly without pulmonary edema. (JOS TAMAYO) - EKG Interpretation by Me Additional EKG results interpreted by me: 04/01/19 20:[address] elevation. QTc 507 (FLORENCE SALCEDO) Discharge <FLORENCE SALCEDO - Last Filed: 04/01/19 20:17> - Discharge Admitting Provider: Walter (Hospitalist) Unit Admitted: Telemetry - who accepted the pt for further workup at 9:55pm <JOS TAMAYO - Last Filed: 04/01/19 22:02> - Discharge Clinical Impression: Dizziness, Elevated blood sugar, Elevated troponin, Tachycardia, Elevated brain natriuretic peptide (BNP) level Atrial fibrillation Qualifiers: Atrial fibrillation type: unspecified Qualified Code(s): I48.91 - Unspecified atrial fibrillation Leukocytosis Qualifiers: Leukocytosis type: unspecified Qualified Code(s): D72.829 - Elevated white blood cell count, unspecified Condition: Good Disposition: ADMITTED OBSERVATION [facility]: [facility]] - Follow up as needed
[2019-04-01] MEDS ORDERED: PROMETHAZINE HCL 25 MG TABLET PO ONE (19:09)
[2019-04-01] MEDS ORDERED: ASPIRIN 81 MG TABLET, CHEWABLE PO ONE (21:09)
[2019-04-01] MEDS ORDERED: TEMAZEPAM 15 MG CAPSULE PO PRN (22:35)
[2019-04-01] MEDS ORDERED: MAGNESIUM HYDROXIDE SUSP 30 ML UDCUP PO PRN (22:35)
[2019-04-01] MEDS ORDERED: MAG HYDROX/AL HYDROX/SIMETH SUSP 30 ML UDCUP PO PRN (22:35)
[2019-04-01] MEDS ORDERED: PROMETHAZINE HCL INJ 25 MG/1 ML VIAL IV PRN (22:35)
[2019-04-01 22:58] LABS: CHOLESTEROL 106.49 mg/dL (0-200); TRIGLYCERIDES 93 mg/dL (<150)
[2019-04-01 23:08] LABS: DIRECT LDL 66 mg/dL (<100)
[2019-04-01 23:14] LABS: FREE T3 3.59 pg/mL (2.77-5.27); FREE T4 (FREE THYROXINE) 1.19 ng/dL (0.78-2.19)
--- NOTE | 2019-04-02 01:17 | PDOC H&P ---
History of Present Illness Admission Date/PCP: 04/01/2019 22:10 [facility] Patient complains of: Dizziness History of Present Illness: MAXIMILIANO XAVIER is a 48 year old female who presented to the emergency room with acute onset dizziness. She admits that this morning she began feeling dizzy (off-balance sensation) and experienced some blurring of her vision. At the recommendation of her friend, she checked her blood sugar and found it to be 347 on her friend's glucometer. She has recently been off of her diabetic medication (metformin) because she did not tolerate it well (nausea and vomiting) and her physician discontinued it without replacing it with another m edication, until her next appointment. Additionally since she was feeling poorly this morning she did not take any of her usual medications for congestive heart failure, atrial fibrillation etc. She adds that she has been feeling somewhat fatigued and weak (generalized weakness) for the 2 months. She denies any additional associated or accompanying signs or symptoms. She denies previous similar episodes. She has not identified any aggravating or ameliorating factors for her dizziness. In the emergency room she had an unremarkable evaluation with the exception of a glucose of 197 and a troponin that jordan from < 0.012 to 0.016. Her EKG was negative for acute changes indicative of myocardial ischemia or injury. During her course of treatment in the emergency room her symptoms resolved completely. Because of her change in troponin emergency room physician felt that she should be admitted to observation for evaluation. Patient was subsequently admitted to observation for brief evaluation with serial cardiac enzymes. Past Medical History Cardiac Medical History: Reports: Atrial Fibrillation, Congestive Heart Failure, Hypertension, Other - Cardiomyopathy Denies: Coronary Artery Disease, DVT, Myocardial Infarction, Pulmonary Embolism Pulmonary Medical History: Reports: Bronchitis - USUALLY WHEN HEART FAILURE, B RONVHITIS RIGHT AFTER, Sleep Apnea Denies: Asthma, Chronic Obstructive Pulmonary Disease (COPD), Pneumonia EENT Medical History: Denies: Cataracts, Ears - Hearing aids, Nose - Allergic rhinitis Neurological Medical History: Denies: Hemorrhagic CVA, Ischemic CVA, Seizures Endocrine Medical History: Reports: Diabetes Mellitus Type 2, Obesity Denies: Diabetes Mellitus Type 1, Hyperthyroidism, Hypothyroidism Renal/ Medical History: Denies: Chronic Kidney Disease, Nephrolithiasis Malignancy Medical History: Reports: None GI Medical History: Denies: Cirrhosis, Crohn's Disease, Gastroesophageal Reflux Disease, Hepatitis, Peptic Ulcer Disease, Ulcerative Colitis Musculoskeltal Medical History: Denies: Arthritis, Gout Skin Medical History: Denies: Eczema, Psoriasis Psychiatric Medical History: Reports: Tobacco Dependency Denies: Alcohol Dependency, Depression, Substance Abuse Traumatic Medical History: Reports: None Hematology: Denies: Anemia, Bleeding Tendencies Infectious Medical History: Reports: None Past Surgical History Past Surgical History: Reports: Appendectomy, Cardiac Catheterization - 2015, Cholecystectomy, Tonsillectomy Social History Information Source: Patient Lives with: Family Smoking Status: Former Smoker Frequency of Alcohol Use: Rare Hx Recreational Drug Use: No Drugs: None Hx Prescription Drug Abuse: No - Advance Directive Resuscitation Status: Full Code Surrogate healthcare decision maker:: David Mccracken Family History Family History: CAD, DM, Hyperlipidemia, Hypertension, Malignancy Parental Family History Reviewed: Yes Children Family History Reviewed: No Sibling(s) Family History Reviewed.: Yes Medication/Allergy Home Medications: Metformin HCl [Glucophage 500 mg Tablet] 1,000 mg PO BID 01/29/18 Apixaban [Eliquis 5 mg Tablet] 5 mg PO Q12H #60 tablet 01/30/18 Atorvastatin Calcium [Lipitor 40 mg Tablet] 40 mg PO QHS #30 tablet 04/13/18 Furosemide [Lasix 40 mg Tablet] 40 mg PO BID #60 tablet 04/13/18 Sacubitril/Valsartan [Entresto 24 mg/26 mg Tablet] 1 tab PO BID #60 tablet 04/13 Spironolactone [Aldactone 25 mg Tablet] 25 mg PO DAILY #30 tablet 04/13/18 Metoprolol Succinate [Toprol Xl 50 mg Tab.sr] 50 mg PO Q12 01/29/19 Allergies/Adverse Reactions: No Known Allergies Allergy (Verified 01/29/19 07:44) Review of Systems Constitutional: PRESENT: as per HPI, fatigue, weakness. ABSENT: chills, fe elsie(s) Eyes: PRESENT: as per HPI, visual disturbances - Episodic blurry vision. ABSENT: other - Eye pain Ears: ABSENT: hearing changes, other - Ear pain Nose, Mouth, and Throat: ABSENT: mouth pain, sore throat Cardiovascular: ABSENT: chest pain, dyspnea on exertion, edema, orthropnea, palpitations Respiratory: ABSENT: cough, dyspnea Gastrointestinal: ABSENT: abdominal pain, constipation, diarrhea, nausea, vomiting Musculoskeletal: PRESENT: as per HPI, muscle weakness. ABSENT: back pain, joint swelling Integumentary: ABSENT: pruritus, rash Neurological: PRESENT: as per HPI, dizziness. ABSENT: confusion, convulsions, focal weakness, memory loss, syncope Psychiatric: ABSENT: anxiety, depression Endocrine: ABSENT: cold intolerance, heat intolerance Hematologic/Lymphatic: ABSENT: easy bleeding, easy bruising Allergic/Immunologic: ABSENT: seasonal rhinorrhea Physical Exam Vital Signs: Temp Pulse Resp BP Pulse Ox 99.8 F 120 H 20 130/105 H 95 04/01/19 15:45 04/01/19 15:45 04/01/19 15:45 04/01/19 15:45 04/01/19 15:45 Intake & Output 03/30/19 03/31/19 04/01/19 23:59 23:59 23:59 Weight 144.3 kg General appearance: PRESENT: no acute distress, cooperative, morbidly obese Head exam: PRESENT: atraumatic, normocephalic Eye exam: PRESENT: conjunctiva pink. ABSENT: conjunctival injection, nystagmus, scleral icterus Ear exam: PRESENT: normal external ear exam. ABSENT: bleeding, drainage Mouth exam: PRESENT: dry mucosa, neck supple Neck exam: ABSENT: thyromegaly, tracheal deviation Respiratory exam: PRESENT: clear to auscultation osmel, symmetrical, unlabored Cardiovascular exam: PRESENT: RRR. ABSENT: clicks, gallop, rubs Pulses: PRESENT: normal radial pulses, normal dorsalis pedis pul Vascular exam: PRESENT: normal capillary refill. ABSENT: pallor GI/Abdominal exam: PRESENT: normal bowel sounds, soft Rectal exam: PRESENT: deferred Extremities exam: ABSENT: joint swelling, pedal edema, tenderness Musculoskeletal exam: PRESENT: full ROM, normal inspection Neurological exam: PRESENT: alert, oriented to person, oriented to place, oriented to time, oriented to situation, CN II-XII grossly intact. ABSENT: motor sensory deficit Psychiatric exam: PRESENT: appropriate affect, normal mood Skin exam: PRESENT: dry, intact, warm. ABSENT: jaundice, rash, urticaria Results Laboratory Results: 04/01/19 16:20 04/01/19 16:20 04/01/19 04/01/19 04/01/19 16:20 16:20 16:20 WBC 13.1 H RBC 4.63 Hgb 13.3 Hct 41.4 MCV 89 MCH 28.7 MCHC 32.2 RDW 15.4 H Plt Count 261 Seg Neutrophils % 70.4 VBG pH VBG pCO2 VBG HCO3 VBG Base Excess Sodium 138.9 Potassium 4.9 Chloride 99 Carbon Dioxide 30 Anion Gap 10 BUN 21 H Creatinine 0.90 Est GFR ( Amer) > 60 Glucose 197 H Calcium 9.8 Magnesium 1.7 Total Bilirubin 1.2 AST 23 Alkaline Phosphatase 50 Total Protein 8.1 Albumin 4.5 TSH 2.46 Urine Color Urine Appearance Urine pH Ur Specific [place] Urine Protein Urine Glucose (UA) Urine Ketones Urine Blood Urine Nitrite Ur Leukocyte Esterase Urine WBC (Auto) Urine RBC (Auto) 04/01/19 04/01/19 16:20 17:21 WBC RBC Hgb Hct MCV MCH MCHC RDW Plt Count Seg Neutrophils % VBG pH 7.37 VBG pCO2 49.1 VBG HCO3 27.6 VBG Base Excess 1.6 Sodium Potassium Chloride Carbon Dioxide Anion Gap BUN Creatinine Est GFR ( Amer) Glucose Calcium Magnesium Total Bilirubin AST Alkaline Phosphatase Total Protein Albumin TSH Urine Color YELLOW Urine Appearance CLEAR Urine pH 5.0 Ur Specific [place] 1.010 Urine Protein 100 H Urine Glucose (UA) NEGATIVE Urine Ketones NEGATIVE Urine Blood SMALL H Urine Nitrite NEGATIVE Ur Leukocyte Esterase SMALL H Urine WBC (Auto) 1 Urine RBC (Auto) 0 04/01/19 04/01/19 04/01/19 16:20 16:20 20:10 Creatine Kinase 77 CK-MB (CK-2) 1.26 Troponin I < 0.012 0.016 NT-Pro-B Natriuret Pep 04/01/19 20:10 Creatine Kinase CK-MB (CK-2) Troponin I NT-Pro-B Natriuret Pep 4080 H Impressions: Chest X-Ray 04/01/19 16:51 IMPRESSION: Cardiomegaly without pulmonary edema. Assessment and Plan - Diagnosis (1) Elevated troponin Is this a current diagnosis for this admission?: Yes Plan: Patient will have serial cardiac enzymes performed. Further evaluation will be based upon the results of those tests. (2) Diabetes mellitus type 2 in obese Is this a current diagnosis for this admission?: Yes Plan: Patient will have a hemoglobin A1c obtained. She will be started on oral hypoglycemic agent if indicated. Before meals and at bedtime Accu-Cheks will be performed with sliding scale insulin for hyperglycemia and a hypoglycemic protocol in place. (3) Hypertension Qualifiers: Hypertension type: essential hypertension Qualified Code(s): I10 - Essential (primary) hypertension Is this a current diagnosis for this admission?: Yes Plan: Patient will be continued on her routine medications for hypertension and her blood pressure will be monitored closely throughout her hospital course. (4) Atrial fibrillation Qualifiers: Atrial fibrillation type: chronic Qualified Code(s): I48.2 - Chronic atrial fibrillation Is this a current diagnosis for this admission?: Yes Plan: Patient be continued on her usual medications for atrial fibrillation including her anticoagulants. She will be monitored via telemetry throughout her hospital course. (5) Congestive heart failure Qualifiers: Heart failure type: systolic Heart failure chronicity: chronic Qualified Code(s): I50.22 - Chronic systolic (congestive) heart failure Is this a current diagnosis for this admission?: Yes Plan: Patient be continued on her usual medications for congestive heart failure and she will be monitored symptomatically throughout her hospital course. (6) Obstructive sleep apnea Is this a current diagnosis for this admission?: Yes Plan: Patient will be treated with CPAP at at bedtime during her hospitalization for her obstructive sleep apnea. - Time Time Spent with patient: 15-24 minutes Medications reviewed and adjusted accordingly: Yes Anticipated discharge: Home Within: within 48 hours - Inpatient Certification Based on my medical assessment, after consideration of the patient's comorbidities, presenting symptoms, or acuity I expect that the services needed warrant INPATIENT care.: No I certify that my determination is in accordance with my understanding of Medicare's requirements for reasonable and necessary INPATIENT services [42 CFR 412.3e].: No Medical Necessity: Need For Continuous Telemetry Monitoring
[2019-04-02 03:01] LABS: CREATINE KINASE MB 1.1 ng/mL (<4.55); TROPONIN I 0.019 ng/mL
[2019-04-02] MEDS ORDERED: HEPARIN SOD (PORCINE) 5,000 UNIT/ML 1 ML VIAL SUBCUT SCH (06:00)
--- NOTE | 2019-04-02 07:09 | EKG REPORT ---
SEVERITY:- ABNORMAL ECG - ATRIAL FIBRILLATION, V-RATE 74-108 BORDERLINE LEFT AXIS DEVIATION NONSPECIFIC T ABNORMALITIES, LATERAL LEADS : Confirmed by: Wilfredo Russell MD 02-Apr-2019 07:08:54
--- NOTE | 2019-04-02 07:10 | EKG REPORT ---
SEVERITY:- ABNORMAL ECG - ATRIAL FIBRILLATION, V-RATE 86-155 BORDERLINE LEFT AXIS DEVIATION NONSPECIFIC T ABNORMALITIES, LATERAL LEADS BORDERLINE PROLONGED QT INTERVAL : Confirmed by: Wilfredo Russell MD 02-Apr-2019 07:09:18
[2019-04-02] MEDS ORDERED: GLIMEPIRIDE 1 MG TABLET PO SCH (08:00)
[2019-04-02 08:56] LABS: CREATINE KINASE MB 0.98 ng/mL (<4.55); TROPONIN I 0.016 ng/mL
[2019-04-02] MEDS ORDERED: FUROSEMIDE 40 MG TABLET PO SCH (10:00)
[2019-04-02] MEDS ORDERED: FAMOTIDINE 20 MG TABLET PO SCH (10:00)
[2019-04-02] MEDS ORDERED: METOPROLOL SUCCINATE 50 MG TAB.SR.24H PO SCH (10:00)
[2019-04-02] MEDS ORDERED: SPIRONOLACTONE 25 MG TABLET PO SCH (10:00)
[2019-04-02] MEDS ORDERED: DOCUSATE SODIUM 100 MG CAPSULE PO SCH (10:00)
[2019-04-02] MEDS ORDERED: APIXABAN 5 MG TABLET PO SCH (10:00)
[2019-04-02] MEDS ORDERED: SACUBITRIL/VALSARTAN 24 MG/26 MG TABLET PO SCH (10:00)
[2019-04-02 12:59] VITALS: BP 117/82
[2019-04-02] MEDS ORDERED: ATORVASTATIN CALCIUM 40 MG TABLET PO SCH (22:00)
--- NOTE | 2019-04-06 08:10 | PDOC DISCHARGE SUMMARY ---
General - Admit/Disc Date/PCP Admission Date/Primary Care Provider: 04/01/19 22:12 [facility] Discharge Date: 04/02/19 - Discharge Diagnosis (1) Atrial fibrillation Is this a current diagnosis for this admission?: Yes (2) Congestive heart failure Is this a current diagnosis for this admission?: Yes (3) Diabetes mellitus type 2 in obese Is this a current diagnosis for this admission?: Yes (4) Elevated troponin Is this a current diagnosis for this admission?: Yes (5) Hypertension Is this a current diagnosis for this admission?: Yes (6) Obstructive sleep apnea Is this a current diagnosis for this admission?: Yes - Additional Information Resuscitation Status: Full Code Discharge Diet: Cardiac, Diabetic Discharge Activity: Activity As Tolerated, Balance Activity w/Rest Prescriptions: Glimepiride [Amaryl 1 mg Tablet] 2 mg PO QAM #60 tablet Blood-Glucose Meter [Blood Glucose Meter] 1 unit MC BID #1 unit Lancets [Blood Lancets] 1 each MC BID #60 each Blood Sugar Diagnostic [Test Strips] 1 each MC BID #60 strip Home Medications: Apixaban [Eliquis 5 mg Tablet] 5 mg PO Q12 tablet 04/02/19 Atorvastatin Calcium [Lipitor 40 mg Tablet] 40 mg PO QHS tablet 04/02/19 Blood Sugar Diagnostic [Test Strips] 1 each MC BID #60 strip 04/02/19 Blood-Glucose Meter [Blood Glucose Meter] 1 unit MC BID #1 unit 04/02/19 Furosemide [Lasix 40 mg Tablet] 40 mg PO BID tablet 04/02/19 Glimepiride [Amaryl 1 mg Tablet] 2 mg PO QAM #60 tablet 04/02/19 Lancets [Blood Lancets] 1 each MC BID #60 each 04/02/19 Metoprolol Succinate [Toprol Xl 50 mg Tab.sr] 50 mg PO Q12 tab.sr.24h 04/02/19 Sacubitril/Valsartan [Entresto 24 mg/26 mg Tablet] 1 tab PO Q12 tablet 04/02/19 Spironolactone [Aldactone 25 mg Tablet] 25 mg PO DAILY tablet 04/02/19 Temazepam [Restoril 15 mg Capsule] 30 mg PO HSP PRN capsule 04/02/19 History of Present Illness History of Present Illness: Per H&P by Dr. Watson: MAXIMILIANO XAVIER is a 48 year old female who presented to the emergency room with acute onset dizziness. She admits that this morning she began feeling dizzy (off-balance sensation) and experienced some blurring of her vision. At the recommendation of her friend, she checked her blood sugar and found it to be 347 on her friend's glucometer. She has recently been off of her diabetic medication (metformin) because she did not tolerate it well (nausea and vomiting) and her physician discontinued it without replacing it with another medication, until her next appointment. Additionally since she was feeling poorly this morning she did not take any of her usual medications for congestive heart failure, atrial fibrillation etc. She adds that she has been feeling somewhat fatigued and weak (generalized weakness) for the 2 months. She denies any additional associated or accompanying signs or symptoms. She denies previous similar episodes. She has not identified any aggravating or ameliorating factors for her dizziness. In the emergency room she had an unremarkable evaluation with the exception of a glucose of 197 and a troponin that jordan from < 0.012 to 0.016. Her EKG was negative for acute changes indicative of myocardial ischemia or injury. During her course of treatment in the emergency room her symptoms resolved completely. Because of her change in troponin emergency room physician felt that she should be admitted to observation for evaluation. Patient was subsequently admitted to observation for brief evaluation with serial cardiac enzymes. Hospital Course Hospital Course: The patient was admitted for observation due to report of dizziness and blurred vision. Blood glucose check at home revealed sugar greater than 300, therefore she presented to the emergency department. Further evaluation revealed slightly elevated leukocytosis (13.1), normal blood counts, chemistry other than elevated blood glucose) negative troponins x4, negative urinalysis, benign chest x-ray and EKG demonstrating atrial fibrillation though with elevated heart rate. She was admitted to the telemetry floor for observation and her home medications were continued. She was started on Amaryl for management of her blood sugar due to report of intolerance of metformin. Her symptoms resolved entirely over the course of a few hours and she is now rat e controlled on her home dose metoprolol. The patient met with the in service educator and has been provided prescriptions for new glucometer, test strips, lancets, and Amaryl. She already had a follow-up appointment scheduled with her primary care provider for tomorrow; she is encouraged to keep that appointment. She is discharged to home in stable condition. She is advised to take her medications as prescribed. She is encouraged to follow a cardiac/consistent carb diet. She is advised to take her blood sugars twice daily and to keep a log to present to her primary care provider at follow-up visits. She is encouraged to return to the emergency department as needed for any concerning symptoms. Physical Exam Vital Signs: Temp Pulse Resp BP Pulse Ox 98.1 F 58 L 20 117/82 98 04/02/19 12:58 04/02/19 12:58 04/02/19 12:58 04/02/19 12:58 04/02/19 12:58 General appearance: PRESENT: no acute distress, cooperative, morbidly obese, well-developed, well-nourished Head exam: PRESENT: atraumatic, normocephalic Eye exam: PRESENT: conjunctiva pink, EOMI, PERRLA. ABSENT: scleral icterus Ear exam: PRESENT: normal external ear exam Mouth exam: PRESENT: moist, tongue midline Neck exam: ABSENT: carotid bruit, JVD, lymphadenopathy, thyromegaly Respiratory exam: PRESENT: clear to auscultation osmel, symmetrical, unlabored. ABSENT: rales, rhonchi, wheezes Cardiovascular exam: PRESENT: RRR, +S1, +S2. ABSENT: diastolic murmur, rubs, sy stolic murmur Pulses: PRESENT: normal dorsalis pedis pul Vascular exam: PRESENT: normal capillary refill GI/Abdominal exam: PRESENT: normal bowel sounds, soft. ABSENT: distended, guarding, mass, organolmegaly, rebound, tenderness Rectal exam: PRESENT: deferred Extremities exam: PRESENT: full ROM. ABSENT: calf tenderness, clubbing, pedal edema Musculoskeletal exam: PRESENT: ambulatory Neurological exam: PRESENT: alert, awake, oriented to person, oriented to place, oriented to time, oriented to situation, CN II-XII grossly intact. ABSENT: motor sensory deficit Psychiatric exam: PRESENT: appropriate affect, normal mood. ABSENT: homicidal ideation, suicidal ideation Skin exam: PRESENT: dry, intact, warm. ABSENT: cyanosis, rash Results Laboratory Results: 04/01/19 16:20 04/01/19 16:20 04/01/19 04/01/19 04/01/19 16:20 16:20 20:10 Creatine Kinase 77 CK-MB (CK-2) 1.26 Troponin I < 0.012 0.016 NT-Pro-B Natriuret Pep 04/01/19 04/02/19 04/02/19 20:10 02:09 02:09 Creatine Kinase 68 CK-MB (CK-2) 1.10 Troponin I 0.019 NT-Pro-B Natriuret Pep 4080 H 04/02/19 04/02/19 07:56 07:56 Creatine Kinase 59 CK-MB (CK-2) 0.98 Troponin I 0.016 NT-Pro-B Natriuret Pep Impressions: Chest X-Ray 04/01/19 16:51 IMPRESSION: Cardiomegaly without pulmonary edema. Qualifiers - * PATIENT BEING DISCHARGED WITH ANY OF THE FOLLOWING DIAGNOSIS: No Acute Heart Failure - Is this a Heart Failure Patient?: No Plan Discharge Plan: Discharge to home with self care. Follow up with primary care provider as scheduled tomorrow. Eat a consistent carb/diabetic and cardiac (low-sodium) diet. Check blood sugars twice daily, keep a log of blood sugar and present this to primary care doctor at your follow-up appointment. Take medications as prescribed. Return to the emergency department as needed for any concerning symptoms. Time Spent: Greater than 30 Minutes
== END 2019-04-02 14:00 | disposition home or self-care (01) ==
LOC: ER 15:38 → EH 22:12 → 5 04-02 00:07
PROVIDERS: ADMIT Emergency Medicine; ATTEND Emergency Medicine
DX: E11.65 Type 2 diabetes mellitus with hyperglycemia (principal); I48.2 Chronic atrial fibrillation; I11.0 Hypertensive heart disease with heart failure; I50.22 Chronic systolic (congestive) heart failure; R79.89 Other specified abnormal findings of blood chemistry; G47.33 Obstructive sleep apnea (adult) (pediatric); R53.83 Other fatigue; D72.829 Elevated white blood cell count, unspecified; E66.01 Morbid (severe) obesity due to excess calories; I42.8 Other cardiomyopathies; M62.81 Muscle weakness (generalized); Z90.49 Acquired absence of other specified parts of digestive tract; Z87.891 Personal history of nicotine dependence; Z83.3 Family history of diabetes mellitus; Z82.49 Family history of ischemic heart disease and other diseases of the circulatory system; Z79.899 Other long term (current) drug therapy; Z79.01 Long term (current) use of anticoagulants
CPT/HCPCS: 93005 ×2; 99285; 36415 ×2; 87086; 84439; 82553 ×2; 82962 ×2; 82550 ×2; 83735; 84443 ×2; 85025; 80053; 81001; 84484 ×2; 84481; 83036; 82803; 80061; 83880; 71046; 93010; G0378 ×2; J3490

== ENCOUNTER 2019-04-17 18:49 | Emergency (ER) | payer OTHER ==
--- NOTE | 2019-04-17 19:22 | ER Document Report ---
ED Medical Screen (RME) - General Chief Complaint: Leg Swelling Stated Complaint: SWELLING Time Seen by Provider: 04/17/19 19:16 Primary Care Provider: [facility] [Primary Care Provider] - Follow up as needed Mode of Arrival: Ambulatory Information source: Patient Notes: This 49-year-old female with history of cardiomyopathy CHF presents today with shortness of breath increased weight gain for the past 3 days. Patient reports she is scheduled for an outpatient procedure which sounds like cardioversion for atrial fib in May. Patient reports she has had some weight gain and gets extremely short of breath just walking to the bathroom and back. No complaints of chest pain. I have greeted and performed a rapid initial assessment of this patient. A comprehensive ED assessment and evaluation of the patient, analysis of test results and completion of the medical decision making process will be conducted by additional ED providers. Dictation of this chart was performed using voice recognition software; therefore, there may be some unintended grammatical errors. TRAVEL OUTSIDE OF THE [place] IN LAST 30 DAYS: No - Related Data Allergies/Adverse Reactions: No Known Allergies Allergy (Verified 01/29/19 07:44) Past Medical History - Social History Chew tobacco use (# tins/day): No Frequency of alcohol use: None Drug Abuse: None Family history: CAD, DM, Malignancy - Past Medical History Cardiac Medical History: Reports: Hx Atrial Fibrillation, Hx Congestive Heart Failure, Hx Hypertension Denies: Hx Coronary Artery Disease, Hx DVT, Hx Heart Attack, Hx Pulmonary Embolism Pulmonary Medical History: Reports: Hx Bronchitis - USUALLY WHEN HEART FAILURE, BRONVHITIS RIGHT AFTER, Hx Sleep Apnea Denies: Hx Asthma, Hx COPD, Hx Pneumonia Neurological Medical History: Denies: Hx Cerebrovascular Accident, Hx Seizures Endocrine Medical History: Reports: Hx Diabetes Mellitus Type 2. Denies: Hx Diabetes Mellitus Type 1, Hx Hyperthyroidism, Hx Hypothyroidism Renal/ Medical History: Denies: Hx Peritoneal Dialysis GI Medical History: Denies: Hx Cirrhosis, Hx Crohn's Disease, Hx Gastroesophageal Reflux Disease, Hx Hepatitis, Hx Ulcerative Colitis Musculoskeltal Medical History: Denies Hx Arthritis, Denies Hx Gout, Reports Hx Musculoskeletal Trauma Skin Medical History: Reports Hx Cellulitis, Denies Hx Eczema, Denies Hx Psoriasis Psychiatric Medical History: Denies: Hx Depression Traumatic Medical History: Reports: Hx Fractures - finger Infectious Medical History: Denies: Hx Hepatitis Past Surgical History: Reports: Hx Appendectomy, Hx Cardiac Catheterization - 2014, Hx Cholecystectomy, Hx Tonsillectomy - Immunizations Immunizations up to date: No Hx Diphtheria, Pertussis, Tetanus Vaccination: Yes History of Influenza Vaccine for 05/2017 - 10/2017 Season: Yes Influenza Administration Date for 05/2017 - 10/2017 Season: 05/07/18 Physical Exam - Vital signs Vitals: Temp Pulse Resp BP Pulse Ox 98.5 F 114 H 18 131/84 H 93 04/17/19 19:07 04/17/19 19:07 04/17/19 19:07 04/17/19 19:07 04/17/19 19:07 Course - Vital Signs Vital signs: Temp Pulse Resp BP Pulse Ox 98.5 F 114 H 18 131/84 H 93 04/17/19 19:07 04/17/19 19:07 04/17/19 19:07 04/17/19 19:07 04/17/19 19:07 Doctor's Discharge - Discharge Referrals: [facility]Primary [facility]] - Follow up as needed
[2019-04-17 20:30] LABS: ABSOLUTE BASOPHILS # (AUTO) 0.2 10^3/uL (0.0-0.2); ABSOLUTE EOSINOPHILS # (AUTO) 0.2 10^3/uL (0.0-0.6); ABSOLUTE LYMPHOCYTES (AUTO) 3.2 10^3/uL (0.5-4.7); ABSOLUTE MONOCYTES (AUTO) 0.8 10^3/uL (0.1-1.4); ABSOLUTE NEUT (AUTO) 8.4 10^3/uL (1.7-8.2); BASOPHILS % (AUTO) 1.2 % (0-2); EOSINOPHILS % (AUTO) 1.8 % (0-6); HEMATOCRIT 38.5 % (36.0-47.0); HEMOGLOBIN 12.4 g/dL (12.0-15.5); LYMPHOCYTES % (AUTO) 24.9 % (13-45); MEAN CORPUSCULAR HGB CONC 32.2 g/dL (32.0-36.0); MEAN CORPUSCULAR VOLUME 87 fl (80-97); MONOCYTES % (AUTO) 6.4 % (3-13); PLATELET COUNT 224 10^3/uL (150-450); RED BLOOD COUNT 4.43 10^6/uL (3.72-5.28); SEGMENTED NEUTROPHILS % (AUTO) 65.7 % (42-78); TOTAL CELLS COUNTED % (AUTO) 100 %; WHITE BLOOD COUNT 12.9 10^3/uL (4.0-10.5)
[2019-04-17 20:40] LABS: PROTHROMBIN TIME 21.1 SEC (11.4-15.4)
[2019-04-17 20:48] LABS: ALBUMIN 3.8 g/dL (3.5-5.0); ALKALINE PHOSPHATASE 49 U/L (38-126); ANION GAP 9 (5-19); ASPARTATE AMINO TRANSFERASE 22 U/L (14-36); BILIRUBIN,DIRECT 0.1 mg/dL (0.0-0.4); BILIRUBIN,TOTAL 1.2 mg/dL (0.2-1.3); BLOOD UREA NITROGEN 23 mg/dL (7-20); CARBON DIOXIDE 28 mmol/L (22-30); CHLORIDE 98 mmol/L (98-107); CREATINE KINASE 66 U/L (30-135); GLUCOSE 198 mg/dL (75-110); POTASSIUM 4.2 mmol/L (3.6-5.0); TOTAL PROTEIN 7.2 g/dL (6.3-8.2)
[2019-04-17 20:49] LABS: PARTIAL THROMBOPLASTIN TIME 36.9 SEC (23.5-35.8)
--- NOTE | 2019-04-17 20:49 | RADIOLOGY REPORT (SQ) ---
EXAM DESCRIPTION: XR CHEST 2 VIEWS COMPLETED DATE/TME: 04/17/2019 19:19 CLINICAL HISTORY: 49 years, Female, sob COMPARISON: 04/01/2019. NUMBER OF VIEWS: 2 TECHNIQUE: Two views PA and lateral of the chest were obtained. LIMITATIONS: None. FINDINGS: Stable enlarged cardiac and mediastinal silhouette. Cardiomegaly Low lung volumes grossly clear without focal opacity, pneumothorax or pleural effusions. The visualized bones are within normal limits. Degenerative change of the thoracic spine. IMPRESSION: No acute cardiopulmonary abnormalities. copyright 2010 [employer]- All Rights Reserved
[2019-04-17 20:59] LABS: TROPONIN I 0.016 ng/mL
--- NOTE | 2019-04-17 22:39 | ER Document Report ---
HPI - HPI Patient complains to provider of: sob, bilateral lower extremity edema, avalos Time Seen by Provider: 04/17/19 19:16 Pain Level: 5 - REPRODUCTIVE Reproductive: DENIES: : Past Medical History - General Information source: Patient - Social History Smoking Status: Never Smoker Chew tobacco use (# tins/day): No Frequency of alcohol use: None Drug Abuse: None Family History: CAD, DM, Hyperlipidemia, Hypertension, Malignancy Patient has suicidal ideation: No Patient has homicidal ideation: No - Past Medical History Cardiac Medical History: Reports: Hx Atrial Fibrillation, Hx Congestive Heart Failure, Hx Hypertension Denies: Hx Coronary Artery Disease, Hx DVT, Hx Heart Attack, Hx Pulmonary Embolism Pulmonary Medical History: Reports: Hx Bronchitis - USUALLY WHEN HEART FAILURE, BRONVHITIS RIGHT AFTER, Hx Sleep Apnea Denies: Hx Asthma, Hx COPD, Hx Pneumonia Neurological Medical History: Denies: Hx Cerebrovascular Accident, Hx Seizures Endocrine Medical History: Reports: Hx Diabetes Mellitus Type 2. Denies: Hx Diabetes Mellitus Type 1, Hx Hyperthyroidism, Hx Hypothyroidism Renal/ Medical History: Denies: Hx Peritoneal Dialysis GI Medical History: Denies: Hx Cirrhosis, Hx Crohn's Disease, Hx Gastroesophageal Reflux Disease, Hx Hepatitis, Hx Ulcerative Colitis Musculoskeletal Medical History: Denies Hx Arthritis, Denies Hx Gout, Reports Hx Musculoskeletal Trauma Skin Medical History: Reports Hx Cellulitis, Denies Hx Eczema, Denies Hx Psoriasis Psychiatric Medical History: Denies: Hx Depression Traumatic Medical History: Reports: Hx Fractures - finger Infectious Medical History: Denies: Hx Hepatitis Past Surgical History: Reports: Hx Appendectomy, Hx Cardiac Catheterization - 2014, Hx Cholecystectomy, Hx Tonsillectomy - Immunizations Immunizations up to date: No Hx Diphtheria, Pertussis, Tetanus Vaccination: Yes Vertical Provider Document - INFECTION CONTROL TRAVEL OUTSIDE OF THE [place] IN LAST 30 DAYS: No Course - Vital Signs Vital signs: Temp Pulse Resp BP Pulse Ox 98.5 F 114 H 18 131/84 H 93 04/17/19 19:07 04/17/19 19:07 04/17/19 19:07 04/17/19 19:07 04/17/19 19:07 - Laboratory Result Diagrams: 04/17/19 20:15 04/17/19 20:15 Laboratory results interpreted by me: 04/17/19 04/17/19 04/17/19 20:15 20:15 20:15 WBC 12.9 H RDW 15.0 H Absolute Neuts (auto) 8.4 H PT APTT Sodium 135.1 L BUN 23 H Glucose 198 H NT-Pro-B Natriuret Pep 2840 H 04/17/19 20:15 WBC RDW Absolute Neuts (auto) PT 21.1 H APTT 36.9 H Sodium BUN Glucose NT-Pro-B Natriuret Pep - EKG Interpretation by Id Rhythm: A.Fib - 111 bpm, no RVR, nonspecific t waves, prolonged qt, no stemi, reviewed by dr martínez, unchanged from prior When compared to previous EKG there are: No significant change Discharge - Discharge Clinical Impression: Hypomagnesemia, AVALOS (dyspnea on exertion), Orthopnea, Peripheral edema, Left against medical advice, Elevated troponin Chest pain Qualifiers: Chest pain type: unspecified Qualified Code(s): R07.9 - Chest pain, unspecified Condition: Fair Disposition: AGAINST MEDICAL ADVICE Instructions: Congestive Heart Failure ([facility]), Edema, Peripheral ([facility]) Additional Instructions: 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 Return for any worsening symptoms. Continue to take your Lasix and spironolactone as prescribed. Call your shell worker, dr chisholm, today for close follow-up. Please return here immediately if you change your mind for further work-up as discussed. Continue to check daily weights. Keep a close check on your blood sugars. Referrals: [facility] [Primary Care Provider] - Follow up as needed
[2019-04-17] MEDS ORDERED: FUROSEMIDE INJ/PF 40 MG/4 ML SDV IV ONE (23:36)
[2019-04-17] MEDS ORDERED: MAGNESIUM SULFATE/D5W 1 GM/100 ML RTUPB IV ONE (23:36)
[2019-04-18 00:01] LABS: FREE T3 3.64 pg/mL (2.77-5.27); FREE T4 (FREE THYROXINE) 1.2 ng/dL (0.78-2.19)
[2019-04-18 00:14] LABS: THYROID STIMULATING HORMONE 3.91 uIU/mL (0.47-4.68)
[2019-04-18 00:43] LABS: APPEARANCE,URINE CLOUDY; BILIRUBIN,URINE NEGATIVE (NEGATIVE); CALCIUM OXALATE CRYSTALS,URINE FEW /HPF; COLOR,URINE YELLOW; GLUCOSE, URINE NEGATIVE (NEGATIVE); KETONES,URINE NEGATIVE (NEGATIVE); LEUKOCYTE ESTERASE,URINE LARGE (NEGATIVE); NITRITE,URINE NEGATIVE (NEGATIVE); PROTEIN,URINE 100 mg/dL (NEGATIVE); URINE SPECIFIC GRAVITY 1.012; UROBILINOGEN,URINE NEGATIVE mg/dL (<2.0)
[2019-04-18] MEDS ORDERED: ASPIRIN 81 MG TABLET, CHEWABLE PO ONE (03:28)
[2019-04-18] MEDS ORDERED: NITROGLYCERIN 2% OINTMENT 1 GM PACKET TP ONE (03:28)
[2019-04-18] MEDS: NITROGLYCERIN 0.4 MG/TAB 25 TAB/BOTTLE SL PRN ×3 (03:52→04:06)
[2019-04-18 06:04] VITALS: BP 125/85
--- NOTE | 2019-04-18 09:34 | EKG REPORT ---
SEVERITY:- ABNORMAL ECG - ATRIAL FIBRILLATION, V-RATE 88-136 NONSPECIFIC T ABNORMALITIES, LATERAL LEADS PROLONGED QT INTERVAL : Confirmed by: Flores Scanlon MD 18-Apr-2019 09:33:36
== END 2019-04-18 05:50 | disposition left against medical advice (07) ==
LOC: ER 18:49
DX: R07.9 Chest pain, unspecified (principal); E83.42 Hypomagnesemia; R06.00 Dyspnea, unspecified; R06.01 Orthopnea; R60.0 Localized edema; R74.8 Abnormal levels of other serum enzymes; R06.02 Shortness of breath; I50.9 Heart failure, unspecified; I11.0 Hypertensive heart disease with heart failure; I48.91 Unspecified atrial fibrillation
CPT/HCPCS: 93005; 99284; 96375; 96365; 36415; 87086; 84439; 82550; 83735; 84443; 85025; 85610; 85730; 87088; 80053; 81001; 84484; 84481; 83880; 71046; 93010; J1940; J3475

== ENCOUNTER 2019-06-23 23:01 | Emergency (ER) | payer OTHER ==
[2019-06-23 23:48] LABS: ABSOLUTE BASOPHILS # (AUTO) 0.1 10^3/uL (0.0-0.2); ABSOLUTE EOSINOPHILS # (AUTO) 0.4 10^3/uL (0.0-0.6); ABSOLUTE LYMPHOCYTES (AUTO) 4.3 10^3/uL (0.5-4.7); ABSOLUTE MONOCYTES (AUTO) 1.2 10^3/uL (0.1-1.4); ABSOLUTE NEUT (AUTO) 8.6 10^3/uL (1.7-8.2); BASOPHILS % (AUTO) 0.5 % (0-2); EOSINOPHILS % (AUTO) 2.4 % (0-6); HEMATOCRIT 42.3 % (36.0-47.0); HEMOGLOBIN 13.8 g/dL (12.0-15.5); LYMPHOCYTES % (AUTO) 29.8 % (13-45); MEAN CORPUSCULAR HEMOGLOBIN 27.9 pg (27.0-33.4); MEAN CORPUSCULAR HGB CONC 32.6 g/dL (32.0-36.0); MEAN CORPUSCULAR VOLUME 86 fl (80-97); MONOCYTES % (AUTO) 8.2 % (3-13); PLATELET COUNT 238 10^3/uL (150-450); RED BLOOD COUNT 4.94 10^6/uL (3.72-5.28); RED CELL DISTRIBUTION WIDTH 16.9 % (11.5-14.0); SEGMENTED NEUTROPHILS % (AUTO) 59.1 % (42-78); TOTAL CELLS COUNTED % (AUTO) 100 %; WHITE BLOOD COUNT 14.6 10^3/uL (4.0-10.5)
[2019-06-23 23:53] LABS: ALKALINE PHOSPHATASE 56 U/L (38-126); ANION GAP 9 (5-19); ASPARTATE AMINO TRANSFERASE 17 U/L (14-36); BILIRUBIN,DIRECT 0.1 mg/dL (0.0-0.4); BILIRUBIN,TOTAL 0.5 mg/dL (0.2-1.3); BLOOD UREA NITROGEN 23 mg/dL (7-20); CALCIUM 9.4 mg/dL (8.4-10.2); CARBON DIOXIDE 29 mmol/L (22-30); CHLORIDE 99 mmol/L (98-107); GLUCOSE 222 mg/dL (75-110); POTASSIUM 4.3 mmol/L (3.6-5.0); TOTAL PROTEIN 7.9 g/dL (6.3-8.2)
--- NOTE | 2019-06-24 00:38 | ER Document Report ---
ED General - General Chief Complaint: Medical Complaint Stated Complaint: CLINIC REFERRAL Time Seen by Provider: 06/24/19 00:30 Primary Care Provider: [facility] [Primary Care Provider] - Follow up as needed Mode of Arrival: Ambulatory Information source: Patient Notes: 49-year-old woman presents to the emergency department with a history of scheduled for outpatient procedure on Monday. States that when she had the preoperative lab work done the white blood cell count was elevated. She says that the nurse called and told her "she needed to get on an antibiotic for treatment of a possible infection". Patient says that she had mild URI symptoms the dates that her labs were performed. She denies cough abdominal pain dysuria or soft tissue infection or masses. She is a known diabetic and has had occasional yeast infections. She does not feel any symptoms at this time. TRAVEL OUTSIDE OF THE [place] IN LAST 30 DAYS: No - Related Data Allergies/Adverse Reactions: No Known Allergies Allergy (Verified 01/29/19 07:44) Past Medical History - Social History Smoking Status: Never Smoker Frequency of alcohol use: Rare Drug Abuse: None Family History: CAD, DM, Hyperlipidemia, Hypertension, Malignancy Patient has suicidal ideation: No Patient has homicidal ideation: No - Past Medical History Cardiac Medical History: Reports: Hx Atrial Fibrillation, Hx Congestive Heart Failure, Hx Hypertension Denies: Hx Coronary Artery Disease, Hx DVT, Hx Heart Attack, Hx Pulmonary Embolism Pulmonary Medical History: Reports: Hx Bronchitis - USUALLY WHEN HEART FAILURE, BRONVHITIS RIGHT AFTER, Hx Sleep Apnea Denies: Hx Asthma, Hx COPD, Hx Pneumonia Neurological Medical History: Denies: Hx Cerebrovascular Accident, Hx Seizures Endocrine Medical History: Reports: Hx Diabetes Mellitus Type 2. Denies: Hx Diabetes Mellitus Type 1, Hx Hyperthyroidism, Hx Hypothyroidism Renal/ Medical History: Denies: Hx Peritoneal Dialysis GI Medical History: Denies: Hx Cirrhosis, Hx Crohn's Disease, Hx Gastroesophageal Reflux Disease, Hx Hepatitis, Hx Ulcerative Colitis Musculoskeletal Medical History: Denies Hx Arthritis, Denies Hx Gout, Reports Hx Musculoskeletal Trauma Skin Medical History: Reports Hx Cellulitis, Denies Hx Eczema, Denies Hx Psoriasis Psychiatric Medical History: Denies: Hx Depression Traumatic Medical History: Reports: Hx Fractures - finger Infectious Medical History: Denies: Hx Hepatitis Past Surgical History: Reports: Hx Appendectomy, Hx Cardiac Catheterization - 2014, Hx Cholecystectomy, Hx Tonsillectomy - Immunizations Immunizations up to date: No Hx Diphtheria, Pertussis, Tetanus Vaccination: Yes Review of Systems - Review of Systems Notes: Constitutional: Negative for fever. HENT: Negative for sore throat. Eyes: Negative for visual changes. Cardiovascular: Negative for chest pain. Respiratory: Negative for shortness of breath. Gastrointestinal: Negative for abdominal pain, vomiting or diarrhea. Genitourinary: Negative for dysuria. Musculoskeletal: Negative for back pain. Skin: Negative for rash. Neurological: Negative for headaches, weakness or numbness. 10 point ROS negative except as marked above and in HPI. Physical Exam - Vital signs Vitals: Temp Pulse Resp BP Pulse Ox 98.2 F 98 20 146/87 H 99 06/23/19 23:06 06/23/19 23:06 06/23/19 23:06 06/23/19 23:06 06/23/19 23:06 - Notes Notes: PHYSICAL EXAMINATION: GENERAL: Obese female in no acute distress HEAD: Atraumatic, normocephalic. EYES: Pupils equal round and reactive to light, extraocular movements intact, s clera anicteric, conjunctiva are normal. ENT: nares patent, oropharynx clear without exudates. Moist mucous membranes. NECK: Normal range of motion, supple without lymphadenopathy LUNGS: Breath sounds clear to auscultation bilaterally and equal. No wheezes rales or rhonchi. HEART: Regular rate and rhythm without murmurs ABDOMEN: Soft, nontender, normoactive bowel sounds. No guarding, no rebound. No masses appreciated. EXTREMITIES: Normal range of motion, no pitting or edema. No cyanosis. NEUROLOGICAL: No focal neurological deficits. Moves all extremities spontaneously and on command. PSYCH: Normal mood, normal affect. SKIN: Warm, Dry, normal turgor, no rashes or lesions noted. Course - Re-evaluation Re-evalutation: 06/24/19 01:33 Patient white blood cell count is elevated 14,000, urine showed leukocyte esterase positive as well as few WBCs. She is a diabetic and for that reason we will treat her empirically as a urine culture is pending. I have discussed this plan with the patient and she is in agreement. Ceftriaxone 1 g IM, followed by Keflex 500 mg p.o. 3 times daily for 7 days. - Vital Signs Vital signs: Temp Pulse Resp BP Pulse Ox 98.4 F 87 18 140/82 H 99 06/24/19 01:52 06/24/19 01:52 06/24/19 01:52 06/24/19 01:52 06/24/19 01:52 - Laboratory Result Diagrams: 06/23/19 23:25 06/23/19 23:25 Laboratory results interpreted by me: 06/23/19 06/23/19 06/24/19 23:25 23:25 00:42 WBC 14.6 H RDW 16.9 H Absolute Neuts (auto) 8.6 H Sodium 136.5 L BUN 23 H Glucose 222 H Urine Protein 30 H Urine Blood SMALL H Ur Leukocyte Esterase TRACE H 06/24/19 04:10 I have reviewed laboratory data and used this information for the treatment decisions regarding the patient. Discharge - Discharge Clinical Impression: Diabetes mellitus type 2 in obese Urinary tract infection Qualifiers: Urinary tract infection type: acute cystitis Hematuria presence: without hemat uria Qualified Code(s): N30.00 - Acute cystitis without hematuria Leukocytosis Qualifiers: Leukocytosis type: lymphocytosis Qualified Code(s): D72.820 - Lymphocytosis (symptomatic) Condition: Good Disposition: HOME, SELF-CARE Instructions: Cephalexin ([facility]), Urinary Tract Infection ([facility]) Additional Instructions: Urine culture and sensitivity was obtained at the hospital, patient with a leukocytosis white count of 14,000, Rocephin 1 g IM followed by a 7-day course of cephalexin 500 mg 3 times daily. Prescriptions: Cephalexin Monohydrate [Keflex 500 mg Capsule] 500 mg PO Q6H 7 Days capsule Referrals: [facility] [Primary Care Provider] - Follow up as needed
[2019-06-24 01:01] LABS: APPEARANCE,URINE SLIGHTLY-CLOUDY; BILIRUBIN,URINE NEGATIVE (NEGATIVE); COLOR,URINE YELLOW; GLUCOSE, URINE NEGATIVE (NEGATIVE); KETONES,URINE NEGATIVE (NEGATIVE); LEUKOCYTE ESTERASE,URINE TRACE (NEGATIVE); NITRITE,URINE NEGATIVE (NEGATIVE); PROTEIN,URINE 30 mg/dL (NEGATIVE); URINE SPECIFIC GRAVITY 1.012; UROBILINOGEN,URINE NEGATIVE mg/dL (<2.0)
[2019-06-24] MEDS ORDERED: CEFTRIAXONE INJ 250 MG VIAL IM ONE (01:31)
[2019-06-24] MEDS ORDERED: LIDOCAINE 1% INJ (10 MG/ML) 10 ML MDV INJ ONE (01:37)
[2019-06-24 01:53] VITALS: BP 140/82
== END 2019-06-24 02:02 | disposition home or self-care (01) ==
LOC: ER 23:01
DX: E11.65 Type 2 diabetes mellitus with hyperglycemia (principal); N30.00 Acute cystitis without hematuria; D72.820 Lymphocytosis (symptomatic); I50.9 Heart failure, unspecified; I11.0 Hypertensive heart disease with heart failure; E66.9 Obesity, unspecified
CPT/HCPCS: 36415; 85025; 80053; 81001; J0696; 87086; 99283

== ENCOUNTER → 2019-07-10 | Outpatient (CLI) | payer OTHER ==
[2019-07-10 11:17] LABS: ALBUMIN 4.1 g/dL (3.5-5.0); ALKALINE PHOSPHATASE 61 U/L (38-126); ANION GAP 10 (5-19); ASPARTATE AMINO TRANSFERASE 17 U/L (14-36); BILIRUBIN,DIRECT 0.1 mg/dL (0.0-0.4); BILIRUBIN,TOTAL 1.1 mg/dL (0.2-1.3); BLOOD UREA NITROGEN 19 mg/dL (7-20); CALCIUM 9.7 mg/dL (8.4-10.2); CARBON DIOXIDE 29 mmol/L (22-30); CHLORIDE 99 mmol/L (98-107); CHOLESTEROL 150.75 mg/dL (0-200); GLUCOSE 183 mg/dL (75-110); POTASSIUM 4.4 mmol/L (3.6-5.0); TOTAL PROTEIN 8.3 g/dL (6.3-8.2); TRIGLYCERIDES 103 mg/dL (<150)
[2019-07-10 11:28] LABS: DIRECT LDL 92 mg/dL (<100)
== END ==
LOC: OD 10:17
DX: E11.8 Type 2 diabetes mellitus with unspecified complications (principal); I10 Essential (primary) hypertension
CPT/HCPCS: 36415; 80053; 80061; 83036; 84443

== ENCOUNTER 2019-07-15 23:56 | Emergency (ER) | payer OTHER ==
[2019-07-16] MEDS ORDERED: IBUPROFEN 800 MG TABLET PO ONE (02:34)
[2019-07-16] MEDS ORDERED: CIPROFLOXACIN HCL/DEXAMETH OTIC DROP 7.5 ML AD ONE (04:00)
--- NOTE | 2019-07-16 04:04 | ER Document Report ---
HPI - HPI Time Seen by Provider: 07/16/19 03:46 Pain Level: 5 Context: Patient is a 49-year-old female that comes to the emergency department for chief complaint of right ear pain. She states this has been worsening for the past 3 days. It started out with tenderness around the ear and then itching, and now pain. She states that she has had some of the ear many times in the past, swims frequently in pools, states this feels the same. She states it is starting to get harder to hear as the pain progresses as well. She denies discharge, headache, fever, nausea/vomiting, or any other complaints. She denies . She tried putting peroxide and then it felt better at first but now has worsened. - CONSTITUTIONAL Constitutional: DENIES: Fever, Chills - EENT EENT: REPORTS: Ear Pain. DENIES: Sore Throat, Eye problems - NEURO Neurology: DENIES: Headache, Weakness, Vision blurred, Dizzinesss / Vertigo - CARDIOVASCULAR Cardiovascular: DENIES: Chest pain - RESPIRATORY Respiratory: DENIES: Trouble Breathing, Coughing - GASTROINTESTINAL Gastrointestinal: DENIES: Abdominal Pain, Black / Bloody Stools - URINARY Urinary: DENIES: Dysuria, Urgency, Frequency - REPRODUCTIVE Reproductive: DENIES: : - MUSCULOSKELETAL Musculoskeletal: DENIES: Extremity pain Past Medical History - General Information source: Patient - Social History Smoking Status: Current Every Day Smoker Chew tobacco use (# tins/day): No Frequency of alcohol use: Rare Drug Abuse: None Lives with: Family Family History: CAD, DM, Hyperlipidemia, Hypertension, Malignancy Patient has suicidal ideation: No Patient has homicidal ideation: No - Past Medical History Cardiac Medical History: Reports: Hx Atrial Fibrillation, Hx Congestive Heart Failure, Hx Hypertension Denies: Hx Coronary Artery Disease, Hx DVT, Hx Heart Attack, Hx Pulmonary Embolism Pulmonary Medical History: Reports: Hx Bronchitis - USUALLY WHEN HEART FAILURE, BRONVHITIS RIGHT AFTER, Hx Sleep Apnea Denies: Hx Asthma, Hx COPD, Hx Pneumonia Neurological Medical History: Denies: Hx Cerebrovascular Accident, Hx Seizures Endocrine Medical History: Reports: Hx Diabetes Mellitus Type 2. Denies: Hx Diabetes Mellitus Type 1, Hx Hyperthyroidism, Hx Hypothyroidism Renal/ Medical History: Denies: Hx Peritoneal Dialysis GI Medical History: Denies: Hx Cirrhosis, Hx Crohn's Disease, Hx Gastroesophageal Reflux Disease, Hx Hepatitis, Hx Ulcerative Colitis Musculoskeletal Medical History: Denies Hx Arthritis, Denies Hx Gout, Reports Hx Musculoskeletal Trauma Skin Medical History: Reports Hx Cellulitis, Denies Hx Eczema, Denies Hx Psoriasis Psychiatric Medical History: Denies: Hx Depression Traumatic Medical History: Reports: Hx Fractures - finger Infectious Medical History: Denies: Hx Hepatitis Past Surgical History: Reports: Hx Appendectomy, Hx Cardiac Catheterization - 2015, Hx Cholecystectomy, Hx Tonsillectomy - Immunizations Immunizations up to date: Yes Hx Diphtheria, Pertussis, Tetanus Vaccination: Yes Vertical Provider Document - CONSTITUTIONAL General Appearance: WD/WN, No Apparent Distress - INFECTION CONTROL TRAVEL OUTSIDE OF THE [place] IN LAST 30 DAYS: No - HEENT HEENT: Atraumatic, Normocephalic. negative: Normal ENT Exam - Right otitis externa with swelling of the ear canal, tympanic membrane difficult to see but appears normal, no discharge. No obvious abscess. Tragus is tender but there is no mastoiditis noted. Left ear unremarkable, oropharyngeal exam, nasal exam, eye exam unremarkable - NECK Neck: Normal Inspection - RESPIRATORY Respiratory: Breath Sounds Normal, No Respiratory Distress - CARDIOVASCULAR Cardiovascular: Regular Rate, Regular Rhythm - GI/ABDOMEN Gastrointestinal: Abdomen Soft, Abdomen Non-Tender - BACK Back: Normal Inspection - MUSCULOSKELETAL/EXTREMETIES Musculoskeletal/Extremeties: MAEW, FROM, Non-Tender - NEURO Level of Consciousness: Awake, Alert, Appropriate Motor/Sensory: No Motor Deficit, No Sensory Deficit - DERM Integumentary: Warm, Dry, No Rash Course - Re-evaluation Re-evalutation: Patient with obvious otitis externa with swelling of the ear canal but no evidence of mastoiditis or other concerning findings. No other reported symptoms. Patient is actually asymptomatic after 800 mg of ibuprofen. Because of the swelling an ear wick was placed using the Ciprodex, provided with [employer], discussed use with the weight, expectations, follow-up, and return precautions. Patient states understanding and agreement with plan. - Vital Signs Vital signs: Temp Pulse Resp BP Pulse Ox 98.1 F 86 20 128/106 H 97 07/16/19 01:09 07/16/19 00:05 07/16/19 01:09 07/16/19 00:05 07/16/19 01:09 Discharge - Discharge Clinical Impression: Otitis externa Qualifiers: Otitis externa type: swimmer's ear Chronicity: acute Laterality: right Qualified Code(s): H60.331 - Swimmer's ear, right ear Condition: Stable Disposition: HOME, SELF-CARE Additional Instructions: Your evaluation shows right-sided otitis externa, infection of the ear canal. Use antibiotics as prescribed, 4 drops twice a day for 1 week. Take ibuprofen and Tylenol together for pain if needed. Use the ear wick, this will fall out on its own in a few days. Follow-up with primary care. Return for any concerning or worsening symptoms including swelling or redness of the ear, fever, vomiting, or any other concerning or worsening symptoms. Referrals: [facility] [Primary Care Provider] - Follow up as needed
[2019-07-16 04:15] VITALS: BP 124/78
== END 2019-07-16 04:14 | disposition home or self-care (01) ==
LOC: ER 23:56
DX: H60.331 Swimmer's ear, right ear (principal); H92.01 Otalgia, right ear; F17.200 Nicotine dependence, unspecified, uncomplicated; I10 Essential (primary) hypertension; E11.9 Type 2 diabetes mellitus without complications
CPT/HCPCS: 99282; J3490